=== PATIENT | male | born 1995 | race Caucasian/White ===

== ENCOUNTER 2022-05-07 21:43 | Emergency (ER) | payer OTHER, SELFPAY ==
[2022-05-07 21:43] VITALS: BP 133/79; PULSE 91; RESP 16; TEMP 36.6; O2SAT 99; BMI 19.5
--- NOTE | 2022-05-07 21:50 | RAD_ITS ---
STUDY: X-RAY - RIGHT HAND REASON FOR EXAM: Male, 27 years old. INJURY TECHNIQUE: 3 view(s) of the hand. COMPARISON: None. FINDINGS: Normal radiocarpal articulation. Normal distal radioulnar joint. Normal visualized carpal bones. Normal carpal articulations Normal carpometacarpal articulation of the thumb. Normal second through fifth carpometacarpal joints. There is an acute, mildly comminuted nondisplaced fracture involving the distal shaft of the fifth metacarpal, with mild palmar angulation of the distal metacarpal fracture fragment. No extension of the fracture line into the fifth metacarpal head or distal articulating surface is identified. Normal metacarpophalangeal joint of the thumb. Normal interphalangeal joint of the thumb. Normal proximal and distal phalanges of the thumb. Normal metacarpophalangeal joints of the second through fifth fingers. Normal proximal and distal interphalangeal joints of the second through fifth fingers. Normal phalanges of the second through fifth fingers. Mild soft tissue swelling surrounds the fifth metacarpal fracture. RAD/Hand Min 3 Views IMPRESSION: Acute boxer''s fracture of the distal right fifth metacarpal. Electronically Signed: Connor Santamaria MD at 22:16 EDT ,
--- NOTE | 2022-05-07 22:33 | EX.ED.UPPERE ---
HPI History of Present Illness Chief Complaint: Upper Extremity Injury Informant: patient Narrative Narrative: Patient had a mechanical slip and fall earlier today. He fell on his right hand and someone on the side or back. He has pain near the proximal aspect of the right small finger. He is right-hand dominant. He denies any other injury. He thought it was dislocated so he tried to straighten it. It is better but is still swollen and mildly sore. Rest makes it better and pressing on it makes it worse. Past medical history includes recurrent pancreatitis that has developed into diabetes., Mild high blood pressure No known allergies PFSH PFSH Home Medications hydrocodone-acetaminophen 5-325mg 5mg-325mg 1 tab PO Q6H PRN pain 3 days #10 tabs 05/07/22 [Rx Last Taken Unknown] Allergy/AdvReac Type Severity Reaction Status Date / Time No Known Allergies Allergy Verified 05/07/22 21:45 ROS ROS ED Eyes Eyes: Denies blurry vision or change in vision Cardiovascular Cardiovascular: Denies chest pain Gastrointestinal Gastrointestinal: Denies abdominal pain Musculoskeletal Musculoskeletal: Reports other Details: Right hand pain. See history of present illness. ; Denies back pain or neck pain Integumentary Denies Abrasions or rash Neurologic Neurologic: Denies paresthesias or weakness EXAM Physical Exam Const Vital Signs: 05/07/22 21:43 Temperature 98 F Temperature Source Temporal Pulse Rate 91 Respiratory Rate 16 Blood Pressure 133/79 H Blood Pressure Mean 97 Pulse Ox 99 Oxygen Delivery Method Room Air Positive well nourished and well developed General Appearance ED: well developed and NAD HEENT normocephalic and atraumatic Resp normal respiratory effort Extremity Extremity Narrative: There is obvious swelling to the dorsum of the right hand overlying the fifth metacarpal. I do not see angular or rotational deformity on exam. His range of motion is slightly limited mostly to due to discomfort. Capillary refill is intact. There is no break in the skin abrasion laceration etc. Neuro Neuro Narrative: No change in sensation. Range of motion is slightly limited due to discomfort. Sensorium / Orientation: alert and oriented to person Motor Exam: strength 5/5 throughout Skin Lesions: no lesions Rashes: no rashes Trauma: no lacerations or abrasions MDM MDM MDM Narrative Medical decision making narrative: Three-view x-ray of his right hand looked at by me and read by radiology. This shows 1/5 metacarpal fracture. There is mild angulation. Plan will be to splint and have follow-up in orthopedics. I explained that this fracture is proximal enough that occasionally they would do surgery on these but they oftentimes heal without. Procedure: Ulnar gutter splint placement I discussed plan and options with patient. We did place a 3 inch fiberglass ulnar gutter splint involving forearm hand and proximal aspect of fourth and fifth/ring and small finger. This was Frankie wrapped. He tolerated this well. He is rechecked afterwards and has good capillary refill. It has hardened completely and he does not feel as though it is too tight. Radiography Diagnostic Testing: Clinical Impression(s) from Imaging Studies Hand X-Ray 05/07/22 21:50 IMPRESSION: Acute boxer''s fracture of the distal right fifth metacarpal. Electronically Signed: Connor Santamaria MD at 22:16 EDT , Procedures Upper Extremity Splints Upper Extremity Splint: Orthoglass and Ulnar gutter Splint Fabrication: Fabricated Location: Right (See MDM) Discharge Plan Triage Chief Complaint: Upper Extremity Injury ED Provider: Terence Cortés Dx/Rx/DC Orders Clinical Impression: Closed fracture of fifth metacarpal bone of right hand Instructions: ED Boxer Fracture Prescriptions: New hydrocodone-acetaminophen 5-325 mg tablet 1 tab PO Q6H PRN (Reason: pain) 3 Days Qty: 10 0RF Primary Care Provider: NOT,DEFINED Referrals: Josesito Chaudhary DO [STAFF PHYSICIAN] - 3-5 Days NOT,DEFINED [Primary Care Provider] - Disposition Disposition: Home, Self Care
== END 2022-05-07 22:52 | disposition home or self-care (01) ==
LOC: ED 22:46
PROVIDERS: Emergency Provider Emergency Medicine; Visit Provider Emergency Medicine
DX: S62.356A Nondisplaced fracture of shaft of fifth metacarpal bone, right hand, initial encounter for closed fracture (principal); W01.0XXA Fall on same level from slipping, tripping and stumbling without subsequent striking against object, initial encounter
CPT/HCPCS: 29125; 73130; 99282

== ENCOUNTER 2025-10-11 19:06 | Emergency (ER) | payer OTHER, SELFPAY ==
[2025-10-11 19:07] VITALS: BP 118/61; PULSE 55; RESP 16; TEMP 36.4; O2SAT 100; BMI 21.6
--- NOTE | 2025-10-11 19:24 | EDS_ITS ---
HPI History of Present Illness Chief Complaint: Laceration Narrative Narrative: Patient is a 30-year-old male presenting to the emergency department for a forearm laceration. Patient states that he was working in the garage and his utility knife slipped causing him to cut his left wrist. He denies any other injuries. He is unsure when his last tetanus vaccine was. [facility] Medical History Type 3c diabetes mellitus Home Medications Medication Instructions Recorded Last Taken Type glucagon 1 mg solution for 1 mg IM UD PRN hypoglycemia 10/11/25 Unknown History injection (Glucagon Emergency Kit) insulin aspart (niacinamide) 0 - 90 unit subcut DAILY 10/11/25 10/11/25 History (U-100) 100 unit/mL subcutaneous solution (Fiasp U-100 Insulin) [id number] 2 cap PO BID 10/11/25 History (pork)36,000-114,000-180k unit capsule,del rel (Creon) [id number] 3 cap PO TIDCM 10/11/2509/17 History (pork)36,000-114,000-180k unit capsule,del rel (Creon) tirzepatide 2.5 mg/0.5 mL 2.5 mg subcut QWEEK 10/11/25 10/06/25 History subcutaneous pen injector (Mounjaro) Allergy/AdvReac Type Severity Reaction Status Date / Time No Known Allergies Allergy Verified 10/11/25 19:09 Surgical History History of partial gastrectomy Hx of splenectomy History of pancreatectomy Hx of cholecystectomy Social History Smoking Status: Former smoker ROS ROS ED ROS Narrative See HPI EXAM Physical Exam Narrative Exam Narrative: Vital signs: Reviewed General: Alert and oriented x 3. No acute distress HEENT: Head is normocephalic and atraumatic, sinuses nontender, pupils equal round and reactive. Nares are patent. Oropharynx and throat exams normal. Neck: Supple without lymphadenopathy nontender Cardiovascular: Regular rate and rhythm, no murmurs. No rubs or gallops. Normal S1 and S2 Respiratory: Clear to auscultation bilaterally. No wheezes, rales, rhonchi Abdominal: Soft and nontender. Normal bowel sounds. No guarding or rebound. Nonsurgical abdomen Extremities: Left radial pulse intact. Sensation and motor intact in the radial, median and ulnar distributions. There is a 3 cm linear laceration vertically to the distal ulnar volar portion of the forearm. This involves subcutaneous tissue. No involvement of deeper structures including tendons. There is active oozing from the wound. No pulsatile bleeding. No visible foreign body on wound exploration. The rest of the physical exam is unremarkable Const Vital Signs: 10/11/25 19:07 10/11/25 20:48 Temperature 97.6 F L 98 F Temperature Source Oral Pulse Rate 55 L 60 Respiratory Rate 16 16 Blood Pressure 118/61 120/71 Blood Pressure Mean 80 87 Pulse Ox 100 100 Oxygen Delivery Method Room Air MDM MDM MDM Narrative Medical decision making narrative: Patient is a 30-year-old male presenting to the emergency department for a wrist laceration. Patient was seen and examined. Vitals are stable. Patient resting bed comfortably no acute distress. Tetanus vaccine was updated. Wound was copiously irrigated by myself. Patient states that he accidentally cut his wrist with a utility knife, do not think he needs an x-ray to evaluate for any foreign body given the injury type. 2% lidocaine with epi was used for anesthetic. After anesthetic, wound was again explored with no foreign body seen. It is fairly superficial with no deep tendon involvement. Hemostasis was achieved after the lidocaine with epi was injected into the wound. 3 4.0 Ethilon simple interrupted sutures were placed without difficulty. Patient tolerated well. Dressing was applied by nursing staff. Patient was given wound care instructions including keeping wound clean and dry and watching for signs of infection which include erythema, purulent drainage, warmth or swelling. Was instructed to have the sutures removed in 7 to 10 days. All questions answered. Patient discharged from the Emergency Department. I do not feel that the patient's evaluation reveals any acute reason for admission at this time. I instructed them to either follow-up with their primary care physician or promptly return to the Emergency Department for reevaluation should symptoms worsen or new symptoms develop. I explained what symptoms would indicate the need to return to the emergency department. Shared decision making was used. The patient voiced understanding of the treatment plan and is agreeable with it. Clinical impression Forearm laceration History & Record Review Discussion w/independent historian: Patient and Family Discharge Plan Triage Chief Complaint: Laceration ED Provider: Adrianna Coffman Dx/Rx/DC Orders Clinical Impression: Forearm laceration Instructions: ED Laceration Extremity Prescriptions: No Action Glucagon Emergency Kit (human) 1 mg recon soln 1 mg IM UD PRN (Reason: hypoglycemia) Fiasp U-100 Insulin 100 unit/mL solution 0 - 90 unit subcut DAILY Patient Comments: VIA INSULIN PUMP Mounjaro 2.5 mg/0.5 mL pen injector 2.5 mg subcut QWEEK Patient Comments: FRIDAYS Creon 36,000-114,000- 180,000 unit capsule,delayed release(DR/EC) 3 cap PO TIDCM Patient Comments: 3 CAPS TIC CM AND 2 CAPS BID WITH SNACKS Creon 36,000-114,000- 180,000 unit capsule,delayed release(DR/EC) 2 cap PO BID Rx Instructions: 3 CAPS TIC CM AND 2 CAPS BID WITH SNACKS Primary Care Provider: Care Physician,No Primary Referrals: Agustina Major MD [Med Staff - Cert Pharmacy Tech, Internal Medicine] - As soon as possible NOT,DEFINED [Non-Staff, None] Activity Restrictions/Additional Instructions: Please watch the cut for signs of infection which include redness, drainage or warmth. You need to have sutures removed in 7 to 10 days. Keep the wound as clean and dry as you can. Your evaluation in the Emergency Department did not reveal any acute reason for admission. However, I want to emphasize that you may be early in the course of a disease process or illness even if it is not present. For this reason you should follow-up within 24 hours for reevaluation with either your primary care physician or if necessary back here in the Emergency Department. You should return to the Emergency Department immediately if your symptoms worsen or new symptoms develop. Print Language: Kiswahili Disposition Disposition: Home, Self Care Discharge Date/Time: 10/11/25 20:55
[2025-10-11] MEDS: Lidocaine 2% /Epi 1:100 (20ml) 20 ML VIAL 10 ML INFILT (19:30)
--- OUTSIDE RECORDS SUMMARY | 2025-10-11 19:50 | XMS RPT_ITS | CCD ---
Author Organization [facility] Care Team Providers Care Parking Manager Name Role Phone Unavailable Primary Care Provider SANTOS Carrillo Referring Unavailable SANTOS JONES Referring Unavailable ELIAS ELLISON Referring Unavailable Unavailable Primary Care Provider UnavailSANTOS Landeros Referring Unavailable PROVIDER, UNKNOWN Referring Unavailable PROVIDER, UNKNOWN Referring Unavailable PROVIDER, UNKNOWN Referring Unavailable PROVIDER, UNKNOWN Referring Unavailable ELIAS ELLISON Referring Unavailable SONDRA MEDRANO Attending Unavailable SANTOS JONES Attending Unavailable ELIAS ELLISON Attending Unavailable SANTOS JONES Attending Unavailable SANTOS JONES Attending Unavailable SONDRA MEDRANO Attending Unavailable SONDRA MEDRANO Referring Unavailable SONDRA MEDRANO Referring Unavailable SANTOS JONES Attending Unavailable Medications Current Medications Medication Drug Class(es) Dates Sig (Normalized) Sig (Original) amylase 144529 unt / lipase 30177 unt / protease [id number] unt delayed release oral capsule (20 sources) Start: 10-15-2021 End: 12-13-2024 ayhmhu-txfrgvhe-pzod ase (CREON) 36,000-114,000- 180,000 unit delayed release capsule Take 3 capsules by mouth three times a day with meals. 2 with snacks (total 10/day) 300 capsule 11 12/13/2024 Active Comment on above: Take 3 capsules by m outh three times daily with meals. 2 with snacks (total 10/day) ascorbic acid 500 mg oral tablet (20 sources) Vitamin C take 500 mg by mouth once daily ascorbic acid (VITAMIN C ORAL) Take 500 mg by mouth once daily. Active Comment on above: Take 500 mg by mouth once daily. Blood-Glucose Meter (ONETOUCH ULTRA2 METER) (4 sources) Start: 05-18-2025 Blood-Glucose Meter (ONETOUCH ULTRA2 METER) Indications: Type 1 diabetes mellitus with hyperglycemia (HCC) Use to check sugars 3 times daily 1 each 05/18/2025 Active Blood-Glucose Sensor (DEXCOM G7 SENSOR) carmle (20 sources) Start: 01-20-2025 Blood-Glucose Sensor (DEXCOM G7 SENSOR) carmel Indications: Poorly controlled type 1 diabetes mellitus with complication (HCC) , Insulin pump status Use 1 sensor every 10 days 9 Each 1 01/20/2025 Active Start: 10-26-2024 End: 01-19-2025 Blood-Glucose Sensor (DEXCOM G7 SENSOR) carmel Indications: Poorly controlled type 1 diabetes mellitus with complication (HCC) , Insulin pump status Use 1 sensor every 10 days 9 Each 1 10/26/2024 01/19/2025 Discontinued Start: 10-26-2024 Blood-Glucose Sensor (DEXCOM G7 SENSOR) carmel Indications: Poorly controlled type 1 diabetes mellitus with complication (HCC) , Insulin pump status Use 1 sensor every 10 days 9 Each 10/26/2024 Active enteric contrast (will be provided with radiology test) (2 sources) Start: 12-13-2024 End: 12-14-2024 enteric contrast (will be provided with radiology test) For CT CHESTABD/PEL W IVCON Routine order Administer, As Directed One Time Only, via Oral, Rectal, both Oral and Rectal, Enteric Tube, Stoma or Indwelling Catheter, Enteric Contrast as designated per enteric contrast guidelines 1 Each 12/13/2024 12/14/2024 Active glucagon (rdna) 1 mg injection (20 sources) Antihypoglycemic Agent Start: 10-27-2023 End: 05-16-2025 glucagon (GLUCAGON EMERGENCY KIT, HUMAN,) 1 mg injection Indications: Type 1 diabetes mellitus with hyperglycemia (HCC) Inject (1)one mg for insulin shock. 2 each 05/16/2025 Active Comment on above: Inject (1)one mg for insulin shock. insulin aspart, human 100 unt/ml injectable solution (20 sources) Insulin Analog Start: 04-04-2024 End: 07-13-2025 insulin aspart U-100 (NOVOLOG U-100 INSULIN ASPART) 100 unit/mL Indications: Type 1 diabetes mellitus with hyperglycemia (HCC) INJECT 100 UNITS DAILY VIA INSULIN PUMP. 40 mL 07/13/2025 Active Start: 02-01-2024 End: 04-01-2024 insulin aspart U-100 (NOVOLO G U-100 INSULIN ASPART) 100 unit/mL Indications: Type 1 diabetes mellitus with hyperglycemia (HCC) TOTAL DAILY DOSE OF 100 UNITS VIA INSULIN PUMP EVERY DAY 40 mL 0 02/01/2024 04/01/2024 Discontinued Start: 12-01-2023 End: 01-29-2024 insulin aspart U-100 (NOVOLO G U-100 INSULIN ASPART) 100 unit/mL Indications: Type 1 diabetes mellitus with hyperglycemia (HCC) TOTAL DAILY DOSE OF 100 UNITS VIA INSULIN PUMP EVERY DAY 40 mL 0 12/01/2023 01/29/2024 Discontinued Start: 10-07-2023 insulin aspart U-100 (NOVOLOG U-100 INSULIN ASPART) 100 unit/mL Indications: Type 1 diabetes mellitus with hyperglycemia (HCC) TOTAL DAILY DOSE OF 100 UNITS VIA INSULIN PUMP EVERY DAY 40 mL 0 10/07/2023 Active Start: 05-12-2023 End: 08-05-2023 insulin aspart U-100 (NOVOLO G U-100 INSULIN ASPART) 100 unit/mL Indications: Type 1 diabetes mellitus with hyperglycemia (HCC) TOTAL DAILY DOSE OF 100 UNITS VIA INSULIN PUMP EVERY DAY 40 mL 0 08/05/2023 Active Start: 04-17-2023 End: 05-12-2023 insulin aspart U-100 (NOVOLO G FLEXPEN U-100 INSULIN) 100 unit/mL (3 mL) Indications: Type 1 diabetes mellitus with hyperglycemia (HCC) Inject subcutaneously. TDD - 100 units. 30 mL 1 05/12/2023 05/12/2023 Discontinued Start: 12-07-2020 End: 01-27-2025 insulin aspart, niacinamide, (FIASP FLEXTOUCH U-100 INSULIN) 100 unit/mL (3 mL) pen Indications: Post-pancreatectomy diabetes (HCC) , Type 1 diabetes mellitus with hyperglycemia (HCC) Take 2-14 units before lunch and dinner 5 Pen 2 12/07/2020 01/27/2025 Discontinued Comment on above: Take 2-14 units befo re lunch and dinner Inject subcutaneousl y. TDD - 100 units. Total daily dose 100 units in the insulin pump TOTAL DAILY DOSE OF 100 UNITS VIA INSULIN PUMP EVERY DAY insulin pump subcutaneous cartridge (OMNIPOD 5 G6-G7 PODS, GEN 5,) crtg (5 sources) Start: 05-16-2025 insulin pump subcutaneous cartridge (OMNIPOD 5 G6-G7 PODS, GEN 5,) crtg Indications: Poorly controlled type 1 diabetes mellitus with complication (HCC) , Insulin pump status Use 1 every 3 days 30 each 1 05/16/2025 Active iv contrast (will be provided with radiology test) (3 sources) Start: 01-10-2025 End: 01-11-2025 iv contrast (will be provided with radiology test) CT PANCREAS W Inject, intravenously, once for 1 dose.No IV access, insert saline lock prior to the beginning of sedation, infusion, injection of imaging exam. Discontinue saline lock post exam. If Pt. has a central line or IVAD, may access for administration according to line specific nursing protocol. Once exam is complete flush line and de-access according to line specific nursing protocol in the CT contrast administration guidelines link. 1 Each 01/10/2025 01/11/2025 Active Start: 12-13-2024 End: 12-14-2024 iv contrast (will be provide d with radiology test) CT Chest ABD/PEL-Inject, intravenously, once for 1 dose.No IV access, insert saline lock prior to the beginning of sedation, infusion, injection of imaging exam. Discontinue saline lock post exam. If Pt. has a central line or IVAD, may access for administration according to line specific nursing protocol. Once exam is complete flush line and de-access according to line specific nursing protocol in the CT contrast administration guidelines link. 1 Each 12/13/2024 12/14/2024 Active Multivitamin capsule (20 sources) take 1 capsule by mo uth once daily Multivitamin capsule Take 1 capsule by mouth once daily. Active take 1 capsule by mouth once donny ly Multivitamin capsule Take 1 capsule by mouth once daily. 0 Active Comment on above: Take 1 capsule by mo uth once daily. Completed/Discontinued Medications Medication Drug Class(es) Dates Sig (Normalized) Sig (Original) Blood-Glucose Sensor (DEXCOM G6 SENSOR) carmel (20 sources) Start: 07-25-2024 End: 10-26-2024 Blood-Glucose Sensor (DEXCOM G6 SENSOR) carmel Indications: Type 1 diabetes mellitus with hyperglycemia (HCC) Apply new sensor every ten (10) days to abdomen. 9 Each 3 07/25/2024 10/26/2024 Discontinued Start: 07-25-2024 Blood-Glucose Sensor (DEXCOM G6 SENSOR) carmel Indications: Type 1 diabetes mellitus with hyperglycemia (HCC) Apply new sensor every ten (10) days to abdomen. 9 Each 3 07/25/2024 Active Start: 10-07-2023 End: 07-24-2024 Blood-Glucose Sensor (DEXCOM G6 SENSOR) carmel Indications: Type 1 diabetes mellitus with hyperglycemia (HCC) Apply new sensor every ten (10) days to abdomen. 9 Each 3 10/07/2023 07/24/2024 Discontinued Start: 10-07-2023 Blood-Glucose Sensor (DEXCOM G6 SENSOR) carmel Indications: Type 1 diabetes mellitus with hyperglycemia (HCC) Apply new sensor every ten (10) days to abdomen. 9 Each 3 10/07/2023 Active Start: 05-12-2023 Blood-Glucose Sensor (DEXCOM G6 SENSOR) carmel Indications: Type 1 diabetes mellitus with hyperglycemia (HCC) Apply new sensor every ten (10) days to abdomen. 9 Each 3 05/12/2023 Active Start: 03-23-2023 End: 05-12-2023 Blood-Glucose Sensor (DEXCOM G6 SENSOR) carmel Indications: Type 1 diabetes mellitus with hyperglycemia (HCC) Apply new sensor every ten (10) days to abdomen. 9 Each 3 03/23/2023 05/12/2023 Discontinued Start: 03-23-2023 Blood-Glucose Sensor (DEXCOM G6 SENSOR) carmel Indications: Type 1 diabetes mellitus with hyperglycemia (HCC) Apply new sensor every ten (10) days to abdomen. 9 Each 3 03/23/2023 Active Start: 01-15-2023 End: 03-23-2023 Blood-Glucose Sensor (DEXCOM G6 SENSOR) carmel Indications: Type 1 diabetes mellitus with hyperglycemia (HCC) Apply new sensor every ten (10) days to abdomen. 9 Each 3 01/15/2023 03/23/2023 Discontinued Start: 01-15-2023 Blood-Glucose Sensor (DEXCOM G6 SENSOR) carmel Indications: Type 1 diabetes mellitus with hyperglycemia (HCC) Apply new sensor every ten (10) days to abdomen. 9 Each 3 01/15/2023 Active Comment on above: Apply new sensor christine ry ten (10) days to abdomen. Blood-Glucose Transmitter (DEXCOM G6 TRANSMITTER) carmel (20 sources) Start: 07-25-2024 End: 10-26-2024 Blood-Glucose Transmitter (DEXCOM G6 TRANSMITTER) carmel Indications: Type 1 diabetes mellitus with hyperglycemia (HCC) Apply new transmitter every 90 days. Clean transmitter with an alcohol swab with each sensor change. 1 Each 3 07/25/2024 10/26/2024 Discontinued Start: 07-25-2024 Blood-Glucose Transmitter (DEXCOM G6 TRANSMITTER) carmel Indications: Type 1 diabetes mellitus with hyperglycemia (HCC) Apply new transmitter every 90 days. Clean transmitter with an alcohol swab with each sensor change. 1 Each 3 07/25/2024 Active Start: 10-07-2023 End: 07-24-2024 Blood-Glucose Transmitter (D EXCOM G6 TRANSMITTER) carmel Indications: Type 1 diabetes mellitus with hyperglycemia (HCC) Apply new transmitter every 90 days. Clean transmitter with an alcohol swab with each sensor change. 1 Each 3 10/07/2023 07/24/2024 Discontinued Start: 10-07-2023 Blood-Glucose Transmitter (DEXCOM G6 TRANSMITTER) carmel Indications: Type 1 diabetes mellitus with hyperglycemia (HCC) Apply new transmitter every 90 days. Clean transmitter with an alcohol swab with each sensor change. 1 Each 3 10/07/2023 Active Start: 05-12-2023 Blood-Glucose Transmitter (DEXCOM G6 TRANSMITTER) carmel Indications: Type 1 diabetes mellitus with hyperglycemia (HCC) Apply new transmitter every 90 days. Clean transmitter with an alcohol swab with each sensor change. 1 Each 3 05/12/2023 Active Start: 04-20-2023 End: 05-12-2023 Blood-Glucose Transmitter (D EXCOM G6 TRANSMITTER) carmel Indications: Type 1 diabetes mellitus with hyperglycemia (HCC) Apply new transmitter every 90 days. Clean transmitter with an alcohol swab with each sensor change. 1 Each 3 04/20/2023 05/12/2023 Discontinued Start: 04-20-2023 Blood-Glucose Transmitter (DEXCOM G6 TRANSMITTER) carmel Indications: Type 1 diabetes mellitus with hyperglycemia (HCC) Apply new transmitter every 90 days. Clean transmitter with an alcohol swab with each sensor change. 1 Each 3 04/20/2023 Active Start: 01-15-2023 End: 04-20-2023 Blood-Glucose Transmitter (D EXCOM G6 TRANSMITTER) carmel Indications: Type 1 diabetes mellitus with hyperglycemia (HCC) Apply new transmitter every 90 days. Clean transmitter with an alcohol swab with each sensor change. 1 Each 3 01/15/2023 04/20/2023 Discontinued Start: 01-15-2023 Blood-Glucose Transmitter (DEXCOM G6 TRANSMITTER) carmel Indications: Type 1 diabetes mellitus with hyperglycemia (HCC) Apply new transmitter every 90 days. Clean transmitter with an alcohol swab with each sensor change. 1 Each 3 01/15/2023 Active Comment on above: Apply new transmitte r every 90 days. Clean transmitter with an alcohol swab with each sensor change. flash glucose sensor (FREESTYLE LAURA 14 DAY SENSOR) kit (20 sources) Start: 03-04-2022 End: 10-26-2024 flash glucose sensor (FREESTYLE LAURA 14 DAY SENSOR) kit Indications: Type 1 diabetes mellitus with hyperglycemia (HCC) For use with reader, 4xdaily 2 Kit 03/04/2022 10/26/2024 Discontinued Start: 03-04-2022 flash glucose sensor (FREESTYLE LAURA 14 DAY SENSOR) kit Indications: Type 1 diabetes mellitus with hyperglycemia (HCC) For use with reader, 4xdaily 2 Kit 03/04/2022 Active Start: 01-20-2022 flash glucose sensor (FREESTYLE LAURA 14 DAY SENSOR) kit Indications: Post-pancreatectomy diabetes (HCC) For use with reader, 4xdaily 4 Kit 01/20/2022 Active Comment on above: For use with reader, 4xdaily 3 ml insulin glargine 100 unt/ml pen injector (20 sources) Insulin Analog Start: 08-05-2022 insulin glargine (LANTUS SOLOSTAR, BASAGLAR KWIKPEN) 100 unit/mL (3 mL) Indications: Post-pancreatectomy diabetes (HCC) , Type 1 diabetes mellitus with hyperglycemia (HCC) 18 units in evening, max daily dose 25 units 5 Each 08/05/2022 Active Start: 06-17-2021 End: 02-10-2025 insulin glargine (LANTUS SUPRIYA OSTAR, BASAGLAR KWIKPEN) 100 unit/mL (3 mL) Indications: Post-pancreatectomy diabetes (HCC) , Type 1 diabetes mellitus with hyperglycemia (HCC) 18 units in evening, max daily dose 25 units 5 Each 08/05/2022 02/10/2025 Discontinued Comment on above: 18 units in evening, max daily dose 25 units 3 ml insulin lispro 100 unt/ml pen injector (4 sources) Insulin Analog Start: 03-04-2022 insulin lispro (HUMALOG KWIKPEN) 100 unit/mL Indications: Type 1 diabetes mellitus with hyperglycemia (HCC) inject 5-30 units with meals up to 100 units a day 10 Pen 5 03/04/2022 Active Start: 07-25-2021 insulin lispro (HUMALOG KWIKPEN) 100 unit/mL inject 5-30 units with meals up to 100 units a day 20 Pen 3 07/25/2021 Active Comment on above: inject 5-30 units wi th meals up to 100 units a day insulin lispro (HUMALOG KWIKPEN) 100 unit/mL (6 sources) Start: 03-04-2022 insulin lispro (HUMALOG KWIKPEN) 100 unit/mL Indications: Type 1 diabetes mellitus with hyperglycemia (HCC) inject 5-30 units with meals up to 100 units a day 10 Pen 5 03/04/2022 Active Comment on above: inject 5-30 units wi th meals up to 100 units a day insulin pump cart,auto,BT,G6/7 (OMNIPOD 5 G6-G7 PODS, GEN 5,) crtg (16 sources) Start: 01-20-2025 End: 05-16-2025 insulin pump cart,auto,BT,G6/7 (OMNIPOD 5 G6-G7 PODS, GEN 5,) crtg Indications: Poorly controlled type 1 diabetes mellitus with complication (HCC) , Insulin pump status Use 1 every 3 days 30 Each 1 01/20/2025 05/16/2025 Discontinued Start: 01-20-2025 insulin pump c art,auto,BT,G6/7 (OMNIPOD 5 G6-G7 PODS, GEN 5,) crtg Indications: Poorly controlled type 1 diabetes mellitus with complication (HCC) , Insulin pump status Use 1 every 3 days 30 Each 1 01/20/2025 Active Start: 10-26-2024 End: 01-19-2025 insulin pump cart,auto,BT,G6 /7 (OMNIPOD 5 G6-G7 PODS, GEN 5,) crtg Indications: Poorly controlled type 1 diabetes mellitus with complication (HCC) , Insulin pump status Use 1 every 3 days 30 Each 1 10/26/2024 01/19/2025 Discontinued Start: 10-26-2024 insulin pump c art,auto,BT,G6/7 (OMNIPOD 5 G6-G7 PODS, GEN 5,) crtg Indications: Poorly controlled type 1 diabetes mellitus with complication (HCC) , Insulin pump status Use 1 every 3 days 30 Each 1 10/26/2024 Active OMNIPOD 5 G6 INTRO KIT, GEN 5, crtg (20 sources) Start: 07-25-2024 End: 10-26-2024 OMNIPOD 5 G6 INTRO KIT, GEN 5, crtg Indications: Type 1 diabetes mellitus with hyperglycemia (HCC) Inject 1 Each subcutaneously as directed. 1 Each 07/25/2024 10/26/2024 Discontinued Start: 07-25-2024 OMNIPOD 5 G6 I NTRO KIT, GEN 5, crtg Indications: Type 1 diabetes mellitus with hyperglycemia (HCC) Inject 1 Each subcutaneously as directed. 1 Each 07/25/2024 Active Start: 05-12-2023 End: 07-24-2024 OMNIPOD 5 G6 INTRO KIT, GEN 5, crtg Indications: Type 1 diabetes mellitus with hyperglycemia (HCC) Inject 1 Each subcutaneously as directed. 1 Each 05/12/2023 07/24/2024 Discontinued Start: 05-12-2023 OMNIPOD 5 G6 I NTRO KIT, GEN 5, crtg Indications: Type 1 diabetes mellitus with hyperglycemia (HCC) Inject 1 Each subcutaneously as directed. 1 Each 0 05/12/2023 Active Start: 01-15-2023 End: 05-12-2023 OMNIPOD 5 G6 INTRO KIT, GEN 5, crtg Indications: Type 1 diabetes mellitus with hyperglycemia (HCC) Inject 1 Each subcutaneously as directed. 1 Each 0 01/15/2023 05/12/2023 Discontinued Start: 01-15-2023 OMNIPOD 5 G6 I NTRO KIT, GEN 5, crtg Indications: Type 1 diabetes mellitus with hyperglycemia (HCC) Inject 1 Each subcutaneously as directed. 1 Each 0 01/15/2023 Active Comment on above: Inject 1 Each subcut aneously as directed. OMNIPOD 5 G6 PODS, GEN 5, crtg (20 sources) Start: 07-25-2024 End: 10-26-2024 OMNIPOD 5 G6 PODS, GEN 5, crtg Indications: Type 1 diabetes mellitus with hyperglycemia (HCC) USE 1 POD EVERY 72 HOURS 30 Each 07/25/2024 10/26/2024 Discontinued Start: 07-25-2024 OMNIPOD 5 G6 P ODS, GEN 5, crtg Indications: Type 1 diabetes mellitus with hyperglycemia (HCC) USE 1 POD EVERY 72 HOURS 30 Each 07/25/2024 Active Start: 01-29-2024 End: 07-25-2024 OMNIPOD 5 G6 PODS, GEN 5, cr tg Indications: Type 1 diabetes mellitus with hyperglycemia (HCC) USE ONE POD EVERY 72 HOURS. 30 Each 1 01/29/2024 07/25/2024 Discontinued Start: 01-29-2024 OMNIPOD 5 G6 P ODS, GEN 5, crtg Indications: Type 1 diabetes mellitus with hyperglycemia (HCC) USE ONE POD EVERY 72 HOURS. 30 Each 1 01/29/2024 Active Start: 12-29-2023 OMNIPOD 5 G6 P ODS, GEN 5, crtg Indications: Type 1 diabetes mellitus with hyperglycemia (HCC) USE ONE POD EVERY 72 HOURS. 10 Each 0 12/29/2023 Active Start: 12-01-2023 End: 12-29-2023 OMNIPOD 5 G6 PODS, GEN 5, cr tg Indications: Type 1 diabetes mellitus with hyperglycemia (HCC) USE ONE POD EVERY 72 HOURS. 10 Each 0 12/01/2023 12/29/2023 Discontinued Start: 10-13-2023 OMNIPOD 5 G6 P ODS, GEN 5, crtg Indications: Type 1 diabetes mellitus with hyperglycemia (HCC) USE 1 POD EVERY 72 HOURS 10 Each 0 10/13/2023 Active Start: 10-07-2023 End: 10-26-2024 OMNIPOD 5 G6 PODS, GEN 5, cr tg Indications: Type 1 diabetes mellitus with hyperglycemia (HCC) Inject 1 Each subcutaneously every 72 hours. (use one pod every 72 hours) 10 Each 10/07/2023 10/26/2024 Discontinued Start: 10-07-2023 OMNIPOD 5 G6 P ODS, GEN 5, crtg Indications: Type 1 diabetes mellitus with hyperglycemia (HCC) Inject 1 Each subcutaneously every 72 hours. (use one pod every 72 hours) 10 Each 10/07/2023 Active Start: 10-07-2023 OMNIPOD 5 G6 P ODS, GEN 5, crtg Indications: Type 1 diabetes mellitus with hyperglycemia (HCC) Inject 1 Each subcutaneously every 72 hours. (use one pod every 72 hours) 10 Each 0 10/07/2023 Active Start: 08-07-2023 OMNIPOD 5 G6 P ODS, GEN 5, crtg Indications: Type 1 diabetes mellitus with hyperglycemia (HCC) USE 1 POD EVERY 72 HOURS 10 Each 0 08/07/2023 Active Start: 05-12-2023 End: 10-26-2024 OMNIPOD 5 G6 PODS, GEN 5, cr tg Indications: Type 1 diabetes mellitus with hyperglycemia (HCC) Inject 1 Each subcutaneously every 72 hours. (use one pod every 72 hours) 6 Each 1 05/12/2023 10/26/2024 Discontinued Start: 05-12-2023 End: 08-07-2023 OMNIPOD 5 G6 PODS, GEN 5, cr tg Indications: Type 1 diabetes mellitus with hyperglycemia (HCC) USE 1 POD EVERY 72 HOURS 5 Each 5 05/12/2023 08/07/2023 Discontinued Start: 05-12-2023 OMNIPOD 5 G6 P ODS, GEN 5, crtg Indications: Type 1 diabetes mellitus with hyperglycemia (HCC) USE 1 POD EVERY 72 HOURS 5 Each 5 05/12/2023 Active Start: 05-12-2023 OMNIPOD 5 G6 P ODS, GEN 5, crtg Indications: Type 1 diabetes mellitus with hyperglycemia (HCC) Inject 1 Each subcutaneously every 72 hours. (use one pod every 72 hours) 6 Each 1 05/12/2023 Active Start: 04-20-2023 End: 05-12-2023 OMNIPOD 5 G6 PODS, GEN 5, cr tg Indications: Type 1 diabetes mellitus with hyperglycemia (HCC) USE 1 POD EVERY 72 HOURS 5 Each 0 04/20/2023 05/12/2023 Discontinued Start: 04-20-2023 End: 05-12-2023 OMNIPOD 5 G6 PODS, GEN 5, cr tg Indications: Type 1 diabetes mellitus with hyperglycemia (HCC) Inject 1 Each subcutaneously every 72 hours. (use one pod every 72 hours) 6 Each 1 04/20/2023 05/12/2023 Discontinued Start: 04-20-2023 OMNIPOD 5 G6 P ODS, GEN 5, crtg Indications: Type 1 diabetes mellitus with hyperglycemia (HCC) Inject 1 Each subcutaneously every 72 hours. (use one pod every 72 hours) 6 Each 1 04/20/2023 Active Start: 04-20-2023 OMNIPOD 5 G6 P ODS, GEN 5, crtg Indications: Type 1 diabetes mellitus with hyperglycemia (HCC) USE 1 POD EVERY 72 HOURS 5 Each 0 04/20/2023 Active Start: 03-23-2023 End: 04-20-2023 OMNIPOD 5 G6 PODS, GEN 5, cr tg Indications: Type 1 diabetes mellitus with hyperglycemia (HCC) Inject 1 Each subcutaneously every 72 hours. (use one pod every 72 hours) 6 Each 1 03/23/2023 04/20/2023 Discontinued Start: 03-23-2023 OMNIPOD 5 G6 P ODS, GEN 5, crtg Indications: Type 1 diabetes mellitus with hyperglycemia (HCC) Inject 1 Each subcutaneously every 72 hours. (use one pod every 72 hours) 6 Each 1 03/23/2023 Active Start: 01-15-2023 End: 03-23-2023 OMNIPOD 5 G6 PODS, GEN 5, cr tg Indications: Type 1 diabetes mellitus with hyperglycemia (HCC) Inject 1 Each subcutaneously every 72 hours. (use one pod every 72 hours) 6 Each 1 01/15/2023 03/23/2023 Discontinued Start: 01-15-2023 OMNIPOD 5 G6 P ODS, GEN 5, crtg Indications: Type 1 diabetes mellitus with hyperglycemia (HCC) Inject 1 Each subcutaneously every 72 hours. (use one pod every 72 hours) 6 Each 1 01/15/2023 Active Comment on above: Inject 1 Each subcut aneously every 72 hours. (use one pod every 72 hours) USE 1 POD EVERY 72 H OURS USE ONE POD EVERY 72 HOURS. 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] Onset: 9 09-13-2019 Chronic Diabetes mellitus with complications (20 sources) Hyperglycemia due to type 1 diabetes mellitus; Translations: [Type 1 diabetes mellitus with hyperglycemia] Onset: Chronic Diabetes mellitus without complication (20 sources) Patient encounter status; Translations: [Type 2 diabetes mellitus without complications] Onset: 9 Resolved: 9 10-27-2023 Chronic Diabetes mellitus without complication (9 sources) Insulin pump present; Translations: [Presence of insulin pump (external) (internal)] Onset: 5 10-27-2023 Episodic Nutritional deficiencies (20 sources) Deficiency of macronutrients; Translations: [Unspecified severe protein-calorie malnutrition] Onset: 9 09-20-2019 Chronic Other bone disease and musculoskeletal deformities (1 source) Disorder of bone; Translations: [Other specified disorders of bone density and structure, unspecified site] 10-12-2023 Episodic Other connective tissue disease (1 source) Decrease in height; Translations: [Loss of height] 10-12-2023 Episodic Other lower respiratory disease (20 sources) Multiple nodules of lung; Translations: [Other nonspecific abnormal finding of lung field] Onset: 9 Resolved: 9 09-13-2019 Episodic Other lower respiratory disease (1 source) Other nonspecific abnormal finding of lung field; Translations: [Lung nodules] Onset: 5 Episodic Other upper respiratory infections (1 source) Sore throat symptom; Translations: [Acute pharyngitis, unspecified] Episodic Pancreatic disorders (not diabetes) (20 sources) Chronic pancreatitis; Translations: [Other chronic pancreatitis] Onset: 9 09-18-2019 Chronic Phlebitis; thrombophlebitis and thromboembolism (4 sources) Portal vein thrombosis; Translations: [Portal vein thrombosis] Onset: 5 01-10-2025 Episodic Past or Other Problems Problem Classification Problem Date Documented Da te Episodic/Chronic Abdominal pain (20 sources) Left upper quadrant pain; Translations: [Left upper quadrant pain] Onset: 11-20-2018 Resolved: 04-12-2019 09-13-2019 Episodic Complications of surgical procedures or medical care (5 sources) Complication of procedure; Translations: [Complication of surgical and medical care, unspecified, initial encounter] Onset: 12-13-2024 12-13-2024 Episodic Diseases of white blood cells (20 sources) Leukocytosis; Translations: [Elevated white blood cell count, unspecified] Onset: 09-13-2019 Resolved: 09-13-2019 09-13-2019 Chronic Influenza (20 sources) Influenza due to Influenza A virus; Translations: [Influenza due to other identified influenza virus with other respiratory manifestations] Onset: 11-17-2017 Resolved: 09-13-2019 09-13-2019 Episodic Intestinal obstruction without hernia (20 sources) Obstruction of small intestine co-occurrent and due to peritoneal adhesions; Translations: [Intestinal adhesions [bands], unspecified as to partial versus complete obstruction] Onset: 07-19-2019 Resolved: 09-13-2019 09-13-2019 Episodic Other bone disease and musculoskeletal deformities (1 source) Other specified disorders of bone density and structure, unspecified site; Translations: [Bone loss] Onset: 12-01-2023 Episodic Other disorders of stomach and duodenum (20 sources) Pyloric obstruction; Translations: [Adult hypertrophic pyloric stenosis] Onset: 09-17-2019 09-17-2019 Episodic Other gastrointestinal disorders (20 sources) Intra-abdominal collection; Translations: [Other ascites] Onset: 09-14-2019 09-14-2019 Episodic Other liver diseases (20 sources) Elevated liver enzymes level; Translations: [Abnormal levels of other serum enzymes] Onset: 09-13-2019 09-13-2019 Episodic Other screening for suspected conditions (not mental disorders or infectious disease) (7 sources) Patient encounter status; Translations: [Encounter for screening for osteoporosis] Onset: 12-01-2023 10-12-2023 Episodic Pancreatic disorders (not diabetes) (20 sources) Acute on chronic pancreatitis; Translations: [Acute pancreatitis without necrosis or infection, unspecified] Onset: 11-17-2017 Resolved: 04-12-2019 04-12-2019 Episodic Residual codes; unclassified (20 sources) Delirium; Translations: [Disorientation, unspecified] Onset: 03-22-2019 Resolved: 09-13-2019 09-13-2019 Episodic Results Test Name Value Interpretation Reference Range Facility [facility] 07-21-2025 CNOV Office Visit (PULMWS ) -------- VILMA RANKIN ([id number]) 1995 M Date Time Provider Department 07/21/25 2:45 PM SONDRA MEDRANO During your visit today, we recorded the following information about you: Pulse Blood pressure Weight Height 71/minute 145/81 76.3 kg 1.803 m Sondra Medrano MD 07/21/2025 3:11 PM Signed . [facility] [place] Note Patient name: Vilma Rankin PCP: No primary care provider on file. Referring physician: Elias Nichole MD CC: lung nodules HPI: Vilma Rankin 30 year old male never smoker with chronic pancreatitis s/p pancreatectomy, splenectomy and auto islet cell transplant 2019, type 1 diabetes, osteoporosis, CFTR/CSSR mutation and pulmonary nodules. Has history of nodules dating back to 2018, majority were present at that time. Recent abdominal CT noted nodules which prompted full chest CT showed more nodules compared to 2018 (although this was a CTA) and increased interfissural nodularity. Repeated CT which he presents today to review. Stable nodules, no new nodules, right intrapulmonary lymph nodes have almost disappeared. No respiratory symptoms. Imaging / Diagnostic Studies: DATE OF EXAM: Jun 19 2025 3:04PM [facility] 0541 - CT CHEST WO IVCON / [facility] 0541 - CT CHEST IVCON / Comparison: 01/05/2025 RESULT: Limitations: None. Lines, tubes, and devices: None. Lung parenchyma and airways: Again seen are multiple pulmonary nodules, many of which are stable. For example, there is a stable, approximately 7 mm subpleural nodule within the posterior segment of the right upper lobe (series 5, image #73). Other pulmonary nodules have improved in size in the interval. For example, a nodular densities seen adjacent to the fissures have improved in size. For example, a nodular density seen adjacent to the right major fissure currently measures approximately 5 mm in short axis dimension, previously 7 mm (series 5, image #117). No new pulmonary nodule is identified on today's examination. There is no pneumothorax or endobronchial lesion. Pleural space: There is no pleural effusion. Lower neck, lymph nodes, and mediastinum: Prominent soft tissue density in the anterior mediastinum likely relates to residual or reactive thymic tissue. There are no pathologically enlarged axillary lymph nodes. Prominent, less than 1 cm mediastinal and bilateral hilar lymph nodes are likely reactive. Heart, pericardium, and thoracic vessels: The heart is normal in size. No significant pericardial effusion. Bones and soft tissues: There is no destructive bone lesion. Upper abdomen: Contents are seen within the distended stomach. Stable postoperative changes. Moderate to large stool burden. Again seen is pneumobilia. IMPRESSION: Multiple pulmonary nodules, the majority of which are stable. The nodules adjacent to the fissures are improved in size in the interval. No new pulmonary nodule is identified. Prominent, less than 1 cm mediastinal and bilateral hilar lymph nodes, likely reactive. Chest CT 2018: PAST MEDICAL HISTORY Diagnosis Date Delirium 03/22/2019 Diabetes mellitus type 1, controlled, without complications (HCC) 06/29/2019 Influenza A 11/17/2017 Insulin dependent diabetes mellitus Lung nodules 09/13/2019 Malnutrition of moderate degree (HCC) 11/22/2018 Pancreatitis (HCC) 2017 (Nov) Small bowel obstruction due to adhesions (HCC) 07/19/2019 ALLERGIES No Known Allergies insulin aspart U-100 (NOVOLOG U-100 INSULIN ASPART) 100 unit/mL INJECT 100 UNITS DAILY VIA INSULIN PUMP. Lancets (60mo ULTRASOFT LANCETS) Use to check sugars 3 times daily blood sugar diagnostic (Glide HealthUCH ULTRA TEST) test strip Use to check sugars 3 times daily Blood-Glucose Meter (60mo ULTRA2 METER) Use to check sugars 3 times daily glucagon (GLUCAGON EMERGENCY KIT, HUMAN,) 1 mg injection Inject (1)one mg for insulin shock. insulin pump subcutaneous cartridge (OMNIPOD 5 G6-G7 PODS, GEN 5,) crtg Use 1 every 3 days Lancing Device with Lancets (ACCU-CHEK FASTCLIX LANCING DEV) Use to check sugars 4 times daily Blood-Glucose Sensor (DEXCOM G7 SENSOR) carmel Use 1 sensor every 10 days fxjuog-rnyoobud-aqscvnv (CREON) 36,000-114,000- 180,000 unit delayed release capsule Take 3 capsules by mouth three times a day with meals. 2 with snacks (total 10/day) Multivitamin capsule Take 1 capsule by mouth once daily. ascorbic acid (VITAMIN C ORAL) Take 500 mg by mouth once daily. SOCIAL HISTORY[1] FAMILY HISTORY Problem Relation Age of Onset Cancer Mother breast cancer other (Other) Other Maunt x2- breast cancer PAST SURGICAL HISTORY Procedure Laterality Date ESOPHAGOGASTRODUODENOSCO PY TRANSORAL DIAGNOSTIC 04/26/2020 EGD ISLET CELL TRANSPLANT LAPARCOPIC LYSIS OF ADHESIONS For small bowel obstruction OTHER (more content not included)... Normal [facility] CT CHEST WO IVCONon 06-19-[address] CHEST WO IVCON * * *Final Report* * * DATE OF EXAM: Jun 19 2025 3:04PM [facility] 0541 - CT CHEST WO IVCON / PROCEDURE REASON: Lung nodules * * * * Physician Interpretation * * * * EXAMINATION: CHEST CT WITHOUT CONTRAST CLINICAL HISTORY: Lung nodules Technique: Spiral CT acquisition of the chest from the thoracic inlet to the upper abdomen without contrast. MQ: CTCWO_6 CT Radiation dose: Integrated Dose-length product (DLP) for this visit = 204 mGy*cm CT Dose Reduction Employed: Automated exposure control(AEC) and iterative recon Comparison: 01/05/2025 RESULT: Limitations: None. Lines, tubes, and devices: None. Lung parenchyma and airways: Again seen are multiple pulmonary nodules, many of which are stable. For example, there is a stable, approximately 7 mm subpleural nodule within the posterior segment of the right upper lobe (series 5, image #73). Other pulmonary nodules have improved in size in the interval. For example, a nodular densities seen adjacent to the fissures have improved in size. For example, a nodular density seen adjacent to the right major fissure currently measures approximately 5 mm in short axis dimension, previously 7 mm (series 5, image #117). No new pulmonary nodule is identified on today's examination. There is no pneumothorax or endobronchial lesion. Pleural space: There is no pleural effusion. Lower neck, lymph nodes, and mediastinum: Prominent soft tissue density in the anterior mediastinum likely relates to residual or reactive thymic tissue. There are no pathologically enlarged axillary lymph nodes. Prominent, less than 1 cm mediastinal and bilateral hilar lymph nodes are likely reactive. Heart, pericardium, and thoracic vessels: The heart is normal in size. No significant pericardial effusion. Bones and soft tissues: There is no destructive bone lesion. Upper abdomen: Contents are seen within the distended stomach. Stable postoperative changes. Moderate to large stool burden. Again seen is pneumobilia. IMPRESSION: Multiple pulmonary nodules, the majority of which are stable. The nodules adjacent to the fissures are improved in size in the interval. No new pulmonary nodule is identified. Prominent, less than 1 cm mediastinal and bilateral hilar lymph nodes, likely reactive. Bottle Assembler: JO Transcribe Date/Time: Jun 19 2025 3:57P Dictated by : SANTHOSH FERNANDEZ MD This examination was interpreted and the report reviewed and electronically signed by: SANTHOSH FERNANDEZ MD on Jun 19 2025 4:04PM EST [id number] Normal [facility] CT Chest WO contraston 06-19 IMPRESSION: Multiple pulmonary nodules, the majority of which are stable. The nodules adjacent to the fissures are improved in size in the interval. No new pulmonary nodule is identified. Prominent, less than 1 cm mediastinal and bilateral hilar lymph nodes, likely reactive. Bottle Assembler: PSCDavid Transcribe Date/Time: Jun 19 2025 3:57P Dictated by : SANTHOSH FERNANDEZ MD This examination was interpreted and the report reviewed and electronically signed by: SANTHOSH FERNANDEZ MD on Jun 19 2025 4:04PM EST DIVISION OF RADIOLOGY * * *Final Report* * * DATE OF EXAM: Jun 19 2025 3:04PM [facility] 0541 - CT CHEST WO IVCON / PROCEDURE REASON: Lung nodules * * * * Physician Interpretation * * * * EXAMINATION: CHEST CT WITHOUT CONTRAST CLINICAL HISTORY: Lung nodules Technique: Spiral CT acquisition of the chest from the thoracic inlet to the upper abdomen without contrast. MQ: CTCWO_6 CT Radiation dose: Integrated Dose-length product (DLP) for this visit = 204 mGy*cm CT Dose Reduction Employed: Automated exposure control(AEC) and iterative recon Comparison: 01/05/2025 RESULT: Limitations: None. Lines, tubes, and devices: None. Lung parenchyma and airways: Again seen are multiple pulmonary nodules, many of which are stable. For example, there is a stable, approximately 7 mm subpleural nodule within the posterior segment of the right upper lobe (series 5, image #73). Other pulmonary nodules have improved in size in the interval. For example, a nodular densities seen adjacent to the fissures have improved in size. For example, a nodular density seen adjacent to the right major fissure currently measures approximately 5 mm in short axis dimension, previously 7 mm (series 5, image #117). No new pulmonary nodule is identified on today's examination. There is no pneumothorax or endobronchial lesion. Pleural space: There is no pleural effusion. Lower neck, lymph nodes, and mediastinum: Prominent soft tissue density in the anterior mediastinum likely relates to residual or reactive thymic tissue. There are no pathologically enlarged axillary lymph nodes. Prominent, less than 1 cm mediastinal and bilateral hilar lymph nodes are likely reactive. Heart, pericardium, and thoracic vessels: The heart is normal in size. No significant pericardial effusion. Bones and soft tissues: There is no destructive bone lesion. Upper abdomen: Contents are seen within the distended stomach. Stable postoperative changes. Moderate to large stool burden. Again seen is pneumobilia. DIVISION OF RADIOLOGY Provider, [facility] - 06/19/2025 * * *Final Report* * * DATE OF EXAM: Jun 19 2025 3:04PM [facility] 0541 - CT CHEST WO IVCON / PROCEDURE REASON: Lung nodules * * * * Physician Interpretation * * * * EXAMINATION: CHEST CT WITHOUT CONTRAST CLINICAL HISTORY: Lung nodules Technique: Spiral CT acquisition of the chest from the thoracic inlet to the upper abdomen without contrast. MQ: CTCWO_6 CT Radiation dose: Integrated Dose-length product (DLP) for this visit = 204 mGy*cm CT Dose Reduction Employed: Automated exposure control(AEC) and iterative recon Comparison: 01/05/2025 RESULT: Limitations: None. Lines, tubes, and devices: None. Lung parenchyma and airways: Again seen are multiple pulmonary nodules, many of which are stable. For example, there is a stable, approximately 7 mm subpleural nodule within the posterior segment of the right upper lobe (series 5, image #73). Other pulmonary nodules have improved in size in the interval. For example, a nodular densities seen adjacent to the fissures have improved in size. For example, a nodular density seen adjacent to the right major fissure currently measures approximately 5 mm in short axis dimension, previously 7 mm (series 5, image #117). No new pulmonary nodule is identified on today's examination. There is no pneumothorax or endobronchial lesion. Pleural space: There is no pleural effusion. Lower neck, lymph nodes, and mediastinum: Prominent soft tissue density in the anterior mediastinum likely relates to residual or reactive thymic tissue. There are no pathologically enlarged axillary lymph nodes. Prominent, less than 1 cm mediastinal and bilateral hilar lymph nodes are likely reactive. Heart, pericardium, and thoracic vessels: The heart is normal in size. No significant pericardial effusion. Bones and soft tissues: There is no destructive bone lesion. Upper abdomen: Contents are seen within the distended stomach. Stable postoperative changes. Moderate to large stool burden. Again seen is pneumobilia. IMPRESSION IMPRESSION: Multiple pulmonary nodules, the majority of which are stable. The nodules adjacent to the fissures are improved in size in the interval. No new pulmonary nodule is identified. Prominent, less than 1 cm mediastinal and bilateral hilar lymph nodes, likely reactive. Bottle Assembler: PSCB Transcribe Date/Time: Jun 19 2025 3:57P Dictated by : SANTHOSH FERNANDEZ MD This examination was interpreted and the report reviewed and electronically signed by: SANTHOSH FERNANDEZ MD on Jun 19 2025 4:04PM EST [facility] Radiology Study observation (narrative) [facility] CT Chest WO contrastOrdered By: Ccf Provider on 06-19-2025 [facility] CNPNon 05-18-2025 CNPN Telephone (ENDOMN) -------- VILMA RANKIN ([id number]) 1995 M Date Time Provider Department 05/18/25 SANTOS JONES During your visit today, we recorded the following information about you: Esperanza Kaufman 05/18/2025 3:42 PM Signed May 18, 2025 3:39 PM Last encounter Visit on 05/09/2025 (with Santos Jones) Amadeo Scott called regarding Accu-chek Graciela plus and the accu-check fast clix that was sent over May 16. His insurance no longer covers that. He can receive Freestyle or One Touch under his insurance per the pharmacy. He will need the strips/ meter and Lancets. Amadeo Scott listed. 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[employer] Endo Main F-20 Allergies As of Date: 05/18/2025 (No Known Allergies) Date Reviewed: 05/09/2025 Reviewed by: Fara Prado MA - Fully Assessed Reason for Visit: Patient Update [1234] Primary Visit Diagnosis:Type 1 diabetes mellitus with hyperglycemia (HCC) [E10.65] Order(s):Lancets (ONETOUCH ULTRASOFT LANCETS)Use to check sugars 3 times dailyDisp: 300 eachRfl: 1 blood sugar diagnostic (ONETOUCH ULTRA TEST) test stripUse to check sugars 3 times dailyDisp: 300 eachRfl: 1 Blood-Glucose Meter (ONETOUCH ULTRA2 METER)Use to check sugars 3 times dailyDisp: 1 eachRfl: 0 Prescriptions as of 05/22/2025 - Lancets (ONETOUCH ULTRASOFT LANCETS) Use to check sugars 3 times daily - blood sugar diagnostic (ONETOUCH ULTRA TEST) test strip Use to check sugars 3 times daily - Blood-Glucose Meter (ONETOUCH ULTRA2 METER) Use to check sugars 3 times daily - glucagon (GLUCAGON EMERGENCY KIT, HUMAN,) 1 mg injection Inject (1)one mg for insulin shock. - insulin pump subcutaneous cartridge (OMNIPOD 5 G6-G7 PODS, GEN 5,) crtg Use 1 every 3 days - insulin aspart U-100 (NOVOLOG U-100 INSULIN ASPART) 100 unit/mL INJECT 100 UNITS DAILY VIA INSULIN PUMP. - Lancing Device with Lancets (ACCU-CHEK FASTCLIX LANCING DEV) Use to check sugars 4 times daily - Blood-Glucose Sensor (DEXCOM G7 SENSOR) carmel Use 1 sensor every 10 days - wixxxo-fjbuikcc-ysuayso (CREON) 36,000-114,000- 180,000 unit delayed release capsule Take 3 capsules by mouth three times a day with meals. 2 with snacks (total 10/day) - Multivitamin capsule Take 1 capsule by mouth once daily. - ascorbic acid (VITAMIN C ORAL) Take 500 mg by mouth once daily. 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, E89.*04/12/2019 Diabetes mellitus type 1, controlled, without c*06/29/2019 09/13/2019 Small bowel obstruction due to adhesions (HCC) *07/19/2019 09/13/2019 Left upper quadrant pain [R10.12] 09/13/2019 Insulin dependent diabetes mellitus (HCC) [IMO0*09/13/2019 09/13/2019 Leukocytosis [D72.829] 09/13/2019 09/13/2019 Elevated liver enzymes [R74.8] 09/13/2019 Lung nodules [R91.8] 09/13/2019 09/13/2019 Abdominal fluid collection [R18.8] 09/14/2019 Gastric outlet obstruction [K31.1] 09/17/2019 Prescriptions ordered this encounter Disp Refills Start End LANCETS 300 * 1 05/18/2025 Sig: Use to check sugars 3 times daily BLOOD SUGAR DIAGNOSTIC STRIPS 300 * 1 05/18/2025 Sig: Use to check sugars 3 times daily BLOOD-GLUCOSE METER 1 ea* 0 05/18/2025 Sig: Use to check sugars 3 times daily Medications Discontinued During This Encounter Prescriptions - lancets (ONE TOUCH DELICA) 33 gauge (Discontinued) Use 3 a day - blood sugar diagnostic (ACCU-CHEK GRACIELA PLUS TEST STRP) test strip (Discontinued) Use to check sugars 4 times daily Encounter Status:Closed by ESPERANZA KAUFMAN on 05/22/25 [facility] CNOVon 05-09-2025 CNOV Office Visit (ENDCMN ) -------- VILMA RANKIN ([id number]) 1995 M Date Time Provider Department 05/09/25 1:40 PM [facility] your visit today, we recorded the following information about you: Pulse Blood pressure Weight 53/minute 118/66 76.5 kg Fara Prado MA 05/09/2025 1:30 PM Signed Thank you for choosing the [facility] Department of Endocrinology, Diabetes and Metabolism. Did you know that you need to call 48 hours in advance of your scheduled visit, if you are unable to make your appointment? The Endocrinology and Metabolism [place] thanks you for your commitment, because patients not showing to their appointment results in a lost opportunity for patients to receive [facility] health care at the [facility]. To Cancel an appointment, please choose one of the following: - Call the Appointment Call Center at [phone] - From [employer], Go to Appointments - Cancel Appts If cancelling, consider your need to reschedule to prevent further delays in your care. To Schedule an appointment, please choose one of the following: - Call the Appointment Call Center at [phone] - From [employer], Go to Appointments - Request an Appt Santos Jones MD 05/09/2025 2:38 PM Signed [facility] Follow-up visit Vilma Rankin is here for follow-up regarding type 1 diabetes: HISTORY OF PRESENT ILLNESS: Vilma Rankin is a 30 year old male with PMH of pancreatitis, poorly controlled T3cD s/p TPAIT 03/2019 who presents today for follow up of type 1 diabetes. 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 Eyes: Negative for visual disturbance. Respiratory: Negative for difficulty breathing. Cardiovascular: Negative for chest pain and leg swelling. Gastrointestinal: Negative for nausea, vomiting, abdominal pain, diarrhea and constipation. Musculoskeletal: Positive for myalgias. Neurological: Negative for dizziness, headaches and numbness. Answers submitted by the patient for this visit: Core Review of Systems (Submitted on 05/03/2025) Fever : No Nasal Congestion: No Hearing Loss: No A cough: No Irregular heartbeat: No Black tarry stools: No Difficulty Urinating?: No Awaken at Night More Than Once to Urinate?: No Joint pain or stiffness: No Leg or Foot Discomfort at Night?: No A rash: No Memory Loss: No Seizures: No PAST HISTORY: PAST MEDICAL HISTORY Diagnosis Date Delirium 03/22/2019 Diabetes mellitus type 1, controlled, without complications (HCC) 06/29/2019 Influenza A 11/17/2017 Insulin dependent diabetes mellitus Lung nodules 09/13/2019 Malnutrition of moderate degree (HCC) 11/22/2018 Pancreatitis 2017 (Ben) Small bowel obstruction due to adhesions ([facility]) 07/19/2019 PAST SURGICAL HISTORY Procedure Laterality Date ESOPHAGOGASTRODUODENOSCO PY TRANSORAL DIAGNOSTIC 04/26/2020 EGD ISLET CELL TRANSPLANT LAPARCOPIC LYSIS OF ADHESIONS For small bowel obstruction 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 SPLENECTOMY TOTAL SEPARATE PROCEDURE Splenectomy Current Outpatient Medications Medication Sig Dispense Refill insulin aspart U-100 (NOVOLOG U-100 INSULIN ASPART) 100 unit/mL INJECT 100 UNITS DAILY VIA INSULIN PUMP. 40 mL 0 Blood-Glucose Sensor (DEXCOM G7 SENSOR) carmel Use 1 sensor every 10 days 9 Each 1 insulin pump cart,auto,BT,G6/7 (OMNIPOD 5 G6-G7 PODS, GEN 5,) crtg Use 1 every 3 days 30 Each 1 okxhxy-hyvnoxdj-glzmxuz (CREON) 36,000-114,000- 180,000 unit delayed release capsule Take 3 capsules by mouth three times a day with meals. 2 with snacks (total 10/day) 300 capsule 11 glucagon (GLUCAGON EMERGENCY KIT, HUMAN,) 1 mg injection Inject (1)one mg for insulin shock. 2 Each 1 Multivitamin capsule Take 1 capsule by mouth once daily. ascorbic acid (VITAMIN C ORAL) Take 500 mg by mouth once daily. blood sugar diagnostic (ONETOUCH VERIO) test strip Before meals and at bedtime 150 Strip 2 lancets (ONE TOUCH DELICA) 33 gauge misc 1 application before meals and at bedtime. 150 Each 2 No current facility-administered medications for this visit. ALLERGIES No Known Allergies FAMILY HISTORY Problem Relation Age of O (more content not included)... Normal [facility] GLOOKO ON DEMANDon Ordered by an unspecified provider. [facility] HEMOGLOBIN A1C (POC)on 05-09 HbA1c (Bld) [Mass fraction] 7.8 % Abnormal 4.3 - 5.6 % [facility] Comment on above: Location:[facility], [address] [place] [address], [facility] Point of care (POC) Hemoglobin A1c (HGBA1C) testing is intended to assess glucose control and provide a management tool for patients known to have diabetes and their healthcare providers. Target HGBA1C levels may depend on specific clinical circumstances. POC HGBA1C is not intended for use as a diagnostic or screening test; laboratory-based testing should be used for diagnostic purposes. The following information is supplemental and may not be applicable to specific diabetes management situations: The POC device intake rn provides a normal range of 4.2% to 6.5% for the HGBA1C POC test. However, the [place] Diabetes Association guidelines indicate that patients with HGBA1C in the range of 5.7% to 6.4% are at increased risk for development of diabetes and that intervention by lifestyle modification may be beneficial. A HGBA1C level greater than or equal to 6.5% is considered diagnostic of diabetes, pending confirmatory testing. Use of HGBA1C testing to evaluate glucose control may not be appropriate for patients with hemoglobin variants or other conditions (e.g. anemia) that alter red blood cell lifespan. Interpretation and review of laboratory results Abnormal [facility] CT PANCREAS W IVCONon 2024 CT PANCREAS W IVCON * * *Final Report* * * DATE OF EXAM: Mar 13 2025 4:53PM [facility] [place] PAN[place]AS W IVCON / PROCEDURE REASON: L79-Ndbers vein thrombosis * * * * Physician Interpretation * * * * EXAMINATION: CT PANCREAS WITH IV CONTRAST CLINICAL HISTORY: Follow portal vein thrombus TECHNIQUE: CT of the abdomen was performed using standard technique, scanning from just above the dome of the diaphragm to the iliac crest. Imaging was performed during arterial and portal venous phases per CT pancreas protocol. MQ: CTAbdW_4 Contrast: IV: 100 ml of Omnipaque 350 : ml of CT Radiation dose: Integrated Dose-length product (DLP) for this visit = 328 mGy*cm. CT Dose Reduction Employed: Automated exposure control(AEC) and iterative recon COMPARISON: CT abdomen and pelvis 01/05/2025 RESULT: Liver: No mass. Biliary: No bile duct dilation. Gallbladder is absent. Spleen: Absent Pancreas: Postoperative changes from pancreatectomy with islet cell transplant Adrenals:No mass. Kidneys: The kidneys enhance symmetrically. No hydronephrosis. GI tract: No dilation or wall thickening. Lymph nodes: No abdominal lymphadenopathy. Mesentery/Peritoneum: No ascites or mass. Retroperitoneum: No mass. Vasculature: - Abdominal aorta: No aneurysm. - Celiac and SMA: Patent without stenosis. - Portal venous system (SMV, splenic vein, portal vein and branches): Patent. - Hepatic veins: Patent. Bones/Soft Tissues: No significant finding. Lower thorax: No pleural effusion or consolidation Localizer images: No additional findings. 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 Author Type: Registered Nurse Type: Nursing Progress Note Filed: 03/13/2025 16:42 Note Text: Radiology Service Progress Note DATE OF SERVICE: March 13, 2025 TIME: 4:42 PM PATIENT WEIGHT: 159LBS PATIENT IDENTITY VERIFICATION COMPLETED USING TWO (2) STANDARD IDENTIFIERS: Name and Date of confirmed by patient verbally and Name and Date of confirmed by identification band. FALL SCREENING: Has the patient had 2 falls in the last year or 1 fall with injury or currently using an Ambulatory Assistive Device (Walker, Cane, Wheelchair, Crutches, etc.)? No PATIENT GENDER DATA: ALLERGIES: Reviewed and unchanged CONTRAST ALLERGY: No EXAM: CT -CONTRAST INDUCED NEPHROPATHY RISK FACTORS: Not applicable CREATININE: Creatinine Date Value Ref Range Status 01/26/2025 0.88 0.73 - 1.22 mg/dL Final 12/29/2024 0.79 0.73 - 1.22 mg/dL Final 06/06/2024 0.78 0.73 - 1.22 mg/dL Final Estimated Glomerular Filtration Rate Date Value Ref Range Status 01/26/2025 118 >=60 mL/min/1.73m? Final Comment: Estimated Glomerular Filtration Rate (eGFR) is calculated using the 2020 CKD-EPI creatinine equation. This equation utilizes serum creatinine, sex, and age as parameters. The creatinine assay has traceable calibration to isotope dilution-mass spectrometry. Refer to KDIGO guidelines for clinical interpretation. In patients with unstable renal function, e.g. those with acute kidney injury, the eGFR may not accurately reflect actual GFR. eGFR- Date Value Ref Range Status 12/09/2021 >60 Final P.O.C.T. RESULTS: N/A March 13, 2025 TREATMENT: N/A IV SITE: Ambulatory: A peripheral IV was started in the Right with a Angio cath: 20 gauge. IV SITE APPEARANCE: Clean,Dry and Intact SIGNATURE: Ragini Heredia RN PATIENT NAME: Vilma Rankin DATE: March 13, 2025 TIME: 4:42 PM [facility] 02-10-2025 [facility] Office Visit (PULMWS ) -------- RANKIN,VILMA ([id number]) 1995 M Date Time Provider Department 02/10/25 3:15 PM SONDRA MEDRANO PULToriWS During your visit today, we recorded the following information about you: Pulse Respiration Blood pressure Weight 70/minute 16/minute 116/68 75.3 kg Sondra Medrano MD 02/10/2025 4:48 PM Signed . Respiratory [place] Note Patient name: Vilma Rankin PCP: No primary care provider on file. Referring Physician: Dionisio Griffin MD Consultation requested by Dr. Griffin for an opinion regarding Lung nodules. My final recommendations will be communicated back to the requesting physician by way of shared Medical record or letter to requesting physician via US mail. 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 Patient has no respiratory symptoms, specifically, cough, shortness of breath, wheezing. He does have some intermittent right lower sharp chest pain that is pleuritic in nature which he attributes to previous surgeries. Reviewing EMR, patient had pulmonary nodules noted on a CTA of the chest in 2018. CT of the abdomen and pelvis showed incidental note of pulmonary nodules in lower lung cuts. Full chest CT shows persistent pulmonary nodules but more numerous with increased intrafissural nodularity and slight left hilar lymphadenopathy. Patient denies eye pain, joint pain or skin rashes. DATA: Labs: Renal function and calcium level normal Imaging / Diagnostic Studies: DATE OF EXAM: Jan 05 2025 4:18PM [facility] [place] [facility] [place] CT CHEST W IVCON / EXAMINATION: CHEST CT WITH CONTRAST CLINICAL HISTORY: Chest pain. Comparison: CT chest PE on 11/17/2017 RESULT: Limitations: None. Lines, tubes, and devices: None. Lung parenchyma and airways: The central airways are patent. There are numerous solid nodules throughout both lungs. For example, there are nodules in the right lung measuring up to 1.1 cm, series 303 images 64, 70, 83, 108, 126, 131, 145, 151, 165, 172, 176, 178 and 188. There are nodules in the left lung measuring up to 7 mm, series 303 images 56, 111, 120, 139, 159, 173, 195, 199 and 208. Many of these nodules show interval increase in size. A few new nodules also noted. For example, a dominant nodule in the right lower lobe now measures 6.6 mm, series 303 image 149, previously 4.7 mm. No mass lesion identified. Similar biapical scarring and subpleural opacities are demonstrated, likely post inflammatory. Pleural space: No pleural effusions or pneumothorax. Lower neck, lymph nodes, and mediastinum: Stable thyroid gland. No supraclavicular or axillary lymphadenopathy. Mild bilateral hilar and mediastinal lymphadenopathy is visualized, not previously appreciated. Heart, pericardium, and thoracic vessels: The thoracic aorta and main pulmonary artery are normal in caliber. The cardiac chambers are normal in size. No coronary artery atherosclerotic calcifications are noted, although the study is not optimized for coronary assessment. No pericardial effusion or thickening. Bones and soft tissues: No destructive bone lesion. Chest wall soft tissue is unremarkable. Upper abdomen: Patient is status post pancreatectomy. Localizer images: No additional findings. IMPRESSION: Numerous bilateral lung nodules including enlarged nodules and new nodules. Interval new mild hilar and mediastinal lymphadenopathy. Clinical correlation is suggested. Numerous subpleural nodules also present CTA chest 11/2017: I personally reviewed the images as well as with the patient which does show increased number and size of pulmonary nodules compared to 2018 PAST MEDICAL HISTORY Diagnosis Date Delirium 03/22/2019 Diabetes mellitus type 1, controlled, without complications (HCC) 06/29/2019 Influenza A 11/17/2017 Insulin dependent diabetes mellitus Lung nodules 09/13/2019 Malnutrition of moderate degree (HCC) 11/22/2018 Pancreatitis 2018 (Ben) Small bowel obstruction due to adhesions (HCC) 07/19/2019 ALLERGIES No Known Allergies Blood-Glucose Sensor (DEXCOM G7 SENSOR) carmel Use 1 sensor every 10 days insulin pump cart,auto,BT,G6/7 (OMNIPOD 5 G6-G7 PODS, GEN 5,) crtg Use 1 every 3 days insulin aspart U-100 (NOVOLOG U-100 INSULIN ASPART) 100 unit/mL INJECT 100 UNITS DAILY VIA INSULIN PUMP. kdfics-idpsuuwk-cdsoqoe (CREON) 36,000-114,000- 180,000 unit delayed release capsule Take 3 capsules by mouth three times a day with meals. 2 with snacks (total 10/day) glucagon (GLUCAGON EMERGENCY KIT, HUMAN,) 1 mg injection Inject (1)one mg for insulin shock. Multivitamin capsule Ta (more content not included)... Normal [facility] ALBUMIN/CREATININE RATIO, UR INEon 01-26-2025 Albumin DL <= 20 mg/L (U) [Mass/Vol] mg/dL Normal [facility] Comment on above: Order Comment: Speci men Type: URINE SPECIMEN Ordering Facility: [facility] Address: [address] [place] [address] Performed By: #### U ACR #### [facility] CLIA [id number] [address] [place] [address] [place] Albumin/Creatinine (U) [Mass ratio] <6 Normal <30 [facility] Comment on above: Order Comment: Speci men Type: URINE SPECIMEN Ordering Facility: [facility] Address: [address] [place] [address] Result Comment: Adul t Male and Female Nephrotic Criteria: <30 mg/g is considered normal to mildly increased 30-300 mg/g is considered moderately increased >300 mg/g is considered severely increased KDIGO. (2013). KDIGO 2012 Clinical Practice Guideline for the Evaluation and Management of Chronic Kidney Disease. Official Journal of the International Society of Nephrology, 3(1), 1-150. Performed By: #### U ACR #### [facility] CLIA [id number] [address] [place] [place] [address] [place] Creatinine (U) [Mass/Vol] 185.8 mg/dL Normal 20.0-300.0 [facility] Comment on above: Order Comment: Speci men Type: URINE SPECIMEN Ordering Facility: [facility] Address: [address] [place] [address] Performed By: #### U ACR #### [facility] CLIA [id number] [address] [place] [address] [place] Comprehensive metabolic 2000 panelon 01-26-2025 Albumin [Mass/Vol] 4.7 g/dL Normal 3.9-4.9 [facility] Comment on above: Order Comment: Speci men Type: BLOOD SPECIMEN Ordering Facility: [facility] Address: [address] [place] [address] Performed By: #### 2 4331-1, 3016-3, 57646-6 #### [facility] CLIA [id number] [address] [place] [address] [place] ALP [Catalytic activity/Vol] 60 U/L Normal 38-113 [facility] Comment on above: Order Comment: Speci men Type: BLOOD SPECIMEN Ordering Facility: [facility] Address: [address] [place] [address] Performed By: #### 2 4331-1, 3015-3, #### [facility] CLIA [id number] [address] [place] [address] [place] ALT [Catalytic activity/Vol] 18 U/L Normal 10-54 [facility] Comment on above: Order Comment: Speci men Type: BLOOD SPECIMEN Ordering Facility: [facility] Address: [address] [place] [address] Performed By: #### 2 4331-1, 3015-3, #### [facility] CLIA [id number] [address] [place] [address] [place] Anion gap [Moles/Vol] 15 mmol/L Normal 8-15 [facility] Comment on above: Order Comment: Speci men Type: BLOOD SPECIMEN Ordering Facility: [facility] Address: [address] [place] [address] Performed By: #### 2 4331-1, 3, #### [facility] CLIA [id number] [address] [place] [address] [place] AST [Catalytic activity/Vol] 28 U/L Normal 14-40 [facility] Comment on above: Order Comment: Speci men Type: BLOOD SPECIMEN Ordering Facility: [facility] Address: [address] [place] [address] Performed By: #### 2 4331-1, 3015-3, 19628-9 #### [facility] CLIA [id number] [address] [place] [address] [place] Bilirubin [Mass/Vol] 0.8 mg/dL Normal 0.2-1.3 [facility] Comment on above: Order Comment: Speci men Type: BLOOD SPECIMEN Ordering Facility: [facility] Address: [address] [place], [place] [id number] Performed By: #### 2 4331-1, 6-3, 97860-4 #### [facility] CLIA [id number] [address] [place] [address] [place] Calcium [Mass/Vol] 9.6 mg/dL Normal 8.5-10.2 [facility] Comment on above: Order Comment: Speci men Type: BLOOD SPECIMEN Ordering Facility: [facility] Address: [address] [place] [address] Performed By: #### 2 4331-1, 3015-3, #### [facility] CLIA [id number] [address] [place] [address] [place] Chloride [Moles/Vol] 99 mmol/L Normal 98-107 [facility] Comment on above: Order Comment: Speci men Type: BLOOD SPECIMEN Ordering Facility: [facility] Address: [address] [place] [address] Performed By: #### 2 4331-1, 3015-3, #### [facility] CLIA [id number] [address] [place] [address] [place] CO2 [Moles/Vol] 25 mmol/L Normal 22-30 [facility] Comment on above: Order Comment: Speci men Type: BLOOD SPECIMEN Ordering Facility: [facility] Address: [address] [place] [address] Performed By: #### 2 4331-1, 3, #### [facility] CLIA [id number] [address] [place] [address] [place] Creatinine [Mass/Vol] 0.88 mg/dL Normal 0.73-1.22 [facility] Comment on above: Order Comment: Speci men Type: BLOOD SPECIMEN Ordering Facility: [facility] Address: [address] [place] [address] Performed By: #### 2 4331-1, 6-3, 90386-4 #### [facility] CLIA [id number] [address] [place] [address] [place] Creatinine and Glomerular filtration rate.predicted panel (S/P/Bld) 118 mL/min/1.73m??? Normal >=60 [facility] Comment on above: Order Comment: Ehsan serrano Type: BLOOD SPECIMEN Ordering Facility: [facility] Address: [address] [place], [place] [id number] Result Comment: Mohini mated Glomerular Filtration Rate (eGFR) is calculated using the 2020 CKD-EPI creatinine equation. This equation utilizes serum creatinine, sex, and age as parameters. The creatinine assay has traceable calibration to isotope dilution-mass spectrometry. Refer to KDIGO guidelines for clinical interpretation. In patients with unstable renal function, e.g. those with acute kidney injury, the eGFR may not accurately reflect actual GFR. Performed By: #### 2 4331-1, 3016-3, 42299-8 #### [facility] CLIA [id number] [address] [place] [address] [place] Glucose [Mass/Vol] 132 mg/dL High 74-99 [facility] Comment on above: Order Comment: Ehsan serrano Type: BLOOD SPECIMEN Ordering Facility: [facility] Address: [address] [place] [address] Result Comment: The [place] Diabetes Association (ADA) provides guidance for cutoff values for fasting glucose and random glucose. The ADA defines fasting as no caloric intake for at least 8 hours. Fasting plasma glucose results between 100 to 125 mg/dL indicate increased risk for diabetes (prediabetes). Fasting plasma glucose results greater than or equal to 126 mg/dL meet the criteria for diagnosis of diabetes. In the absence of unequivocal hyperglycemia, results should be confirmed by repeat testing. In a patient with classic symptoms of hyperglycemia or hyperglycemic crisis, random plasma glucose results greater than or equal to 200 mg/dL meet the criteria for diagnosis of diabetes. Reference: Standards of Medical Care in Diabetes 2016, [place] Diabetes Association. Diabetes Care. 2016.39(Suppl 1). Performed By: #### 2 4331-1, 3016-3, 69946-6 #### [facility] CLIA [id number] [address] [place] [address] [place] Potassium [Moles/Vol] 4.1 mmol/L Normal 3.7-5.1 [facility] Comment on above: Order Comment: Speci men Type: BLOOD SPECIMEN Ordering Facility: [facility] Address: [address] [place], [place] [address] Performed By: #### 2 4331-1, 3015-3, #### [facility] CLIA [id number] [address] [place] [address] [place] Protein [Mass/Vol] 8.1 g/dL High 6.3-8.0 [facility] Comment on above: Order Comment: Speci men Type: BLOOD SPECIMEN Ordering Facility: [facility] Address: [address] [place], [place] [address] Performed By: #### 2 4331-1, 3015-3, #### [facility] CLIA [id number] [address] [place] [address] [place] Sodium [Moles/Vol] 139 mmol/L Normal 136-144 [facility] Comment on above: Order Comment: Speci men Type: BLOOD SPECIMEN Ordering Facility: [facility] Address: [address] [place] [address] Performed By: #### 2 4331-1, 3, #### [facility] CLIA [id number] [address] [place] [address] [place] Urea nitrogen [Mass/Vol] 21 mg/dL Normal 9-24 [facility] Comment on above: Order Comment: Speci men Type: BLOOD SPECIMEN Ordering Facility: [facility] Address: [address] [place], [place] [address] Performed By: #### 2 4331-1, 3, #### [facility] CLIA [id number] [address] [place] [address] [place] HbA1c (Bld)on 01-26-2025 Average glucose Estimated from glycated hemoglobin (Bld) [Mass/Vol] 171 mg/dL Normal [facility] Comment on above: Order Comment: Speci men Type: BLOOD SPECIMEN Ordering Facility: [facility] Address: [address] [place] [address] Result Comment: eAG: (Estimated average glucose) is a calculated value from HgbA1c and is claim representative of the average blood glucose level in the last 2-3 month period. Performed By: #### 5 5454-3 #### [facility] CLIA [id number] [address] [place] [address] [place] HbA1c (Bld) [Mass fraction] 7.6 % High 4.3-5.6 [facility] Comment on above: Order Comment: Speci men Type: BLOOD SPECIMEN Ordering Facility: [facility] Address: [address] [place] [address] Result Comment: [place] Diabetes Association guidelines indicate that patients with HgbA1c in the range 5.7-6.4% are at increased risk for development of diabetes, and intervention by lifestyle modification may be beneficial. HgbA1c greater or equal to 6.5% is considered diagnostic of diabetes. Performed By: #### 5 5454-3 #### [facility] CLIA [id number] [address] [place] [address] [place] Lipid 1996 panelon 5 Cholesterol [Mass/Vol] 115 mg/dL Normal <200 [facility] Comment on above: Order Comment: Ehsan serrano Type: BLOOD SPECIMEN Ordering Facility: [facility] Address: [address] [place] [address] Result Comment: <200 mg/dL, Desirable 200-239 mg/dL, Borderline high >239 mg/dL, High Performed By: #### 2 4331-1, 3016-3, 76421-1 #### [facility] CLIA [id number] [address] [address] [place] Cholesterol in HDL [Mass/Vol] 46 mg/dL Normal >39 [facility] Comment on above: Order Comment: Ehsan men Type: BLOOD SPECIMEN Ordering Facility: [facility] Address: [address] [place] [address] Result Comment: 40-5 9 mg/dL, Acceptable >59 mg/dL, High: Negative risk factor for coronary heart disease <40 mg/dL, Low: Positive risk factor for coronary heart disease Performed By: #### 2 4331-1, 6-3, 06072-4 #### [facility] CLIA [id number] [address] [place] [address] [facility] Cholesterol in LDL [Mass/Vol] 59 mg/dL Normal <100 [facility] Comment on above: Order Comment: Ehsan serrano Type: BLOOD SPECIMEN Ordering Facility: [facility] Address: [address] [place] [address] Result Comment: <100 mg/dL, Optimal 100-129 mg/dL, Near optimal/above optimal 130-159 mg/dL, Borderline high 160-189 mg/dL, High >189 mg/dL, Very high Secondary prevention optimal LDL Cholesterol levels are recommended to be < 70 mg/dL Performed By: #### 2 4331-1, 6-3, 02280-2 #### [facility] CLIA [id number] [address] [place] [address] [facility] Cholesterol in LDL/Cholesterol in HDL [Mass ratio] 1.28 {ratio} Normal <2.54 [facility] Comment on above: Order Comment: Ehsan serrano Type: BLOOD SPECIMEN Ordering Facility: [facility] Address: [address] [place] [address] Result Comment: Refe rence: 1. National Cholesterol Education Program ATP III Guideline At-A-Glance Quick Desk Reference: National Heart, Lung, and Blood [place]. National Institutes of Health. 2001: NIH Publication No. 01-3305. 2. An International Atherosclerosis Society position paper: global recommendations for the management of dyslipidemia: executive summary, Atherosclerosis. 2014: 232(2):410-413. Performed By: #### 2 4331-1, 6-3, 67977-7 #### [facility] CLIA [id number] [address] [place] [address] [facility] Cholesterol in VLDL [Mass/Vol] 10 mg/dL Normal <30 [facility] Comment on above: Order Comment: Ehsan serrano Type: BLOOD SPECIMEN Ordering Facility: [facility] Address: [address] [place] [address] Performed By: #### 2 4331-1, 3015-3, #### [facility] CLIA [id number] [address] [place] [address] [place] Cholesterol non HDL [Mass/Vol] 69 mg/dL Normal <130 [facility] Comment on above: Order Comment: Speci men Type: BLOOD SPECIMEN Ordering Facility: [facility] Address: [address] [place] [id number] Result Comment: <130 mg/dL, Optimal 130-159 mg/dL, Near optimal/above optimal 160-189 mg/dL, Borderline high 190-219 mg/dL, High >219 mg/dL, Very high Secondary prevention optimal non HDL Cholesterol levels are recommended to be <100 mg/dL Performed By: #### 2 4331-1, 3015-3, #### [facility] CLIA [id number] [address] [place] [address] [place] Cholesterol.total/Ch olesterol in HDL [Mass ratio] 2.50 {ratio} Normal <5.10 [facility] Comment on above: Order Comment: Speci men Type: BLOOD SPECIMEN Ordering Facility: [facility] Address: [address] [place] [address] Performed By: #### 2 4331-1, 3, #### [facility] CLIA [id number] [address] [place] [address] [place] FASTING TIME 19 hrs Normal [facility] Comment on above: Order Comment: Speci men Type: BLOOD SPECIMEN Ordering Facility: [facility] Address: [address] [place] [address] Performed By: #### 2 4331-1, 3, #### [facility] CLIA [id number] [address] [place] [address] [place] Triglyceride [Mass/Vol] 48 mg/dL Normal <150 [facility] Comment on above: Order Comment: Speci men Type: BLOOD SPECIMEN Ordering Facility: [facility] Address: [address] [facility] [place] [address] Result Comment: <150 mg/dL, Normal 150-199 mg/dL, Borderline high 200-499 mg/dL, High >499 mg/dL, Very high Performed By: #### 2 4331-1, 6-3, #### [facility] CLIA [id number] [address] [place] [address] [facility] TSH SerPl-aCncon 01-26-2025 TSH Qn 1.920 m[IU]/L Normal 0.270-4.200 [facility] mason Comment on above: Order Comment: Speci men Type: BLOOD SPECIMEN Ordering Facility: [facility] Address: [facility] [address] Performed By: #### 2 4331-1, 3015-3, #### [facility] CLIA [id number] ABD/PEL W IVCONon 025 CT ABD/PEL W IVCON * * *Final Report* * * DATE OF EXAM: Jan 05 2025 4:18PM [facility] [place] [facility] [place]BD/PEL W IVCON / PROCEDURE REASON: multiple diagnoses * * * * Physician Interpretation * * * * EXAMINATION: CT ABDOMEN AND PELVIS WITH IV CONTRAST HISTORY: Clinical information: Adverse effect of treatment, initial encounter Screening for nephropathy History of total pancreatectomy in 2019. Having new onset of right lower anterior chest pain which is pleuritic. Rule out disease of lung or pleura. HIstory of TP/AIT with new pressure like pain in RUQ. Rule out hepatic or biliar y pathology. TECHNIQUE: CT of the abdomen and pelvis was performed using standard technique, scanning from just above the dome of the diaphragm to the symphysis pubis. MQ: CTAP_3 Contrast: IV: 100 ml of Omnipaque 350 Oral: 450 ml of Omni 240 10-25ml diluted with water CT Radiation dose: Integrated Dose-length product (DLP) for this visit = 409 mGy*cm. CT Dose Reduction Employed: Automated exposure control(AEC) and iterative recon COMPARISON: 09/17/2019 CT abdomen and pelvis. RESULT: Liver: No mass. Biliary: No bile duct dilation. Spleen: Absent Pancreas: Pancreas is apparently been removed. Tissue resembling normal body and tail of pancreas is seen and was not present previously and may be islet cell tissue that was surgically implanted Adrenals: No mass. Kidneys: Unremarkable GI tract: No dilation or wall thickening. Lymph nodes: No abdominal or pelvic lymphadenopathy. Mesentery/Peritoneum: No ascites or mass. Retroperitoneum: No mass. Vasculature: Tiny amount of thrombus in the main portal vein is suspected, 306:34 and 606:36 Pelvis: No mass, ascites or fluid collection. Bones/Soft Tissues: Intact Lower thorax: Clear Localizer images: Nonspecific IMPRESSION: A small amount of suspected thrombus in the main portal vein is uncertain significance. Bottle Assembler: JO Transcribe Date/Time: Jan 10 2025 12:13P Dictated by : LAURA LAZO MD This examination was interpreted and the report reviewed and electronically signed by: LAURA LAZO MD on Jan 10 2025 12:23PM EST [id number] [facility] CT CHEST W IVCONon 5 CT CHEST W IVCON * * *Final Report* * * DATE OF EXAM: Jan 05 2025 4:18PM [facility] [place] CT CHEST W IVCON / PROCEDURE REASON: T88.9XXA-Adverse effect of treatment, initial encounter * * * * Physician Interpretation * * * * EXAMINATION: CHEST CT WITH CONTRAST CLINICAL HISTORY: Chest pain. Technique: Spiral CT acquisition of the chest from the thoracic inlet to the upper abdomen following IV contrast. MQ: CTCW_6 Contrast: 100 mL Omnipaque [address] Radiation dose: Integrated Dose-length product (DLP) for this visit = 409 mGy*cm CT Dose Reduction Employed: Automated exposure control(AEC) and iterative recon Comparison: CT chest PE on 11/17/2017 RESULT: Limitations: None. Lines, tubes, and devices: None. Lung parenchyma and airways: The central airways are patent. There are numerous solid nodules throughout both lungs. For example, there are nodules in the right lung measuring up to 1.1 cm, series 303 images 64, 70, 83, 108, 126, 131, 145, 151, 165, 172, 176, 178 and 188. There are nodules in the left lung measuring up to 7 mm, series 303 images 56, 111, 120, 139, 159, 173, 195, 199 and 208. Many of these nodules show interval increase in size. A few new nodules also noted. For example, a dominant nodule in the right lower lobe now measures 6.6 mm, series 303 image 149, previously 4.7 mm. No mass lesion identified. Similar biapical scarring and subpleural opacities are demonstrated, likely post inflammatory. Pleural space: No pleural effusions or pneumothorax. Lower neck, lymph nodes, and mediastinum: Stable thyroid gland. No supraclavicular or axillary lymphadenopathy. Mild bilateral hilar and mediastinal lymphadenopathy is visualized, not previously appreciated. Heart, pericardium, and thoracic vessels: The thoracic aorta and main pulmonary artery are normal in caliber. The cardiac chambers are normal in size. No coronary artery atherosclerotic calcifications are noted, although the study is not optimized for coronary assessment. No pericardial effusion or thickening. Bones and soft tissues: No destructive bone lesion. Chest wall soft tissue is unremarkable. Upper abdomen: Patient is status post pancreatectomy. Localizer images: No additional findings. IMPRESSION: Numerous bilateral lung nodules including enlarged nodules and new nodules. Interval new mild hilar and mediastinal lymphadenopathy. Clinical correlation is suggested. Bottle Assembler: JO Transcribe Date/Time: Jan 10 2025 8:14A Dictated by : ARTIS MANZANARES MD This examination was interpreted and the report reviewed and electronically signed by: ARTIS MANZANARES MD on Jan 10 2025 1:09PM EST [id number] [facility] NURSING PROGon 01-05-2025 NURSING PROG HNO ID: [id number] Author: MAYURI RIVERA RN Service: Radiology Author Type: Registered Nurse Type: Nursing Progress Note Filed: 01/05/2025 16:11 Note Text: Radiology Service Progress Note DATE OF SERVICE: January 05, 2025 TIME: 4:11 PM PATIENT WEIGHT: 174 LBS PATIENT IDENTITY VERIFICATION COMPLETED USING TWO (2) STANDARD IDENTIFIERS: Name and Date of confirmed by patient verbally. FALL SCREENING: Has the patient had 2 falls in the last year or 1 fall with injury or currently using an Ambulatory Assistive Device (Walker, Cane, Wheelchair, Crutches, etc.)? No PATIENT GENDER DATA: Assigned male at ALLERGIES: Reviewed and unchanged CONTRAST ALLERGY: No EXAM: CT -CONTRAST INDUCED NEPHROPATHY RISK FACTORS: Not applicable CREATININE: Creatinine Date Value Ref Range Status 12/29/2024 0.79 0.73 - 1.22 mg/dL Final 06/06/2024 0.78 0.73 - 1.22 mg/dL Final 12/01/2023 0.84 0.73 - 1.22 mg/dL Final Estimated Glomerular Filtration Rate Date Value Ref Range Status 12/29/2024 122 >=60 mL/min/1.73m? Final Comment: Estimated Glomerular Filtration Rate (eGFR) is calculated using the 2020 CKD-EPI creatinine equation. This equation utilizes serum creatinine, sex, and age as parameters. The creatinine assay has traceable calibration to isotope dilution-mass spectrometry. Refer to KDIGO guidelines for clinical interpretation. In patients with unstable renal function, e.g. those with acute kidney injury, the eGFR may not accurately reflect actual GFR. eGFR- Date Value Ref Range Status 12/09/2021 >60 Final P.O.C.T. RESULTS: POC done: Yes, See Lab Tab January 05, 2025 TREATMENT: N/A IV SITE: Ambulatory: A peripheral IV was started in the Left antecubital site with a Angio cath: 22 gauge. IV SITE APPEARANCE: Clean,Dry and Intact SIGNATURE: Mayuri Rivera RN PATIENT NAME: Vilma Rankin DATE: January 05, 2025 TIME: 4:11 PM Normal [facility] CREATININE BLDon 12-29-2024 Creatinine [Mass/Vol] 0.79 mg/dL Normal 0.73-1.22 [facility] Comment on above: Order Comment: Ehsan serrano Type: BLOOD SPECIMEN Ordering Facility: [facility] Address: [address] [place] [address] Performed By: #### C RET1 #### [facility] CLIA [id number] [address] [place] [address] [place] [facility] Creatinine and Glomerular filtration rate.predicted panel (S/P/Bld) 122 mL/min/1.73m??? Normal >=60 [facility] Comment on above: Order Comment: Ehsan serrano Type: BLOOD SPECIMEN Ordering Facility: [facility] Address: [address] [place] [address] Result Comment: Mohini mated Glomerular Filtration Rate (eGFR) is calculated using the 2020 CKD-EPI creatinine equation. This equation utilizes serum creatinine, sex, and age as parameters. The creatinine assay has traceable calibration to isotope dilution-mass spectrometry. Refer to KDIGO guidelines for clinical interpretation. In patients with unstable renal function, e.g. those with acute kidney injury, the eGFR may not accurately reflect actual GFR. Performed By: #### C RET1 #### [facility] CLIA [id number] [address] [place] [address] [place] ALBUMIN/CREATININE RATIO, UR INEon 06-06-2024 Albumin Unsp time DL <= 20 mg/L (U) [Mass/Time] <12.0 Normal [facility] Comment on above: Order Comment: Ehsan serrano Type: BLOOD SPECIMEN Ordering Facility: [facility] Address: [address] [place] [address] Performed By: #### L IPNF, 70422-9 #### [facility] CLIA [id number] [address] [place] [address] [place] Albumin/Creatinine (U) [Mass ratio] <6 Normal <30 [facility] Comment on above: Order Comment: Ehsan serrano Type: BLOOD SPECIMEN Ordering Facility: [facility] Address: [address] [place] [address] Result Comment: Adul t Male and Female Nephrotic Criteria: <30 mg/g is considered normal to mildly increased 30-300 mg/g is considered moderately increased >300 mg/g is considered severely increased KDIGO. (2013). KDIGO 2012 Clinical Practice Guideline for the Evaluation and Management of Chronic Kidney Disease. Official Journal of the International Society of Nephrology, 3(1), 1-150. Performed By: #### L IPNF, 18232-0 #### [facility] CLIA [id number] [address] [place] [address] [place] Creatinine (U) [Mass/Vol] 196.2 mg/dL Normal 46.8-314.5 [facility] Comment on above: Order Comment: Ehsan serrano Type: BLOOD SPECIMEN Ordering Facility: [facility] Address: [address] [place] [address] Performed By: #### L IPNF, 17435-9 #### [facility] CLIA [id number] [address] [place] [address] [facility] Comprehensive metabolic 2000 panelon 06-06-2024 Albumin [Mass/Vol] 4.5 g/dL Normal 3.9-4.9 [facility] Comment on above: Order Comment: Speci men Type: BLOOD SPECIMEN Ordering Facility: [facility] Address: [address] [place] [address] Performed By: #### 2 4323-8, 87065-6 #### [facility] CLIA [id number] [address] [place] [address] [place] ALP [Catalytic activity/Vol] 64 U/L Normal 38-113 [facility] Comment on above: Order Comment: Speci men Type: BLOOD SPECIMEN Ordering Facility: [facility] Address: [address] [place] [address] Performed By: #### 2 4323-8, 17090-8 #### [facility] CLIA [id number] [address] [place] [address] [place] ALT With P-5'-P [Catalytic activity/Vol] 27 U/L Normal 10-54 [facility] Comment on above: Order Comment: Speci men Type: BLOOD SPECIMEN Ordering Facility: [facility] Address: [address] [place] [address] Performed By: #### 2 4323-8, 42684-6 #### [facility] CLIA [id number] [address] [place] [address] [place] Anion gap [Moles/Vol] 9 mmol/L Normal 8-15 [facility] Comment on above: Order Comment: Speci men Type: BLOOD SPECIMEN Ordering Facility: [facility] Address: [address] [place] [address] Performed By: #### 2 4323-8, 26004-4 #### [facility] CLIA [id number] [address] [place] [address] [place] AST With P-5'-P [Catalytic activity/Vol] 23 U/L Normal 14-40 [facility] Comment on above: Order Comment: Speci men Type: BLOOD SPECIMEN Ordering Facility: [facility] Address: [facility] [place] [address] Performed By: #### 2 4323-8, 28072-2 #### [facility] CLIA [id number] [address] [place] [address] [place] Bilirubin [Mass/Vol] 0.7 mg/dL Normal 0.2-1.3 [facility] Comment on above: Order Comment: Speci men Type: BLOOD SPECIMEN Ordering Facility: [facility] Address: [address] [place], [place] [address] Performed By: #### 2 4323-8, 64460-6 #### [facility] CLIA [id number] [address] [place] [address] [place] Calcium [Mass/Vol] 9.5 mg/dL Normal 8.5-10.2 [facility] Comment on above: Order Comment: Speci men Type: BLOOD SPECIMEN Ordering Facility: [facility] Address: [address] [place] [address] Performed By: #### 2 4323-8, 69450-9 #### [facility] CLIA [id number] [address] [place] [address] [place] Chloride [Moles/Vol] 104 mmol/L Normal 98-107 [facility] Comment on above: Order Comment: Speci men Type: BLOOD SPECIMEN Ordering Facility: [facility] Address: [address] [place] [address] Performed By: #### 2 4323-8, 09863-6 #### [facility] CLIA [id number] [address] [place] [address] [place] CO2 [Moles/Vol] 27 mmol/L Normal 22-30 [facility] Comment on above: Order Comment: Speci men Type: BLOOD SPECIMEN Ordering Facility: [facility] Address: [address] [place] [address] Performed By: #### 2 4323-8, 30524-6 #### [facility] CLIA [id number] [address] [place] [address] [place] Creatinine [Mass/Vol] 0.78 mg/dL Normal 0.73-1.22 [facility] Comment on above: Order Comment: Ehsan serrano Type: BLOOD SPECIMEN Ordering Facility: [facility] Address: [address] [place] [address] Performed By: #### 2 4323-8, 19223-5 #### [facility] CLIA [id number] [address] [place] [address] [facility] Creatinine and Glomerular filtration rate.predicted panel (S/P/Bld) 122 mL/min/1.73m??? Normal >=60 [facility] Comment on above: Order Comment: Ehsan serrano Type: BLOOD SPECIMEN Ordering Facility: [facility] Address: [address] [place] [address] Result Comment: Mohini mated Glomerular Filtration Rate (eGFR) is calculated using the 2020 CKD-EPI creatinine equation. This equation utilizes serum creatinine, sex, and age as parameters. The creatinine assay has traceable calibration to isotope dilution-mass spectrometry. Refer to KDIGO guidelines for clinical interpretation. In patients with unstable renal function, e.g. those with acute kidney injury, the eGFR may not accurately reflect actual GFR. Performed By: #### 2 4323-8, 22038-1 #### [facility] CLIA [id number] [address] [place] [address] [place] Glucose [Mass/Vol] 151 mg/dL High 74-99 [facility] Comment on above: Order Comment: Ehsan serrano Type: BLOOD SPECIMEN Ordering Facility: [facility] Address: [address] [place] [address] Result Comment: The [place] Diabetes Association (ADA) provides guidance for cutoff values for fasting glucose and random glucose. The ADA defines fasting as no caloric intake for at least 8 hours. Fasting plasma glucose results between 100 to 125 mg/dL indicate increased risk for diabetes (prediabetes). Fasting plasma glucose results greater than or equal to 126 mg/dL meet the criteria for diagnosis of diabetes. In the absence of unequivocal hyperglycemia, results should be confirmed by repeat testing. In a patient with classic symptoms of hyperglycemia or hyperglycemic crisis, random plasma glucose results greater than or equal to 200 mg/dL meet the criteria for diagnosis of diabetes. Reference: Standards of Medical Care in Diabetes 2016, [place] Diabetes Association. Diabetes Care. 2016.39(Suppl 1). Performed By: #### 2 4323-8, 67813-7 #### [facility] CLIA [id number] [address] [place] [address] [place] Potassium [Moles/Vol] 4.7 mmol/L Normal 3.7-5.1 [facility] Comment on above: Order Comment: Ehsan serrano Type: BLOOD SPECIMEN Ordering Facility: [facility] Address: [address] [place] [address] Performed By: #### 2 4323-8, 07524-6 #### [facility] CLIA [id number] [address] [place] [address] [place] Protein [Mass/Vol] 7.5 g/dL Normal 6.3-8.0 [facility] Comment on above: Order Comment: Ehsan serrano Type: BLOOD SPECIMEN Ordering Facility: [facility] Address: [address] [place] [address] Performed By: #### 2 4323-8, 33040-6 #### [facility] CLIA [id number] [address] [place] [address] [place] Sodium [Moles/Vol] 140 mmol/L Normal 136-144 [facility] Comment on above: Order Comment: Maricarmeni zach Type: BLOOD SPECIMEN Ordering Facility: [facility] Address: [address] [place] [address] Performed By: #### 2 4323-8, 70190-1 #### [facility] CLIA [id number] [address] [place] [address] [place] Urea nitrogen [Mass/Vol] 16 mg/dL Normal 9-24 [facility] Comment on above: Order Comment: Maricarmeni men Type: BLOOD SPECIMEN Ordering Facility: [facility] Address: [address] [place] [address] Performed By: #### 2 4323-8, 63351-1 #### [facility] CLIA [id number] [address] [place] [address] [place] HbA1c (Bld)on 06-06-2024 Average glucose Estimated from glycated hemoglobin (Bld) [Mass/Vol] 163 mg/dL Normal [facility] Comment on above: Order Comment: Ehsan serrano Type: BLOOD SPECIMEN Ordering Facility: [facility] Address: [address] [place] [address] Result Comment: eAG: (Estimated average glucose) is a calculated value from HgbA1c and is claim representative of the average blood glucose level in the last 2-3 month period. Performed By: #### 5 5454-3 #### [facility] CLIA [id number] [address] [place] [address] [place] HbA1c (Bld) [Mass fraction] 7.3 % High 4.3-5.6 [facility] Comment on above: Order Comment: Ehsan serrano Type: BLOOD SPECIMEN Ordering Facility: [facility] Address: [address] [place] [address] Result Comment: Amer [place] Diabetes Association guidelines indicate that patients with HgbA1c in the range 5.7-6.4% are at increased risk for development of diabetes, and intervention by lifestyle modification may be beneficial. HgbA1c greater or equal to 6.5% is considered diagnostic of diabetes. Performed By: #### 5 5454-3 #### [facility] CLIA [id number] [address] [place] [address] [place] Lipid 1996 panelon 4 Cholesterol [Mass/Vol] 95 mg/dL Normal <200 [facility] Comment on above: Order Comment: Ehsan serrano Type: BLOOD SPECIMEN Ordering Facility: [facility] Address: [address] [place] [address] Result Comment: <200 mg/dL, Desirable 200-239 mg/dL, Borderline high >239 mg/dL, High Performed By: #### 2 4323-8, 46456-3 #### [facility] CLIA [id number] [address] [place] [address] [facility] Cholesterol in HDL [Mass/Vol] 50 mg/dL Normal >39 [facility] Comment on above: Order Comment: Ehsan zach Type: BLOOD SPECIMEN Ordering Facility: [facility] Address: [address] [place] [address] Result Comment: 40-5 9 mg/dL, Acceptable >59 mg/dL, High: Negative risk factor for coronary heart disease <40 mg/dL, Low: Positive risk factor for coronary heart disease Performed By: #### 2 4323-8, 90396-0 #### [facility] CLIA [id number] [address] Cholesterol in LDL [Mass/Vol] 38 mg/dL Normal <100 [facility] Comment on above: Order Comment: Ehsan [facility] Type: BLOOD SPECIMEN Ordering Facility: [facility] Address: [address] [place] [address] Result Comment: <100 mg/dL, Optimal 100-129 mg/dL, Near optimal/above optimal 130-159 mg/dL, Borderline high 160-189 mg/dL, High >189 mg/dL, Very high Secondary prevention optimal LDL Cholesterol levels are recommended to be < 70 mg/dL Performed By: #### 2 4323-8, 94875-5 #### [facility] CLIA [id number] [address] [place], [place] [address] [facility] Cholesterol in LDL/Cholesterol in HDL [Mass ratio] 0.76 {ratio} Normal <2.54 [facility] Comment on above: Order Comment: [facility] Type: BLOOD SPECIMEN Ordering Facility: [facility] Address: [address] [place] [address] Result Comment: Refe rence: 1. National Cholesterol Education Program ATP III Guideline At-A-Glance Quick Desk Reference: National Heart, Lung, and Blood [place]. National Institutes of Health. 2001: NIH Publication No. 01-3305. 2. An International Atherosclerosis Society position paper: global recommendations for the management of dyslipidemia: executive summary, Atherosclerosis. 2014: 232(2):410-413. Performed By: #### 2 4323-8, 78746-7 #### [facility] CLIA [id number] [address] [place] [address] [place] Cholesterol in VLDL [Mass/Vol] 7 mg/dL Normal <30 [facility] Comment on above: Order Comment: Speci men Type: BLOOD SPECIMEN Ordering Facility: [facility] Address: [address] [place] [address] Performed By: #### 2 4323-8, 34033-7 #### [facility] CLIA [id number] [address] [place] [address] [facility] Cholesterol non HDL [Mass/Vol] 45 mg/dL Normal <130 [facility] Comment on above: Order Comment: Speci men Type: BLOOD SPECIMEN Ordering Facility: [facility] Address: [address] [place] [address] Result Comment: <130 mg/dL, Optimal 130-159 mg/dL, Near optimal/above optimal 160-189 mg/dL, Borderline high 190-219 mg/dL, High >219 mg/dL, Very high Secondary prevention optimal non HDL Cholesterol levels are recommended to be <100 mg/dL Performed By: #### 2 4323-8, 58899-6 #### [facility] CLIA [id number] [address] [place] [address] [facility] Cholesterol.total/Ch olesterol in HDL [Mass ratio] 1.90 {ratio} Normal <5.10 [facility] Comment on above: Order Comment: Speci men Type: BLOOD SPECIMEN Ordering Facility: [facility] Address: [address] [place] [address] Performed By: #### 2 4323-8, 68210-4 #### [facility] CLIA [id number] [address] [place] [address] [facility] FASTING TIME 12 hrs Normal [facility] Comment on above: Order Comment: Speci men Type: BLOOD SPECIMEN Ordering Facility: [facility] Address: [address] [place], [place] [address] Performed By: #### 2 4323-8, 27150-8 #### [facility] CLIA [id number] [address] [place] [address] [place] Triglyceride [Mass/Vol] 35 mg/dL Normal <150 [facility] Comment on above: Order Comment: Speci men Type: BLOOD SPECIMEN Ordering Facility: [facility] Address: [address] [place] [address] Result Comment: <150 mg/dL, Normal 150-199 mg/dL, Borderline high 200-499 mg/dL, High >499 mg/dL, Very high Performed By: #### 2 4323-8, 96252-4 #### [facility] CLIA [id number] [address] [place] [address] [place] HEMOGLOBIN A1C (POC)on 03-15 HbA1c (Bld) [Mass fraction] 7.3 % Abnormal 4.3 - 5.6 % [facility] Comment on above: Location:Nia mckeon, [address] [place] [address], [facility] Point of care (POC) Hemoglobin A1c (HGBA1C) testing is intended to assess glucose control and provide a management tool for patients known to have diabetes and their healthcare providers. Target HGBA1C levels may depend on specific clinical circumstances. POC HGBA1C is not intended for use as a diagnostic or screening test; laboratory-based testing should be used for diagnostic purposes. The following information is supplemental and may not be applicable to specific diabetes management situations: The POC device intake rn provides a normal range of 4.2% to 6.5% for the HGBA1C POC test. However, the [place] Diabetes Association guidelines indicate that patients with HGBA1C in the range of 5.7% to 6.4% are at increased risk for development of diabetes and that intervention by lifestyle modification may be beneficial. A HGBA1C level greater than or equal to 6.5% is considered diagnostic of diabetes, pending confirmatory testing. Use of HGBA1C testing to evaluate glucose control may not be appropriate for patients with hemoglobin variants or other conditions (e.g. anemia) that alter red blood cell lifespan. Interpretation and review of laboratory results Abnormal [facility] ALBUMIN/CREAT RATIO RND URon 12-01-2023 Albumin Unsp time DL <= 20 mg/L (U) [Mass/Time] <12.0 Normal [facility] Comment on above: Order Comment: Speci men Type: URINE SPECIMEN Ordering Facility: [facility] Address: [address] [place] [address] Performed By: #### U ACR #### [facility] CLIA [id number] [address] STATES OF [facility] Albumin/Creatinine (U) [Mass ratio] <20 Normal <30 [facility] Comment on above: Order Comment: Speci men Type: URINE SPECIMEN Ordering Facility: [facility] Address: [address] [place] [address] Result Comment: Adul t Male and Female Nephrotic Criteria: <30 mg/g is considered normal to mildly increased 30-300 mg/g is considered moderately increased >300 mg/g is considered severely increased KDIGO. (2013). KDIGO 2012 Clinical Practice Guideline for the Evaluation and Management of Chronic Kidney Disease. Official Journal of the International Society of Nephrology, 3(1), 1-150. Performed By: #### U ACR #### [facility] CLIA [id number] [address] [place] Creatinine (U) [Mass/Vol] 60.0 mg/dL Normal 46.8-314.5 [facility] Comment on above: Order Comment: Speci men Type: URINE SPECIMEN Ordering Facility: [facility] Address: [address] [place] [address] Performed By: #### U ACR #### [facility] CLIA [id number] 1 [place] [address] [place] Collagen crosslinked C-telop eptide [Mass/Vol]on 12-01-2023 C TELOPEPTIDE, BETA CROSS LINKED 480 pg/mL Normal 225-936 [facility] Comment on above: Order Comment: Speci men Type: BLOOD SPECIMEN Ordering Facility: [facility] Address: [address] [place] [address] Performed By: #### 4 1171-0 #### [facility] CLIA [id number] [address] [facility] [facility] [id number] [id number] [place] Comprehensive metabolic 2000 panelon 12-01-2023 Albumin [Mass/Vol] 4.6 g/dL Normal 3.9-4.9 [facility] Comment on above: Order Comment: Speci men Type: BLOOD SPECIMEN Ordering Facility: [facility] Address: [address] [place] [address] Performed By: #### L IPNF, 87173-5 #### [facility] CLIA [id number] [address] [place] [address] [place] ALP [Catalytic activity/Vol] 70 U/L Normal 38-113 [facility] Comment on above: Order Comment: Speci men Type: BLOOD SPECIMEN Ordering Facility: [facility] Address: [address] [place] [address] Performed By: #### L IPNF, 71075-0 #### [facility] CLIA [id number] [address] [place] [address] [place] ALT With P-5'-P [Catalytic activity/Vol] 24 U/L Normal 10-54 [facility] Comment on above: Order Comment: Speci men Type: BLOOD SPECIMEN Ordering Facility: [facility] Address: [address] [place] [address] Performed By: #### L IPNF, 25444-3 #### [facility] CLIA [id number] [address] [place] [address] [place] Anion gap [Moles/Vol] 10 mmol/L Normal 9-18 [facility] Comment on above: Order Comment: Speci men Type: BLOOD SPECIMEN Ordering Facility: [facility] Address: [address] [place] [address] Performed By: #### L IPNF, 55004-6 #### [facility] CLIA [id number] [address] [place] [address] [place] AST With P-5'-P [Catalytic activity/Vol] 25 U/L Normal 14-40 [facility] Comment on above: Order Comment: Speci men Type: BLOOD SPECIMEN Ordering Facility: [facility] Address: [address] [place] [address] Performed By: #### L IPNF, #### [facility] CLIA [id number] [address] [place] [address] [place] Bilirubin [Mass/Vol] 0.6 mg/dL Normal 0.2-1.3 [facility] Comment on above: Order Comment: Speci men Type: BLOOD SPECIMEN Ordering Facility: [facility] Address: [address] [place] [address] Performed By: #### L IPNF, #### [facility] CLIA [id number] [address] [place] [address] [place] Calcium [Mass/Vol] 9.4 mg/dL Normal 8.5-10.2 [facility] Comment on above: Order Comment: Speci men Type: BLOOD SPECIMEN Ordering Facility: [facility] Address: [address] [place] [address] Performed By: #### L IPNF, #### [facility] CLIA [id number] [address] [place] [address] [place] Chloride [Moles/Vol] 99 mmol/L Normal 97-105 [facility] Comment on above: Order Comment: Speci men Type: BLOOD SPECIMEN Ordering Facility: [facility] Address: [address] [place] [address] Performed By: #### L IPNF, #### [facility] CLIA [id number] [address] [place] [address] [place] CO2 [Moles/Vol] 28 mmol/L Normal 22-30 [facility] Comment on above: Order Comment: Speci men Type: BLOOD SPECIMEN Ordering Facility: [facility] Address: [address] [place] [address] Performed By: #### L IPNF, #### [facility] CLIA [id number] [address] [place] [address] [place] Creatinine [Mass/Vol] 0.84 mg/dL Normal 0.73-1.22 [facility] Comment on above: Order Comment: Ehsan serrano Type: BLOOD SPECIMEN Ordering Facility: [facility] Address: [address] [place] [address] Performed By: #### L IPNF, 25712-9 #### [facility] CLIA [id number] [address] [place], [place] [id number] [facility] Creatinine and Glomerular filtration rate.predicted panel (S/P/Bld) 120 mL/min/1.73m??? Normal >=60 [facility] Comment on above: Order Comment: Ehsan serrano Type: BLOOD SPECIMEN Ordering Facility: [facility] Address: [address] [place] [address] Result Comment: Mohini mated Glomerular Filtration Rate (eGFR) is calculated using the 2020 CKD-EPI creatinine equation. This equation utilizes serum creatinine, sex, and age as parameters. The creatinine assay has traceable calibration to isotope dilution-mass spectrometry. Refer to KDIGO guidelines for clinical interpretation. In patients with unstable renal function, e.g. those with acute kidney injury, the eGFR may not accurately reflect actual GFR. Performed By: #### L IP, 31701-9 #### [facility] CLIA [id number] [address] [place] [address] [place] Glucose [Mass/Vol] 234 mg/dL High 74-99 [facility] Comment on above: Order Comment: Ehsan serrano Type: BLOOD SPECIMEN Ordering Facility: [facility] Address: [address] [place] [address] Result Comment: The [place] Diabetes Association (ADA) provides guidance for cutoff values for fasting glucose and random glucose. The ADA defines fasting as no caloric intake for at least 8 hours. Fasting plasma glucose results between 100 to 125 mg/dL indicate increased risk for diabetes (prediabetes). Fasting plasma glucose results greater than or equal to 126 mg/dL meet the criteria for diagnosis of diabetes. In the absence of unequivocal hyperglycemia, results should be confirmed by repeat testing. In a patient with classic symptoms of hyperglycemia or hyperglycemic crisis, random plasma glucose results greater than or equal to 200 mg/dL meet the criteria for diagnosis of diabetes. Reference: Standards of Medical Care in Diabetes 2016, [place] Diabetes Association. Diabetes Care. 2016.39(Suppl 1). Performed By: #### L IPNF, 37976-7 #### [facility] CLIA [id number] [address] [place] [address] [place] Potassium [Moles/Vol] 3.9 mmol/L Normal 3.7-5.1 [facility] Comment on above: Order Comment: Speci men Type: BLOOD SPECIMEN Ordering Facility: [facility] Address: [address] [place] [address] Performed By: #### L IPNF, 44924-2 #### [facility] CLIA [id number] [address] [place] [address] [place] Protein [Mass/Vol] 7.5 g/dL Normal 6.3-8.0 [facility] Comment on above: Order Comment: Speci men Type: BLOOD SPECIMEN Ordering Facility: [facility] Address: [address] [place] [address] Performed By: #### L IPNF, 58902-5 #### [facility] CLIA [id number] [address] [place] [address] [place] Sodium [Moles/Vol] 137 mmol/L Normal 136-144 [facility] Comment on above: Order Comment: Speci men Type: BLOOD SPECIMEN Ordering Facility: [facility] Address: [address] [place] [address] Performed By: #### L IPNF, 54784-9 #### [facility] CLIA [id number] [address] [place] [address] [place] Urea nitrogen [Mass/Vol] 11 mg/dL Normal 9-24 [facility] Comment on above: Order Comment: Speci men Type: BLOOD SPECIMEN Ordering Facility: [facility] Address: [address] [place] [address] Performed By: #### L IPNF, 81092-9 #### [facility] CLIA [id number] [address] [place] [address] [place] LIPID PANEL, NONFASTINGon Cholesterol [Mass/Vol] 101 mg/dL Normal <200 [facility] Comment on above: Order Comment: Ehsan serrano Type: BLOOD SPECIMEN Ordering Facility: [facility] Address: [address] [place] [address] Result Comment: <200 mg/dL, Desirable 200-239 mg/dL, Borderline high >239 mg/dL, High Performed By: #### L IPNF, 24883-6 #### [facility] CLIA [id number] [address] [place] [address] [facility] HDL CHOLESTEROL, NF 56 mg/dL Normal >39 [facility] Comment on above: Order Comment: Ehsan serrano Type: BLOOD SPECIMEN Ordering Facility: [facility] Address: [address] [place] [address] Result Comment: 40-5 9 mg/dL, Acceptable >59 mg/dL, High: Negative risk factor for coronary heart disease <40 mg/dL, Low: Positive risk factor for coronary heart disease Performed By: #### L IPNF, 52304-1 #### [facility] CLIA [id number] [address] LDL CHOLESTEROL, NF 32 mg/dL Normal <100 [facility] Comment on above: Order Comment: Ehsan serrano Type: BLOOD SPECIMEN Ordering Facility: [facility] Address: [address] [place] [address] Result Comment: <100 mg/dL, Optimal 100-129 mg/dL, Near optimal/above optimal 130-159 mg/dL, Borderline high 160-189 mg/dL, High >189 mg/dL, Very high Secondary prevention optimal LDL Cholesterol levels are recommended to be < 70 mg/dL Performed By: #### L IPNF, 29121-1 #### [facility] CLIA [id number] [address] [place] [address] [facility] LDL/HDL RATIO, NF 0.57 mg/dL Normal <2.54 [facility] Comment on above: Order Comment: Ehsan zach Type: BLOOD SPECIMEN Ordering Facility: [facility] Address: [address] [place] [address] Result Comment: Daphney strong: 1. National Cholesterol Education Program ATP III Guideline At-A-Glance Quick Desk Reference: National Heart, Lung, and Blood [place]. National Institutes of Health. 2001: NIH Publication No. 01-3305. 2. An International Atherosclerosis Society position paper: global recommendations for the management of dyslipidemia: executive summary, Atherosclerosis. 2014: 232(2):410-413. Performed By: #### L IPNF, 20695-3 #### [facility] CLIA [id number] [address] [place], [place] [id number] [place] [address] NON HDL CHOL, NF 45 mg/dL Normal <130 [facility] Comment on above: Order Comment: Ehsan serrano Type: BLOOD SPECIMEN Ordering Facility: [facility] Address: [address] [place] [address] Result Comment: <130 mg/dL, Optimal 130-159 mg/dL, Near optimal/above optimal 160-189 mg/dL, Borderline high 190-219 mg/dL, High >219 mg/dL, Very high Secondary prevention optimal non HDL Cholesterol levels are recommended to be <100 mg/dL Performed By: #### L IPNF, 86369-2 #### [facility] CLIA [id number] [address] [place] [address] T CHOL/HDL RATIO NF 1.80 mg/dL Normal <5.10 [facility] Comment on above: Order Comment: Ehsan serrano Type: BLOOD SPECIMEN Ordering Facility: [facility] Address: [address] [place] [address] Performed By: #### L IPNF, 24251-8 #### [facility] CLIA [id number] [address] TRIGLYCERIDES, NF 63 mg/dL Normal <150 [facility] Comment on above: Order Comment: Ehsan serrano Type: BLOOD SPECIMEN Ordering Facility: [facility] Address: [address] [place] [address] Result Comment: <150 mg/dL, Normal 150-199 mg/dL, Borderline high 200-499 mg/dL, High >499 mg/dL, Very high Performed By: #### L IPNF, 10598-2 #### [facility] CLIA [id number] [address] [place] [address] [place] VLDL CHOLESTEROL, NF 13 mg/dL Normal <30 [facility] Comment on above: Order Comment: [facility] Type: BLOOD SPECIMEN Ordering Facility: [facility] Address: [address] [place] [address] Performed By: #### L IPNF, 95724-8 #### [facility] CLIA [id number] [address] [place] [address] [facility] HEMOGLOBIN A1C (POC)on 10-27 HbA1c (Bld) [Mass fraction] 6.8 % Abnormal 4.2 - 5.6 % [facility] 25(OH)D3 SerPl-mCncon 2022 25-hydroxyvitamin D3 [Mass/Vol] 37.3 ng/mL Normal >=30.0 [facility] Comment on above: Order Comment: [facility] Type: BLOOD SPECIMEN Ordering Facility: [facility] Address: [address] [place] [address] Result Comment: Clas sification of 25 [place] Vitamin D status: Deficiency: <= 20.0 ng/ml. Insufficiency: 21.0-29.0 ng/ml. Sufficiency: >= 30.0 ng/ml. Performed By: #### 1 989-3 #### [facility] CLIA [id number] [address] [place] A-Tocopherol Vit E SerPl-mCn con 07-22-2023 Alpha tocopherol [Mass/Vol] 4.9 mg/L Low 6.0-23.0 [facility] Comment on above: Order Comment: [facility] Type: BLOOD SPECIMEN Ordering Facility: [facility] Address: [address] [place] [address] Performed By: #### 2 923-1, 1823-4 #### [facility] CLIA [id number] [address] [facility] [id number] [address] [place] Alpha tocopherol [Mass/Vol]o n 07-22-2023 Beta+gamma tocopherol [Mass/Vol] 0.6 mg/L Normal 0.3-3.2 [facility] Comment on above: Order Comment: Speci men Type: BLOOD SPECIMEN Ordering Facility: [facility] Address: [place] [address] Result Comment: This test was developed and its performance characteristics determined by [facility] Pathology and Laboratory Medicine [place] ([facility]). It has not been cleared or approved by the FDA. [facility] is regulated under CLIA as qualified to perform high-complexity testing. This test is used for clinical purposes. It should not be regarded as investigational or for research. Performed By: #### 2 923-1, 182- #### [facility] CLIA [id number] [address] [place] [address] [place] Vit A SerPl-mCncon 3 Retinol [Mass/Vol] 0.32 mg/L Normal 0.30-1.20 [facility] Comment on above: Order Comment: Speci men Type: BLOOD SPECIMEN Ordering Facility: [facility] Address: [address] [place] [address] Result Comment: This test was developed and its performance characteristics determined by [facility] Pathology and Laboratory Medicine [place] ([facility]). It has not been cleared or approved by the FDA. [facility] is regulated under CLIA as qualified to perform high-complexity testing. This test is used for clinical purposes. It should not be regarded as investigational or for research. Performed By: #### 2 923-1, 1823- #### [facility] CLIA [id number] [address] [place] [address] [place] STREP A MOLECULAR (POC)on Procedural Control Valid [facility] Strep A (POCT) Negative Negative [facility] Emergency Department Summary on 05-08-2022 Emergency Department Summary [facility] Medical Records Department [address] [place] [address] Emergency Department Summary 05/07/22 MR#: [id number] Acct: [id number] Name: VILMA RANKIN Rep #: [id number] : 1995 27 From: Terence Cortés MD PCP: NOT,DEFINED Status:PRE ER Location: ED HPI History of Present Illness Chief Complaint: Upper Extremity Injury Informant: patient Narrative Narrative: Patient had a mechanical slip and fall earlier today. He fell on his right hand and someone on the side or back. He has pain near the proximal aspect of the right small finger. He is right-hand dominant. He denies any other injury. He thought it was dislocated so he tried to straighten it. It is better but is still swollen and mildly sore. Rest makes it better and pressing on it makes it worse. 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 See history of present illness. ; Denies back pain or neck pain Integumentary Denies Abrasions or rash Neurologic Neurologic: Denies paresthesias or weakness EXAM Physical Exam Const Vital Signs: 05/07/22 21:43 Temperature 98 F Temperature Source Temporal Pulse Rate 91 Respiratory Rate 16 Blood Pressure 133/79 H Blood Pressure Mean 97 Pulse Ox 99 Oxygen Delivery Method Room Air Positive well nourished and well developed General Appearance ED: well developed and NAD HEENT normocephalic and atraumatic Resp normal respiratory effort Extremity Extremity Narrative: There is obvious swelling to the dorsum of the right hand overlying the fifth metacarpal. I do not see angular or rotational deformity on exam. His range of motion is slightly limited mostly to due to discomfort. Capillary refill is intact. There is no break in the skin abrasion laceration etc. Neuro Neuro Narrative: No change in sensation. Range of motion is slightly limited due to discomfort. Sensorium / Orientation: alert and oriented to person Motor Exam: strength 5/5 throughout Skin Lesions: no lesions Rashes: no rashes Trauma: no lacerations or abrasions [facility] Narrative Medical decision making narrative: Three-view x-ray of his right hand looked at by me and read by radiology. This shows 1/5 metacarpal fracture. There is mild angulation. Plan will be to splint and have follow-up in orthopedics. I explained that this fracture is proximal enough that occasionally they would do surgery on these but they oftentimes heal without. Procedure: Ulnar gutter splint placement I discussed plan and options with patient. We did place a 3 inch fiberglass ulnar gutter splint involving forearm hand and proximal aspect of fourth and fifth/ring and small finger. This was Cherelle wrapped. He tolerated this well. He is rechecked afterwards and has good capillary refill. It has hardened completely and he does not feel as though it is too tight. Radiography Diagnostic Testing: Clinical Impression(s) from Imaging Studies Hand X-Ray 05/07/22 21:50 IMPRESSION: Acute boxer''s fracture of the distal right fifth metacarpal. Electronically Signed: Connor Santamaria MD at 22:16 EDT , Procedures Upper Extremity Splints Upper Extremity Splint: Orthoglass and Ulnar gutter Splint Fabrication: Fabricated Location: Right (See [facility]) Discharge Plan Triage Chief Complaint: Upper Extremity Injury ED Provider: Terence Cortés Dx/Rx/DC Orders Clinical Impression: Closed fracture of fifth metacarpal bone of right hand Instructions: ED Boxer Fracture Prescriptions: New hydrocodone-acetaminophe n 5-325 mg tablet 1 tab PO Q6H PRN (Reason: pain) 3 Days Qty: 10 0RF Primary Care Provider: NOT,DEFINED Referrals: Josesito Chaudhary DO [STAFF PHYSICIAN] - 3-5 Days NOT,DEFINED [Primary Care Provider] - Disposition Disposition: Home, Self Care What to do if you have Problems For any increased pain, shortness of breath, bleeding, nausea or vomiting, chest pain, or any unexpected problems, contact your Primary Care Provider. Call [facility] ([phone]) or report to the closest Emergency Room. (more content not included)... Normal [facility] Hand Min 3 Viewson 2 Hand Min 3 Views [facility] Imaging Services [address] [place] [address] Hand Min 3 Views MR#: [id number] Acct: [id number] Name: VILMA RANKIN Rep #: [id number] : 1995 M 27 From: Connor matthew MD PCP: NOT,DEFINED Status: PRE ER Study: Hand Min 3 Views Date of Exam: 05/07/22 Exam# [id number] Ordering Dr: Provider,Ed P. STUDY: X-RAY - RIGHT HAND REASON FOR EXAM: Male, 27 years old. INJURY TECHNIQUE: 3 view(s) of the hand. COMPARISON: None. FINDINGS: Normal radiocarpal articulation. Normal distal radioulnar joint. Normal visualized carpal bones. Normal carpal articulations Normal carpometacarpal articulation of the thumb. Normal second through fifth carpometacarpal joints. There is an acute, mildly comminuted nondisplaced fracture involving the distal shaft of the fifth metacarpal, with mild palmar angulation of the distal metacarpal fracture fragment. No extension of the fracture line into the fifth metacarpal head or distal articulating surface is identified. Normal metacarpophalangeal joint of the thumb. Normal interphalangeal joint of the thumb. Normal proximal and distal phalanges of the thumb. Normal metacarpophalangeal joints of the second through fifth fingers. Normal proximal and distal interphalangeal joints of the second through fifth fingers. Normal phalanges of the second through fifth fingers. Mild soft tissue swelling surrounds the fifth metacarpal fracture. RAD/Hand Min 3 Views IMPRESSION: Acute boxer''s fracture of the distal right fifth metacarpal. Electronically Signed: Connor Santamaria MD at 22:16 EDT , CC: DEFINED NOT; ED PHYSICIAN PROVIDER Bottle Assembler: Signed Normal [facility] Vital Signs Date Time Vital Sign Value Performing Clinician Matthew ross 07-21-2025 14:47-0400 Body height 180.3 cm Sondra Medrano MD Work Phone: [facility] 07-21-2025 14:47-0400 Body mass index (BMI) [Ratio] 23.46 kg/m2 Sondra Medrano MD Work Phone: [facility] 07-21-2025 14:47-0400 Body weight 76.3 kg Sondra Medrano MD Work Phone: [facility] 07-21-2025 14:47-0400 Diastolic blood pressure 81 mm[Hg] Sondra Medrano MD Work Phone: [facility] 07-21-2025 14:47-0400 Heart rate 71 /min Sondra Medrano MD Work Phone: [facility] 07-21-2025 14:47-0400 SaO2% (BldA) [Mass fraction] 99 % Sondra Medrano MD Work Phone: [facility] 07-21-2025 14:47-0400 Systolic blood pressure 145 mm[Hg] Sondra Medrano MD Work Phone: [facility] 05-09-2025 13:35-0400 Body mass index (BMI) [Ratio] 24.91 kg/m2 Santos Jones MD Work Phone: [facility] 05-09-2025 13:35-0400 Body weight 76.5 kg Santos Jones MD Work Phone: [facility] 05-09-2025 13:35-0400 Diastolic blood pressure 66 mm[Hg] Santos Jones MD Work Phone: [facility] 05-09-2025 13:35-0400 Heart rate 53 /min Santos Jones MD Work Phone: [facility] 05-09-2025 13:35-0400 Systolic blood pressure 118 mm[Hg] Santos Jones MD Work Phone: [facility] 02-10-2025 15:12-0400 Body mass index (BMI) [Ratio] 24.51 kg/m2 Sondra Medrano MD Work Phone: [facility] 02-10-2025 15:12-0400 Body weight 75.3 kg Sondra Medrano MD Work Phone: [facility] 02-10-2025 15:12-0400 Diastolic blood pressure 68 mm[Hg] Sondra Medrano MD Work Phone: [facility] 02-10-2025 15:12-0400 Heart rate 70 /min Sondra Medrano MD Work Phone: [facility] 02-10-2025 15:12-0400 Respiratory rate 16 /min Sondra Medrano MD Work Phone: [facility] 02-10-2025 15:12-0400 SaO2% (BldA) [Mass fraction] 98 % Sondra Medrano MD Work Phone: [facility] 02-10-2025 15:12-0400 Systolic blood pressure 116 mm[Hg] Sondra Medrano MD Work Phone: [facility] 12-13-2024 15:46-0500 Body height 175.3 cm Elias Ellison MD Work Phone: [facility] 12-13-2024 15:46-0500 Body mass index (BMI) [Ratio] 25.7 kg/m2 Elias Ellison MD Work Phone: [facility] 12-13-2024 15:46-0500 Body weight 78.93 kg Elias Ellison MD Work Phone: [facility] 12-13-2024 15:46-0500 Diastolic blood pressure 64 mm[Hg] Elias Ellison MD Work Phone: [facility] 12-13-2024 15:46-0500 Heart rate 70 /min Elias Ellison MD Work Phone: [facility] 12-13-2024 15:46-0500 SaO2% (BldA) [Mass fraction] 97 % Elias Ellison MD Work Phone: [facility] 12-13-2024 15:46-0500 Systolic blood pressure 126 mm[Hg] Elias Ellison MD Work Phone: [facility] 03-15-2024 10:17-0400 Body mass index (BMI) [Ratio] 23.77 kg/m2 Santos Jones MD Work Phone: [facility] 03-15-2024 10:17-0400 Body weight 73 kg Santos Jones MD Work Phone: [facility] 03-15-2024 10:17-0400 Diastolic blood pressure 79 mm[Hg] Santos Jones MD Work Phone: [facility] 03-15-2024 10:17-0400 Heart rate 70 /min Santos Jones MD Work Phone: [facility] 03-15-2024 10:17-0400 Systolic blood pressure 135 mm[Hg] Santos Jones MD Work Phone: [facility] 10-27-2023 11:18-0500 Body weight 72.26 kg Santos Jones MD Work Phone: [facility] 10-27-2023 11:18-0500 Diastolic blood pressure 65 mm[Hg] Santos Jones MD Work Phone: [facility] 10-27-2023 11:18-0500 Heart rate 86 /min Santos Jones MD Work Phone: [facility] 10-27-2023 11:18-0500 Systolic blood pressure 127 mm[Hg] Santos Jones MD Work Phone: [facility] 11-10-2022 11:31-0500 Body temperature 97.9 [degF] Shane Bedoya MD Work Phone: [facility] 11-10-2022 11:31-0500 Body weight 65.68 kg Shane Bedoya MD Work Phone: [facility] 11-10-2022 11:31-0500 Diastolic blood pressure 78 mm[Hg] Shane Bedoya MD Work Phone: [facility] 11-10-2022 11:31-0500 Heart rate 75 /min Shane Bedoya MD Work Phone: [facility] 11-10-2022 11:31-0500 Respiratory rate 21 /min Shane Bedoya MD Work Phone: [facility] 11-10-2022 11:31-0500 SaO2% (BldA) [Mass fraction] 99 % Shane Bedoya MD Work Phone: [facility] 11-10-2022 11:31-0500 Systolic blood pressure 126 mm[Hg] Shane Bedoya MD Work Phone: [facility] Encounters Encounter Date Encounter Type Care Provider Facility Start: 08-04-2025 End: 08-04-2025 ambulatory SANTOS JONES Facility:[facility] Start: 07-21-2025 End: 07-21-2025 Patient encounter procedure Sondra Medrano MD Work Phone: Pulmonary Medicine Comment on above: Lung nodules (Primar y Dx) Start: 07-21-2025 End: 07-21-2025 [facility] SONDRA MEDRANO Facility:[facility] Start: 07-13-2025 End: 07-13-2025 Refill Santos Jones MD Work Phone: Endocrinology Comment on above: Refill Request Start: 06-19-2025 ambulatory SONDRA MEDRANO Facility:[facility] Start: 06-19-2025 End: 06-19-2025 Subsequent hospital visit by physician [facility] (I-Stat) Work Phone: Cat Scan Comment on above: Lung nodules [R91.8] Start: 05-18-2025 End: 05-22-2025 Telephone encounter Santos Jones MD Work Phone: Endocrinology Comment on above: Patient Update Start: 05-16-2025 End: 05-16-2025 Refill Santos Jones MD Work Phone: Endocrinology Comment on above: Refill Request Start: 05-09-2025 End: 05-09-2025 Patient encounter procedure Santos Jones MD Work Phone: Endocrinology Comment on above: Poorly controlled ty pe 1 diabetes mellitus with complication (HCC) (Primary Dx); Type 1 diabetes mellitus without complication (HCC); Insulin pump status Start: 05-09-2025 End: 05-09-2025 ambulatory SANTOS JONES Facility:[facility] Start: 03-17-2025 End: 03-17-2025 Refill Santos Jones MD Work Phone: Endocrinology Comment on above: Refill Request Start: 03-13-2025 ambulatory UNKNOWN PROVIDER Facili ty:[facility] Start: 03-13-2025 End: 03-13-2025 Subsequent hospital visit by physician [facility] Radiology Comment on above: Portal vein thrombos is [I81] Start: 02-10-2025 End: 02-10-2025 ambulatory ELIAS ELLISON Facility:[facility] Start: 02-10-2025 End: 02-10-2025 Patient encounter procedure Sondra Medrano MD Work Phone: Pulmonary Medicine Comment on above: Lung nodules (Primar y Dx) Start: 01-27-2025 End: 03-29-2025 Follow-up encounter Santos Jones MD Work Phone: Endocrinology Start: 01-27-2025 End: 01-27-2025 ambulatory Santos Jones MD Work Phone: Endocrinology Comment on above: Poorly controlled ty pe 1 diabetes mellitus with complication (HCC) (Primary Dx); Insulin pump status Start: 01-27-2025 End: 01-27-2025 Telemedicine consultation with patient Santos Jones MD Work Phone: Endocrinology Start: 01-26-2025 End: 01-26-2025 ambulatory SANTOS JONES Facility:[facility] Start: 01-19-2025 End: 01-20-2025 Refill Santos Jones MD Work Phone: Endocrinology Comment on above: Refill Request Start: 01-10-2025 End: 01-10-2025 Telephone encounter Elias Ellison MD Work Phone: Gastroenterology Start: 01-05-2025 ambulatory UNKNOWN PROVIDER Facili ty:[facility] Start: 01-05-2025 End: 01-05-2025 Subsequent hospital visit by physician [facility] Radiology Comment on above: Adverse effect of tr eatment, initial encounter [T88.9XXA] Start: 12-29-2024 End: 12-29-2024 ambulatory UNKNOWN PROVIDER Facility:[facility] Start: 12-13-2024 End: 12-13-2024 Patient encounter procedure Elias Ellison MD Work Phone: Gastroenterology Comment on above: Adverse effect of tr eatment, initial encounter (Primary Dx); Screening for nephropathy Start: 12-13-2024 End: 12-13-2024 ambulatory ELIAS ELLISON Facility:[facility] Start: 10-27-2024 End: 10-27-2024 Refill Santos Jones MD Work Phone: Endocrinology Comment on above: Refill Request Start: 10-26-2024 End: 10-26-2024 ambulatory Santos Jones MD Work Phone: Endocrinology Comment on above: Poorly controlled ty pe 1 diabetes mellitus with complication (HCC) (Primary Dx); Insulin pump status Start: 10-26-2024 End: 10-26-2024 Telemedicine consultation with patient Santos Jones MD Work Phone: Endocrinology Start: 08-02-2024 End: 08-02-2024 ambulatory Santos Jones MD Work Phone: Endocrinology Comment on above: Poorly controlled ty pe 1 diabetes mellitus with complication (HCC) (Primary Dx); Insulin pump status Start: 08-02-2024 End: 08-02-2024 Telemedicine consultation with patient Santos Jones MD Work Phone: Endocrinology Start: 08-01-2024 End: 08-10-2024 Telephone encounter Santos Jones MD Work Phone: [facility] [place] Comment on above: Insurance Authorizat ion (Appeal leter OMNIPOD 5 G6 PODS, GEN 5, crtg) Medication Preauthor ization (Novolog denied) Medication Preauthor ization (Dexcom G6 sensor approved) Letter (OMNIPOD 5 G6 PODS, GEN 5, crtg [ANTHEM]) Start: 07-29-2024 End: 07-29-2024 Telephone encounter Santos Jones MD Work Phone: [facility] [place] Comment on above: Medication Preauthor ization (Omnipod 5 G6 Pods Gen 5) Medication Preauthor ization (insulin aspart U-100 (NOVOLOG U-100 INSULIN ASPART) 100 unit/mL) Start: 07-24-2024 End: 07-25-2024 Refill Santos Jones MD Work Phone: Endocrinology Comment on above: Refill Request Start: 07-24-2024 End: 07-25-2024 Refill Santos Jones MD Work Phone: Endocrinology Comment on above: Refill Request Start: 06-14-2024 Refill Santos Jones MD Work Phone: Endocrinology Comment on above: Refill Request Start: 06-06-2024 End: 06-06-2024 ambulatory SANTOS JONES Facility:[facility] Start: 05-03-2024 Refill Santos Jones MD Work Phone: Endocrinology Comment on above: Refill Request Start: 04-01-2024 Refill Santos Jones MD Work Phone: Endocrinology Comment on above: Refill Request Start: 03-15-2024 End: 03-15-2024 Patient encounter procedure Santos Jones MD Work Phone: Endocrinology Comment on above: Poorly controlled ty pe 1 diabetes mellitus with complication (HCC) (Primary Dx); Type 1 diabetes mellitus without complication (HCC); Insulin pump status Start: 01-29-2024 Refill Santos Jones MD Work Phone: Endocrinology Comment on above: Refill Request Start: 12-28-2023 Refill Santos Jones MD Work Phone: Endocrinology Comment on above: Refill Request Start: 12-01-2023 End: 12-01-2023 ambulatory SANTOS JONES Facility:[facility] Start: 10-27-2023 ambulatory Santos Jones MD Work Phone: Endocrinology Comment on above: Connect to [place] Start: 10-27-2023 E-mail encounter fro m caregiver Santos Jones MD Work Phone: [facility] Start: 10-27-2023 End: 10-27-2023 Patient encounter procedure Santos Jones MD Work Phone: Endocrinology Comment on above: Type 1 diabetes lucia itus with hyperglycemia (HCC) (Primary Dx); Post-pancreatectomy diabetes (HCC) ; Insulin pump status [Z96.41]; Encounter for diabetic foot exam (HCC) [E11.9] Start: 10-12-2023 Telephone encounter Nivia sanchez PA-C Work Phone: [facility] Start: 08-07-2023 Refill Santos Jones MD Work Phone: Endocrinology Comment on above: Refill Request Start: 08-05-2023 Refill Santos Jones MD Work Phone: Endocrinology Comment on above: Refill Request Start: 07-22-2023 End: 07-22-2023 ambulatory ELIAS ELLISON Facility:[facility] Start: 07-14-2023 End: 07-14-2023 ambulatory Elias Ellison MD Work Phone: Gastroenterology Comment on above: Pancreatic steatorrh ea (Primary Dx) Start: 07-14-2023 End: 07-14-2023 Telemedicine consultation with patient Elias Ellison MD Work Phone: [facility] Start: 06-03-2023 Refill Santos Jones MD Work Phone: Endocrinology Comment on above: Refill Request Start: 05-12-2023 Telephone encounter Santos Jones MD Work Phone: Endocrinology Comment on above: Patient Question Medication Problem Start: 05-09-2023 Refill Santos Jones MD Work Phone: Endocrinology Comment on above: Refill Request Start: 04-20-2023 Refill Santos Jones MD Work Phone: Endocrinology Comment on above: Refill Request Start: 04-20-2023 Refill Santos Jones MD Work Phone: Endocrinology Comment on above: Refill Request Start: 03-23-2023 Refill Santos Jones MD Work Phone: Endocrinology Comment on above: Refill Request Start: 02-25-2023 End: 02-25-2023 Nursing evaluation of patient and report Derrick Melissa RN Work Phone: Endocrinology Comment on above: Post-pancreatectomy diabetes (HCC) (Primary Dx) Start: 02-11-2023 Telephone encounter Santos Jones MD Work Phone: Endocrinology Comment on above: Forms (ASPN) Start: 01-15-2023 Telephone encounter Santos Jones MD Work Phone: Endocrinology Comment on above: Insurance Authorizat ion (Dexcom G6 Sensor and Transmitter) Start: 01-14-2023 End: 01-14-2023 ambulatory Santos Jones MD Work Phone: Endocrinology Comment on above: Poorly controlled ty pe 1 diabetes mellitus with complication (HCC) (Primary Dx) Start: 01-14-2023 End: 01-14-2023 Telemedicine consultation with patient Santos Jones MD Work Phone: [facility] Start: 12-29-2022 Telephone encounter Santos Jones MD Work Phone: Endocrinology Comment on above: Prescription Request Start: 11-10-2022 End: 11-10-2022 Patient encounter procedure Shane Bedoya MD [facility] Phone[facility] Comment on above: Sore throat (Primary Dx) Start: 10-21-2022 Refill Elias palafox MD Work Phone: Gastroenterology Comment on above: Refill Request Start: 08-04-2022 Refill Santos Joens MD Work Phone: Endocrinology Comment on above: Refill Request Start: 02-18-2022 Refill Elias palafox MD Work Phone: Gastroenterology Comment on above: Refill Request Procedures Date Procedure Procedure Detail Performing Clinician Start: 06-19-2025 Ct thorax w/o contra st material Sondra Medrano MD Work Phone: Start: 05-09-2025 Hemoglobin A1c/Hemoglobin.total in Blood Santos Jones MD Work Phone: Start: 05-09-2025 [facility] Start: 03-15-2024 Hemoglobin A1c/Hemoglobin.total in Blood Santos Jones MD Work Phone: Start: 10-27-2023 Hemoglobin A1c/Hemoglobin.total in Blood Santos Jones MD Work Phone: Start: 11-10-2022 STREP A MOLECULAR (POC) Brie Mercedes APRN.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 CH[employer]STITCH Work Phone: Start: 01-07-2022 Adult depression screening assessment Elias Ellison MD Work Phone: Plan of Treatment Date Care Activity Detail Author Start: 2043 SHINGRIX VACCINE (1 of 2) SHINGRIX VACCINE (1 of 2) [facility] Start: 02-04-2028 Urine microalbumin profile [facility] Start: 01-26-2026 Hepatitis B screening Urine Albumin:Creatinine Ratio [facility] Start: 01-26-2026 Hepatitis B surface antibody level LDL Cholesterol [facility] Start: 11-08-2025 Hemoglobin A1c measurement HbA1C [facility] Start: 08-04-2025 End: 08-04-2025 ambulatory 08/04/2025 3:00 PM EDT [facility] Endocrinology [address] [place] [address] Santos Jones MD [address] [place] [address] Return in about 3 months (around 08/09/2025), or split new slot, can be converted into virtual, thanks! add on afternoon OK as well. Endocrinology Comment on above: Return in about 3 months (around 08/09/20 25), or split new slot, can be converted into virtual, thanks! add on afternoon OK as well. Start: 07-29-2025 Hemoglobin A1c measurement HbA1C [facility] Start: 07-21-2025 End: 07-21-2025 Patient encounter procedure 07/21/2025 2:45 PM EDT Office Visit Pulmonary Medicine [address] [place] [id number] Sondra Medrano MD [address] [place] [id number] Lung nodules [R91.8] Pulmonary Medicine Comment on above: Lung nodules [R91.8] Start: 07-17-2025 Influenza vaccination [facility] Start: 06-19-2025 End: 06-19-2025 Patient encounter procedure 06/19/2025 3:40 PM EDT Appointment Cat Scan [address] [place], [place] [id number] Lung nodules [R91.8] Cat Scan Comment on above: Lung nodules [R91.8] Start: 06-19-2025 End: 03-12-2026 CT Chest WO contrast CT CHEST WO IVCON Radiology Routine Lung nodules Expected: 06/19/2025, Expires: 03/12/2026 [facility] Comment on above: Expected: 06/19/2025, Expires: Start: 06-06-2025 Hepatitis B screening Urine Albumin:Creatinine Ratio [facility] Start: 06-06-2025 Hepatitis B surface antibody level LDL Cholesterol [facility] Start: 05-09-2025 End: 05-09-2025 Patient encounter procedure Endocrinology Comment on above: May 09 140 on cancer template in F20 in person, PER DR. JONES May 09 [address] Jones Start: 03-13-2025 End: 03-13-2025 Patient encounter procedure 03/13/2025 4:30 PM EDT Appointment Radiology [address] [place] [address] CT PANCREAS W Elias Xiong MD in [facility] A30 Radiology Comment on above: CT PANCREAS W Elias Xiong MD in [facility] A30 Start: 03-11-2025 End: 02-09-2026 CT Pancreas W contrast IV CT PANCREAS W IVCON Radiology Routine Portal vein thrombosis Expected: 03/11/2025, Expires: 02/09/2026 [facility] Work Phone: Comment on above: Expected: 03/11/2025, Expires: Start: 02-10-2025 End: 02-10-2025 Patient encounter procedure 02/10/2025 3:15 PM EDT Office Visit Pulmonary Medicine [address] [place], [place] [id number] Sondra Medrano MD [address] [place], [place] [id number] Lung nodules [R91.8] Pulmonary Medicine Comment on above: Lung nodules [R91.8] Start: 02-10-2025 End: 05-12-2025 Angiotensin converting enzyme [Enzymatic activity/volume] in Serum or Plasma CHERELLE/ANGIOTENSIN BLD Lab Routine Lung nodules Expected: 02/10/2025, Expires: 05/12/2025 [facility] Comment on above: Expected: 02/10/2025, Expires: Start: 02-10-2025 End: 05-12-2025 INTERLEUKIN 2 RECEPTOR, SOLUBLE, SERUM INTERLEUKIN 2 RECEPTOR, SOLUBLE, SERUM Lab Routine Expected: 02/10/2025, Expires: 05/12/2025 [facility] Work Phone: Comment on above: Expected: 02/10/2025, Expires: Start: 01-27-2025 End: 01-27-2025 Follow-up encounter Endocrinology Comment on above: follow up per robert Start: 01-24-2025 End: 04-25-2025 Comprehensive metabolic 2000 panel - Serum or Plasma COMPREHENSIVE METABOLIC PANEL Lab Routine Poorly controlled type 1 diabetes mellitus with complication (HCC) Expected: 01/24/2025, Expires: 04/25/2025 [facility] Comment on above: Expected: 01/24/2025, Expires: Start: 01-24-2025 End: 04-25-2025 Hemoglobin A1c in Blood HEMOGLOBIN A1C Lab Routine Poorly controlled type 1 diabetes mellitus with complication (HCC) Expected: 01/24/2025, Expires: 04/25/2025 [facility] Work Phone: Comment on above: Expected: 01/24/2025, Expires: Start: 01-24-2025 End: 04-25-2025 Lipid 1996 panel - Serum or Plasma LIPID PANEL BASIC Lab Routine Poorly controlled type 1 diabetes mellitus with complication (HCC) Expected: 01/24/2025, Expires: 04/25/2025 [facility] Comment on above: Expected: 01/24/2025, Expires: Start: 01-24-2025 End: 04-25-2025 Microalbumin/Creatini ne [Mass Ratio] in Urine ALBUMIN/CREATININE RATIO, URINE Lab Routine Poorly controlled type 1 diabetes mellitus with complication (HCC) Expected: 01/24/2025, Expires: 04/25/2025 [facility] Comment on above: Expected: 01/24/2025, Expires: Start: 01-24-2025 End: 04-25-2025 Thyrotropin [Units/volume] in Serum or Plasma THYROID STIMULATING HORMONE Lab Routine Poorly controlled type 1 diabetes mellitus with complication (HCC) Expected: 01/24/2025, Expires: 04/25/2025 [facility] Comment on above: Expected: 01/24/2025, Expires: Start: 01-05-2025 End: 01-05-2025 Patient encounter procedure Radiology Comment on above: Adverse effect of treatment, initial enc kassie [T88.9XXA] Start: 12-13-2024 End: 12-13-2024 Patient encounter procedure 12/13/2024 4:00 PM EST Office Visit Gastroenterology [address] [id number] Elias Ellison MD [address] [place], [place] [id number] Yearly follow/Continued Creon prescription Gastroenterology Comment on above: Yearly follow/Continued Creon prescripti on Start: 12-13-2024 End: 03-14-2025 CREATININE BLD CREATININE BLD Lab Routine Adverse effect of treatment, initial encounter Screening for nephropathy Expected: 12/13/2024, Expires: 03/14/2025 [facility] Comment on above: Expected: 12/13/2024, Expires: Start: 12-07-2024 Hemoglobin A1c measurement HbA1C [facility] Start: 12-01-2024 Hepatitis B screening Urine Albumin:Creatinine Ratio [facility] Start: 12-01-2024 Hepatitis B surface antibody level LDL Cholesterol [facility] Start: 10-27-2024 Diabetic foot examination Diabetic Foot Exam [facility] Start: 10-26-2024 End: 10-26-2024 ambulatory 10/26/2024 9:00 AM EST [facility] Endocrinology [address] [place] [address] Santos Jones MD [address] [place] [address] Oct 26 9 AM virtual - Thanks! Brie-per KJulio C Endocrinology Comment on above: Oct 26 9 AM virtual - Thanks! Brie-nawaf TIAN Start: 09-14-2024 Hemoglobin A1c measurement HbA1C [facility] Start: 08-02-2024 End: 08-02-2024 Follow-up encounter 08/02/2024 9:00 AM EDT [facility] Endocrinology [address] [place] [address] Santos Jones MD [address] [place] [address] 4 month follow up-ok to switch to virtual and split spot per Robert Endocrinology Comment on above: 4 month follow up-ok to switch to virtua l and split spot per Robert Start: 07-17-2024 Covid-19 Vaccine ( season) Covid-19 Vaccine () [facility] Start: 07-17-2024 Covid-19 Vaccine ( season) Covid-19 Vaccine () [facility] Start: 07-17-2024 Influenza vaccination [facility] Start: 06-14-2024 End: 09-13-2024 Comprehensive metabolic 2000 panel - Serum or Plasma COMPREHENSIVE METABOLIC PANEL Lab Routine Poorly controlled type 1 diabetes mellitus with complication (HCC) Expected: 06/14/2024, Expires: 09/13/2024 [facility] Comment on above: Expected: 06/14/2024, Expires: Start: 06-14-2024 End: 09-13-2024 Hemoglobin A1c in Blood HEMOGLOBIN A1C Lab Routine Poorly controlled type 1 diabetes mellitus with complication (HCC) Expected: 06/14/2024, Expires: 09/13/2024 [facility] Work Phone: Comment on above: Expected: 06/14/2024, Expires: Start: 06-14-2024 End: 09-13-2024 Lipid 1996 panel - Serum or Plasma LIPID PANEL BASIC Lab Routine Poorly controlled type 1 diabetes mellitus with complication (HCC) Expected: 06/14/2024, Expires: 09/13/2024 [facility] [facility] Comment on above: Expected: 06/14/2024, Expires: Start: 06-14-2024 End: 09-13-2024 Microalbumin/Creatini ne [Mass Ratio] in Urine ALBUMIN/CREATININE RATIO, URINE Lab Routine Poorly controlled type 1 diabetes mellitus with complication (HCC) Expected: 06/14/2024, Expires: 09/13/2024 [facility] Comment on above: Expected: 06/14/2024, Expires: Start: 04-27-2024 Hemoglobin A1c measurement HbA1C [facility] Start: 11-16-2023 Behavioral Health Screening Behavioral Health Screening [facility] Start: 11-16-2023 Depression Assessment Depression Assessment [facility] Start: 10-27-2023 End: 01-26-2024 ALBUMIN/CREAT RATIO RND UR ALBUMIN/CREAT RATIO RND UR Lab Routine Type 1 diabetes mellitus with hyperglycemia (HCC) Expected: 10/27/2023, Expires: 01/26/2024 [facility] Work Phone: Comment on above: Expected: 10/27/2023, Expires: Start: 10-27-2023 End: 01-26-2024 Comprehensive metabolic 2000 panel - Serum or Plasma COMP METABOLIC PANEL Lab Routine Type 1 diabetes mellitus with hyperglycemia (HCC) Expected: 10/27/2023, Expires: 01/26/2024 [facility] Work Phone: Comment on above: Expected: 10/27/2023, Expires: 4 Start: 10-27-2023 End: 01-26-2024 LIPID PANEL, NONFASTING LIPID PANEL, NONFASTING Lab Routine Type 1 diabetes mellitus with hyperglycemia (HCC) Expected: 10/27/2023, Expires: 01/26/2024 [facility] Work Phone: Comment on above: Expected: 10/27/2023, Expires: Start: 07-17-2023 Covid-19 Vaccine () Covid-19 Vaccine () [facility] Start: 07-17-2023 Influenza vaccination [facility] Start: 07-14-2023 End: 09-13-2023 25-hydroxyvitamin D3 [Mass/volume] in Serum or Plasma VITAMIN D 25 HYDROXY Lab Routine Pancreatic steatorrhea Expected: 07/14/2023, Expires: 09/13/2023 [facility] Work Phone: Comment on above: Expected: 07/14/2023, Expires: 3 Start: 07-14-2023 End: 09-13-2023 Alpha tocopherol [Mass/volume] in Serum or Plasma VITAMIN E/TOCOPHEROL Lab Routine Pancreatic steatorrhea Expected: 07/14/2023, Expires: 09/13/2023 [facility] Work Phone: Comment on above: Expected: 07/14/2023, Expires: 3 Start: 07-14-2023 End: 09-13-2023 Retinol [Mass/volume] in Serum or Plasma VITAMIN A/RETINOL Lab Routine Pancreatic steatorrhea Expected: 07/14/2023, Expires: 09/13/2023 [facility] Work Phone: Comment on above: Expected: 07/14/2023, Expires: 3 Start: 01-21-2023 Glaucoma screening Dilated Retinal Exam [facility] Start: 01-21-2023 Hepatitis C antibody, confirmatory test DILATED RETINAL EXAM [facility] Start: 01-07-2023 Adult depression screening assessment DEPRESSION SCREENING [facility] Start: 11-16-2022 DEPRESSION ASSESSMENT DEPRESSION ASSESSMENT [facility] Start: 07-17-2022 Influenza vaccination [facility] Start: 11-16-2021 DEPRESSION ASSESSMENT DEPRESSION ASSESSMENT [facility] Start: 06-06-2021 Hemoglobin A1c/Hemoglobin.total in Blood HBA1C [facility] Start: 03-13-2021 Hepatitis B screening URINE ALBUMIN:CREATININE RATIO [facility] Start: 03-13-2021 Hepatitis B surface antibody level LDL CHOLESTEROL [facility] Start: 2020 HPV Vaccine (1 - 3-dose SCDM series) HPV Vaccine (1 - 3-dose SCDM series) [facility] Start: 02-26-2020 PNEUMOCOCCAL (2 - PPSV23 if available, else PCV20) PNEUMOCOCCAL (2 - PPSV23 if available, else PCV20) [facility] Start: 02-26-2020 PNEUMOCOCCAL (2 - PPSV23 or PCV20) PNEUMOCOCCAL (2 - PPSV23 or PCV20) [facility] Start: 04-22-2019 MENINGOCOCCAL CONJUGATE (2 - Risk 2-dose series) MENINGOCOCCAL CONJUGATE (2 - Risk 2-dose series) [facility] Start: 04-22-2019 Meningococcal Conjugate Vaccine (2 - Risk 2-dose series) Meningococcal Conjugate Vaccine (2 - Risk 2-dose series) [facility] Start: 04-22-2019 PNEUMOCOCCAL (2 - PPSV23 if available, else PCV20) PNEUMOCOCCAL (2 - PPSV23 if available, else PCV20) [facility] Start: 04-22-2019 PNEUMOCOCCAL (2 - PPSV23 or PCV20) PNEUMOCOCCAL (2 - PPSV23 or PCV20) [facility] Start: 04-22-2019 Pneumococcal vaccination [facility] Start: 03-25-2019 Meningococcal B Vaccine (2 of 4 - Increased Risk Bexsero 3-dose series) Meningococcal B Vaccine (2 of 4 - Increased Risk Bexsero 3-dose series) [facility] Start: 03-25-2019 Meningococcal B Vaccine (2 of 5 - Increased Risk Bexsero 3-dose series) Meningococcal B Vaccine (2 of 5 - Increased Risk Bexsero 3-dose series) [facility] Start: 03-25-2019 Meningococcal B Vaccine: Consider Based On Risk (2 of 4 - Increased Risk Bexsero 2-dose series) Meningococcal B Vaccine: Consider Based On Risk (2 of 4 - Increased Risk Bexsero 2-dose series) [facility] Start: 03-25-2019 MENINGOCOCCAL B: Consider based on risk (2 of 4 - Increased Risk Bexsero 2-dose series) MENINGOCOCCAL B: Consider based on risk (2 of 4 - Increased Risk Bexsero 2-dose series) [facility] Start: 2012 SHINGRIX VACCINE (1 of 2) SHINGRIX VACCINE (1 of 2) [facility] Start: 2011 ANNUAL PCP TEAM CHRONIC DISEASE VISIT ANNUAL PCP TEAM CHRONIC DISEASE VISIT [facility] Start: 2011 Anxiety Screening Anxiety Screening [facility] Start: 2011 Depression Screening Depression Screening [facility] Start: 2009 ONE PNEUMOVAX PRIOR TO AGE 65 ONE PNEUMOVAX PRIOR TO AGE 63 [facility] Start: 2003 3 comp foot exam completed DIABETIC FOOT EXAM [facility] Start: 2003 Hepatitis C antibody, confirmatory test DILATED RETINAL EXAM [facility] Start: 1998 COVID-19 VACCINE (1) COVID-19 VACCINE (1) [facility] Start: 1993 COVID-19 VACCINE (#1) COVID-19 VACCINE (#1) [facility] End: 01-12-2026 CT Abdomen and Pelvis W contrast IV CT ABD/PEL W IVCON Radiology Routine Adverse effect of treatment, initial encounter Screening for nephropathy 1 Occurrences starting 12/13/2024 until 01/12/2026 [facility] Work Phone: Comment on above: 1 Occurrences starting 12/13/2024 until 01/12/2026 CT Abdomen and Pelvi s W contrast IV CT ABD/PEL W IVCON Radiology Routine Adverse effect of treatment, initial encounter Screening for nephropathy 01/05/2025 4:18 PM EST [facility] Work Phone: End: 01-12-2026 CT Chest W contrast IV CT CHEST W IVCON Radiology Routine Adverse effect of treatment, initial encounter 1 Occurrences starting 12/13/2024 until 01/12/2026 [facility] Comment on above: 1 Occurrences starting 12/13/2024 until 01/12/2026 CT Chest W contrast IV CT CHEST W IVCON Radiology Routine Adverse effect of treatment, initial encounter 01/05/2025 4:18 PM EST [facility] CT Pancreas W contrast IV CT PANCREAS W IVCON Radiology Routine Portal vein thrombosis 03/13/2025 4:53 PM EDT [facility] Work Phone: End: 11-10-2024 DXA-AXIAL SKELETON DXA-AXIAL SKELETON Radiology Routine Osteoporosis screening Post-pancreatectomy diabetes (HCC) Severe protein-calorie malnutrition (HCC) Bone loss Height loss 1 Occurrences starting 10/12/2023 until 11/10/2024 [facility] Work Phone: Comment on above: 1 Occurrences starting 10/12/2023 until 11/10/2024 [facility] Immunizations Immunization Date Immunization Notes Care Provider Fa cili 02-25-2019 haemophilus influenz ae type b vaccine, PRP-T conjugate Elias Ellison MD Work Phone: [facility] 02-25-2019 meningococcal B vacc ine, recombinant, OMV, adjuvanted Elias Ellison MD Work Phone: [facility] 02-25-2019 meningococcal oligosaccharide (groups A, C, Y and W-135) diphtheria toxoid conjugate vaccine (MCV4O) Elias Ellison MD Work Phone: [facility] 02-25-2019 pneumococcal conjuga te vaccine, 13 valent Elias Ellison MD Work Phone: [facility] 09-26-2018 Influenza, injectabl e, Madin [place] Canine Kidney, preservative free, quadrivalent Elias Ellison MD Work Phone: [facility] 09-26-2018 influenza virus vacc ine, unspecified formulation Santos Jones MD Work Phone: [facility] 02-03-2018 tetanus toxoid, redu sloane diphtheria toxoid, and acellular pertussis vaccine, adsorbed Elias Ellison MD Work Phone: [facility] 11-20-2017 influenza, injectabl e, quadrivalent, preservative free Elias Ellison MD Work Phone: [facility] 06-09-2006 tetanus toxoid, redu sloane diphtheria toxoid, and acellular pertussis vaccine, adsorbed Elias Ellison MD Work Phone: [facility] 07-09-2005 measles, mumps and r ubella virus vaccine Elias Ellison MD Work Phone: [facility] 03-21-1998 diphtheria, tetanus toxoids and acellular pertussis vaccine, unspecified formulation Elias Ellison MD Work Phone: [facility] 03-21-1998 trivalent poliovirus vaccine, live, oral Elias Ellison MD Work Phone: [facility] 10-15-1994 diphtheria, tetanus toxoids and acellular pertussis vaccine, unspecified formulation Elias Ellison MD Work Phone: [facility] 10-15-1994 trivalent poliovirus vaccine, live, oral Elias Ellison MD Work Phone: [facility] 08-20-1994 haemophilus influenz ae type b vaccine, conjugate unspecified formulation Elias Ellison MD Work Phone: [facility] 08-20-1994 measles, mumps and r ubella virus vaccine Elias Ellison MD Work Phone: [facility] 04-16-1994 hepatitis B vaccine, pediatric or pediatric/adolescent dosage Elias Ellison MD Work Phone: [facility] 1993 diphtheria, tetanus toxoids and pertussis vaccine Elias Ellison MD Work Phone: [facility] 1993 haemophilus influenz ae type b vaccine, conjugate unspecified formulation Elias Ellison MD Work Phone: [facility] 1993 diphtheria, tetanus toxoids and pertussis vaccine Elias Ellison MD Work Phone: [facility] 1993 haemophilus influenz ae type b vaccine, conjugate unspecified formulation Elias Ellison MD Work Phone: [facility] 1993 trivalent poliovirus vaccine, live, oral Elias Ellison MD Work Phone: [facility] 1993 hepatitis B vaccine, pediatric or pediatric/adolescent dosage Elias Ellison MD Work Phone: [facility] 1993 diphtheria, tetanus toxoids and pertussis vaccine Elias Ellison MD Work Phone: [facility] 1993 haemophilus influenz ae type b vaccine, conjugate unspecified formulation Elias Ellison MD Work Phone: [facility] 1993 trivalent poliovirus vaccine, live, oral Elias Ellison MD Work Phone: [facility] 1993 hepatitis B vaccine, pediatric or pediatric/adolescent dosage Elias Ellison MD Work Phone: [facility] Payers Date Payer Category Payer Private Health Insurance [employer] PPO [id number] 2020-Present [phone] [address] [place] [address] PPO [id number] 2020 Private Health Insurance [id number] 2020 Private Health Insurance [id number] 2020 Unknown [id number] 2017 Government (not [facility] or Medicaid) [facility] [id number] 2017 Unknown [facility] [id number] 2017-Present [phone] [place] [address] [id number] Social History Date Type Detail Facility Start: 06-22-2020 End: 11-10-2022 Tobacco smoking status NHIS Never smoked tobacco [facility] Start: 06-22-2020 End: 11-10-2022 Tobacco use and exposure Former smokeless tobacco user [facility] End: 11-16-2013 History of tobacco use Chews Tobacco [facility] Start: 12-09-2021 End: 07-21-2025 Alcohol intake Ex-drinker (finding) [facility] Start: 11-17-2017 History SDOH Alcohol Comment social [facility] Start: 1993 Sex Assigned At Not on file [facility] Start: 11-10-2022 End: 10-27-2023 History of Social function [facility] Start: 11-10-2022 End: 10-27-2023 Tobacco use panel [facility] Start: 04-08-2013 Adult Depression Scr eening Assessment 2 [facility] Medical Equipment Procedure Code Equipment Code Equipment Original Text Equipment Identifier Dates Islet Cell Txpln t Fr Pancreas - [id number] Start: 03-21-2019 [id number], [id number], [id number], [id number], [id number], [id number], [id number], [id number], [id number] Start: 03-28-2019 End: 05-18-2025 Comment on above: Before meals and at bedtime 1 application before meals and at bedtime. use 4 times daily [employer] and at bedtime Functional Status Date Assessment Result Facility 09-25-2019 Are you deaf, or do you have serious difficulty hearing No 09/25/2019 1:54 PM Devika Leos RN No [facility] Work Phone: 09-25-2019 Are you blind, or do you have serious difficulty seeing, even when wearing glasses No 09/25/2019 1:54 PM Devika Leos, TOBIN No [facility] 09-25-2019 Do you have serious difficulty walking or climbing stairs No 09/25/2019 1:54 PM Devika Leos RN No [facility] 09-25-2019 Do you have difficul ty dressing or bathing No 09/25/2019 1:54 PM Devika Leos RN No [facility] 09-25-2019 Because of a physica l, mental, or emotional condition, do you have difficulty doing errands alone such as visiting a physician's office or shopping No 09/25/2019 1:54 PM Devika Leos RN No [facility] Mental Status Date Assessment Result Facility 09-25-2019 Because of a physica l, mental, or emotional condition, do you have serious difficulty concentrating, remembering, or making decisions No 09/25/2019 1:54 PM Devika Leos RN No [facility] Clinical Notes 09-13-2019 to 08-04-2025 Sondra Medrano MD - 07/21/2025 2:45 PM EDTTelephone Encounter - Colleen Griffith MA - 07/13/2025 9:50 AM EDTTelephone Encounter - Colleen Griffith MA - 07/13/2025 9:50 AM EDT Note Date & Type Note Facility 08-04-2025 Note HNO ID: [id number] Author: SANTOS JONES MD Service: ? Author Type: Physician Type: Progress Notes Filed: 08/04/2025 17:50 Note Text: [facility] Follow-up visit Vilma Rankin is here for follow-up regarding type 1 diabetes: Virtual visit I have communicated my name and active licensure. The patient's identity and physical location were verified at the time of this visit. Either the patient or their legal claim representative has been informed of the risks and benefits of -- and alternatives to -- treatment through a remote evaluation and consents to proceed with the evaluation remotely. HISTORY OF PRESENT ILLNESS: Vilma Rankin is a 30 year old male with PMH of pancreatitis, poorly controlled T3cD s/p TPAIT 03/2019 who presents today for follow up of type 1 diabetes. 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 Eyes: Negative for visual disturbance. Respiratory: Negative for difficulty breathing. Cardiovascular: Negative for chest pain and leg swelling. Gastrointestinal: Negative for nausea, vomiting, abdominal pain, diarrhea and constipation. Musculoskeletal: Positive for myalgias. Neurological: Negative for dizziness, headaches and numbness. Compared with May 09, 2025 and updated as appropriate Fever : No Nasal Congestion: No Hearing Loss: No A cough: No Irregular heartbeat: No Black tarry stools: No Difficulty Urinating?: No Awaken at Night More Than Once to Urinate?: No Joint pain or stiffness: No Leg or Foot Discomfort at Night?: No A rash: No Memory Loss: No Seizures: No PAST HISTORY: PAST MEDICAL HISTORY Diagnosis Date Delirium 03/22/2019 Diabetes mellitus type 1, controlled, without complications ([facility]) 06/29/2019 Influenza A 11/17/2017 Insulin dependent diabetes mellitus Lung nodules 09/13/2019 Malnutrition of moderate degree ([facility]) 11/22/2018 Pancreatitis ([facility]) 2017 (Nov) Small bowel obstruction due to adhesions ([facility]) 07/19/2019 PAST SURGICAL HISTORY Procedure Laterality Date ESOPHAGOGASTRODUODENOSCOPY TRANSORAL DIAGNOSTIC 04/26/2020 EGD ISLET CELL TRANSPLANT LAPARCOPIC LYSIS OF ADHESIONS For small bowel obstruction 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 SPLENECTOMY TOTAL SEPARATE PROCEDURE Splenectomy Current Outpatient Medications Medication Sig Dispense Refill insulin aspart U-100 (NOVOLOG U-100 INSULIN ASPART) 100 unit/mL INJECT 100 UNITS DAILY VIA INSULIN PUMP. 40 mL 0 Lancets (Glide HealthUCH ULTRASOFT LANCETS) Use to check sugars 3 times daily 300 each 1 blood sugar diagnostic (TabtorTOUCH ULTRA TEST) test strip Use to check sugars 3 times daily 300 each 1 Blood-Glucose Meter (Glide HealthUCH ULTRA2 METER) Use to check sugars 3 times daily 1 each 0 glucagon (GLUCAGON EMERGENCY KIT, HUMAN,) 1 mg injection Inject (1)one mg for insulin shock. 2 each 1 insulin pump subcutaneous cartridge (OMNIPOD 5 G6-G7 PODS, GEN 5,) crtg Use 1 every 3 days 30 each 1 Lancing Device with Lancets (ACCU-CHEK FASTCLIX LANCING DEV) Use to check sugars 4 times daily 400 each 1 Blood-Glucose Sensor (DEXCOM G7 SENSOR) carmel Use 1 sensor every 10 days 9 Each 1 ncuzny-mzrqdhic-gwfmnvn (CREON) 36,000-114,000- 180,000 unit delayed release capsule Take 3 capsules by mouth three times a day with meals. 2 with snacks (total 10/day) 300 capsule 11 Multivitamin capsule Take 1 capsule by mouth once daily. ascorbic acid (VITAMIN C ORAL) Take 500 mg by mouth once daily. No current facility-administered medications for this visit. ALLERGIES No Known Allergies FAMILY HISTORY Problem Relation Age of Onset Cancer Mother breast cancer other (Other) Other Maunt x2- breast cancer Social History Tobacco Use Smoking status: Never Smokeless tobacco: Former Types: Chew Quit date: 2013 Vaping Use Vaping status: Never Used Substance Use Topics Alcohol use: Not Currently Comment: social Drug use: No PHYSICAL EXAM: There were no vitals taken for this visit. Compared with May 09, 2025 and updated as appropriate Gen: well appearing, NAD Head: atraumatic normocephalic Eyes: EOMI no sceral icterus Neck: no goiter, supple Pulm: resp effort is appropriate Ext: no swelling cyanosis Neuro: hearing and speech normal Skin: no ac (more content not included)... [facility] 07-21-2025 History of Presen t illness Narrative Images from the original note were not included. . [facility] [place] Note Patient name: Vilma Rankin PCP: No primary care provider on file. Referring physician: Elias Nichole MD CC: lung nodules HPI: Vilma Rankin 30 year old male never smoker with chronic pancreatitis s/p pancreatectomy, splenectomy and auto islet cell transplant 2019, type 1 diabetes, osteoporosis, CFTR/CSSR mutation and pulmonary nodules. Has history of nodules dating back to 2018, majority were present at that time. Recent abdominal CT noted nodules which prompted full chest CT showed more nodules compared to 2018 (although this was a CTA) and increased interfissural nodularity. Repeated CT which he presents today to review. Stable nodules, no new nodules, right intrapulmonary lymph nodes have almost disappeared. No respiratory symptoms. Imaging / Diagnostic Studies: DATE OF EXAM: Jun 19 2025 3:04PM [facility] 0541 - CT CHEST WO IVCON / [facility] 0541 - CT CHEST WO IVCON / Comparison: 01/05/2025 RESULT: Limitations: None. Lines, tubes, and devices: None. Lung parenchyma and airways: Again seen are multiple pulmonary nodules, many of which are stable. For example, there is a stable, approximately 7 mm subpleural nodule within the posterior segment of the right upper lobe (series 5, image #73). Other pulmonary nodules have improved in size in the interval. For example, a nodular densities seen adjacent to the fissures have improved in size. For example, a nodular density seen adjacent to the right major fissure currently measures approximately 5 mm in short axis dimension, previously 7 mm (series 5, image #117). No new pulmonary nodule is identified on today's examination. There is no pneumothorax or endobronchial lesion. Pleural space: There is no pleural effusion. Lower neck, lymph nodes, and mediastinum: Prominent soft tissue density in the anterior mediastinum likely relates to residual or reactive thymic tissue. There are no pathologically enlarged axillary lymph nodes. Prominent, less than 1 cm mediastinal and bilateral hilar lymph nodes are likely reactive. Heart, pericardium, and thoracic vessels: The heart is normal in size. No significant pericardial effusion. Bones and soft tissues: There is no destructive bone lesion. Upper abdomen: Contents are seen within the distended stomach. Stable postoperative changes. Moderate to large stool burden. Again seen is pneumobilia. IMPRESSION: Multiple pulmonary nodules, the majority of which are stable. The nodules adjacent to the fissures are improved in size in the interval. No new pulmonary nodule is identified. Prominent, less than 1 cm mediastinal and bilateral hilar lymph nodes, likely reactive. Chest CT 2018: PAST MEDICAL HISTORY Diagnosis Date Delirium 03/22/2019 Diabetes mellitus type 1, controlled, without complications (HCC) 06/29/2019 Influenza A 11/17/2017 Insulin dependent diabetes mellitus Lung nodules 09/13/2019 Malnutrition of moderate degree (HCC) 11/22/2018 Pancreatitis (HCC) 2017 (Nov) Small bowel obstruction due to adhesions (HCC) 07/19/2019 ALLERGIES No Known Allergies insulin aspart U-100 (NOVOLOG U-100 INSULIN ASPART) 100 unit/mL INJECT 100 UNITS DAILY VIA INSULIN PUMP. Lancets (TabtorTOUCH ULTRASOFT LANCETS) Use to check sugars 3 times daily blood sugar diagnostic (TabtorTOUCH ULTRA TEST) test strip Use to check sugars 3 times daily Blood-Glucose Meter (TabtorTOUCH ULTRA2 METER) Use to check sugars 3 times daily glucagon (GLUCAGON EMERGENCY KIT, HUMAN,) 1 mg injection Inject (1)one mg for insulin shock. insulin pump subcutaneous cartridge (OMNIPOD 5 G6-G7 PODS, GEN 5,) crtg Use 1 every 3 days Lancing Device with Lancets (ACCU-CHEK FASTCLIX LANCING DEV) Use to check sugars 4 times daily Blood-Glucose Sensor (Massive AnalyticCOM G7 SENSOR) carmel Use 1 sensor every 10 days qzexfl-hfepnxis-qvujfad (CREON) 36,000-114,000- 180,000 unit delayed release capsule Take 3 capsules by mouth three times a day with meals. 2 with snacks (total 10/day) Multivitamin capsule Take 1 capsule by mouth once daily. ascorbic acid (VITAMIN C ORAL) Take 500 mg by mouth once daily. 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 No physical exam performed today Assessment/Plan: Lung nodules -Stable nodules with some dating back to 2018. Likely represents granulomatous disease. No need for further surveillance unless patient develops a new problem or issue -Follow up as needed Sondra Medrano MD [facility] [place] [1] Social History Tobacco Use Smoking status: Never Smokeless tobacco: Former Types: Chew Quit date: 2013 Vaping Use Vaping status: Never Used Substance Use Topics Alcohol use: Not Currently Comment: social Drug use: No documented in this encounter [facility] 07-21-2025 Note HNO ID: [id number] Author: SONDRA MEDRANO MD Service: ? Author Type: Physician Type: Progress Notes Filed: 07/21/2025 15:11 Note Text: . [facility] [place] Note Patient name: Vilma Rankin PCP: No primary care provider on file. Referring physician: Elias Nichole MD CC: lung nodules HPI: Vilma Rankin 30 year old male never smoker with chronic pancreatitis s/p pancreatectomy, splenectomy and auto islet cell transplant 2019, type 1 diabetes, osteoporosis, CFTR/CSSR mutation and pulmonary nodules. Has history of nodules dating back to 2018, majority were present at that time. Recent abdominal CT noted nodules which prompted full chest CT showed more nodules compared to 2018 (although this was a CTA) and increased interfissural nodularity. Repeated CT which he presents today to review. Stable nodules, no new nodules, right intrapulmonary lymph nodes have almost disappeared. No respiratory symptoms. Imaging / Diagnostic Studies: DATE OF EXAM: Jun 19 2025 3:04PM [facility] 0541 - CT CHEST WO IVCON / [facility] 0541 - CT CHEST WO IVCON / Comparison: 01/05/2025 RESULT: Limitations: None. Lines, tubes, and devices: None. Lung parenchyma and airways: Again seen are multiple pulmonary nodules, many of which are stable. For example, there is a stable, approximately 7 mm subpleural nodule within the posterior segment of the right upper lobe (series 5, image #73). Other pulmonary nodules have improved in size in the interval. For example, a nodular densities seen adjacent to the fissures have improved in size. For example, a nodular density seen adjacent to the right major fissure currently measures approximately 5 mm in short axis dimension, previously 7 mm (series 5, image #117). No new pulmonary nodule is identified on today's examination. There is no pneumothorax or endobronchial lesion. Pleural space: There is no pleural effusion. Lower neck, lymph nodes, and mediastinum: Prominent soft tissue density in the anterior mediastinum likely relates to residual or reactive thymic tissue. There are no pathologically enlarged axillary lymph nodes. Prominent, less than 1 cm mediastinal and bilateral hilar lymph nodes are likely reactive. Heart, pericardium, and thoracic vessels: The heart is normal in size. No significant pericardial effusion. Bones and soft tissues: There is no destructive bone lesion. Upper abdomen: Contents are seen within the distended stomach. Stable postoperative changes. Moderate to large stool burden. Again seen is pneumobilia. IMPRESSION: Multiple pulmonary nodules, the majority of which are stable. The nodules adjacent to the fissures are improved in size in the interval. No new pulmonary nodule is identified. Prominent, less than 1 cm mediastinal and bilateral hilar lymph nodes, likely reactive. Chest CT 2018: PAST MEDICAL HISTORY Diagnosis Date Delirium 03/22/2019 Diabetes mellitus type 1, controlled, without complications ([facility]) 06/29/2019 Influenza A 11/17/2017 Insulin dependent diabetes mellitus Lung nodules 09/13/2019 Malnutrition of moderate degree (HCC) 11/22/2018 Pancreatitis ([facility]) 2017 (Nov) Small bowel obstruction due to adhesions ([facility]) 07/19/2019 ALLERGIES No Known Allergies insulin aspart U-100 (NOVOLOG U-100 INSULIN ASPART) 100 unit/mL INJECT 100 UNITS DAILY VIA INSULIN PUMP. Lancets (TabtorTOUCH ULTRASOFT LANCETS) Use to check sugars 3 times daily blood sugar diagnostic (TabtorTOUCH ULTRA TEST) test strip Use to check sugars 3 times daily Blood-Glucose Meter (ONETOUCH ULTRA2 METER) Use to check sugars 3 times daily glucagon (GLUCAGON EMERGENCY KIT, HUMAN,) 1 mg injection Inject (1)one mg for insulin shock. insulin pump subcutaneous cartridge (OMNIPOD 5 G6-G7 PODS, GEN 5,) crtg Use 1 every 3 days Lancing Device with Lancets (ACCU-CHEK FASTCLIX LANCING DEV) Use to check sugars 4 times daily Blood-Glucose Sensor (Battlefy G7 SENSOR) carmel Use 1 sensor every 10 days ivnrvt-zysbyclq-cpnrdxp (CREON) 36,000-114,000- 180,000 unit delayed release capsule Take 3 capsules by mouth three times a day with meals. 2 with snacks (total 10/day) Multivitamin capsule Take 1 capsule by mouth once daily. ascorbic acid (VITAMIN C ORAL) Take 500 mg by mouth once daily. SOCIAL HISTORY[1] FAMILY HISTORY Problem Relation Age of Onset Cancer Mother breast cancer other (Other) Other Maunt x2- breast cancer PAST SURGICAL HISTORY Procedure Laterality Date ESOPHAGOGASTRODUODENOSCOPY TRANSORAL DIAGNOSTIC 04/26/2020 EGD ISLET CELL TRANSPLANT LAPARCOPIC LYSIS OF ADHESIONS For small bowel obstruction 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 SPLENECTOMY TOTAL SEPARATE PROCEDURE Splenectomy PMH, Social history, family history and surgical history reviewed and updated in EMR REVIEW OF SYSTEMS: Theres[employer] (more content not included)... [facility] 07-13-2025 Telephone encounter Note Images from the original note were not included. Most recent Endocrinology visit: Last encounter Visit on 05/09/2025 (with Santos Jones) 10[facility]27/[facility] with SANTOS JONES for Type 1 diabetes mellitus with hyperglycemia (HCC) 03/15/2024 [facility] with SANTOS JONES for Poorly controlled type 1 diabetes mellitus with complication (HCC) 08/02/2024 [facility] with SANTOS JONES for Poorly controlled type 1 diabetes mellitus with complication (HCC) 10/26/2024 in ENDO MA[facility] with SANTOS JONES for Poorly controlled type 1 diabetes mellitus with complication (HCC) 01/27/2025 in ENDO MA[facility] 4 with SANTOS JONES for Poorly controlled type 1 diabetes mellitus with complication (HCC) 05/09/2025 [facility] with SANTOS JONES for Poorly controlled type 1 diabetes mellitus with complication (HCC) Upcoming Endocrinology Appointments - Next 365 Days Visit Type Date Time Department VIDEO SPEC EST 08/04/2025 3:00 PM ENDO MAIN [facility] 4 Requested Prescriptions Pending Prescriptions Disp Refills insulin aspart U-100 (NOVOLOG U-100 INSULIN ASPART) 100 unit/mL 40 mL 0 Sig: INJECT 100 UNITS DAILY VIA INSULIN PUMP. Latest Ref Rng & Units 05/09/2025 01/26/2025 06/06/2024 Hemoglobin A1C Hemoglobin A1C 4.3 - 5.6 % 7.6 7.3 Hemoglobin A1C (POCT) 4.3 - 5.6 % 7.8 Latest Ref Rng & Units 01/26/2025 07/11/2019 03/18/2019 TSH TSH 0.270 - 4.200 mIU/L 1.920 1.950 1.990 Free T3: None on file in the last 12 months Free T4: None on file in the last 12 months Thyroglobulin: None on file in the last 12 months Vitamin D: None on file in the last 12 months Hematocrit: None on file in the last 12 months Latest Ref Rng & Units 01/26/2025 12/29/2024 06/06/2024 Creatinine Creatinine 0.73 - 1.22 mg/dL 0.88 0.79 0.78 Latest Ref Rng & Units 01/26/2025 12/29/2024 06/06/2024 eGFR EGFR >=60 mL/min/1.73m 118 122 122 Latest Ref Rng & Units 01/26/2025 06/06/2024 12/01/2023 Potassium Potassium 3.7 - 5.1 mmol/L 4.1 4.7 3.9 Testosterone: None on file in the last 12 months IGF: None on file in the last 12 months Prolactin: None on file in the last 12 months [facility] 07-13-2025 Miscellaneous Notes Images from the original note were not included. Most recent Endocrinology visit: Last encounter Visit on 05/09/2025 (with Santos Jones) 10/27/2023 [facility] with SANTOS JONES for Type 1 diabetes mellitus with hyperglycemia (HCC) 03/15/2024 in [facility] with SANTOS JONES for Poorly controlled type 1 diabetes mellitus with complication (HCC) 08/02/2024 [facility] with SANTOS JOENS for Poorly controlled type 1 diabetes mellitus with complication (HCC) 10/26/2024 in ENDO MA[facility] with SANTOS JONES for Poorly controlled type 1 diabetes mellitus with complication (HCC) 01/27/2025 in ENDO MA[facility] 4 with SANTOS JONES for Poorly controlled type 1 diabetes mellitus with complication (HCC) 05/09/2025 in [facility] with SANTOS JONES for Poorly controlled type 1 diabetes mellitus with complication (HCC) Upcoming Endocrinology Appointments - Next 365 Days Visit Type Date Time Department VIDEO SPEC EST 08/04/2025 3:00 PM ENDO MAIN [facility] 4 Requested Prescriptions Pending Prescriptions Disp Refills insulin aspart U-100 (NOVOLOG U-100 INSULIN ASPART) 100 unit/mL 40 mL 0 Sig: INJECT 100 UNITS DAILY VIA INSULIN PUMP. Latest Ref Rng & Units 05/09/2025 01/26/2025 06/06/2024 Hemoglobin A1C Hemoglobin A1C 4.3 - 5.6 % 7.6 7.3 Hemoglobin A1C (POCT) 4.3 - 5.6 % 7.8 Latest Ref Rng & Units 01/26/2025 07/11/2019 03/18/2019 TSH TSH 0.270 - 4.200 mIU/L 1.920 1.950 1.990 Free T3: None on file in the last 12 months Free T4: None on file in the last 12 months Thyroglobulin: None on file in the last 12 months Vitamin D: None on file in the last 12 months Hematocrit: None on file in the last 12 months Latest Ref Rng & Units 01/26/2025 12/29/2024 06/06/2024 Creatinine Creatinine 0.73 - 1.22 mg/dL 0.88 0.79 0.78 Latest Ref Rng & Units 01/26/2025 12/29/2024 06/06/2024 eGFR EGFR >=60 mL/min/1.73m 118 122 122 Latest Ref Rng & Units 01/26/2025 06/06/2024 12/01/2023 Potassium Potassium 3.7 - 5.1 mmol/L 4.1 4.7 3.9 Testosterone: None on file in the last 12 months IGF: None on file in the last 12 months Prolactin: None on file in the last 12 months documented in this encounter [facility] 06-19-2025 History of Presen t illness Narrative Radiology Service Progress Note PATIENT NAME: Vilma Rankin DATE OF SERVICE: June 19, 2025 TIME: 3:30 PM PATIENT IDENTITY VERIFICATION COMPLETED USING TWO (2) IDENTIFIERS: Name and Date of confirmed by patient verbally. FALL SCREENING: Has the patient had 2 falls in the last year or 1 fall with injury or currently using an Ambulatory Assistive Device (Walker, Cane, Wheelchair, Crutches, etc.)? No PATIENT GENDER DATA: Assigned male at PATIENT RELEVANT IMPLANT DATA REVIEWED: Yes PATIENT PRESENTS WITH AN IMPLANTABLE OR ATTACHED MARKER SHIPMENTS: No RADIOLOGY DEPARTMENT: CT; Exam(s) Completed: Chest PERIPHERAL IV DATA: Not applicable SIGNED BY: JESSICA Hong) June 19, 2025 3:30 PM documented in this encounter [facility] 06-19-2025 Note HNO ID: [id number] Author: YUDELKA BARROSO RT (R) Service: ? Author Type: Historiographer Type: Progress Notes Filed: 06/19/2025 15:30 Note Text: Radiology Service Progress Note PATIENT NAME: Vilma Rankin DATE OF SERVICE: June 19, 2025 TIME: 3:30 PM PATIENT IDENTITY VERIFICATION COMPLETED USING TWO (2) IDENTIFIERS: Name and Date of confirmed by patient verbally. FALL SCREENING: Has the patient had 2 falls in the last year or 1 fall with injury or currently using an Ambulatory Assistive Device (Walker, Cane, Wheelchair, Crutches, etc.)? No PATIENT GENDER DATA: Assigned male at PATIENT RELEVANT IMPLANT DATA REVIEWED: Yes PATIENT PRESENTS WITH AN IMPLANTABLE OR ATTACHED MARKER SHIPMENTS: No RADIOLOGY DEPARTMENT: CT; Exam(s) Completed: Chest PERIPHERAL IV DATA: Not applicable SIGNED BY: JESSICA Hong) June 19, 2025 3:30 PM [facility] 05-18-2025 Telephone encounter Note May 18, 2025 3:39 PM Last encounter Visit on 05/09/2025 (with Santos Jones) Amadeo Scott called regarding Accu-chek Graciela plus and the accu-check fast clix that was sent over May 16. His insurance no longer covers that. He can receive Freestyle or One Touch under his insurance per the pharmacy. He will need the strips/ meter and Lancets. Amadeo Scott listed. 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[employer] [facility] F-20 [facility] Work Phone: 05-18-2025 Miscellaneous Notes May 18, 2025 3:39 PM Last encounter Visit on 05/09/2025 (with Santos Jones) Amadeo Tayloroster called regarding Accu-chek Graciela plus and the accu-check fast clix that was sent over May 16. His insurance no longer covers that. He can receive Freestyle or One Touch under his insurance per the pharmacy. He will need the strips/ meter and Lancets. Amadeo Scott listed. 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 [facility] F-20 documented in this encounter [facility] 05-16-2025 Telephone encounter Note Images from the original note were not included. Most recent Endocrinology visit: Last encounter Visit on 05/09/2025 (with Santos Jones) 10/27/2023 [facility] with SANTOS JONES for Type 1 diabetes mellitus with hyperglycemia (HCC) 03/15/2024 in [facility] with SANTOS JONES for Poorly controlled type 1 diabetes mellitus with complication (HCC) 08/02/2024 in [facility] with SANTOS JONES for Poorly controlled type 1 diabetes mellitus with complication (HCC) 10/26/2024 in ENDO MA[facility] with SANTOS JONES for Poorly controlled type 1 diabetes mellitus with complication (HCC) 01/27/2025 in ENDO MA[facility] CA 4 with SANTOS JONES for Poorly controlled type 1 diabetes mellitus with complication (HCC) 05/09/2025 in [facility] with SANTOS JONES for Poorly controlled type 1 diabetes mellitus with complication (HCC) Upcoming Endocrinology Appointments - Next 365 Days Visit Type Date Time Department VIDEO SPEC EST 08/04/2025 3:00 PM ENDO MAIN [facility] 4 Requested Prescriptions Pending Prescriptions Disp Refills glucagon (GLUCAGON EMERGENCY KIT, HUMAN,) 1 mg injection 2 each 1 Sig: Inject (1)one mg for insulin shock. insulin pump subcutaneous cartridge (OMNIPOD 5 G6-G7 PODS, GEN 5,) crtg 30 each 1 Sig: Use 1 every 3 days insulin aspart U-100 (NOVOLOG U-100 INSULIN ASPART) 100 unit/mL 40 mL 0 Sig: INJECT 100 UNITS DAILY VIA INSULIN PUMP. Latest Ref Rng & Units 05/09/2025 01/26/2025 06/06/2024 Hemoglobin A1C Hemoglobin A1C 4.3 - 5.6 % 7.6 7.3 Hemoglobin A1C (POCT) 4.3 - 5.6 % 7.8 Latest Ref Rng & Units 01/26/2025 07/11/2019 03/18/2019 TSH TSH 0.270 - 4.200 mIU/L 1.920 1.950 1.990 Free T3: None on file in the last 12 months Free T4: None on file in the last 12 months Thyroglobulin: None on file in the last 12 months Vitamin D: None on file in the last 12 months Hematocrit: None on file in the last 12 months Latest Ref Rng & Units 01/26/2025 12/29/2024 06/06/2024 Creatinine Creatinine 0.73 - 1.22 mg/dL 0.88 0.79 0.78 Latest Ref Rng & Units 01/26/2025 12/29/2024 06/06/2024 eGFR EGFR >=60 mL/min/1.73m 118 122 122 Latest Ref Rng & Units 01/26/2025 06/06/2024 12/01/2023 Potassium Potassium 3.7 - 5.1 mmol/L 4.1 4.7 3.9 Testosterone: None on file in the last 12 months IGF: None on file in the last 12 months Prolactin: None on file in the last 12 months [facility] 05-16-2025 Miscellaneous Notes Images from the original note were not included. Most recent Endocrinology visit: Last encounter Visit on 05/09/2025 (with Santos Jones) 10/27/2023 [facility] with SANTOS JONES for Type 1 diabetes mellitus with hyperglycemia (HCC) 03/15/2024 in [facility] with SANTOS JONES for Poorly controlled type 1 diabetes mellitus with complication (HCC) 08/02/2024 in [facility] with SANTOS JONES for Poorly controlled type 1 diabetes mellitus with complication (HCC) 10/26/2024 in ENDO MAIN with ROBERT SANTOS for Poorly controlled type 1 diabetes mellitus with complication (HCC) 01/27/2025 in ENDO MAIN CA 4 with TRENT JONESEN for Poorly controlled type 1 diabetes mellitus with complication (HCC) 05/09/2025 in [facility] with ASNTOS JONES for Poorly controlled type 1 diabetes mellitus with complication (HCC) Upcoming Endocrinology Appointments - Next 365 Days Visit Type Date Time Department VIDEO SPEC EST 08/04/2025 3:00 PM ENDO MAIN [facility] 4 Requested Prescriptions Pending Prescriptions Disp Refills glucagon (GLUCAGON EMERGENCY KIT, HUMAN,) 1 mg injection 2 each 1 Sig: Inject (1)one mg for insulin shock. insulin pump subcutaneous cartridge (OMNIPOD 5 G6-G7 PODS, GEN 5,) crtg 30 each 1 Sig: Use 1 every 3 days insulin aspart U-100 (NOVOLOG U-100 INSULIN ASPART) 100 unit/mL 40 mL 0 Sig: INJECT 100 UNITS DAILY VIA INSULIN PUMP. Latest Ref Rng & Units 05/09/2025 01/26/2025 06/06/2024 Hemoglobin A1C Hemoglobin A1C 4.3 - 5.6 % 7.6 7.3 Hemoglobin A1C (POCT) 4.3 - 5.6 % 7.8 Latest Ref Rng & Units 01/26/2025 07/11/2019 03/18/2019 TSH TSH 0.270 - 4.200 mIU/L 1.920 1.950 1.990 Free T3: None on file in the last 12 months Free T4: None on file in the last 12 months Thyroglobulin: None on file in the last 12 months Vitamin D: None on file in the last 12 months Hematocrit: None on file in the last 12 months Latest Ref Rng & Units 01/26/2025 12/29/2024 06/06/2024 Creatinine Creatinine 0.73 - 1.22 mg/dL 0.88 0.79 0.78 Latest Ref Rng & Units 01/26/2025 12/29/2024 06/06/2024 eGFR EGFR >=60 mL/min/1.73m 118 122 122 Latest Ref Rng & Units 01/26/2025 06/06/2024 12/01/2023 Potassium Potassium 3.7 - 5.1 mmol/L 4.1 4.7 3.9 Testosterone: None on file in the last 12 months IGF: None on file in the last 12 months Prolactin: None on file in the last 12 months documented in this encounter [facility] 05-09-2025 Note HNO ID: [id number] Author: FREDY ANDINO RN Service: ? Author Type: Registered Nurse Type: Procedures Filed: 05/09/2025 14:38 Note Text: FEV for Afrezza testing performing Best result FEV 154 Fredy Andino RN [facility] 05-09-2025 Procedure note FEV for Afrezza testing performing Best result FEV 154 Fredy Andino RN [facility] 05-09-2025 Procedure note FEV for Afrezza testing performing Best result FEV 154 Fredy Andino RN documented in this encounter [facility] 05-09-2025 Note HNO ID: [id number] Author: SANTOS JONES MD Service: ? 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 Eyes: Negative for visual disturbance. Respiratory: Negative for difficulty breathing. Cardiovascular: Negative for chest pain and leg swelling. Gastrointestinal: Negative for nausea, vomiting, abdominal pain, diarrhea and constipation. Musculoskeletal: Positive for myalgias. Neurological: Negative for dizziness, headaches and numbness. Answers submitted by the patient for this visit: Core Review of Systems (Submitted on 05/03/2025) Fever : No Nasal Congestion: No Hearing Loss: No A cough: No Irregular heartbeat: No Black tarry stools: No Difficulty Urinating?: No Awaken at Night More Than Once to Urinate?: No Joint pain or stiffness: No Leg or Foot Discomfort at Night?: No A rash: No Memory Loss: No Seizures: No PAST HISTORY: PAST MEDICAL HISTORY Diagnosis Date Delirium 03/22/2019 Diabetes mellitus type 1, controlled, without complications ([facility]) 06/29/2019 Influenza A 11/17/2017 Insulin dependent diabetes mellitus Lung nodules 09/13/2019 Malnutrition of moderate degree ([facility]) 11/22/2018 Pancreatitis 2017 (Nov) Small bowel obstruction due to adhesions ([facility]) 07/19/2019 PAST SURGICAL HISTORY Procedure Laterality Date ESOPHAGOGASTRODUODENOSCOPY TRANSORAL DIAGNOSTIC 04/26/2020 EGD ISLET CELL TRANSPLANT LAPARCOPIC LYSIS OF ADHESIONS For small bowel obstruction 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 SPLENECTOMY TOTAL SEPARATE PROCEDURE Splenectomy Current Outpatient Medications Medication Sig Dispense Refill insulin aspart U-100 (NOVOLOG U-100 INSULIN ASPART) 100 unit/mL INJECT 100 UNITS DAILY VIA INSULIN PUMP. 40 mL 0 Blood-Glucose Sensor (DEXCOM G7 SENSOR) carmel Use 1 sensor every 10 days 9 Each 1 insulin pump cart,auto,BT,G6/7 (OMNIPOD 5 G6-G7 PODS, GEN 5,) crtg Use 1 every 3 days 30 Each 1 [id number]-[id number]-xpqrxkb (CREON) 36,000-114,000- 180,000 unit delayed release capsule Take 3 capsules by mouth three times a day with meals. 2 with snacks (total 10/day) 300 capsule 11 glucagon (GLUCAGON EMERGENCY KIT, HUMAN,) 1 mg injection Inject (1)one mg for insulin shock. 2 Each 1 Multivitamin capsule Take 1 capsule by mouth once daily. ascorbic acid (VITAMIN C ORAL) Take 500 mg by mouth once daily. blood sugar diagnostic (ONETOUCH VERIO) test strip Before meals and at bedtime 150 Strip 2 lancets (ONE TOUCH [employer]) 33 gauge misc 1 application before meals and at bedtime. 150 Each 2 No current facility-administered medications for this visit. ALLERGIES No Known Allergies FAMILY HISTORY Problem Relation Age of Onset Cancer Mother breast cancer other (Other) Other Maunt x2- breast cancer Social History Tobacco Use Smoking status: Never Smokeless tobacco: Former Types: Chew Quit date: 2013 Substance Use Topics Alcohol use: Not Currently Comment: social Drug use: No PHYSICAL EXAM: BP 118/66 Pulse (!) 53 Wt 76.5 kg (168 lb 10.4 oz) BMI 24.91 kg/m? Compared with October 26, 2024 and updated as appropriate Gen: well appearing, NAD Head: atraumatic normocephalic Eyes: EOMI no sceral icterus Neck: no goiter, supple Pulm: resp effort is appropriate Ext: no swelling cyanosis Neuro: hearing and speech normal Skin: no acute lesions or rashes noted PREVIOUS LAB RESULTS: Latest Ref Rng 01/26/2025 Protein, Total 6.3 - 8.0 g/dL 8.1 (H) Albumin 3.9 - 4.9 g/dL 4.7 Calcium 8.5 - 10.2 mg/dL 9.6 Bilirubin, Total 0.2 - 1.3 mg/dL 0.8 Alkaline Phosphatase 38 - 113 U/L 60 AST 14 - 40 U/L 28 ALT 10 - 54 U/L 18 Glucose 74 - 99 mg/dL 132 (H) BUN 9 - 24 mg/dL 21 Creatinine 0.73 - 1.22 mg/dL 0.88 Sodium 136 - 144 mmol/L 139 Potassium 3.7 - 5.1 mmol/L 4.1 Chloride 98 - 107 mmol/L 99 CO2 22 - 30 mmol/L 25 Anion Gap 8 - 1 (more content not included)... [facility] 05-09-2025 History of Presen t illness Narrative Images from the original note were not included. [facility] Follow-up visit Vilma Rankin is here for follow-up regarding type 1 diabetes: HISTORY OF PRESENT ILLNESS: Vilma Rankin is a 30 year old male with PMH of pancreatitis, poorly controlled T3cD s/p TPAIT 03/2019 who presents today for follow up of type 1 diabetes. 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 Eyes: Negative for visual disturbance. Respiratory: Negative for difficulty breathing. Cardiovascular: Negative for chest pain and leg swelling. Gastrointestinal: Negative for nausea, vomiting, abdominal pain, diarrhea and constipation. Musculoskeletal: Positive for myalgias. Neurological: Negative for dizziness, headaches and numbness. Answers submitted by the patient for this visit: Core Review of Systems (Submitted on 05/03/2025) Fever : No Nasal Congestion: No Hearing Loss: No A cough: No Irregular heartbeat: No Black tarry stools: No Difficulty Urinating?: No Awaken at Night More Than Once to Urinate?: No Joint pain or stiffness: No Leg or Foot Discomfort at Night?: No A rash: No Memory Loss: No Seizures: No PAST HISTORY: PAST MEDICAL HISTORY Diagnosis Date Delirium 03/22/2019 Diabetes mellitus type 1, controlled, without complications (HCC) 06/29/2019 Influenza A 11/17/2017 Insulin dependent diabetes mellitus Lung nodules 09/13/2019 Malnutrition of moderate degree (HCC) 11/22/2018 Pancreatitis 2017 (Ben) Small bowel obstruction due to adhesions (HCC) 07/19/2019 PAST SURGICAL HISTORY Procedure Laterality Date ESOPHAGOGASTRODUODENOSCOPY TRANSORAL DIAGNOSTIC 04/26/2020 EGD ISLET CELL TRANSPLANT LAPARCOPIC LYSIS OF ADHESIONS For small bowel obstruction 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 SPLENECTOMY TOTAL SEPARATE PROCEDURE Splenectomy Current Outpatient Medications Medication Sig Dispense Refill insulin aspart U-100 (NOVOLOG U-100 INSULIN ASPART) 100 unit/mL INJECT 100 UNITS DAILY VIA INSULIN PUMP. 40 mL 0 Blood-Glucose Sensor (DEXCOM G7 SENSOR) carmel Use 1 sensor every 10 days 9 Each 1 insulin pump cart,auto,BT,G6/7 (OMNIPOD 5 G6-G7 PODS, GEN 5,) crtg Use 1 every 3 days 30 Each 1 vtbsfp-qnxtnymr-kwyhiez (CREON) 36,000-114,000- 180,000 unit delayed release capsule Take 3 capsules by mouth three times a day with meals. 2 with snacks (total 10/day) 300 capsule 11 glucagon (GLUCAGON EMERGENCY KIT, HUMAN,) 1 mg injection Inject (1)one mg for insulin shock. 2 Each 1 Multivitamin capsule Take 1 capsule by mouth once daily. ascorbic acid (VITAMIN C ORAL) Take 500 mg by mouth once daily. blood sugar diagnostic (ONETOUCH VERIO) test strip Before meals and at bedtime 150 Strip 2 lancets (ONE TOUCH [employer]) 33 gauge misc 1 application before meals and at bedtime. 150 Each 2 No current facility-administered medications for this visit. ALLERGIES No Known Allergies FAMILY HISTORY Problem Relation Age of Onset Cancer Mother breast cancer other (Other) Other Maunt x2- breast cancer Social History Tobacco Use Smoking status: Never Smokeless tobacco: Former Types: Chew Quit date: 2013 Substance Use Topics Alcohol use: Not Currently Comment: social Drug use: No PHYSICAL EXAM: BP 118/66 Pulse (!) 53 Wt 76.5 kg (168 lb 10.4 oz) BMI 24.91 kg/m Compared with October 26, 2024 and updated as appropriate Gen: well appearing, NAD Head: atraumatic normocephalic Eyes: EOMI no sceral icterus Neck: no goiter, supple Pulm: resp effort is appropriate Ext: no swelling cyanosis Neuro: hearing and speech normal Skin: no acute lesions or rashes noted PREVIOUS LAB RESULTS: Latest Ref Rng 01/26/2025 Protein, Total 6.3 - 8.0 g/dL 8.1 (H) Albumin 3.9 - 4.9 g/dL 4.7 Calcium 8.5 - 10.2 mg/dL 9.6 Bilirubin, Total 0.2 - 1.3 mg/dL 0.8 Alkaline Phosphatase 38 - 113 U/L 60 AST 14 - 40 U/L 28 ALT 10 - 54 U/L 18 Glucose 74 - 99 mg/dL 132 (H) BUN 9 - 24 mg/dL 21 Creatinine 0.73 - 1.22 mg/dL 0.88 Sodium 136 - 144 mmol/L 139 Potassium 3.7 - 5.1 mmol/L 4.1 Chloride 98 - 107 mmol/L 99 CO2 22 - 30 mmol/L 25 Anion Gap 8 - 15 mmol/L 15 eGFR >=60 mL/min/1.73m 118 Cholesterol, Total <200 mg/dL 115 Triglyceride <150 mg/dL 48 HDL Cholesterol >39 mg/dL 46 Non HDL Cholesterol <130 mg/dL 69 Fasting Time hrs 19 VLDL Cholesterol <30 mg/dL 10 TC:HDL Ratio <5.10 2.50 LDL Cholesterol <100 mg/dL 59 LDL:HDL Ratio <2.54 1.28 Creatinine, Ur Random (UCRR) 20.0 - 300.0 mg/dL 185.8 Albumin, Urine Random mg/L <12.0 Albumin/Creat Ratio <30 mg/g <6 Hemoglobin A1C 4.3 - 5.6 % 7.6 (H) Estimated Average Glucose mg/dL 171 TSH 0.270 - 4.200 mIU/L 1.920 Legend: (H) High IMPRESSION AND RECOMMENDATIONS: Vilma Rankin is a 30 year old male with PMH of pancreatitis, poorly controlled T3cD s/p TPAIT 03/2019 who presents today for follow up of type 1 diabetes. 1. Type 1 diabetes mellitus with hyperglycemia (HCC) - he is using phone as PDM - uses an android - dexcom G7 Carb 10.5 Sensitivity 45 - never tried mounjaro - could consider after fiasp and then afrezza - he needs much better control over post prandial highs - this is still limiting his overall control 3 month Santos Jones MD May 09, 2025 documented in this encounter [facility] 05-09-2025 Instructions Fara Prado MA - 05/09/2025 1:30 PM EDT Thank you for choosing the [facility] Department of Endocrinology, Diabetes and Metabolism. Did you know that you need to call 48 hours in advance of your scheduled visit, if you are unable to make your appointment? The [facility] [place] thanks you for your commitment, because patients not showing to their appointment results in a lost opportunity for patients to receive [facility] health care at the [facility]. To Cancel an appointment, please choose one of the following: - Call the Appointment Call Center at [phone] - From [employer], Go to Appointments - Cancel Appts If cancelling, consider your need to reschedule to prevent further delays in your care. To Schedule an appointment, please choose one of the following: - Call the Appointment Call Center at [phone] - From [employer], Go to Appointments - Request an Appt documented in this encounter [facility] 03-17-2025 Telephone encounter Note Images from the original note were not included. Most recent Endocrinology visit: Last encounter Visit on 01/27/2025 (with Santos Jones) 10/27/2023 [facility] with SANTOS JONES for Type 1 diabetes mellitus with hyperglycemia (HCC) 03/15/2024 in [facility] with SANTOS JONES for Poorly controlled type 1 diabetes mellitus with complication (HCC) 08/02/2024 in [facility] with SANTOS JONES for Poorly controlled type 1 diabetes mellitus with complication (HCC) 10/26/2024 in [facility] with SANTOS JONES for Poorly controlled type 1 diabetes mellitus with complication (HCC) 01/27/2025 in [facility]O MA[facility] CA 4 with SANTOS JONES for Poorly controlled type 1 diabetes mellitus with complication (HCC) Upcoming Endocrinology Appointments - Next 365 Days Visit Type Date Time Department [facility] PATIENT 05/09/2025 1:40 PM [facility] Requested Prescriptions Pending Prescriptions Disp Refills insulin aspart U-100 (NOVOLOG U-100 INSULIN ASPART) 100 unit/mL 40 mL 0 Sig: INJECT 100 UNITS DAILY VIA INSULIN PUMP. Latest Ref Rng & Units 01/26/2025 06/06/2024 03/15/2024 Hemoglobin A1C Hemoglobin A1C 4.3 - 5.6 % 7.6 7.3 Hemoglobin A1C (POCT) 4.3 - 5.6 % 7.3 Latest Ref Rng & Units 01/26/2025 07/11/2019 03/18/2019 TSH TSH 0.270 - 4.200 mIU/L 1.920 1.950 1.990 Free T3: None on file in the last 12 months Free T4: None on file in the last 12 months Thyroglobulin: None on file in the last 12 months Vitamin D: None on file in the last 12 months Hematocrit: None on file in the last 12 months Latest Ref Rng & Units 01/26/2025 12/29/2024 06/06/2024 Creatinine Creatinine 0.73 - 1.22 mg/dL 0.88 0.79 0.78 Latest Ref Rng & Units 01/26/2025 12/29/2024 06/06/2024 eGFR EGFR >=60 mL/min/1.73m 118 122 122 Latest Ref Rng & Units 01/26/2025 06/06/2024 12/01/2023 Potassium Potassium 3.7 - 5.1 mmol/L 4.1 4.7 3.9 Testosterone: None on file in the last 12 months IGF: None on file in the last 12 months Prolactin: None on file in the last 12 months [facility] 03-17-2025 Miscellaneous Notes Images from the original note were not included. Most recent Endocrinology visit: Last encounter Visit on 01/27/2025 (with Santos Jones) 10/27/2023 in [facility] with SANTOS JONES for Type 1 diabetes mellitus with hyperglycemia (HCC) 03/15/2024 in [facility] with SANTOS JONES for Poorly controlled type 1 diabetes mellitus with complication (HCC) 08/02/2024 in [facility] with SANTOS JONES for Poorly controlled type 1 diabetes mellitus with complication (HCC) 10/26/2024 in ENDO MA[facility] with SANTOS JONES for Poorly controlled type 1 diabetes mellitus with complication (HCC) 01/27/2025 in [facility]O MA[facility] CA 4 with JONES, SANTOS for Poorly controlled type 1 diabetes mellitus with complication (HCC) Upcoming Endocrinology Appointments - Next 365 Days Visit Type Date Time Department [facility] PATIENT 05/09/2025 1:40 PM [facility] Requested Prescriptions Pending Prescriptions Disp Refills insulin aspart U-100 (NOVOLOG U-100 INSULIN ASPART) 100 unit/mL 40 mL 0 Sig: INJECT 100 UNITS DAILY VIA INSULIN PUMP. Latest Ref Rng & Units 01/26/2025 06/06/2024 03/15/2024 Hemoglobin A1C Hemoglobin A1C 4.3 - 5.6 % 7.6 7.3 Hemoglobin A1C (POCT) 4.3 - 5.6 % 7.3 Latest Ref Rng & Units 01/26/2025 07/11/2019 03/18/2019 TSH TSH 0.270 - 4.200 mIU/L 1.920 1.950 1.990 Free T3: None on file in the last 12 months Free T4: None on file in the last 12 months Thyroglobulin: None on file in the last 12 months Vitamin D: None on file in the last 12 months Hematocrit: None on file in the last 12 months Latest Ref Rng & Units 01/26/2025 12/29/2024 06/06/2024 Creatinine Creatinine 0.73 - 1.22 mg/dL 0.88 0.79 0.78 Latest Ref Rng & Units 01/26/2025 12/29/2024 06/06/2024 eGFR EGFR >=60 mL/min/1.73m 118 122 122 Latest Ref Rng & Units 01/26/2025 06/06/2024 12/01/2023 Potassium Potassium 3.7 - 5.1 mmol/L 4.1 4.7 3.9 Testosterone: None on file in the last 12 months IGF: None on file in the last 12 months Prolactin: None on file in the last 12 months documented in this encounter [facility] 03-13-2025 Nurse Note Radiology Service Progress Note DATE OF SERVICE: March 13, 2025 TIME: 4:42 PM PATIENT WEIGHT: 159LBS PATIENT IDENTITY VERIFICATION COMPLETED USING TWO (2) STANDARD IDENTIFIERS: Name and Date of confirmed by patient verbally and Name and Date of confirmed by identification band. FALL SCREENING: Has the patient had 2 falls in the last year or 1 fall with injury or currently using an Ambulatory Assistive Device (Walker, Cane, Wheelchair, Crutches, etc.)? No PATIENT GENDER DATA: ALLERGIES: Reviewed and unchanged CONTRAST ALLERGY: No EXAM: CT -CONTRAST INDUCED NEPHROPATHY RISK FACTORS: Not applicable CREATININE: Creatinine Date Value Ref Range Status 01/26/2025 0.88 0.73 - 1.22 mg/dL Final 12/29/2024 0.79 0.73 - 1.22 mg/dL Final 06/06/2024 0.78 0.73 - 1.22 mg/dL Final Estimated Glomerular Filtration Rate Date Value Ref Range Status 01/26/2025 118 >=60 mL/min/1.73m Final Comment: Estimated Glomerular Filtration Rate (eGFR) is calculated using the 2020 CKD-EPI creatinine equation. This equation utilizes serum creatinine, sex, and age as parameters. The creatinine assay has traceable calibration to isotope dilution-mass spectrometry. Refer to KDIGO guidelines for clinical interpretation. In patients with unstable renal function, e.g. those with acute kidney injury, the eGFR may not accurately reflect actual GFR. eGFR- Date Value Ref Range Status 12/09/2021 >60 Final P.O.C.T. RESULTS: N/A March 13, 2025 TREATMENT: N/A IV SITE: Ambulatory: A peripheral IV was started in the Right with a Angio cath: 20 gauge. IV SITE APPEARANCE: Clean,Dry and Intact SIGNATURE: Ragini Heredia RN PATIENT NAME: Vilma Rankin DATE: March 13, 2025 TIME: 4:42 PM [facility] 03-13-2025 Nurse Note Radiology Service Progress Note DATE OF SERVICE: March 13, 2025 TIME: 4:42 PM PATIENT WEIGHT: 159LBS PATIENT IDENTITY VERIFICATION COMPLETED USING TWO (2) STANDARD IDENTIFIERS: Name and Date of confirmed by patient verbally and Name and Date of confirmed by identification band. FALL SCREENING: Has the patient had 2 falls in the last year or 1 fall with injury or currently using an Ambulatory Assistive Device (Walker, Cane, Wheelchair, Crutches, etc.)? No PATIENT GENDER DATA: ALLERGIES: Reviewed and unchanged CONTRAST ALLERGY: No EXAM: CT -CONTRAST INDUCED NEPHROPATHY RISK FACTORS: Not applicable CREATININE: Creatinine Date Value Ref Range Status 01/26/2025 0.88 0.73 - 1.22 mg/dL Final 12/29/2024 0.79 0.73 - 1.22 mg/dL Final 06/06/2024 0.78 0.73 - 1.22 mg/dL Final Estimated Glomerular Filtration Rate Date Value Ref Range Status 01/26/2025 118 >=60 mL/min/1.73m Final Comment: Estimated Glomerular Filtration Rate (eGFR) is calculated using the 2020 CKD-EPI creatinine equation. This equation utilizes serum creatinine, sex, and age as parameters. The creatinine assay has traceable calibration to isotope dilution-mass spectrometry. Refer to KDIGO guidelines for clinical interpretation. In patients with unstable renal function, e.g. those with acute kidney injury, the eGFR may not accurately reflect actual GFR. eGFR- Date Value Ref Range Status 12/09/2021 >60 Final P.O.C.T. RESULTS: N/A March 13, 2025 TREATMENT: N/A IV SITE: Ambulatory: A peripheral IV was started in the Right with a Angio cath: 20 gauge. IV SITE APPEARANCE: Clean,Dry and Intact SIGNATURE: Ragini Heredia RN PATIENT NAME: Vilma Rankin DATE: March 13, 2025 TIME: 4:42 PM documented in this encounter [facility] 02-10-2025 History of Presen t illness Narrative Images from the original note were not included. . [facility] [place] Note Patient name: Vilma Rankin PCP: No primary care provider on file. Referring Physician: Dionisio Griffin MD Consultation requested by Dr. Griffin for an opinion regarding Lung nodules. My final recommendations will be communicated back to the requesting physician by way of shared Medical record or letter to requesting physician via US mail. 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 Patient has no respiratory symptoms, specifically, cough, shortness of breath, wheezing. He does have some intermittent right lower sharp chest pain that is pleuritic in nature which he attributes to previous surgeries. Reviewing EMR, patient had pulmonary nodules noted on a CTA of the chest in 2018. CT of the abdomen and pelvis showed incidental note of pulmonary nodules in lower lung cuts. Full chest CT shows persistent pulmonary nodules but more numerous with increased intrafissural nodularity and slight left hilar lymphadenopathy. Patient denies eye pain, joint pain or skin rashes. DATA: Labs: Renal function and calcium level normal Imaging / Diagnostic Studies: DATE OF EXAM: Jan 05 2025 4:18PM [facility] [facility] [place] IVCON / EXAMINATION: CHEST CT WITH CONTRAST CLINICAL HISTORY: Chest pain. Comparison: CT chest PE on 11/17/2017 RESULT: Limitations: None. Lines, tubes, and devices: None. Lung parenchyma and airways: The central airways are patent. There are numerous solid nodules throughout both lungs. For example, there are nodules in the right lung measuring up to 1.1 cm, series 303 images 64, 70, 83, 108, 126, 131, 145, 151, 165, 172, 176, 178 and 188. There are nodules in the left lung measuring up to 7 mm, series 303 images 56, 111, 120, 139, 159, 173, 195, 199 and 208. Many of these nodules show interval increase in size. A few new nodules also noted. For example, a dominant nodule in the right lower lobe now measures 6.6 mm, series 303 image 149, previously 4.7 mm. No mass lesion identified. Similar biapical scarring and subpleural opacities are demonstrated, likely post inflammatory. Pleural space: No pleural effusions or pneumothorax. Lower neck, lymph nodes, and mediastinum: Stable thyroid gland. No supraclavicular or axillary lymphadenopathy. Mild bilateral hilar and mediastinal lymphadenopathy is visualized, not previously appreciated. Heart, pericardium, and thoracic vessels: The thoracic aorta and main pulmonary artery are normal in caliber. The cardiac chambers are normal in size. No coronary artery atherosclerotic calcifications are noted, although the study is not optimized for coronary assessment. No pericardial effusion or thickening. Bones and soft tissues: No destructive bone lesion. Chest wall soft tissue is unremarkable. Upper abdomen: Patient is status post pancreatectomy. Localizer images: No additional findings. IMPRESSION: Numerous bilateral lung nodules including enlarged nodules and new nodules. Interval new mild hilar and mediastinal lymphadenopathy. Clinical correlation is suggested. Numerous subpleural nodules also present CTA chest 11/2017: I personally reviewed the images as well as with the patient which does show increased number and size of pulmonary nodules compared to 2018 PAST MEDICAL HISTORY Diagnosis Date Delirium 03/22/2019 Diabetes mellitus type 1, controlled, without complications (HCC) 06/29/2019 Influenza A 11/17/2017 Insulin dependent diabetes mellitus Lung nodules 09/13/2019 Malnutrition of moderate degree (HCC) 11/22/2018 Pancreatitis 2017 (Nov) Small bowel obstruction due to adhesions (HCC) 07/19/2019 ALLERGIES No Known Allergies Blood-Glucose Sensor (DEXCOM G7 SENSOR) carmel Use 1 sensor every 10 days insulin pump cart,auto,BT,G6/7 (OMNIPOD 5 G6-G7 PODS, GEN 5,) crtg Use 1 every 3 days insulin aspart U-100 (NOVOLOG U-100 INSULIN ASPART) 100 unit/mL INJECT 100 UNITS DAILY VIA INSULIN PUMP. [id number]-[id number]-[id number] (CREON) 36,000-114,000- 180,000 unit delayed release capsule Take 3 capsules by mouth three times a day with meals. 2 with snacks (total 10/day) glucagon (GLUCAGON EMERGENCY KIT, HUMAN,) 1 mg injection Inject (1)one mg for insulin shock. Multivitamin capsule Take 1 capsule by mouth once daily. ascorbic acid (VITAMIN C ORAL) Take 500 mg by mouth once daily. blood sugar diagnostic (ONETOUCH VERIO) test strip Before meals and at bedtime lancets (ONE TOUCH [employer]) 33 gauge misc 1 application before meals and at bedtime. 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 Pets: Cat FAMILY HISTORY Problem Relation Age of Onset Cancer Mother breast cancer other (Other) Other Maunt x2- breast cancer PAST SURGICAL HISTORY Procedure Laterality Date ESOPHAGOGASTRODUODENOSCOPY TRANSORAL DIAGNOSTIC 04/26/2020 EGD ISLET CELL TRANSPLANT LAPARCOPIC LYSIS OF ADHESIONS For small bowel obstruction 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 SPLENECTOMY TOTAL SEPARATE PROCEDURE Splenectomy PMH, Social history, family history and surgical history reviewed and updated in EMR REVIEW OF SYSTEMS: CONSTITUTIONAL: No fevers, chills, nightsweats, unintended weight loss HEENT: Denies nasal congestion/sinus symptoms, problematic allergy problems. EYES: No visual changes or eye pain CARDIOVASCULAR: No dyspnea, palpitations, orthopnea, edema. PULM: See HPI GI: Right upper quadrant pain : No hematuria MUSC-SKEL: No joint pain, swelling, or erythema. INTEGUMENTARY: No new skin changes PHYSICAL EXAMINATION: BP 116/68 Pulse 70 Resp 16 Wt 166 lb (75.3kg) SpO2 98% General Appearance: Age-appropriate male, NAD. Skin: Skin color, texture, turgor normal, no suspicious rashes or lesions. Head: Normocephalic, no masses, lesions, tenderness or abnormalities. Eyes: Sclera, conjunctiva normal. Oropharynx: No oral lesions. Neck: No adenopathy. Lungs: Not labored, normal to percussion, no wheezes or crackles. Heart: Regular rate and rhythm, no murmurs. Extremities: No edema or clubbing. Assessment/Plan: 1. Lung nodules -Increase number and size of pre-existing pulmonary nodules and clinical history favors granulomatous disease. Histoplasmosis versus sarcoidosis. Leaning more toward histoplasmosis -Repeat CTA chest at 6 months -Discussed alarm symptoms -Fungal serologies would not be helpful at this time. Interleukin-2 soluble receptor, CHERELLE Sondra Medrano MD [facility] [place] documented in this encounter [facility] 02-10-2025 Note HNO ID: [id number] Author: SONDRA MEDRANO MD Service: ? Author Type: Physician Type: Progress Notes Filed: 02/10/2025 16:48 Note Text: . [facility] [place] Note Patient name: Vilma Rankin PCP: No primary care provider on file. Referring Physician: Dionisio Griffin MD Consultation requested by Dr. Griffin for an opinion regarding Lung nodules. My final recommendations will be communicated back to the requesting physician by way of shared Medical record or letter to requesting physician via US mail. 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 Patient has no respiratory symptoms, specifically, cough, shortness of breath, wheezing. He does have some intermittent right lower sharp chest pain that is pleuritic in nature which he attributes to previous surgeries. Reviewing EMR, patient had pulmonary nodules noted on a CTA of the chest in 2018. CT of the abdomen and pelvis showed incidental note of pulmonary nodules in lower lung cuts. Full chest CT shows persistent pulmonary nodules but more numerous with increased intrafissural nodularity and slight left hilar lymphadenopathy. Patient denies eye pain, joint pain or skin rashes. DATA: Labs: Renal function and calcium level normal Imaging / Diagnostic Studies: DATE OF EXAM: Jan 05 2025 4:18PM [facility] [place] [facility] [place] W IVCON / EXAMINATION: CHEST CT WITH CONTRAST CLINICAL HISTORY: Chest pain. Comparison: CT chest PE on 11/17/2017 RESULT: Limitations: None. Lines, tubes, and devices: None. Lung parenchyma and airways: The central airways are patent. There are numerous solid nodules throughout both lungs. For example, there are nodules in the right lung measuring up to 1.1 cm, series 303 images 64, 70, 83, 108, 126, 131, 145, 151, 165, 172, 176, 178 and 188. There are nodules in the left lung measuring up to 7 mm, series 303 images 56, 111, 120, 139, 159, 173, 195, 199 and 208. Many of these nodules show interval increase in size. A few new nodules also noted. For example, a dominant nodule in the right lower lobe now measures 6.6 mm, series 303 image 149, previously 4.7 mm. No mass lesion identified. Similar biapical scarring and subpleural opacities are demonstrated, likely post inflammatory. Pleural space: No pleural effusions or pneumothorax. Lower neck, lymph nodes, and mediastinum: Stable thyroid gland. No supraclavicular or axillary lymphadenopathy. Mild bilateral hilar and mediastinal lymphadenopathy is visualized, not previously appreciated. Heart, pericardium, and thoracic vessels: The thoracic aorta and main pulmonary artery are normal in caliber. The cardiac chambers are normal in size. No coronary artery atherosclerotic calcifications are noted, although the study is not optimized for coronary assessment. No pericardial effusion or thickening. Bones and soft tissues: No destructive bone lesion. Chest wall soft tissue is unremarkable. Upper abdomen: Patient is status post pancreatectomy. Localizer images: No additional findings. IMPRESSION: Numerous bilateral lung nodules including enlarged nodules and new nodules. Interval new mild hilar and mediastinal lymphadenopathy. Clinical correlation is suggested. Numerous subpleural nodules also present CTA chest 11/2017: I personally reviewed the images as well as with the patient which does show increased number and size of pulmonary nodules compared to 2018 PAST MEDICAL HISTORY Diagnosis Date Delirium 03/22/2019 Diabetes mellitus type 1, controlled, without complications (HCC) 06/29/2019 Influenza A 11/17/2017 Insulin dependent diabetes mellitus Lung nodules 09/13/2019 Malnutrition of moderate degree (HCC) 11/22/2018 Pancreatitis 2018 (Nov) Small bowel obstruction due to adhesions (HCC) 07/19/2019 ALLERGIES No Known Allergies Blood-Glucose Sensor (DEXCOM G7 SENSOR) carmel Use 1 sensor every 10 days insulin pump cart,auto,BT,G6/7 (OMNIPOD 5 G6-G7 PODS, GEN 5,) crtg Use 1 every 3 days insulin aspart U-100 (NOVOLOG U-100 INSULIN ASPART) 100 unit/mL INJECT 100 UNITS DAILY VIA INSULIN PUMP. [id number] (CREON) 36,000-114,000- 180,000 unit delayed release capsule Take 3 capsules by mouth three times a day with meals. 2 with snacks (total 10/day) glucagon (GLUCAGON EMERGENCY KIT, HUMAN,) 1 mg injection Inject (1)one mg for insulin shock. Multivitamin capsule Take 1 capsule by mouth once daily. ascorbic acid (VITAMIN C ORAL) Take 500 mg by mouth once daily. blood sugar diagnostic (ONETOUCH VERIO) test strip Before meals and at bedtime lancets (ONE TOUCH DELICA) 33 gauge misc 1 application before meals and at bedtime. Social Hist (more content not included)... [facility] 01-27-2025 Note HNO ID: [id number] Author: SANTOS JONES MD Service: ? Author Type: Physician Type: Progress Notes Filed: 01/27/2025 14:22 Note Text: [facility] Follow-up visit Vilma Rankin is here for follow-up regarding type 1 diabetes: Virtual visit I have communicated my name and active licensure. The patient's identity and physical location were verified at the time of this visit. Either the patient or their legal claim representative has been informed of the risks and benefits of -- and alternatives to -- treatment through a remote evaluation and consents to proceed with the evaluation remotely. HISTORY OF PRESENT ILLNESS: Vilma Rankin is a 29 year old male with PMH of pancreatitis, poorly controlled T3cD s/p TPAIT 03/2019 who presents today for follow up of type 1 diabetes. Diabetes history Past diabetes regimen: Omnipod 5 Dexcom G6 RxPCN - [id number] RxBIN - [id number] RxGroup - [id number] Current diabetes regimen: Omnipod 5 with dexcom G6 CGM review: post prandial spike still present but now bottoming out with carb boluses Complications: Retinopathy: no Nephropathy: no Neuropathy: no PAD: no CAD: no CVD: no Family history of diabetes: No Last Ophthalmology visit: 1 year Last Podiatry visit/foot exam: no Social History Lives on a cat Works very physical - [employer] Review of Systems Constitutional: Negative for fatigue, night sweats and recent unintentional weight change. Eyes: Negative for visual disturbance. Respiratory: Negative for difficulty breathing. Cardiovascular: Negative for chest pain and leg swelling. Gastrointestinal: Negative for nausea, vomiting, abdominal pain, diarrhea and constipation. Musculoskeletal: Positive for myalgias. Neurological: Negative for dizziness, headaches and numbness. Answers submitted by the patient for this visit: Core Review of Systems (Submitted on 08/02/2024) Fever : No Nasal Congestion: No Hearing Loss: No A cough: No Irregular heartbeat: No Black tarry stools: No Difficulty Urinating?: No Awaken at Night More Than Once to Urinate?: No Joint pain or stiffness: No Leg or Foot Discomfort at Night?: No A rash: No Memory Loss: No Seizures: No PAST HISTORY: PAST MEDICAL HISTORY Diagnosis Date Delirium 03/22/2019 Diabetes mellitus type 1, controlled, without complications (HCC) 06/29/2019 Influenza A 11/17/2017 Insulin dependent diabetes mellitus Lung nodules 09/13/2019 Malnutrition of moderate degree (HCC) 11/22/2018 Pancreatitis 2017 (Nov) Small bowel obstruction due to adhesions (HCC) 07/19/2019 PAST SURGICAL HISTORY Procedure Laterality Date ESOPHAGOGASTRODUODENOSCOPY TRANSORAL DIAGNOSTIC 04/26/2020 EGD LAPARCOPIC LYSIS OF ADHESIONS For small bowel obstruction NONE 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 SPLENECTOMY TOTAL SEPARATE PROCEDURE Splenectomy Current Outpatient Medications Medication Sig Dispense Refill Blood-Glucose Sensor (DEXCOM G7 SENSOR) carmel Use 1 sensor every 10 days 9 Each 1 insulin pump cart,auto,BT,G6/7 (OMNIPOD 5 G6-G7 PODS, GEN 5,) crtg Use 1 every 3 days 30 Each 1 insulin aspart U-100 (NOVOLOG U-100 INSULIN ASPART) 100 unit/mL INJECT 100 UNITS DAILY VIA INSULIN PUMP. 40 mL 0 nwhssv-seljlbtt-hfxwqhv (CREON) 36,000-114,000- 180,000 unit delayed release capsule Take 3 capsules by mouth three times a day with meals. 2 with snacks (total 10/day) 300 capsule 11 glucagon (GLUCAGON EMERGENCY KIT, HUMAN,) 1 mg injection Inject (1)one mg for insulin shock. 2 Each 1 insulin glargine (LANTUS SOLOSTAR, BASAGLAR KWIKPEN) 100 unit/mL (3 mL) 18 units in evening, max daily dose 25 units 5 Each 11 insulin aspart, niacinamide, (FIASP FLEXTOUCH U-100 INSULIN) 100 unit/mL (3 mL) pen Take 2-14 units before lunch and dinner 5 Pen 2 UNIFINE PENTIPS PLUS 32 gauge x 5/32" use 4 times daily BEFORE MEALS and at bedtime 100 Each 0 Multivitamin capsule Take 1 capsule by mouth once daily. ascorbic acid (VITAMIN C ORAL) Take 500 mg by mouth once daily. blood sugar diagnostic (ONETOUCH VERIO) test strip Before meals and at bedtime 150 Strip 2 lancets (ONE TOUCH DELVertical Studio, LLC) 33 gauge misc 1 application before meals and at bedtime. 150 Each 2 No current facility-administered medications for this visit. ALLERGIES No Known Allergies FAMILY HISTORY Problem Relation Age of Onset Cancer Mother breast cancer other (Other) Other Maunt x2- breast cancer Social History Tobacco Use Smoking status: Never Smokeless tobacco: Former Types: Chew Quit date: 2013 Substance Use Topics Alcohol use: Not Currently Comment: social Drug use: No PHYSICAL EXAM: There were no vitals taken for this visit. Compared with October 26, 2024 and updated as appropriate Gen: well appearing, NAD Head: atraumatic normocephalic Eyes: EOMI no sceral (more content not included)... [facility] 01-27-2025 History of Presen t illness Narrative Images from the original note were not included. [facility] Follow-up visit Vilma Rankin is here for follow-up regarding type 1 diabetes: Virtual visit I have communicated my name and active licensure. The patient's identity and physical location were verified at the time of this visit. Either the patient or their legal claim representative has been informed of the risks and benefits of -- and alternatives to -- treatment through a remote evaluation and consents to proceed with the evaluation remotely. HISTORY OF PRESENT ILLNESS: Vilma Rankin is a 29 year old male with PMH of pancreatitis, poorly controlled T3cD s/p TPAIT 03/2019 who presents today for follow up of type 1 diabetes. 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 Eyes: Negative for visual disturbance. Respiratory: Negative for difficulty breathing. Cardiovascular: Negative for chest pain and leg swelling. Gastrointestinal: Negative for nausea, vomiting, abdominal pain, diarrhea and constipation. Musculoskeletal: Positive for myalgias. Neurological: Negative for dizziness, headaches and numbness. Answers submitted by the patient for this visit: Core Review of Systems (Submitted on 08/02/2024) Fever : No Nasal Congestion: No Hearing Loss: No A cough: No Irregular heartbeat: No Black tarry stools: No Difficulty Urinating?: No Awaken at Night More Than Once to Urinate?: No Joint pain or stiffness: No Leg or Foot Discomfort at Night?: No A rash: No Memory Loss: No Seizures: No PAST HISTORY: 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 SPLENECTOMY TOTAL SEPARATE PROCEDURE Splenectomy Current Outpatient Medications Medication Sig Dispense Refill Blood-Glucose Sensor (Massive AnalyticCOM G7 SENSOR) carmel Use 1 sensor every 10 days 9 Each 1 insulin pump cart,auto,BT,G6/7 (OMNIPOD 5 G6-G7 PODS, GEN 5,) crtg Use 1 every 3 days 30 Each 1 insulin aspart U-100 (NOVOLOG U-100 INSULIN ASPART) 100 unit/mL INJECT 100 UNITS DAILY VIA INSULIN PUMP. 40 mL 0 ztaxkz-cghwxazo-tknkour (CREON) 36,000-114,000- 180,000 unit delayed release capsule Take 3 capsules by mouth three times a day with meals. 2 with snacks (total 10/day) 300 capsule 11 glucagon (GLUCAGON EMERGENCY KIT, HUMAN,) 1 mg injection Inject (1)one mg for insulin shock. 2 Each 1 insulin glargine (LANTUS SOLOSTAR, BASAGLAR KWIKPEN) 100 unit/mL (3 mL) 18 units in evening, max daily dose 25 units 5 Each 11 insulin aspart, niacinamide, (FIASP FLEXTOUCH U-100 INSULIN) 100 unit/mL (3 mL) pen Take 2-14 units before lunch and dinner 5 Pen 2 UNIFINE PENTIPS PLUS 32 gauge x 5/32" use 4 times daily BEFORE MEALS and at bedtime 100 Each 0 Multivitamin capsule Take 1 capsule by mouth once daily. ascorbic acid (VITAMIN C ORAL) Take 500 mg by mouth once daily. blood sugar diagnostic (ONETOUCH VERIO) test strip Before meals and at bedtime 150 Strip 2 lancets (WhoAPI DELVertical [employer], [employer]) 33 gauge misc 1 application before meals and at bedtime. 150 Each 2 No current facility-administered medications for this visit. ALLERGIES No Known Allergies FAMILY HISTORY Problem Relation Age of Onset Cancer Mother breast cancer other (Other) Other Maunt x2- breast cancer Social History Tobacco Use Smoking status: Never Smokeless tobacco: Former Types: Chew Quit date: 2013 Substance Use Topics Alcohol use: Not Currently Comment: social Drug use: No PHYSICAL EXAM: There were no vitals taken for this visit. Compared with October 26, 2024 and updated as appropriate Gen: well appearing, NAD Head: atraumatic normocephalic Eyes: EOMI no sceral icterus Neck: no goiter, supple Pulm: resp effort is appropriate Ext: no swelling cyanosis Neuro: hearing and speech normal Skin: no acute lesions or rashes noted PREVIOUS LAB RESULTS: Latest Ref Rng 01/26/2025 Protein, Total 6.3 - 8.0 g/dL 8.1 (H) Albumin 3.9 - 4.9 g/dL 4.7 Calcium 8.5 - 10.2 mg/dL 9.6 Bilirubin, Total 0.2 - 1.3 mg/dL 0.8 Alkaline Phosphatase 38 - 113 U/L 60 AST 14 - 40 U/L 28 ALT 10 - 54 U/L 18 Glucose 74 - 99 mg/dL 132 (H) BUN 9 - 24 mg/dL 21 Creatinine 0.73 - 1.22 mg/dL 0.88 Sodium 136 - 144 mmol/L 139 Potassium 3.7 - 5.1 mmol/L 4.1 Chloride 98 - 107 mmol/L 99 CO2 22 - 30 mmol/L 25 Anion Gap 8 - 15 mmol/L 15 eGFR >=60 mL/min/1.73m 118 Cholesterol, Total <200 mg/dL 115 Triglyceride <150 mg/dL 48 HDL Cholesterol >39 mg/dL 46 Non HDL Cholesterol <130 mg/dL 69 Fasting Time hrs 19 VLDL Cholesterol <30 mg/dL 10 TC:HDL Ratio <5.10 2.50 LDL Cholesterol <100 mg/dL 59 LDL:HDL Ratio <2.54 1.28 Creatinine, Ur Random (UCRR) 20.0 - 300.0 mg/dL 185.8 Albumin, Urine Random mg/L <12.0 Albumin/Creat Ratio <30 mg/g <6 Hemoglobin A1C 4.3 - 5.6 % 7.6 (H) Estimated Average Glucose mg/dL 171 TSH 0.270 - 4.200 mIU/L 1.920 Legend: (H) High IMPRESSION AND RECOMMENDATIONS: Vilma Rankin is a 29 year old male with PMH of pancreatitis, poorly controlled T3cD s/p TPAIT 03/2019 who presents today for follow up of type 1 diabetes. 1. Type 1 diabetes mellitus with hyperglycemia (HCC) - he is using phone as PDM - furniture mover over to G7 and G6/G7 pods Carb 11 Sensitivity 49 - prebolus was emphasized - try mounjaro 2.5, discussed side effects and weight loss monitoring - trying fiber beginning of meal did not work as well - did help with overall nutrition of what he was eating 3 month in person Santos Jones MD January 27, 2025 documented in this encounter [facility] 01-20-2025 Telephone encounter Note Images from the original note were not included. Most recent Endocrinology visit: Last encounter Visit on 10/26/2024 (with Santos Jones) 10/27/2023 [facility] with SANTOS JONES for Type 1 diabetes mellitus with hyperglycemia (HCC) 03/15/2024 in [facility] with SANTOS JONES for Poorly controlled type 1 diabetes mellitus with complication (HCC) 08/02/2024 in [facility] with SANTOS JONES for Poorly controlled type 1 diabetes mellitus with complication (HCC) 10/26/2024 in [facility] with SANTOS JONES for Poorly controlled type 1 diabetes mellitus with complication (HCC) Upcoming Endocrinology Appointments - Next 365 Days Visit Type Date Time Department VIDEO SPEC EST 01/27/2025 1:20 PM ENDO MA[facility] 4 Requested Prescriptions Pending Prescriptions Disp Refills Blood-Glucose Sensor (DEXCOM G7 SENSOR) carmel 9 Each 1 Sig: Use 1 sensor every 10 days insulin pump cart,auto,BT,G6/7 (OMNIPOD 5 G6-G7 PODS, GEN 5,) crtg 30 Each 1 Sig: Use 1 every 3 days insulin aspart U-100 (NOVOLOG U-100 INSULIN ASPART) 100 unit/mL 40 mL 0 Sig: INJECT 100 UNITS DAILY VIA INSULIN PUMP. Latest Ref Rng & Units 06/06/2024 03/15/2024 10/27/2023 Hemoglobin A1C Hemoglobin A1C 4.3 - 5.6 % 7.3 Hemoglobin A1C (POCT) 4.3 - 5.6 % 7.3 6.8 TSH: None on file in the last 12 months Free T3: None on file in the last 12 months Free T4: None on file in the last 12 months Thyroglobulin: None on file in the last 12 months Vitamin D: None on file in the last 12 months Hematocrit: None on file in the last 12 months Latest Ref Rng & Units 12/29/2024 06/06/2024 12/01/2023 Creatinine Creatinine 0.73 - 1.22 mg/dL 0.79 0.78 0.84 Latest Ref Rng & Units 12/29/2024 06/06/2024 12/01/2023 eGFR EGFR >=60 mL/min/1.73m 122 122 120 Latest Ref Rng & Units 06/06/2024 12/01/2023 12/09/2021 Potassium Potassium 3.7 - 5.1 mmol/L 4.7 3.9 4.4 Testosterone: None on file in the last 12 months IGF: None on file in the last 12 months Prolactin: None on file in the last 12 months [facility] 01-20-2025 Miscellaneous Notes Images from the original note were not included. Most recent Endocrinology visit: Last encounter Visit on 10/26/2024 (with Santos Jones) 10/27/2023 in [facility] with SANTOS JONES for Type 1 diabetes mellitus with hyperglycemia (HCC) 03/15/2024 in [facility] with SANTOS JONES for Poorly controlled type 1 diabetes mellitus with complication (HCC) 08/02/2024 in [facility] with SANTOS JONES for Poorly controlled type 1 diabetes mellitus with complication (HCC) 10/26/2024 in [facility] with SANTOS JONES for Poorly controlled type 1 diabetes mellitus with complication (HCC) Upcoming Endocrinology Appointments - Next 365 Days Visit Type Date Time Department VIDEO SPEC EST 01/27/2025 1:20 PM ENDO MAIN [facility] 4 Requested Prescriptions Pending Prescriptions Disp Refills Blood-Glucose Sensor (DEXCOM G7 SENSOR) carmel 9 Each 1 Sig: Use 1 sensor every 10 days insulin pump cart,auto,BT,G6/7 (OMNIPOD 5 G6-G7 PODS, GEN 5,) crtg 30 Each 1 Sig: Use 1 every 3 days insulin aspart U-100 (NOVOLOG U-100 INSULIN ASPART) 100 unit/mL 40 mL 0 Sig: INJECT 100 UNITS DAILY VIA INSULIN PUMP. Latest Ref Rng & Units 06/06/2024 03/15/2024 10/27/2023 Hemoglobin A1C Hemoglobin A1C 4.3 - 5.6 % 7.3 Hemoglobin A1C (POCT) 4.3 - 5.6 % 7.3 6.8 TSH: None on file in the last 12 months Free T3: None on file in the last 12 months Free T4: None on file in the last 12 months Thyroglobulin: None on file in the last 12 months Vitamin D: None on file in the last 12 months Hematocrit: None on file in the last 12 months Latest Ref Rng & Units 12/29/2024 06/06/2024 12/01/2023 Creatinine Creatinine 0.73 - 1.22 mg/dL 0.79 0.78 0.84 Latest Ref Rng & Units 12/29/2024 06/06/2024 12/01/2023 eGFR EGFR >=60 mL/min/1.73m 122 122 120 Latest Ref Rng & Units 06/06/2024 12/01/2023 12/09/2021 Potassium Potassium 3.7 - 5.1 mmol/L 4.7 3.9 4.4 Testosterone: None on file in the last 12 months IGF: None on file in the last 12 months Prolactin: None on file in the last 12 months documented in this encounter [facility] 01-10-2025 Telephone encounter Note Discussed results of chest and abdomen CT scan. Suggested a follow up abdominal CT in 2 months for follow up of ? portal thrombus and visit with production aide regarding lung nodules. Schedulers, please call patient to arrange: CT scan in 2 months Pulmonary consultation. Elias Ellison MD [facility] 01-10-2025 Miscellaneous Notes Discussed results of chest and abdomen CT scan. Suggested a follow up abdominal CT in 2 months for follow up of ? portal thrombus and visit with production aide regarding lung nodules. Schedulers, please call patient to arrange: CT scan in 2 months Pulmonary consultation. Elias Ellison MD documented in this encounter [facility] 01-05-2025 History of Presen t illness Narrative Radiology Service Progress Note PATIENT NAME: Vilma Rankin DATE OF SERVICE: January 05, 2025 TIME: 4:18 PM PATIENT IDENTITY VERIFICATION COMPLETED USING TWO (2) IDENTIFIERS: Name and Date of confirmed by patient verbally and Name and Date of confirmed by identification band. FALL SCREENING: Has the patient had 2 falls in the last year or 1 fall with injury or currently using an Ambulatory Assistive Device (Walker, Cane, Wheelchair, Crutches, etc.)? No PATIENT GENDER DATA: Assigned male at PATIENT RELEVANT IMPLANT DATA REVIEWED: Yes PATIENT PRESENTS WITH AN IMPLANTABLE OR ATTACHED MARKER SHIPMENTS: No RADIOLOGY DEPARTMENT: CT; Exam(s) Completed: Chest Abdomen Pelvis PERIPHERAL IV DATA: Not applicable SIGNED BY: RT Michoacano(Kristie) January 05, 2025 4:18 PM documented in this encounter [facility] 01-05-2025 Note HNO ID: [id number] Author: ARIANA MURILLO RT(Kristie) Service: Radiology Author Type: Technologist Type: Progress Notes Filed: 01/05/2025 16:19 Note Text: Radiology Service Progress Note PATIENT NAME: Vilma Rankin DATE OF SERVICE: January 05, 2025 TIME: 4:18 PM PATIENT IDENTITY VERIFICATION COMPLETED USING TWO (2) IDENTIFIERS: Name and Date of confirmed by patient verbally and Name and Date of confirmed by identification band. FALL SCREENING: Has the patient had 2 falls in the last year or 1 fall with injury or currently using an Ambulatory Assistive Device (Walker, Cane, Wheelchair, Crutches, etc.)? No PATIENT GENDER DATA: Assigned male at PATIENT RELEVANT IMPLANT DATA REVIEWED: Yes PATIENT PRESENTS WITH AN IMPLANTABLE OR ATTACHED MARKER SHIPMENTS: No RADIOLOGY DEPARTMENT: CT; Exam(s) Completed: Chest Abdomen Pelvis PERIPHERAL IV DATA: Not applicable SIGNED BY: RT [place](R) January 05, 2025 4:18 PM [facility] 01-05-2025 Nurse Note Radiology Service Progress Note DATE OF SERVICE: January 05, 2025 TIME: 4:11 PM PATIENT WEIGHT: 174 LBS PATIENT IDENTITY VERIFICATION COMPLETED USING TWO (2) STANDARD IDENTIFIERS: Name and Date of confirmed by patient verbally. FALL SCREENING: Has the patient had 2 falls in the last year or 1 fall with injury or currently using an Ambulatory Assistive Device (Walker, Cane, Wheelchair, Crutches, etc.)? No PATIENT GENDER DATA: Assigned male at ALLERGIES: Reviewed and unchanged CONTRAST ALLERGY: No EXAM: CT -CONTRAST INDUCED NEPHROPATHY RISK FACTORS: Not applicable CREATININE: Creatinine Date Value Ref Range Status 12/29/2024 0.79 0.73 - 1.22 mg/dL Final 06/06/2024 0.78 0.73 - 1.22 mg/dL Final 12/01/2023 0.84 0.73 - 1.22 mg/dL Final Estimated Glomerular Filtration Rate Date Value Ref Range Status 12/29/2024 122 >=60 mL/min/1.73m Final Comment: Estimated Glomerular Filtration Rate (eGFR) is calculated using the 2020 CKD-EPI creatinine equation. This equation utilizes serum creatinine, sex, and age as parameters. The creatinine assay has traceable calibration to isotope dilution-mass spectrometry. Refer to KDIGO guidelines for clinical interpretation. In patients with unstable renal function, e.g. those with acute kidney injury, the eGFR may not accurately reflect actual GFR. eGFR- Date Value Ref Range Status 12/09/2021 >60 Final P.O.C.T. RESULTS: POC done: Yes, See Lab Tab January 05, 2025 TREATMENT: N/A IV SITE: Ambulatory: A peripheral IV was started in the Left antecubital site with a Angio cath: 22 gauge. IV SITE APPEARANCE: Clean,Dry and Intact SIGNATURE: Mayuri Rivera RN PATIENT NAME: Vilma Rankin DATE: January 05, 2025 TIME: 4:11 PM [facility] 01-05-2025 Nurse Note Radiology Service Progress Note DATE OF SERVICE: January 05, 2025 TIME: 4:11 PM PATIENT WEIGHT: 174 LBS PATIENT IDENTITY VERIFICATION COMPLETED USING TWO (2) STANDARD IDENTIFIERS: Name and Date of confirmed by patient verbally. FALL SCREENING: Has the patient had 2 falls in the last year or 1 fall with injury or currently using an Ambulatory Assistive Device (Walker, Cane, Wheelchair, Crutches, etc.)? No PATIENT GENDER DATA: Assigned male at ALLERGIES: Reviewed and unchanged CONTRAST ALLERGY: No EXAM: CT -CONTRAST INDUCED NEPHROPATHY RISK FACTORS: Not applicable CREATININE: Creatinine Date Value Ref Range Status 12/29/2024 0.79 0.73 - 1.22 mg/dL Final 06/06/2024 0.78 0.73 - 1.22 mg/dL Final 12/01/2023 0.84 0.73 - 1.22 mg/dL Final Estimated Glomerular Filtration Rate Date Value Ref Range Status 12/29/2024 122 >=60 mL/min/1.73m Final Comment: Estimated Glomerular Filtration Rate (eGFR) is calculated using the 2020 CKD-EPI creatinine equation. This equation utilizes serum creatinine, sex, and age as parameters. The creatinine assay has traceable calibration to isotope dilution-mass spectrometry. Refer to KDIGO guidelines for clinical interpretation. In patients with unstable renal function, e.g. those with acute kidney injury, the eGFR may not accurately reflect actual GFR. eGFR- Date Value Ref Range Status 12/09/2021 >60 Final P.O.C.T. RESULTS: POC done: Yes, See Lab Tab January 05, 2025 TREATMENT: N/A IV SITE: Ambulatory: A peripheral IV was started in the Left antecubital site with a Angio cath: 22 gauge. IV SITE APPEARANCE: Clean,Dry and Intact SIGNATURE: Mayuri Rivera RN PATIENT NAME: Vilma Rankin DATE: January 05, 2025 TIME: 4:11 PM documented in this encounter [facility] 12-13-2024 History of Presen t illness Narrative NAME: Vilma Rankin AGE: [age] year old Last seen: 06/2023 IMPRESSION 28 year old man who has had TP/AIT in 2019. He is doing very well clinical. No abdominal pain. Good glycemic control. Excellent control of EPI symptoms. RECOMMENDATION: 1. Check fat soluble vitamin levels (they were low in 2020, but EPI symptoms at that time were not optimally controlled) 2. Consider DEKAs based on results. 3. Creon refill provided. 4. Follow up in 1 year or as needed. HISTORY Started having some mild pain in the right anterior lower rib region. The pain is mostly constant, since September. Exacerbated with deep breaths and working out. Intensity ranges 1-3. Just deals with the pain--doesn't take analgesics. Blood sugar control is doing well. He is on the "omni pod" insulin pump (talks to sensor). Bowel movements are normal. Occasional oil if he misjudges Creon. Weight stable and energy level is good. Regular exercise. Starting a new job tomorrow. PERTINENT PRIOR DIAGNOSTIC TESTING Latest Reference Range & Units Most Recent Vitamin A 0.30 - 1.20 mg/L 0.32 07/22/23 15:18 Vitamin D 25 Hydroxy >=30.0 ng/mL 37.3 07/22/23 15:18 Vitamin E-alpha 6.0 - 23.0 mg/L 4.9 (L) 07/22/23 15:18 Vitamin E-gamma 0.3 - 3.2 mg/L 0.6 07/22/23 15:18 Vitamin K 0.22 - 4.88 nmol/L 0.64 09/20/19 16:11 (L): Data is abnormally low MEDICATIONS Current Outpatient Medications Medication Sig insulin aspart U-100 (NOVOLOG U-100 INSULIN ASPART) 100 unit/mL INJECT 100 UNITS DAILY VIA INSULIN PUMP. Blood-Glucose Sensor (Massive AnalyticCOM G7 SENSOR) carmel Use 1 sensor every 10 days insulin pump cart,auto,BT,G6/7 (OMNIPOD 5 G6-G7 PODS, GEN 5,) crtg Use 1 every 3 days glucagon (GLUCAGON EMERGENCY KIT, HUMAN,) 1 mg injection Inject (1)one mg for insulin shock. lxkqid-tcvuznwx-ldinefg (CREON) 36,000-114,000- 180,000 unit delayed release capsule Take 3 capsules by mouth three times daily with meals. 2 with snacks (total 10/day) Multivitamin capsule Take 1 capsule by mouth once daily. ascorbic acid (VITAMIN C ORAL) Take 500 mg by mouth once daily. blood sugar diagnostic (ONETOUCH VERIO) test strip Before meals and at bedtime lancets (ONE TOUCH DELVertical Studio, LLC) 33 gauge misc 1 application before meals and at bedtime. insulin glargine (LANTUS SOLOSTAR, BASAGLAR KWIKPEN) 100 unit/mL (3 mL) 18 units in evening, max daily dose 25 units insulin aspart, niacinamide, (FIASP FLEXTOUCH U-100 INSULIN) 100 unit/mL (3 mL) pen Take 2-14 units before lunch and dinner UNIFINE PENTIPS PLUS 32 gauge x 5/32" use 4 times daily BEFORE MEALS and at bedtime No current facility-administered medications for this visit. ALLERGIES ALLERGIES No Known Allergies PAST MEDICAL HISTORY PAST MEDICAL HISTORY Diagnosis Date Delirium 03/22/2019 Diabetes mellitus type 1, controlled, without complications ([facility]) 06/29/2019 Influenza A 11/17/2017 Insulin dependent diabetes mellitus Lung nodules 09/13/2019 Malnutrition of moderate degree ([facility]) 11/22/2018 Pancreatitis 2017 (Nov) Small bowel obstruction due to adhesions ([facility]) 07/19/2019 PAST SURGICAL HISTORY PAST SURGICAL HISTORY Procedure Laterality Date ESOPHAGOGASTRODUODENOSCOPY TRANSORAL DIAGNOSTIC 04/26/2020 EGD LAPARCOPIC LYSIS OF ADHESIONS For small bowel obstruction NONE 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 SPLENECTOMY TOTAL SEPARATE PROCEDURE Splenectomy GASTROINTESTINAL REVIEW OF SYSTEMS Difficulty swallowing / foods sticking in throat: No Heartburn: No Chest Pain: No Filling up quickly at meals: No Loss of appetite: No Nausea: No Vomiting: No Abdominal pain: Yes Bloody or black, bowel movements: No Constipation: No Diarrhea: No Vomiting blood: No Recent change in weight: No Answers submitted by the patient for this visit: Review of Systems Gastroenterology (Submitted on 12/12/2024) Fever: No Chills: No Night Sweats: No Unitentional Weight Change: No A Cough: No Difficulty Breathing: No Chest Pain: No Belly pain: No A feeling of fullness or have belly pain after eating: No Food getting stuck in your throat or chest after eating: No Nausea - that is, a feeling like you could vomit: No Regurgitation - that is, food or liquid coming back up into your throat or mouth without vomiting, or feel burning behind your breast bone: No Loss of appetite: No To throw up or vomit: No Blood in your stools: No Black tarry stools: No Loose or watery stools: No The feeling like you need to empty your bowels right away - that is, feel as if you would have an accident: No Bowel incontinence - that is, have an accident because you cannot make it to the bathroom in time: No Problems with straining while having bowel movements , hard or lumpy stools, or feel unfinished (that you have not passed all your stool): No Pain in rectum or anus during bowel movements: No Problems with jaundice - that is, yellow discoloration of your skin or eyes, now or in the past: No Problems with having to flush the toilet more than two times due to oily stool, or see stool floating with oil: No PHYSICAL EXAMINATION BP 126/64 Pulse 70 Ht 175.3 cm (5' 9") Wt 78.9 kg (174 lb) SpO2 97% BMI 25.70 kg/m General appearance: cooperative, in no acute distress Eyes: conjunctivae/corneas clear Oropharynx: Lips, tongue and oral mucosa normal Lungs: Lungs clear to auscultation. No wheezing or ronchi. Heart: S1, S2 Normal Abdomen: Abdomen soft, tender under right lower rib cage anteriorally, Bowel sounds normal, No masses, No organomegaly, and no tenderness on palpation or percussion. Extremities: Extremities normal. No deformities, edema, or skin discoloration Lymph:No abnormal adenopathy Assessment IMPRESSION 29 year old man s/p TPAIT in 2019, doing very well. No signs of EPI on current Creon dose. Diabetes under excellent control. Creon refilled today. He has a new lower right chest pain which is pleuritic in nature. Will obtain a chest/abdomen CT to look for structural cause of this pain. If negative, could consider Tylenol or even a pain management referral for a lidocaine injection or TAP block. I spent a total of 30 minutes on the date of the service which included preparing to see the patient, qbkg-vg-gimo patient care, completing clinical documentation, obtaining and/or reviewing separately obtained history, performing a medically appropriate examination, counseling and educating the patient/family/caregiver, and ordering medications, tests, or procedures. Elias Ellison MD documented in this encounter [facility] 12-13-2024 Note HNO ID: [id number] Author: ELIAS ELLISON MD Service: ? Author Type: Physician Type: Progress Notes Filed: 12/13/2024 16:14 Note Text: NAME: Vilma Rankin AGE: [age] year old Last seen: 06/2023 IMPRESSION 28 year old man who has had TP/AIT in 2019. He is doing very well clinical. No abdominal pain. Good glycemic control. Excellent control of EPI symptoms. RECOMMENDATION: 1. Check fat soluble vitamin levels (they were low in 2020, but EPI symptoms at that time were not optimally controlled) 2. Consider DEKAs based on results. 3. Creon refill provided. 4. Follow up in 1 year or as needed. HISTORY Started having some mild pain in the right anterior lower rib region. The pain is mostly constant, since September. Exacerbated with deep breaths and working out. Intensity ranges 1-3. Just deals with the pain--doesn't take analgesics. Blood sugar control is doing well. He is on the "omni pod" insulin pump (talks to sensor). Bowel movements are normal. Occasional oil if he misjudges Creon. Weight stable and energy level is good. Regular exercise. Starting a new job tomorrow. PERTINENT PRIOR DIAGNOSTIC TESTING Latest Reference Range AND Units Most Recent Vitamin A 0.30 - 1.20 mg/L 0.32 07/22/23 15:18 Vitamin D 25 Hydroxy >=30.0 ng/mL 37.3 07/22/23 15:18 Vitamin E-alpha 6.0 - 23.0 mg/L 4.9 (L) 07/22/23 15:18 Vitamin E-gamma 0.3 - 3.2 mg/L 0.6 07/22/23 15:18 Vitamin K 0.22 - 4.88 nmol/L 0.64 11/5/19 16:11 (L): Data is abnormally low MEDICATIONS Current Outpatient Medications Medication Sig insulin aspart U-100 (NOVOLOG U-100 INSULIN ASPART) 100 unit/mL INJECT 100 UNITS DAILY VIA INSULIN PUMP. Blood-Glucose Sensor (DEXCOM G7 SENSOR) carmel Use 1 sensor every 10 days insulin pump cart,auto,BT,G6/7 (OMNIPOD 5 G6-G7 PODS, GEN 5,) crtg Use 1 every 3 days glucagon (GLUCAGON EMERGENCY KIT, HUMAN,) 1 mg injection Inject (1)one mg for insulin shock. yrovjx-qjjradbh-eisdels (CREON) 36,000-114,000- 180,000 unit delayed release capsule Take 3 capsules by mouth three times daily with meals. 2 with snacks (total 10/day) Multivitamin capsule Take 1 capsule by mouth once daily. ascorbic acid (VITAMIN C ORAL) Take 500 mg by mouth once daily. blood sugar diagnostic (ONETOUCH VERIO) test strip Before meals and at bedtime lancets (ONE TOUCH DELICA) 33 gauge misc 1 application before meals and at bedtime. insulin glargine (LANTUS SOLOSTAR, BASAGLAR KWIKPEN) 100 unit/mL (3 mL) 18 units in evening, max daily dose 25 units insulin aspart, niacinamide, (FIASP FLEXTOUCH U-100 INSULIN) 100 unit/mL (3 mL) pen Take 2-14 units before lunch and dinner UNIFINE PENTIPS PLUS 32 gauge x 5/32" use 4 times daily BEFORE MEALS and at bedtime No current facility-administered medications for this visit. ALLERGIES ALLERGIES No Known Allergies PAST MEDICAL HISTORY PAST MEDICAL HISTORY Diagnosis Date Delirium 03/22/2019 Diabetes mellitus type 1, controlled, without complications ([facility]) 06/29/2019 Influenza A 11/17/2017 Insulin dependent diabetes mellitus Lung nodules 09/13/2019 Malnutrition of moderate degree ([facility]) 11/22/2018 Pancreatitis 2017 (Nov) Small bowel obstruction due to adhesions ([facility]) 07/19/2019 PAST SURGICAL HISTORY PAST SURGICAL HISTORY Procedure Laterality Date ESOPHAGOGASTRODUODENOSCOPY TRANSORAL DIAGNOSTIC 04/26/2020 EGD LAPARCOPIC LYSIS OF ADHESIONS For small bowel obstruction NONE 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 SPLENECTOMY TOTAL SEPARATE PROCEDURE Splenectomy GASTROINTESTINAL REVIEW OF SYSTEMS Difficulty swallowing / foods sticking in throat: No Heartburn: No Chest Pain: No Filling up quickly at meals: No Loss of appetite: No Nausea: No Vomiting: No Abdominal pain: Yes Bloody or black, bowel movements: No Constipation: No Diarrhea: No Vomiting blood: No Recent change in weight: No Answers submitted by the patient for this visit: Review of Systems Gastroenterology (Submitted on 12/12/2024) Fever: No Chills: No Night Sweats: No Unitentional Weight Change: No A Cough: No Difficulty Breathing: No Chest Pain: No Belly pain: No A feeling of fullness or have belly pain after eating: No Food getting stuck in your throat or chest after eating: No Nausea - that is, a feeling like you could vomit: No Regurgitation - that is, food or liquid coming back up into your throat or mouth without vomiting, or feel burning behind your breast bone: No Loss of appetite: No To throw up or vomit: No Blood in your stools: No Black tarry stools: No Loose or watery stools: No The feeling like you need to empty your bowels right away - that is, feel as if you would have an accident: No Bowel incontinence - that is, have an accident because you cannot make it to the bathroom in time: No Problems with straining while having bowel movements , hard or lumpy stools, (more content not included)... [facility] 10-27-2024 Telephone encounter Note Images from the original note were not included. Requested Prescriptions Pending Prescriptions Disp Refills insulin aspart U-100 (NOVOLOG U-100 INSULIN ASPART) 100 unit/mL 40 mL 0 Sig: INJECT 100 UNITS DAILY VIA INSULIN PUMP. Most recent Endocrinology visit: Last encounter Visit on 10/26/2024 (with Santos Jones) 01/14/2023 in [facility] with SANTOS JONES for Poorly controlled type 1 diabetes mellitus with complication ([facility]) 10/27/2023 [facility] with SANTOS JONES for Type 1 diabetes mellitus with hyperglycemia ([facility]CC) 03/15/2024 in [facility] with SANTOS JONES for Poorly controlled type 1 diabetes mellitus with complication ([facility]CC) 08/02/2024 in [facility] with SANTOS JONES for Poorly controlled type 1 diabetes mellitus with complication ([facility]CC) 10/26/2024 in [facility] with SANTOS JONES for Poorly controlled type 1 diabetes mellitus with complication (HCC) Upcoming Endocrinology Appointments - Next 365 Days Visit Type Date Time Department VIDEO SPEC EST 01/27/2025 1:20 PM [facility] Latest Ref Rng & Units 06/06/2024 03/15/2024 10/27/2023 Hemoglobin A1C Hemoglobin A1C 4.3 - 5.6 % 7.3 Hemoglobin A1C (POCT) 4.3 - 5.6 % 7.3 6.8 TSH: None on file in the last 12 months Free T3: None on file in the last 12 months Free T4: None on file in the last 12 months Thyroglobulin: None on file in the last 12 months Vitamin D: None on file in the last 12 months Hematocrit: None on file in the last 12 months Latest Ref Rng & Units 06/06/2024 12/01/2023 12/09/2021 Creatinine Creatinine 0.73 - 1.22 mg/dL 0.78 0.84 0.73 Latest Ref Rng & Units 06/06/2024 12/01/2023 12/09/2021 eGFR EGFR >=60 mL/min/1.73m 122 120 EGFR-All Other Races . >60 EGFR- >60 Latest Ref Rng & Units 06/06/2024 12/01/2023 12/09/2021 Potassium Potassium 3.7 - 5.1 mmol/L 4.7 3.9 4.4 Testosterone: None on file in the last 12 months IGF: None on file in the last 12 months Prolactin: None on file in the last 12 months [facility] 10-27-2024 Miscellaneous Notes Images from the original note were not included. Requested Prescriptions Pending Prescriptions Disp Refills insulin aspart U-100 (NOVOLOG U-100 INSULIN ASPART) 100 unit/mL 40 mL 0 Sig: INJECT 100 UNITS DAILY VIA INSULIN PUMP. Most recent Endocrinology visit: Last encounter Visit on 10/26/2024 (with Santos Jones) 01/14/2023 in [facility] with SANTOS JONES for Poorly controlled type 1 diabetes mellitus with complication (HCC) 10/27/2023 in [facility] with SANTOS JONES for Type 1 diabetes mellitus with hyperglycemia (HCC) 03/15/2024 in [facility] with SANTOS JONES for Poorly controlled type 1 diabetes mellitus with complication (HCC) 08/02/2024 in [facility] with SANTOS JONES for Poorly controlled type 1 diabetes mellitus with complication (HCC) 10/26/2024 in [facility] with SANTOS JONES for Poorly controlled type 1 diabetes mellitus with complication (HCC) Upcoming Endocrinology Appointments - Next 365 Days Visit Type Date Time Department VIDEO SPEC EST 01/27/2025 1:20 PM [facility] Latest Ref Rng & Units 06/06/2024 03/15/2024 10/27/2023 Hemoglobin A1C Hemoglobin A1C 4.3 - 5.6 % 7.3 Hemoglobin A1C (POCT) 4.3 - 5.6 % 7.3 6.8 TSH: None on file in the last 12 months Free T3: None on file in the last 12 months Free T4: None on file in the last 12 months Thyroglobulin: None on file in the last 12 months Vitamin D: None on file in the last 12 months Hematocrit: None on file in the last 12 months Latest Ref Rng & Units 06/06/2024 12/01/2023 12/09/2021 Creatinine Creatinine 0.73 - 1.22 mg/dL 0.78 0.84 0.73 Latest Ref Rng & Units 06/06/2024 12/01/2023 12/09/2021 eGFR EGFR >=60 mL/min/1.73m 122 120 EGFR-All Other Races . >60 EGFR- >60 Latest Ref Rng & Units 06/06/2024 12/01/2023 12/09/2021 Potassium Potassium 3.7 - 5.1 mmol/L 4.7 3.9 4.4 Testosterone: None on file in the last 12 months IGF: None on file in the last 12 months Prolactin: None on file in the last 12 months documented in this encounter [facility] 10-26-2024 Note HNO ID: [id number] Author: SANTOS JONES MD Service: ? Author Type: Physician Type: Progress Notes Filed: 10/26/2024 14:05 Note Text: [facility] Follow-up visit Vilma Raknin is here for follow-up regarding type 1 diabetes: Virtual visit I have communicated my name and active licensure. The patient's identity and physical location were verified at the time of this visit. Either the patient or their legal claim representative has been informed of the risks and benefits of -- and alternatives to -- treatment through a remote evaluation and consents to proceed with the evaluation remotely. HISTORY OF PRESENT ILLNESS: Vilma Rankin is a 29 year old male with PMH of pancreatitis, poorly controlled T3cD s/p TPAIT 03/2019 who presents today for follow up of type 1 diabetes. Diabetes history Most recent A1c: 6.8% today Past diabetes regimen: Omnipod 5 Dexcom G6 Current diabetes regimen: Omnipod 5 with dexcom G6 CGM review: post prandial spike are better Complications: Retinopathy: no Nephropathy: no Neuropathy: no PAD: no CAD: no CVD: no Family history of diabetes: No Last Ophthalmology visit: 1 year Last Podiatry visit/foot exam: no Social History Lives on a cat Works very physical - [employer] for [employer], [employer] Review of Systems Constitutional: Negative for fatigue, night sweats and recent unintentional weight change. Eyes: Negative for visual disturbance. Respiratory: Negative for difficulty breathing. Cardiovascular: Negative for chest pain and leg swelling. Gastrointestinal: Negative for nausea, vomiting, abdominal pain, diarrhea and constipation. Musculoskeletal: Positive for myalgias. Neurological: Negative for dizziness, headaches and numbness. Answers submitted by the patient for this visit: Core Review of Systems (Submitted on 08/02/2024) Fever : No Nasal Congestion: No Hearing Loss: No A cough: No Irregular heartbeat: No Black tarry stools: No Difficulty Urinating?: No Awaken at Night More Than Once to Urinate?: No Joint pain or stiffness: No Leg or Foot Discomfort at Night?: No A rash: No Memory Loss: No Seizures: No PAST HISTORY: PAST MEDICAL HISTORY Diagnosis Date Delirium 03/22/2019 Diabetes mellitus type 1, controlled, without complications ([facility]) 06/29/2019 Influenza A 11/17/2017 Insulin dependent diabetes mellitus Lung nodules 09/13/2019 Malnutrition of moderate degree ([facility]CC) 11/22/2018 Pancreatitis 2017 (Nov) Small bowel obstruction due to adhesions ([facility]) 07/19/2019 PAST SURGICAL HISTORY Procedure Laterality Date ESOPHAGOGASTRODUODENOSCOPY TRANSORAL DIAGNOSTIC 04/26/2020 EGD LAPARCOPIC LYSIS OF ADHESIONS For small bowel obstruction NONE 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 1 Each 0 Blood-Glucose Sensor (DEXCOM G6 SENSOR) carmel Apply new sensor every ten (10) days to abdomen. 9 Each 3 Blood-Glucose Transmitter (DEXCOM G6 TRANSMITTER) carmel Apply new transmitter every 90 days. Clean transmitter with an alcohol swab with each sensor change. 1 Each 3 insulin aspart U-100 (NOVOLOG U-100 INSULIN ASPART) 100 unit/mL INJECT 100 UNITS DAILY VIA INSULIN PUMP. 40 mL 0 glucagon (GLUCAGON EMERGENCY KIT, HUMAN,) 1 mg injection Inject (1)one mg for insulin shock. 2 Each 1 OMNIPOD 5 G6 PODS, GEN 5, crtg Inject 1 Each subcutaneously every 72 hours. (use one pod every 72 hours) 10 Each 0 wdkryj-vqzkzidb-kchznlf (CREON) 36,000-114,000- 180,000 unit delayed release capsule Take 3 capsules by mouth three times daily with meals. 2 with snacks (total 10/day) 300 capsule 11 OMNIPOD 5 G6 PODS, GEN 5, crtg Inject 1 Each subcutaneously every 72 hours. (use one pod every 72 hours) 6 Each 1 insulin glargine (LANTUS SOLOSTAR, BASAGLAR KWIKPEN) 100 unit/mL (3 mL) 18 units in evening, max daily dose 25 units 5 Each 11 flash glucose sensor (FREESTYLE LAURA 14 DAY SENSOR) kit For use with reader, 4xdaily 2 Kit 11 insulin aspart, niacinamide, (FIASP FLEXTOUCH U-100 INSULIN) 100 unit/mL (3 mL) pen Take 2-14 units before lunch and dinner 5 Pen 2 UNIFINE PENTIPS PLUS 32 gauge x 5/32" use 4 times daily BEFORE MEALS and at bedtime 100 Each 0 Multivitamin capsule Take 1 capsule by mouth once daily. ascorbic acid (VITAMIN C ORAL) Take 500 mg by mouth once daily. blood sugar diagnostic (ONETOUCH VERIO) test strip Before meals and at bedtime 150 Strip 2 lancets (ONE TOUCH DELICA) 33 gauge misc 1 application before meals and at bedtime. 150 Each 2 No current facility-administered medications for this visit. ALLERGIES No Known Allergies FAMILY HISTORY (more content not included)... [facility] 10-26-2024 History of Presen t illness Narrative Images from the original note were not included. [facility] Follow-up visit Vilma Rankin is here for follow-up regarding type 1 diabetes: Virtual visit I have communicated my name and active licensure. The patient's identity and physical location were verified at the time of this visit. Either the patient or their legal claim representative has been informed of the risks and benefits of -- and alternatives to -- treatment through a remote evaluation and consents to proceed with the evaluation remotely. HISTORY OF PRESENT ILLNESS: Vilma Rankin is a 29 year old male with PMH of pancreatitis, poorly controlled T3cD s/p TPAIT 03/2019 who presents today for follow up of type 1 diabetes. 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 Eyes: Negative for visual disturbance. Respiratory: Negative for difficulty breathing. Cardiovascular: Negative for chest pain and leg swelling. Gastrointestinal: Negative for nausea, vomiting, abdominal pain, diarrhea and constipation. Musculoskeletal: Positive for myalgias. Neurological: Negative for dizziness, headaches and numbness. Answers submitted by the patient for this visit: Core Review of Systems (Submitted on 08/02/2024) Fever : No Nasal Congestion: No Hearing Loss: No A cough: No Irregular heartbeat: No Black tarry stools: No Difficulty Urinating?: No Awaken at Night More Than Once to Urinate?: No Joint pain or stiffness: No Leg or Foot Discomfort at Night?: No A rash: No Memory Loss: No Seizures: No PAST HISTORY: PAST MEDICAL HISTORY Diagnosis Date Delirium 03/22/2019 Diabetes mellitus type 1, controlled, without complications ([facility]) 06/29/2019 Influenza A 11/17/2017 Insulin dependent diabetes mellitus Lung nodules 09/13/2019 Malnutrition of moderate degree (HCC) 11/22/2018 Pancreatitis 2017 (Ben) Small bowel obstruction due to adhesions (HCC) 07/19/2019 PAST SURGICAL HISTORY Procedure Laterality Date ESOPHAGOGASTRODUODENOSCOPY TRANSORAL DIAGNOSTIC 04/26/2020 EGD LAPARCOPIC LYSIS OF ADHESIONS For small bowel obstruction NONE 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 1 Each 0 Blood-Glucose Sensor (DEXCOM G6 SENSOR) carmel Apply new sensor every ten (10) days to abdomen. 9 Each 3 Blood-Glucose Transmitter (DEXCOM G6 TRANSMITTER) carmel Apply new transmitter every 90 days. Clean transmitter with an alcohol swab with each sensor change. 1 Each 3 insulin aspart U-100 (NOVOLOG U-100 INSULIN ASPART) 100 unit/mL INJECT 100 UNITS DAILY VIA INSULIN PUMP. 40 mL 0 glucagon (GLUCAGON EMERGENCY KIT, HUMAN,) 1 mg injection Inject (1)one mg for insulin shock. 2 Each 1 OMNIPOD 5 G6 PODS, GEN 5, crtg Inject 1 Each subcutaneously every 72 hours. (use one pod every 72 hours) 10 Each 0 cjeige-xnlrxuul-ueuaoki (CREON) 36,000-114,000- 180,000 unit delayed release capsule Take 3 capsules by mouth three times daily with meals. 2 with snacks (total 10/day) 300 capsule 11 OMNIPOD 5 G6 PODS, GEN 5, crtg Inject 1 Each subcutaneously every 72 hours. (use one pod every 72 hours) 6 Each 1 insulin glargine (LANTUS SOLOSTAR, BASAGLAR KWIKPEN) 100 unit/mL (3 mL) 18 units in evening, max daily dose 25 units 5 Each 11 flash glucose sensor (FREESTYLE LAURA 14 DAY SENSOR) kit For use with reader, 4xdaily 2 Kit 11 insulin aspart, niacinamide, (FIASP FLEXTOUCH U-100 INSULIN) 100 unit/mL (3 mL) pen Take 2-14 units before lunch and dinner 5 Pen 2 UNIFINE PENTIPS PLUS 32 gauge x 5/32" use 4 times daily BEFORE MEALS and at bedtime 100 Each 0 Multivitamin capsule Take 1 capsule by mouth once daily. ascorbic acid (VITAMIN C ORAL) Take 500 mg by mouth once daily. blood sugar diagnostic (ONETOUCH VERIO) test strip Before meals and at bedtime 150 Strip 2 lancets (ONE TOUCH DELVertical [employer], [employer]) 33 gauge misc 1 application before meals and at bedtime. 150 Each 2 No current facility-administered medications for this visit. ALLERGIES No Known Allergies FAMILY HISTORY Problem Relation Age of Onset Cancer Mother breast cancer other (Other) Other Maunt x2- breast cancer Social History Tobacco Use Smoking status: Never Smokeless tobacco: Former Types: Chew Quit date: 2013 Substance Use Topics Alcohol use: Not Currently Comment: social Drug use: No PHYSICAL EXAM: There were no vitals taken for this visit. Compared with Aug 02 2024 and updated as appropriate Gen: well appearing, NAD Head: atraumatic normocephalic Eyes: EOMI no sceral icterus Neck: no goiter, supple Pulm: resp effort is appropriate Ext: no swelling cyanosis Neuro: hearing and speech normal Skin: no acute lesions or rashes noted PREVIOUS LAB RESULTS: Component Latest Ref Rng & Units 03/13/2020 12/09/2021 07/22/2023 10/27/2023 Protein, Total 6.3 - 8.0 g/dL 7.6 Albumin 3.9 - 4.9 g/dL 5.1 (H) Calcium 8.5 - 10.2 mg/dL 10.2 Bilirubin, Total 0.2 - 1.3 mg/dL 0.8 Alkaline Phosphatase 38 - 113 U/L 73 AST 14 - 40 U/L 31 Glucose 74 - 99 mg/dL 125 (H) BUN 9 - 24 mg/dL 12 Creatinine 0.73 - 1.22 mg/dL 0.73 Sodium 136 - 144 mmol/L 140 Potassium 3.7 - 5.1 mmol/L 4.4 Chloride 97 - 105 mmol/L 102 CO2 22 - 30 mmol/L 28 Anion Gap 9 - 18 mmol/L 10 ALT 10 - 54 U/L 31 eGFR- >60 eGFR-All Other Races . >60 Cholesterol, Total <200 mg/dL 111 Triglyceride <150 mg/dL 47 HDL Cholesterol >39 mg/dL 54 LDL Cholesterol <100 mg/dL 48 Non HDL Cholesterol <130 mg/dL 57 Fasting Time hrs 16 VLDL Cholesterol <30 mg/dL 9 TC:HDL Ratio <5.10 2.06 LDL:HDL Ratio <2.54 0.89 Creatinine, Ur Random (UCRR) 20 - 300 mg/dL 103.1 Albumin, Urine Random mg/L <12.0 Albumin/Creat Ratio <30 mg/g Not calculated Vitamin D 25 Hydroxy >=30.0 ng/mL 37.3 Hemoglobin A1C (POCT) 4.2 - 5.6 % 6.8 (A) Latest Ref Rng 06/06/2024 Protein, Total 6.3 - 8.0 g/dL 7.5 Albumin 3.9 - 4.9 g/dL 4.5 Calcium 8.5 - 10.2 mg/dL 9.5 Bilirubin, Total 0.2 - 1.3 mg/dL 0.7 Alkaline Phosphatase 38 - 113 U/L 64 AST 14 - 40 U/L 23 ALT 10 - 54 U/L 27 Glucose 74 - 99 mg/dL 151 (H) BUN 9 - 24 mg/dL 16 Creatinine 0.73 - 1.22 mg/dL 0.78 Sodium 136 - 144 mmol/L 140 Potassium 3.7 - 5.1 mmol/L 4.7 Chloride 98 - 107 mmol/L 104 CO2 22 - 30 mmol/L 27 Anion Gap 8 - 15 mmol/L 9 eGFR >=60 mL/min/1.73m 122 Cholesterol, Total <200 mg/dL 95 Triglyceride <150 mg/dL 35 HDL Cholesterol >39 mg/dL 50 Non HDL Cholesterol <130 mg/dL 45 Fasting Time hrs 12 VLDL Cholesterol <30 mg/dL 7 TC:HDL Ratio <5.10 1.90 LDL Cholesterol <100 mg/dL 38 LDL:HDL Ratio <2.54 0.76 Creatinine, Ur Random (UCRR) 46.8 - 314.5 mg/dL 196.2 Albumin, Urine Random mg/L <12.0 Albumin/Creat Ratio <30 mg/g <6 Hemoglobin A1C 4.3 - 5.6 % 7.3 (H) Estimated Average Glucose mg/dL 163 Legend: (H) High IMPRESSION AND RECOMMENDATIONS: Vilma Rankin is a 29 year old male with PMH of pancreatitis, poorly controlled T3cD s/p TPAIT 03/2019 who presents today for follow up of type 1 diabetes. 1. 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 Author Type: Skin Piler Type: Procedures Filed: 10/26/2024 14:05 Note Text: [facility] 10-26-2024 Procedure note Procedure(s): EXTERNAL LEVEL VIAL MARKER, CGM SYS Images from the original note were not included. [facility] 10-26-2024 Procedure note Procedure(s): EXTERNAL LEVEL VIAL MARKER, CGM SYS Images from the original note were not included. documented in this encounter [facility] 08-02-2024 History of Presen t illness Narrative Images from the original note were not included. [facility] Follow-up visit Vilma Rankin is here for follow-up regarding type 1 diabetes: Virtual visit I have communicated my name and active licensure. The patient's identity and physical location were verified at the time of this visit. Either the patient or their legal claim representative has been informed of the risks and benefits of -- and alternatives to -- treatment through a remote evaluation and consents to proceed with the evaluation remotely. HISTORY OF PRESENT ILLNESS: Vilma Rankin is a 29 year old male with PMH of pancreatitis, poorly controlled T3cD s/p TPAIT 03/2019 who presents today for follow up of type 1 diabetes. 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 Eyes: Negative for visual disturbance. Respiratory: Negative for difficulty breathing. Cardiovascular: Negative for chest pain and leg swelling. Gastrointestinal: Negative for nausea, vomiting, abdominal pain, diarrhea and constipation. Musculoskeletal: Positive for myalgias. Neurological: Negative for dizziness, headaches and numbness. Answers submitted by the patient for this visit: Core Review of Systems (Submitted on 08/02/2024) Fever : No Nasal Congestion: No Hearing Loss: No A cough: No Irregular heartbeat: No Black tarry stools: No Difficulty Urinating?: No Awaken at Night More Than Once to Urinate?: No Joint pain or stiffness: No Leg or Foot Discomfort at Night?: No A rash: No Memory Loss: No Seizures: No PAST HISTORY: PAST MEDICAL HISTORY Diagnosis Date Delirium 03/22/2019 Diabetes mellitus type 1, controlled, without complications (HCC) 06/29/2019 Influenza A 11/17/2017 Insulin dependent diabetes mellitus Lung nodules 09/13/2019 Malnutrition of moderate degree (HCC) 11/22/2018 Pancreatitis 2017 (Nov) Small bowel obstruction due to adhesions ([facility]) 07/19/2019 PAST SURGICAL HISTORY Procedure Laterality Date ESOPHAGOGASTRODUODENOSCOPY TRANSORAL DIAGNOSTIC 04/26/2020 EGD LAPARCOPIC LYSIS OF ADHESIONS For small bowel obstruction NONE 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 1 Each 0 Blood-Glucose Sensor (DEXCOM G6 SENSOR) carmel Apply new sensor every ten (10) days to abdomen. 9 Each 3 Blood-Glucose Transmitter (DEXCOM G6 TRANSMITTER) carmel Apply new transmitter every 90 days. Clean transmitter with an alcohol swab with each sensor change. 1 Each 3 insulin aspart U-100 (NOVOLOG U-100 INSULIN ASPART) 100 unit/mL INJECT 100 UNITS DAILY VIA INSULIN PUMP. 40 mL 0 glucagon (GLUCAGON EMERGENCY KIT, HUMAN,) 1 mg injection Inject (1)one mg for insulin shock. 2 Each 1 OMNIPOD 5 G6 PODS, GEN 5, crtg Inject 1 Each subcutaneously every 72 hours. (use one pod every 72 hours) 10 Each 0 azynaz-vfoklkej-zlsatbf (CREON) 36,000-114,000- 180,000 unit delayed release capsule Take 3 capsules by mouth three times daily with meals. 2 with snacks (total 10/day) 300 capsule 11 OMNIPOD 5 G6 PODS, GEN 5, crtg Inject 1 Each subcutaneously every 72 hours. (use one pod every 72 hours) 6 Each 1 insulin glargine (LANTUS SOLOSTAR, BASAGLAR KWIKPEN) 100 unit/mL (3 mL) 18 units in evening, max daily dose 25 units 5 Each 11 flash glucose sensor (FREESTYLE LAURA 14 DAY SENSOR) kit For use with reader, 4xdaily 2 Kit 11 insulin aspart, niacinamide, (FIASP FLEXTOUCH U-100 INSULIN) 100 unit/mL (3 mL) pen Take 2-14 units before lunch and dinner 5 Pen 2 UNIFINE PENTIPS PLUS 32 gauge x 5/32" use 4 times daily BEFORE MEALS and at bedtime 100 Each 0 Multivitamin capsule Take 1 capsule by mouth once daily. ascorbic acid (VITAMIN C ORAL) Take 500 mg by mouth once daily. blood sugar diagnostic (ONETOUCH VERIO) test strip Before meals and at bedtime 150 Strip 2 lancets (ONE TOUCH DELICA) 33 gauge misc 1 application before meals and at bedtime. 150 Each 2 No current facility-administered medications for this visit. ALLERGIES No Known Allergies FAMILY HISTORY Problem Relation Age of Onset Cancer Mother breast cancer other (Other) Other Maunt x2- breast cancer Social History Tobacco Use Smoking status: Never Smokeless tobacco: Former Types: Chew Quit date: 2013 Substance Use Topics Alcohol use: Not Currently Comment: social Drug use: No PHYSICAL EXAM: There were no vitals taken for this visit. Gen: well appearing, NAD Head: atraumatic normocephalic Eyes: EOMI no sceral icterus Neck: no goiter, supple Pulm: resp effort is appropriate Ext: no swelling cyanosis Neuro: hearing and speech normal Skin: no acute lesions or rashes noted PREVIOUS LAB RESULTS: Component Latest Ref Rng & Units 03/13/2020 12/09/2021 07/22/2023 10/27/2023 Protein, Total 6.3 - 8.0 g/dL 7.6 Albumin 3.9 - 4.9 g/dL 5.1 (H) Calcium 8.5 - 10.2 mg/dL 10.2 Bilirubin, Total 0.2 - 1.3 mg/dL 0.8 Alkaline Phosphatase 38 - 113 U/L 73 AST 14 - 40 U/L 31 Glucose 74 - 99 mg/dL 125 (H) BUN 9 - 24 mg/dL 12 Creatinine 0.73 - 1.22 mg/dL 0.73 Sodium 136 - 144 mmol/L 140 Potassium 3.7 - 5.1 mmol/L 4.4 Chloride 97 - 105 mmol/L 102 CO2 22 - 30 mmol/L 28 Anion Gap 9 - 18 mmol/L 10 ALT 10 - 54 U/L 31 eGFR- >60 eGFR-All Other Races . >60 Cholesterol, Total <200 mg/dL 111 Triglyceride <150 mg/dL 47 HDL Cholesterol >39 mg/dL 54 LDL Cholesterol <100 mg/dL 48 Non HDL Cholesterol <130 mg/dL 57 Fasting Time hrs 16 VLDL Cholesterol <30 mg/dL 9 TC:HDL Ratio <5.10 2.06 LDL:HDL Ratio <2.54 0.89 Creatinine, Ur Random (UCRR) 20 - 300 mg/dL 103.1 Albumin, Urine Random mg/L <12.0 Albumin/Creat Ratio <30 mg/g Not calculated Vitamin D 25 Hydroxy >=30.0 ng/mL 37.3 Hemoglobin A1C (POCT) 4.2 - 5.6 % 6.8 (A) Latest Ref Rng 06/06/2024 Protein, Total 6.3 - 8.0 g/dL 7.5 Albumin 3.9 - 4.9 g/dL 4.5 Calcium 8.5 - 10.2 mg/dL 9.5 Bilirubin, Total 0.2 - 1.3 mg/dL 0.7 Alkaline Phosphatase 38 - 113 U/L 64 AST 14 - 40 U/L 23 ALT 10 - 54 U/L 27 Glucose 74 - 99 mg/dL 151 (H) BUN 9 - 24 mg/dL 16 Creatinine 0.73 - 1.22 mg/dL 0.78 Sodium 136 - 144 mmol/L 140 Potassium 3.7 - 5.1 mmol/L 4.7 Chloride 98 - 107 mmol/L 104 CO2 22 - 30 mmol/L 27 Anion Gap 8 - 15 mmol/L 9 eGFR >=60 mL/min/1.73m 122 Cholesterol, Total <200 mg/dL 95 Triglyceride <150 mg/dL 35 HDL Cholesterol >39 mg/dL 50 Non HDL Cholesterol <130 mg/dL 45 Fasting Time hrs 12 VLDL Cholesterol <30 mg/dL 7 TC:HDL Ratio <5.10 1.90 LDL Cholesterol <100 mg/dL 38 LDL:HDL Ratio <2.54 0.76 Creatinine, Ur Random (UCRR) 46.8 - 314.5 mg/dL 196.2 Albumin, Urine Random mg/L <12.0 Albumin/Creat Ratio <30 mg/g <6 Hemoglobin A1C 4.3 - 5.6 % 7.3 (H) Estimated Average Glucose mg/dL 163 Legend: (H) High IMPRESSION AND RECOMMENDATIONS: Vilma Rankin is a 29 year old male with PMH of pancreatitis, poorly controlled T3cD s/p TPAIT 03/2019 who presents today for follow up of type 1 diabetes. 1. Type 1 diabetes mellitus with hyperglycemia (HCC) - he is using phone as PDM - he is still sometimes not accurate with carbs because he knows he has activity or concerned about not finishing due to stomach bothering him - we discussed moving active insulin time to 2.5 and also turning OFF reverse correction since when he has lows he rebounds into highs - will also turn ON extended bolus so that he feels more comfortable with accurate carb prebolus since he can shut off mid delivery - will likely convert to G7 pods in Oct 2024 visit 3 month FU Santos Jones MD August 02, 2024 documented in this encounter [facility] 08-01-2024 Telephone encounter Note Images from the original note were not included. Dexcom G6 sensor has been approved Notified patient through [email or web address] [facility] 08-01-2024 Miscellaneous Notes Images from the original note were not included. Dexcom G6 sensor has been approved Notified patient through [email or web address] documented in this encounter [facility] 08-01-2024 Telephone encounter Note Images from the original note were not included. Dear Provider, Your patient's medication Novolog was denied. The denial letter is indexed and attached. If you want to appeal the decision. Please submit your request via staff message to the [email or web address] ([id number]). You can find templates listed below to support your appeal in [employer] (Epic drop down, select patient care, select send letter). If it is an urgent request, you can email the [employer] Prior auth Team at . Please make sure the documents below are completed in order to process your request. If the appeal is denied, do you want to schedule a peer to peer Yes/No. We will schedule peer to peer automatically if yes. Thank You, Andrew Prior Auth Appeals Team Andrew PA Appeal letter Andrew NAPIER Letter of Medical Necessity Andrew NAPIER Clindoc April Prior Administrative Accountant III Endocrinology & Metabolism [place] [facility] 08-01-2024 Miscellaneous Notes Images from the original note were not included. Dear Provider, Your patient's medication Novolog was denied. The denial letter is indexed and attached. If you want to appeal the decision. Please submit your request via staff message to the [email or web address] ([id number]). You can find templates listed below to support your appeal in [facility] (Epic drop down, select patient care, select send letter). If it is an urgent request, you can email the [employer] Trevino auth Team at . Please make sure the documents below are completed in order to process your request. If the appeal is denied, do you want to schedule a peer to peer Yes/No. We will schedule peer to peer automatically if yes. Thank You, Andrew Moreland Appeals Team Andrew NAPIER Appeal letter Andrew NAPIER Letter of Medical Necessity Andrew Chen Prior Administrative Accountant III Endocrinology & Metabolism [place] documented in this encounter [facility] 08-01-2024 Telephone encounter Note Images from the original note were not included. August 01, 2024 11:57 AM Appeal letter OMNIPOD 5 G6 PODS, GEN 5, crtg Reference Number [id number] Faxed last office note Faxed to [place] [phone] Pending determination Amanda Prior Administrative Accountant Endocrinology and Metabolism [place] [facility] 08-01-2024 Miscellaneous Notes Images from the original note were not included. August 01, 2024 11:57 AM Appeal letter OMNIPOD 5 G6 PODS, GEN 5, crtg Reference Number [id number] Faxed last office note Faxed to [place] [phone] Pending determination Amanda Prior Administrative Accountant Endocrinology and Metabolism [place] documented in this encounter [facility] 08-01-2024 Telephone encounter Note Received a denial letter from [facility] for prescription: OMNIPOD 5 G6 PODS, GEN 5, crtg DENIAL REASON: Medical necessity. Letter has been indexed into chart for reference and review. ALEXIS SALINAS" Sewing Demonstrator II Endocrinology & Metabolism [place] [facility] X-20 [facility] 08-01-2024 Miscellaneous Notes Received a denial letter from [facility] for prescription: OMNIPOD 5 G6 PODS, GEN 5, crtg DENIAL REASON: Medical necessity. Letter has been indexed into chart for reference and review. ALEXIS SALINAS" Sewing Demonstrator II Endocrinology & Metabolism [place] [facility] X-20 documented in this encounter [facility] 07-29-2024 Telephone encounter Note Initiated PA for insulin aspart U-100 (NOVOLOG U-100 INSULIN ASPART) 100 unit/mL through [employer] via [employer], notes faxed to [phone] Waiting for next steps Questions completed Waiting for determination- Pending [facility] 07-29-2024 Miscellaneous Notes Initiated PA for insulin aspart U-100 (NOVOLOG U-100 INSULIN ASPART) 100 unit/mL through [employer] via [employer], notes faxed to [phone] Waiting for next steps Questions completed Waiting for determination- Pending documented in this encounter [facility] 07-29-2024 Telephone encounter Note Initiated PA for Omnipod 5 G6 Pods Gen 5 through [employer] via [employer] Waiting for next steps Questions completed- yes Waiting for determination -pending [facility] 07-29-2024 Miscellaneous Notes Initiated PA for Omnipod 5 G6 Pods Gen 5 through [employer] via [employer] Waiting for next steps Questions completed- yes Waiting for determination -pending documented in this encounter [facility] 07-25-2024 Telephone encounter Note Requester: Patient Patients last Endocrinology visit occurred 03/15/2024. Follow-up evaluation has been established Upcoming Endocrinology Appointments - Next 365 Days Visit Type Date Time Department VIDEO SPEC EST 08/02/2024 9:00 AM [facility] . Requested Prescriptions Pending Prescriptions Disp Refills OMNIPOD 5 G6 INTRO KIT, GEN 5, crtg 1 Each 0 Sig: Inject 1 Each subcutaneously as directed. Blood-Glucose Sensor (DEXCOM G6 SENSOR) carmel 9 Each 3 Sig: Apply new sensor every ten (10) days to abdomen. Blood-Glucose Transmitter (DEXCOM G6 TRANSMITTER) carmel 1 Each 3 Sig: Apply new transmitter every 90 days. Clean transmitter with an alcohol swab with each sensor change. insulin aspart U-100 (NOVOLOG U-100 INSULIN ASPART) 100 unit/mL 40 mL 0 Sig: INJECT 100 UNITS DAILY VIA INSULIN PUMP. If patient is due for an appointment please route to provider for refill consideration and also to the endo scheduling pool. PSS NOTE: Patient needs scheduled appointment No [facility] 07-25-2024 Miscellaneous Notes Requester: Patient Patients last Endocrinology visit occurred 03/15/2024. Follow-up evaluation has been established Upcoming Endocrinology Appointments - Next 365 Days Visit Type Date Time Department VIDEO SPEC EST 08/02/2024 9:00 AM [facility] . Requested Prescriptions Pending Prescriptions Disp Refills OMNIPOD 5 G6 INTRO KIT, GEN 5, crtg 1 Each 0 Sig: Inject 1 Each subcutaneously as directed. Blood-Glucose Sensor (DEXCOM G6 SENSOR) carmel 9 Each 3 Sig: Apply new sensor every ten (10) days to abdomen. Blood-Glucose Transmitter (DEXCOM G6 TRANSMITTER) carmel 1 Each 3 Sig: Apply new transmitter every 90 days. Clean transmitter with an alcohol swab with each sensor change. insulin aspart U-100 (NOVOLOG U-100 INSULIN ASPART) 100 unit/mL 40 mL 0 Sig: INJECT 100 UNITS DAILY VIA INSULIN PUMP. If patient is due for an appointment please route to provider for refill consideration and also to the endo scheduling pool. PSS NOTE: Patient needs scheduled appointment No documented in this encounter [facility] 07-25-2024 Telephone encounter Note Requester: Pharmacy Patients last Endocrinology visit occurred 03/15/24. Follow-up evaluation has been established Upcoming Endocrinology Appointments - Next 365 Days Visit Type Date Time Department VIDEO SPEC EST 08/02/2024 9:00 AM [facility] . Requested Prescriptions Pending Prescriptions Disp Refills OMNIPOD 5 G6 PODS, GEN 5, crtg [Pharmacy Med Name: OMNIPOD GEN 5 G6 PODS(5PK) MIS] 30 Each 0 Sig: USE 1 POD EVERY 72 HOURS If patient is due for an appointment please route to provider for refill consideration and also to the endo scheduling pool. PSS NOTE: Patient needs scheduled appointment No [facility] 07-25-2024 Miscellaneous Notes Requester: Pharmacy Patients last Endocrinology visit occurred 03/15/24. Follow-up evaluation has been established Upcoming Endocrinology Appointments - Next 365 Days Visit Type Date Time Department VIDEO SPEC EST 08/02/2024 9:00 AM [facility] . Requested Prescriptions Pending Prescriptions Disp Refills OMNIPOD 5 G6 PODS, GEN 5, crtg [Pharmacy Med Name: OMNIPOD GEN 5 G6 PODS(5PK) MIS] 30 Each 0 Sig: USE 1 POD EVERY 72 HOURS If patient is due for an appointment please route to provider for refill consideration and also to the endo scheduling pool. PSS NOTE: Patient needs scheduled appointment No documented in this encounter [facility] 06-15-2024 Telephone encounter Note Requester: Pharmacy Patients last Endocrinology visit occurred 03/15/24. Follow-up evaluation has been established Upcoming Endocrinology Appointments - Next 365 Days Visit Type Date Time Department VIDEO SPEC EST 08/02/2024 9:00 AM [facility] . Requested Prescriptions Pending Prescriptions Disp Refills insulin aspart U-100 (NOVOLOG U-100 INSULIN ASPART) 100 unit/mL 40 mL 0 Sig: INJECT 100 UNITS DAILY VIA INSULIN PUMP. If patient is due for an appointment please route to provider for refill consideration and also to the endo scheduling pool. PSS NOTE: Patient needs scheduled appointment No [facility] 06-15-2024 Miscellaneous Notes Requester: Pharmacy Patients last Endocrinology visit occurred 03/15/24. Follow-up evaluation has been established Upcoming Endocrinology Appointments - Next 365 Days Visit Type Date Time Department VIDEO SPEC EST 08/02/2024 9:00 AM [facility] . Requested Prescriptions Pending Prescriptions Disp Refills insulin aspart U-100 (NOVOLOG U-100 INSULIN ASPART) 100 unit/mL 40 mL 0 Sig: INJECT 100 UNITS DAILY VIA INSULIN PUMP. If patient is due for an appointment please route to provider for refill consideration and also to the endo scheduling pool. PSS NOTE: Patient needs scheduled appointment No documented in this encounter [facility] 05-04-2024 Telephone encounter Note Requester: Pharmacy Patients last Endocrinology visit occurred 03/15/24. Follow-up evaluation has been established Upcoming Endocrinology Appointments - Next 365 Days Visit Type Date Time Department VIDEO SPEC EST 08/02/2024 9:00 AM [facility] . Requested Prescriptions Pending Prescriptions Disp Refills insulin aspart U-100 (NOVOLOG U-100 INSULIN ASPART) 100 unit/mL [Pharmacy Med Name: NovoLOG ReliOn 100 UNIT/ML Subcutaneous Solution] 40 mL 0 Sig: INJECT 100 UNITS DAILY VIA INSULIN PUMP. If patient is due for an appointment please route to provider for refill consideration and also to the endo scheduling pool. PSS NOTE: Patient needs scheduled appointment No [facility] 05-04-2024 Miscellaneous Notes Requester: Pharmacy Patients last Endocrinology visit occurred 03/15/24. Follow-up evaluation has been established Upcoming Endocrinology Appointments - Next 365 Days Visit Type Date Time Department VIDEO SPEC EST 08/02/2024 9:00 AM [facility] . Requested Prescriptions Pending Prescriptions Disp Refills insulin aspart U-100 (NOVOLOG U-100 INSULIN ASPART) 100 unit/mL [Pharmacy Med Name: NovoLOG ReliOn 100 UNIT/ML Subcutaneous Solution] 40 mL 0 Sig: INJECT 100 UNITS DAILY VIA INSULIN PUMP. If patient is due for an appointment please route to provider for refill consideration and also to the endo scheduling pool. PSS NOTE: Patient needs scheduled appointment No documented in this encounter [facility] 04-04-2024 Telephone encounter Note Requester: Pharmacy Patients last Endocrinology visit occurred 03/15/24. Follow-up evaluation has been established Upcoming Endocrinology Appointments - Next 365 Days Visit Type Date Time Department VIDEO SPEC EST 08/02/2024 9:00 AM [facility] . Requested Prescriptions Pending Prescriptions Disp Refills insulin aspart U-100 (NOVOLOG U-100 INSULIN ASPART) 100 unit/mL 40 mL 0 Sig: TOTAL DAILY DOSE OF 100 UNITS VIA INSULIN PUMP EVERY DAY If patient is due for an appointment please route to provider for refill consideration and also to the endo scheduling pool. PSS NOTE: Patient needs scheduled appointment No [facility] 04-04-2024 Miscellaneous Notes Requester: Pharmacy Patients last Endocrinology visit occurred 03/15/24. Follow-up evaluation has been established Upcoming Endocrinology Appointments - Next 365 Days Visit Type Date Time Department VIDEO SPEC EST 08/02/2024 9:00 AM [facility] . Requested Prescriptions Pending Prescriptions Disp Refills insulin aspart U-100 (NOVOLOG U-100 INSULIN ASPART) 100 unit/mL 40 mL 0 Sig: TOTAL DAILY DOSE OF 100 UNITS VIA INSULIN PUMP EVERY DAY If patient is due for an appointment please route to provider for refill consideration and also to the endo scheduling pool. PSS NOTE: Patient needs scheduled appointment No documented in this encounter [facility] 03-15-2024 History of Presen t illness Narrative Images from the original note were not included. [facility] Follow-up visit Vilma Rankin is here for follow-up regarding type 1 diabetes: Last seen 01/14/2023 HISTORY OF PRESENT ILLNESS: Vilma Rankin is a 28 year old male with PMH of pancreatitis, poorly controlled T3cD s/p TPAIT 03/2019 who presents today for follow up of type 1 diabetes. Diabetes history Most recent A1c: 6.8% today Past diabetes regimen: Omnipod 5 Dexcom G6 Current diabetes regimen: Omnipod 5 - did not bring in his monitor Type of CGM: Dexcom G6 CGM dates 10/14-11/07 Time in range: Very high 8% High 11% Target range 74% Low 5% Very low 2% %Time CGM active 86% Average glucose 137 mg/dL GMI n/a From pt's memory: Basal rate: 0.75 units/hr Carb ratio: 1:10 CGM review: he is intermittently having hyperglycemia in the context of subopotimal carb bolusing, with his increased activity he has been concerned about going low and thus intentionally underbolusing which is backfiring especially in the afternoon and evening - when he was kicked out into manual mode he had severe hyperglycemia with the basal rate running Complications: Retinopathy: no Nephropathy: no Neuropathy: no PAD: no CAD: no CVD: no Family history of diabetes: No Last Ophthalmology visit: 1 year Last Podiatry visit/foot exam: no Social History Lives on a cat 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 Eyes: Negative for visual disturbance. Respiratory: Negative for difficulty breathing. Cardiovascular: Negative for chest pain and leg swelling. Gastrointestinal: Negative for nausea, vomiting, abdominal pain, diarrhea and constipation. Musculoskeletal: Positive for myalgias. Neurological: Negative for dizziness, headaches and numbness. Answers submitted by the patient for this visit: Core Review of Systems (Submitted on 03/09/2024) Fever : No Nasal Congestion: No Hearing Loss: No A cough: No Irregular heartbeat: No Black tarry stools: No Difficulty Urinating?: No Awaken at Night More Than Once to Urinate?: No Joint pain or stiffness: No Leg or Foot Discomfort at Night?: No A rash: No Memory Loss: No Seizures: No PAST HISTORY: PAST MEDICAL HISTORY Diagnosis Date Delirium 03/22/2019 Diabetes mellitus type 1, controlled, without complications (HCC) 06/29/2019 Influenza A 11/17/2017 Insulin dependent diabetes mellitus Lung nodules 09/13/2019 Malnutrition of moderate degree (HCC) 11/22/2018 Pancreatitis 2017 (Ben) Small bowel obstruction due to adhesions (HCC) 07/19/2019 PAST SURGICAL HISTORY Procedure Laterality Date ESOPHAGOGASTRODUODENOSCOPY TRANSORAL DIAGNOSTIC 04/26/2020 EGD LAPARCOPIC LYSIS OF ADHESIONS For small bowel obstruction NONE 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 30 Each 1 glucagon (GLUCAGON EMERGENCY KIT, HUMAN,) 1 mg injection Inject (1)one mg for insulin shock. 2 Each 1 Blood-Glucose Sensor (DEXCOM G6 SENSOR) carmel Apply new sensor every ten (10) days to abdomen. 9 Each 3 Blood-Glucose Transmitter (DEXCOM G6 TRANSMITTER) carmel Apply new transmitter every 90 days. Clean transmitter with an alcohol swab with each sensor change. 1 Each 3 OMNIPOD 5 G6 PODS, GEN 5, crtg Inject 1 Each subcutaneously every 72 hours. (use one pod every 72 hours) 10 Each 0 gvqtrj-enrjzxhr-htbzptu (CREON) 36,000-114,000- 180,000 unit delayed release capsule Take 3 capsules by mouth three times daily with meals. 2 with snacks (total 10/day) 300 capsule 11 OMNIPOD 5 G6 PODS, GEN 5, crtg Inject 1 Each subcutaneously every 72 hours. (use one pod every 72 hours) 6 Each 1 OMNIPOD 5 G6 INTRO KIT, GEN 5, crtg Inject 1 Each subcutaneously as directed. 1 Each 0 Multivitamin capsule Take 1 capsule by mouth once daily. ascorbic acid (VITAMIN C ORAL) Take 500 mg by mouth once daily. blood sugar diagnostic (ONETOUCH VERIO) test strip Before meals and at bedtime 150 Strip 2 lancets (ONE TOUCH [employer]) 33 gauge misc 1 application before meals and at bedtime. 150 Each 2 insulin glargine (LANTUS SOLOSTAR, BASAGLAR KWIKPEN) 100 unit/mL (3 mL) 18 units in evening, max daily dose 25 units 5 Each 11 flash glucose sensor (FREESTYLE LAURA 14 DAY SENSOR) kit For use with reader, 4xdaily 2 Kit 11 insulin aspart, niacinamide, (FIASP FLEXTOUCH U-100 INSULIN) 100 unit/mL (3 mL) pen Take 2-14 units before lunch and dinner 5 Pen 2 UNIFINE PENTIPS PLUS 32 gauge x 5/32" use 4 times daily BEFORE MEALS and at bedtime 100 Each 0 No current facility-administered medications for this visit. ALLERGIES No Known Allergies FAMILY HISTORY Problem Relation Age of Onset Cancer Mother breast cancer other (Other) Other Maunt x2- breast cancer Social History Tobacco Use Smoking status: Never Smokeless tobacco: Former Types: Chew Quit date: 2013 Substance Use Topics Alcohol use: Not Currently Comment: social Drug use: No PHYSICAL EXAM: BP 135/79 Pulse 70 Wt 73 kg (160 lb 15 oz) BMI 23.77 kg/m Compared with October 27, 2023 and updated as appropriate General: no acute distress, feeling well Neurologic: alert and oriented to time, space and place Eyes: no exophthalmia, no lig lag, extraocular movements intact. Head and Neck: no lymphadenopathy Thyroid: palpable, no thyromegaly Heart: regular rate and rhythm, no murmurs, rubs or gallops Chest: Clear to auscultation bilaterally. Abdomen: no pain on palpation. Gait: is preserved. Ext: no cyanosis, no clubbing, no edema. Skin: no dermopathy Psychiatry: normal affect \\ PREVIOUS LAB RESULTS: Component Latest Ref Rng & Units 03/13/2020 12/09/2021 07/22/2023 10/27/2023 Protein, Total 6.3 - 8.0 g/dL 7.6 Albumin 3.9 - 4.9 g/dL 5.1 (H) Calcium 8.5 - 10.2 mg/dL 10.2 Bilirubin, Total 0.2 - 1.3 mg/dL 0.8 Alkaline Phosphatase 38 - 113 U/L 73 AST 14 - 40 U/L 31 Glucose 74 - 99 mg/dL 125 (H) BUN 9 - 24 mg/dL 12 Creatinine 0.73 - 1.22 mg/dL 0.73 Sodium 136 - 144 mmol/L 140 Potassium 3.7 - 5.1 mmol/L 4.4 Chloride 97 - 105 mmol/L 102 CO2 22 - 30 mmol/L 28 Anion Gap 9 - 18 mmol/L 10 ALT 10 - 54 U/L 31 eGFR- >60 eGFR-All Other Races . >60 Cholesterol, Total <200 mg/dL 111 Triglyceride <150 mg/dL 47 HDL Cholesterol >39 mg/dL 54 LDL Cholesterol <100 mg/dL 48 Non HDL Cholesterol <130 mg/dL 57 Fasting Time hrs 16 VLDL Cholesterol <30 mg/dL 9 TC:HDL Ratio <5.10 2.06 LDL:HDL Ratio <2.54 0.89 Creatinine, Ur Random (UCRR) 20 - 300 mg/dL 103.1 Albumin, Urine Random mg/L <12.0 Albumin/Creat Ratio <30 mg/g Not calculated Vitamin D 25 Hydroxy >=30.0 ng/mL 37.3 Hemoglobin A1C (POCT) 4.2 - 5.6 % 6.8 (A) IMPRESSION AND RECOMMENDATIONS: Vilma Rankin is a 28 year old male with PMH of pancreatitis, poorly controlled T3cD s/p TPAIT 03/2019 who presents today for follow up of type 1 diabetes. 1. Type 1 diabetes mellitus with hyperglycemia (HCC) - he is using phone as PDM - we discussed more accurate bolusing especially in second half of day with carbs - will try and change the target to 120 or 130 when he is mor active since when he did activity mode he bottomed out a bit too much - otherwise will stay course for now 3 month FU Santos Jones MD March 15, 2024 documented in this encounter [facility] 03-15-2024 Procedure note Procedure(s): EXTERNAL LEVEL VIAL MARKER, CGM SYS Images from the original note were not included. [facility] 03-15-2024 Nurse Note Downloaded and printed data from patient's pump, provided data to clinician. Fara Prado MA [facility] 03-15-2024 Nurse Note Downloaded and printed data from patient's pump, provided data to clinician. Fara Prado MA The IRB approved Information sheet for IRB # [id number] was provided to this patient who is diagnosed with Type 1 Diabetes. Yes Does the patient currently use a CGM? Yes What type of CGM device are they using? OTHER documented in this encounter [facility] 03-15-2024 Procedure note Procedure(s): EXTERNAL LEVEL VIAL MARKER, CGM SYS Images from the original note were not included. documented in this encounter [facility] 03-15-2024 Nurse Note The IRB approved Information sheet for IRB # [id number] was provided to this patient who is diagnosed with Type 1 Diabetes. Yes Does the patient currently use a CGM? Yes What type of CGM device are they using? OTHER [facility] 03-15-2024 Instructions Fara Prado MA - 03/15/2024 10:15 AM EDT Thank you for choosing the [facility] Department of Endocrinology, Diabetes and Metabolism. Did you know that you need to call 48 hours in advance of your scheduled visit, if you are unable to make your appointment? The [facility] [place] thanks you for your commitment, because patients not showing to their appointment results in a lost opportunity for patients to receive world class health care at the [facility]. To Cancel an appointment, please choose one of the following: - Call the Appointment Call Center at [phone] - From [facility], Go to Appointments - Cancel Appts If cancelling, consider your need to reschedule to prevent further delays in your care. To Schedule an appointment, please choose one of the following: - Call the Appointment Call Center at [phone] - From [facility], Go to Appointments - Request an Appt documented in this encounter [facility] 02-01-2024 Miscellaneous Notes Requester: Pharmacy Patients last Endocrinology visit occurred 10/27/23. Follow-up evaluation has been established Upcoming Endocrinology Appointments - Next 365 Days Visit Type Date Time Department [facility] PATIENT 03/15/2024 10:20 AM [facility] . Requested Prescriptions Pending Prescriptions Disp Refills insulin aspart U-100 (NOVOLOG U-100 INSULIN ASPART) 100 unit/mL 40 mL 0 Sig: TOTAL DAILY DOSE OF 100 UNITS VIA INSULIN PUMP EVERY DAY If patient is due for an appointment please route to provider for refill consideration and also to the endo scheduling pool. PSS NOTE: Patient needs scheduled appointment No documented in this encounter [facility] 12-29-2023 Miscellaneous Notes Requester: Pharmacy Patients last Endocrinology visit occurred 10/27/23. Follow-up evaluation has been established Upcoming Endocrinology Appointments - Next 365 Days Visit Type Date Time Department [facility] PATIENT 03/15/2024 10:20 AM [facility] . Requested Prescriptions Pending Prescriptions Disp Refills OMNIPOD 5 G6 PODS, GEN 5, crtg [Pharmacy Med Name: OMNIPOD GEN 5 G6 PODS(5PK) MIS] 10 Each 0 Sig: USE ONE POD EVERY 72 HOURS. If patient is due for an appointment please route to provider for refill consideration and also to the endo scheduling pool. PSS NOTE: Patient needs scheduled appointment No documented in this encounter [facility] 10-27-2023 Nurse Note The IRB approved Information sheet for IRB # [id number] was provided to this patient who is diagnosed with Type 1 Diabetes. Yes Does the patient currently use a CGM? Yes What type of CGM device are they using? DEXCOM documented in this encounter [facility] 10-27-2023 Procedure note Images from the original note were not included. [facility] documented in this encounter [facility] 10-27-2023 History of Presen t illness Narrative Images from the original note were not included. [facility] Follow-up visit Vilma Rankin is here for follow-up regarding type 1 diabetes: Last seen 01/14/2023 HISTORY OF PRESENT ILLNESS: Vilma Rankin is a 28 year old male with PMH of pancreatitis, poorly controlled T3cD s/p TPAIT 03/2019 who presents today for follow up of type 1 diabetes. Diabetes history Most recent A1c: 6.8% today Past diabetes regimen: Omnipod 5 Dexcom G6 Current diabetes regimen: Omnipod 5 - did not bring in his monitor Type of CGM: Dexcom G6 CGM dates 10/14-11/07 Time in range: Very high 8% High 11% Target range 74% Low 5% Very low 2% %Time CGM active 86% Average glucose 137 mg/dL GMI n/a From pt's memory: Basal rate: 0.75 units/hr Carb ratio: 1:10 Blood glucose control: Has had issues with the dexcom - keeps pushing him out of the Hypoglycemia: Does have lows every now and then - better than before - happens on days he does not eat or if he consumes alcohol Complications: Retinopathy: no Nephropathy: no Neuropathy: no PAD: no CAD: no CVD: no Family history of diabetes: No Last Ophthalmology visit: 1 year Last Podiatry visit/foot exam: no Social History Lives on a cat 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 Respiratory: Negative for difficulty breathing. Cardiovascular: Negative for chest pain. Gastrointestinal: Negative for nausea, vomiting, abdominal pain, diarrhea and constipation. Neurological: Negative for dizziness and numbness. 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 9 Each 3 Blood-Glucose Transmitter (DEXCOM G6 TRANSMITTER) carmel Apply new transmitter every 90 days. Clean transmitter with an alcohol swab with each sensor change. 1 Each 3 insulin aspart U-100 (NOVOLOG U-100 INSULIN ASPART) 100 unit/mL TOTAL DAILY DOSE OF 100 UNITS VIA INSULIN PUMP EVERY DAY 40 mL 0 OMNIPOD 5 G6 PODS, GEN 5, crtg Inject 1 Each subcutaneously every 72 hours. (use one pod every 72 hours) 10 Each 0 olpdhz-qopltzea-daduqly (CREON) 36,000-114,000- 180,000 unit delayed release capsule Take 3 capsules by mouth three times daily with meals. 2 with snacks (total 10/day) 300 capsule 11 OMNIPOD 5 G6 PODS, GEN 5, crtg Inject 1 Each subcutaneously every 72 hours. (use one pod every 72 hours) 6 Each 1 OMNIPOD 5 G6 INTRO KIT, GEN 5, crtg Inject 1 Each subcutaneously as directed. 1 Each 0 insulin glargine (LANTUS SOLOSTAR, BASAGLAR KWIKPEN) 100 unit/mL (3 mL) 18 units in evening, max daily dose 25 units 5 Each 11 flash glucose sensor (FREESTYLE LAURA 14 DAY SENSOR) kit For use with reader, 4xdaily 2 Kit 11 insulin aspart, niacinamide, (FIASP FLEXTOUCH U-100 INSULIN) 100 unit/mL (3 mL) pen Take 2-14 units before lunch and dinner 5 Pen 2 UNIFINE PENTIPS PLUS 32 gauge x 5/32" use 4 times daily BEFORE MEALS and at bedtime 100 Each 0 Multivitamin capsule Take 1 capsule by mouth once daily. ascorbic acid (VITAMIN C ORAL) Take 500 mg by mouth once daily. blood sugar diagnostic (ONETOUCH VERIO) test strip Before meals and at bedtime 150 Strip 2 lancets (ONE TOUCH DELICA) 33 gauge misc 1 application before meals and at bedtime. 150 Each 2 No current facility-administered medications for this visit. ALLERGIES No Known Allergies FAMILY HISTORY Problem Relation Age of Onset Cancer Mother breast cancer other (Other) Other Maunt x2- breast cancer Social History Tobacco Use Smoking status: Never Smokeless tobacco: Former Types: Chew Quit date: 2013 Substance Use Topics Alcohol use: Not Currently Comment: social Drug use: No PHYSICAL EXAM: BP 127/65 Pulse 86 Wt 72.3 kg (159 lb 4.8 oz) BMI 23.52 kg/m General: no acute distress, feeling well Neurologic: alert and oriented to time, space and place Eyes: no exophthalmia, no lig lag, extraocular movements intact. Head and Neck: no lymphadenopathy Thyroid: palpable, no thyromegaly Heart: regular rate and rhythm, no murmurs, rubs or gallops Chest: Clear to auscultation bilaterally. Abdomen: no pain on palpation. Gait: is preserved. Ext: no cyanosis, no clubbing, no edema. Skin: no dermopathy Psychiatry: normal affect Feet:Shoes and socks removed, No deformities, ulcers, calluses, normal distal pulses, and sensitive to 10 gm monofilament PREVIOUS LAB RESULTS: Component Latest Ref Rng & Units 03/13/2020 12/09/2021 07/22/2023 10/27/2023 Protein, Total 6.3 - 8.0 g/dL 7.6 Albumin 3.9 - 4.9 g/dL 5.1 (H) Calcium 8.5 - 10.2 mg/dL 10.2 Bilirubin, Total 0.2 - 1.3 mg/dL 0.8 Alkaline Phosphatase 38 - 113 U/L 73 AST 14 - 40 U/L 31 Glucose 74 - 99 mg/dL 125 (H) BUN 9 - 24 mg/dL 12 Creatinine 0.73 - 1.22 mg/dL 0.73 Sodium 136 - 144 mmol/L 140 Potassium 3.7 - 5.1 mmol/L 4.4 Chloride 97 - 105 mmol/L 102 CO2 22 - 30 mmol/L 28 Anion Gap 9 - 18 mmol/L 10 ALT 10 - 54 U/L 31 eGFR- >60 eGFR-All Other Races . >60 Cholesterol, Total <200 mg/dL 111 Triglyceride <150 mg/dL 47 HDL Cholesterol >39 mg/dL 54 LDL Cholesterol <100 mg/dL 48 Non HDL Cholesterol <130 mg/dL 57 Fasting Time hrs 16 VLDL Cholesterol <30 mg/dL 9 TC:HDL Ratio <5.10 2.06 LDL:HDL Ratio <2.54 0.89 Creatinine, Ur Random (UCRR) 20 - 300 mg/dL 103.1 Albumin, Urine Random mg/L <12.0 Albumin/Creat Ratio <30 mg/g Not calculated Vitamin D 25 Hydroxy >=30.0 ng/mL 37.3 Hemoglobin A1C (POCT) 4.2 - 5.6 % 6.8 (A) IMPRESSION AND RECOMMENDATIONS: Vilma Rankin is a 28 year old male with PMH of pancreatitis, poorly controlled T3cD s/p TPAIT 03/2019 who presents today for follow up of type 1 diabetes. 1. Type 1 diabetes mellitus with hyperglycemia (HCC) Post-pancreatectomy diabetes (HCC) Summary of CGM Findings: - Time in range is at target. - Coefficient of variation indicates unstable glycemic variability - Time spent in hypoglycemia is not at target. * Hypoglycemia patterns: Unsure - possibly post-meal - Time spent in hyperglycemia is at target Recommendation: Encounter Diagnosis ICD-10-CM 1. Type 1 diabetes mellitus with hyperglycemia (HCC) E10.65 2. Post-pancreatectomy diabetes (HCC) E89.1 E13.9 Z90.410 - would continue with the omnipod 5 but would like him to connext with us via [facility] - we discussed that his phone can function as a PDM now - we also discussed that the lows that he was having were mostly mild and without sx - will not make any adjustment yet at this time - when the laura 3 and dexcom G7 are compatible will switch him over - he is really having trouble getting the G6 to function for the full 10 days 4 month FU Yaron Jurado MD PGY-5, Endocrinology fellow [facility] TEACHING PHYSICIAN NOTE OF PERSONAL INVOLVEMENT IN CARE I have reviewed the Progress Note obtained and documented by Fellow and I personally participated in the moran components. I have discussed the case and management of the patient's care with them. The following comments revise or confirm relevant moran components of the note. I have reviewed and agree with the documentation as noted above Santos Jones MD October 27, 2023 documented in this encounter [facility] 08-07-2023 Miscellaneous Notes Please advise there is an active prescription on file with 5 remaining refills. Requester: Pharmacy Patients last Endocrinology visit occurred 02/25/23. Follow-up evaluation has been established Upcoming Endocrinology Appointments - Next 365 Days Visit Type Date Time Department [facility] PATIENT 10/27/2023 11:40 AM [facility] . Requested Prescriptions Pending Prescriptions Disp Refills OMNIPOD 5 G6 PODS, GEN 5, crtg [Pharmacy Med Name: OMNIPOD GEN 5 G6 PODS MIS] 10 Each 0 Sig: USE 1 POD EVERY 72 HOURS If patient is due for an appointment please route to provider for refill consideration and also to the endo scheduling pool. PSS NOTE: Patient needs scheduled appointment No documented in this encounter [facility] 08-05-2023 Miscellaneous Notes Requester: Pharmacy Patients last Endocrinology visit occurred 01/14/23. Follow-up evaluation has been established Upcoming Endocrinology Appointments - Next 365 Days Visit Type Date Time Department [facility] PATIENT 10/27/2023 11:40 AM [facility] . Requested Prescriptions Pending Prescriptions Disp Refills insulin aspart U-100 (NOVOLOG U-100 INSULIN ASPART) 100 unit/mL [Pharmacy Med Name: NovoLOG ReliOn 100 UNIT/ML Subcutaneous Solution] 40 mL 0 Sig: TOTAL DAILY DOSE OF 100 UNITS VIA INSULIN PUMP EVERY DAY If patient is due for an appointment please route to provider for refill consideration and also to the endo scheduling pool. PSS NOTE: Patient needs scheduled appointment No documented in this encounter [facility] 07-14-2023 History of Presen t illness Narrative VIRTUAL VISIT FOLLOW UP I have communicated my name and active licensure. The patient's identity and physical location were verified at the time of this visit. Either the patient or their legal claim representative has been informed of the risks and benefits of -- and alternatives to -- treatment through a remote evaluation and consents to proceed with the evaluation remotely. I had a virtual visit with Mr. Rankin today for follow up of pancreatic insufficiency. Last visit 09/2021 IMPRESSION 26 year old man, s/p total pancreatectomy with complete resolution of pancreatic pain. His exocrine insufficiency symptoms are well controlled on current dose of Creon (72-96K/meal; 36-72K/snacks). A refill was provided and [employer] patient assistance form filled out--he will fax it. He is working on diabetes with Dr. Parul Jones and will make a follow up appointment. PLAN Vitamin levels Dexa scan Continue Creon at current dose f/u in 1 year or sooner as needed. UPDATED HISTORY: He now has better insurance so he can afford Creon. Taking 9-10 Creon capsules per day (36K). he is maintaining his weight. He is active. Goes to gym 5-7 nights per week. 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 Bowel movements are formed. Rarely sees oil. Takes multivitamin and vitamin C. Denies night vision problems, bruises, ataxia or balance issues. Diabetes better controlled with insulin pump. Last A1c around 7.3 to his recollection. No major abdominal pain. No constipation. 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 SPLENECTOMY TOTAL SEPARATE PROCEDURE Splenectomy FAMILY HISTORY Problem Relation Age of Onset Cancer Mother breast cancer other (Other) Other Maunt x2- breast cancer Social History Tobacco Use Smoking status: Never Smokeless tobacco: Former Types: Chew Quit date: 2013 Substance Use Topics Alcohol use: Not Currently Comment: social Drug use: No Current Outpatient Medications Medication Sig Dispense Refill insulin aspart U-100 (NOVOLOG U-100 INSULIN ASPART) 100 unit/mL Total daily dose 100 units in the insulin pump 10 mL 3 OMNIPOD 5 G6 PODS, GEN 5, crtg Inject 1 Each subcutaneously every 72 hours. (use one pod every 72 hours) 6 Each 1 Blood-Glucose Sensor (DEXCOM G6 SENSOR) carmel Apply new sensor every ten (10) days to abdomen. 9 Each 3 Blood-Glucose Transmitter (DEXCOM G6 TRANSMITTER) carmel Apply new transmitter every 90 days. Clean transmitter with an alcohol swab with each sensor change. 1 Each 3 OMNIPOD 5 G6 INTRO KIT, GEN 5, crtg Inject 1 Each subcutaneously as directed. 1 Each 0 OMNIPOD 5 G6 PODS, GEN 5, crtg USE 1 POD EVERY 72 HOURS 5 Each 5 dgjswo-eduarxga-algogkv (CREON) 36,000-114,000- 180,000 unit delayed release capsule Take 3 capsules by mouth three times daily with meals. 2 with snacks (total 10/day) 300 capsule 11 insulin glargine (LANTUS SOLOSTAR, BASAGLAR KWIKPEN) 100 unit/mL (3 mL) 18 units in evening, max daily dose 25 units 5 Each 11 flash glucose sensor (FREESTYLE LAURA 14 DAY SENSOR) kit For use with reader, 4xdaily 2 Kit 11 insulin aspart, niacinamide, (FIASP FLEXTOUCH U-100 INSULIN) 100 unit/mL (3 mL) pen Take 2-14 units before lunch and dinner 5 Pen 2 UNIFINE PENTIPS PLUS 32 gauge x 5/32" use 4 times daily BEFORE MEALS and at bedtime 100 Each 0 Multivitamin capsule Take 1 capsule by mouth once daily. ascorbic acid (VITAMIN C ORAL) Take 500 mg by mouth once daily. blood sugar diagnostic (ONETOUCH VERIO) test strip Before meals and at bedtime 150 Strip 2 lancets (ONE TOUCH DELICA) 33 gauge misc 1 application before meals and at bedtime. 150 Each 2 No current facility-administered medications for this visit. ALLERGIES No Known Allergies REVIEW OF SYSTEMS: Answers submitted by the patient for this visit: Review of Systems Gastroenterology (Submitted on 07/13/2023) Fever: No Chills: No Night Sweats: No Unitentional Weight Change: No A Cough: No Difficulty Breathing: No Chest Pain: No Belly pain: No A feeling of fullness or have belly pain after eating: Yes Food getting stuck in your throat or chest after eating: No Nausea - that is, a feeling like you could vomit: No Regurgitation - that is, food or liquid coming back up into your throat or mouth without vomiting, or feel burning behind your breast bone: No Loss of appetite: No To throw up or vomit: No Blood in your stools: No Black tarry stools: No Loose or watery stools: No The feeling like you need to empty your bowels right away - that is, feel as if you would have an accident: No Bowel incontinence - that is, have an accident because you cannot make it to the bathroom in time: No Problems with straining while having bowel movements , hard or lumpy stools, or feel unfinished (that you have not passed all your stool): No Pain in rectum or anus during bowel movements: No Problems with jaundice - that is, yellow discoloration of your skin or eyes, now or in the past: No Problems with having to flush the toilet more than two times due to oily stool, or see stool floating with oil: Yes Latest Reference Range & Units Most Recent Vitamin A 0.30 - 1.20 mg/L 0.20 (L) 10/15/21 14:20 Vitamin D 25 Hydroxy 31.0 - 80.0 ng/mL 27.7 (L) 10/15/21 14:20 Vitamin E-alpha 6.0 - 23.0 mg/L 4.9 (L) 10/15/21 14:20 Vitamin E-gamma 0.3 - 3.2 mg/L 0.7 10/15/21 14:20 Vitamin K 0.22 - 4.88 nmol/L 0.64 09/20/19 16:11 (L): Data is abnormally low PHYSICAL FINDINGS OF NOTE: Patient reported weight 150 lbs General - Normal, healthy, cooperative, in no acute distress Able to interact verbally by video conference Psych - ORIENTATION: normal to time place, person and situation Mood/Affect: AFFECT AND MOOD: Normal Head/Neuro - Normal size and shape Facial appearance normal Pulmonary - respiratory effort normal IMPRESSION 28 year old man who has had TP/AIT in 2019. He is doing very well clinical. No abdominal pain. Good glycemic control. Excellent control of EPI symptoms. RECOMMENDATION: 1. Check fat soluble vitamin levels (they were low in 2020, but EPI symptoms at that time were not optimally controlled) 2. Consider DEKAs based on results. 3. Creon refill provided. 4. Follow up in 1 year or as needed. I spent more than 30 minutes hsov-[id number] with the patient and over half the time was devoted to counseling and/or coordination of care. Elias Ellison MD documented in this encounter [facility] 06-03-2023 Miscellaneous Notes Requester: Patient Patients last Endocrinology visit occurred 01/14/23. Follow-up evaluation has been established Upcoming Endocrinology Appointments - Next 365 Days No appointments to display . Requested Prescriptions Pending Prescriptions Disp Refills insulin aspart U-100 (NOVOLOG U-100 INSULIN ASPART) 100 unit/mL 10 mL 3 Sig: Total daily dose 100 units in the insulin pump If patient is due for an appointment please route to provider for refill consideration and also to the endo scheduling pool. PSS NOTE: Patient needs scheduled appointment Yes Lisa Corey Sewing Demonstrator II [facility] F-20 documented in this encounter [facility] 05-12-2023 Miscellaneous Notes Patient called and said that the omnipod 5 Went to the wrong pharmacy. Th ept would like for the omnipod 5 to go to [facility] in [place]. The pharmacy is in his chart. Please advise Mary Gutierrez Sewing Demonstrator II [facility] [place] F20-X documented in this encounter [facility] 05-12-2023 Miscellaneous Notes Addended by: SANTOS JONES on: 05/12/2023 03:58 PM Modules accepted: Orders Pharmacist just called from pharmacy stating they need more complete instructions on the Novolog prescription. Please advise. Thanks, MANDA Rendon RN [facility] Cate, I spoke with dejah Altamirano; she stated that Dexcom G6 and Novolog have refills but the Omnipod cartridges/pods do not have any refills; therefore a new script is needing to be sent. Pt. Requested 90 day supplies of his meds be sent so he doesn't have to call the office every month for supplies. I have pended the other scripts but I don't know how to make them 90 day supplies. Thanks, MANDA Rendon RN [facility] Spoke with patient and he stated that his pharmacy informed him that he has no more refills on any of his supplies. I will call the pharmacy to verify. Pt called requesting a call back pt sts he put in a request for his Dexcom G 6 Sensor and was told to call the office. Pt can be reached via [facility] or number on file. Lsia Corey Sewing Demonstrator II [facility] F-20 documented in this encounter [facility] 05-12-2023 Miscellaneous Notes All medications renewed 04/20/23 documented in this encounter [facility] 04-20-2023 Miscellaneous Notes Requester: Pharmacy Patients last Endocrinology visit occurred 01/14/23 Follow-up evaluation has been established Upcoming Endocrinology Appointments - Next 365 Days No appointments to display Requested Prescriptions Pending Prescriptions Disp Refills Blood-Glucose Transmitter (DEXCOM G6 TRANSMITTER) carmel 1 Each 3 Sig: Apply new transmitter every 90 days. Clean transmitter with an alcohol swab with each sensor change. OMNIPOD 5 G6 PODS, GEN 5, crtg 6 Each 1 Sig: Inject 1 Each subcutaneously every 72 hours. (use one pod every 72 hours) If patient is due for an appointment please route to provider for refill consideration and also to the endo scheduling pool. PSS NOTE: Patient needs scheduled appointment No documented in this encounter [facility] 04-20-2023 Miscellaneous Notes Requester: Pharmacy Patients last Endocrinology visit occurred 01/14/23 Follow-up evaluation has been established none Upcoming Endocrinology Appointments - Next 365 Days No appointments to display Requested Prescriptions Pending Prescriptions Disp Refills OMNIPOD 5 G6 PODS, GEN 5, crtg [Pharmacy Med Name: OMNIPOD 5 G6 PODS MIS] 5 Each 0 Sig: USE 1 POD EVERY 72 HOURS If patient is due for an appointment please route to provider for refill consideration and also to the endo scheduling pool. PSS NOTE: Patient needs scheduled appointment No documented in this encounter [facility] 03-23-2023 Miscellaneous Notes Requester: Pharmacy Patients last Endocrinology visit occurred 01/14/23. Follow-up evaluation has been established ,none. Requested Prescriptions Pending Prescriptions Disp Refills Blood-Glucose Sensor (DEXCOM G6 SENSOR) carmel 9 Each 3 Sig: Apply new sensor every ten (10) days to abdomen. OMNIPOD 5 G6 PODS, GEN 5, crtg 6 Each 1 Sig: Inject 1 Each subcutaneously every 72 hours. (use one pod every 72 hours) If patient is due for an appointment please route to provider for refill consideration and also to the endo scheduling pool. PSS NOTE: Patient needs scheduled appointment Yes documented in this encounter [facility] 02-25-2023 History of Presen t illness Narrative Type of visit: In person individual Patient started today on Omnipod 5 insulin pump. Type of training:new to pump If upgrade, patient was previously on the following pump:patient is new to pump Pump programming done today by: patient with educator supervision Insulin information: Patient started on Pump, running in Automatic mode, pt did receive Dexcom, but his phone was having issues pairing with transmitter (error code of incorrect pin or connection request) and plans to call Dexcom customer support after he returns home. Last long-acting insulin type, dose, and time: Thursday evening See phone encounter dated 02/18/23 for pump settings approved by provider and programmed into pump today. Pre-pump training and pump safety information: Patient can demonstrate correct use of a carb ratio:Not assessed Patient Verbalizes rules regarding when to change infusion set due to hyperglycemia: Yes Patient verbalizes importance of carrying a pump emergency kit:Yes Patient verbalizes back-up plan for pump failure:Yes Handouts provided: Follow-up plan for glucose management given to patient: Plan to follow up via phone with patient This is a non-billable encounter through [employer] but will be billed to the following pump company: [employer]. This visit note will be communicated to the healthcare provider via access to shared medical record. I spent 90 minutes with this patient today. Derrick Melissa RN documented in this encounter [facility] 02-11-2023 Miscellaneous Notes Summary: Form Rx form received from [employer] for Dexcom and supplies Form submitted to provider for review/signature. Dr. Jones. Faxed to [phone]. Donita Collazo, Sewing Demonstrator II [facility] documented in this encounter [facility] 01-15-2023 Miscellaneous Notes Initiated PA for Dexcom G6 Sensor and Transmitter through [facility] via [employer] Questions completed Waiting for determination documented in this encounter [facility] 01-14-2023 Procedure note Procedure(s): EXTERNAL LEVEL VIAL MARKER, CGM SYS Images from the original note were not included. documented in this encounter [facility] 01-14-2023 History of Presen t illness Narrative Images from the original note were not included. DISTANCE HEALTH VISIT This Team Access Model visit is a virtual encounter. It required patient-provider interaction for the medical decision making as documented below. The patient has consented to this distance health visit and has been identified by name and date. January 14, 2023 Assessment / Plan Type 1 diabetes, poorly controlled,, with significant dorian phenomenon and mild hypoglycemic unawareness, working towards getting insulin pump + sensor. 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 Assessment: 1) Type 1 diabetes 2/2 TPAIT performed 03/2019 currently on MDI. Time in hypoglycemia has improved. Feels well overall, cost of Creon is an issue ($2600 out of pocket cost, after insurance per month). Treatment / Plan: - lantus 14-18 units - humalog 1:20 carb ratio but really eyeballing - we discussed consideration for the omnipod 5 vs tandem instead of eversense - we discussed afrezza and lyumjev (latter had been an insurance cost issue) - he is now on new insurance so this would be better to consider History Problem name: diabetes Quality: pancreoprivic (surgical, 03/21/19), second & third surgery to address scar tissu Severity: Laura download analyzed, can spend most of day below 70 when digging holes Summary of Personal CGM Findings: - huge variability, bolusing after meals due to uncertainty about what he is eating - 1:20 carb ratio give or take (really eyeballing) Duration: 03/21/19 Context: 1) hx pancreatitis, thought to be based on genetic issue 2) 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 In review major issue is the major variability and significant hypoglycemia. We discussed this at length and his time in hypo has improved significantly. ROS Answers submitted by the patient for this visit: Endocrine Review of Systems (Submitted on 01/07/2023) Fatigue: No Night Sweats: No Recent Unintentional Weight Change: No Skin Color Changes: No Post-Nasal Drip: No Thyroid Pain (lower neck): No Trouble Swallowing: No Vision Disturbance: No Chest Pain: No Leg Swelling: No Blood Clots?: No Leg Pain while walking?: No Difficulty Breathing?: No Heartburn: No Nausea: No Vomiting?: No Diarrhea: No Constipation: No Abdominal Pain: No Bone Pain?: No Muscle Aches: No Muscle Weakness: No Joint Pain or Stiffness: No Headaches: No Dizziness: No Numbness?: No Urgency to Urinate?: No Increased Urination?: No Slow or Small Urine Stream?: No Flushing?: No Hot Flashes?: No Increased Thirst: No Change in Body Hair?: No Cold Intolerance: Yes Heat Intolerance?: No PHYSICAL EXAM There were no vitals taken for this visit. General Appearance: Well appearing, alert, in no acute distress, well-hydrated, well nourished. Affect: Pleasant and cooperative Head: atraumatic normocephalic Eyes: EOMI no scleral icterus Neck: no goiter, supple Pulm: resp effort is appropriate Ext: no swelling cyanosis Neuro: hearing and speech normal PAST MED / SURG / FAMILY / SOCIAL HISTORY PAST MEDICAL HISTORY Diagnosis Date Delirium 03/22/2019 Diabetes mellitus type 1, controlled, without complications (HCC) 06/29/2019 Influenza A 11/17/2017 Insulin dependent diabetes mellitus Lung nodules 09/13/2019 Malnutrition of moderate degree (HCC) 11/22/2018 Pancreatitis 2017 (Ben) Small bowel obstruction due to adhesions (HCC) 07/19/2019 PAST SURGICAL HISTORY Procedure Laterality Date ESOPHAGOGASTRODUODENOSCOPY TRANSORAL DIAGNOSTIC 04/26/2020 EGD LAPARCOPIC LYSIS OF ADHESIONS For small bowel obstruction NONE 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 2 with snacks (total 10/day) 300 capsule 11 insulin glargine (LANTUS SOLOSTAR, BASAGLAR KWIKPEN) 100 unit/mL (3 mL) 18 units in evening, max daily dose 25 units 5 Each 11 insulin lispro (HUMALOG KWIKPEN) 100 unit/mL inject 5-30 units with meals up to 100 units a day 10 Pen 5 flash glucose sensor (FREESTYLE LAURA 14 DAY SENSOR) kit For use with reader, 4xdaily 2 Kit 11 insulin aspart, niacinamide, (FIASP FLEXTOUCH U-100 INSULIN) 100 unit/mL (3 mL) pen Take 2-14 units before lunch and dinner 5 Pen 2 UNIFINE PENTIPS PLUS 32 gauge x 5/32" use 4 times daily BEFORE MEALS and at bedtime 100 Each 0 Multivitamin capsule Take 1 capsule by mouth once daily. ascorbic acid (VITAMIN C ORAL) Take 500 mg by mouth once daily. blood sugar diagnostic (ONETOUCH VERIO) test strip Before meals and at bedtime 150 Strip 2 lancets (ONE TOUCH DELICA) 33 gauge misc 1 application before meals and at bedtime. 150 Each 2 No current facility-administered medications for this visit. ALLERGIES No Known Allergies Santos Jones MD January 14, 2023 documented in this encounter [facility] 12-29-2022 Miscellaneous Notes Received request from the pharmacy to process a PA on the Voxel (Internap) Smart Transmitter and Sensor/Licea. Is patient changing to this CGM? If so, are you able to submit a prescription for this. Please advise. documented in this encounter [facility] 11-10-2022 History of Presen t illness Narrative Patient presents with: Sore Throat: X 5 days HPI: Feeling sore throat for 6 days Positive symptoms: worsening sore throat, resolved Nasal Congestion, Body Aches, Malaise, Negative symptoms: Cough, Shortness of breath, Fever, Nausea, Vomiting, Diarrhea, OTC: Lozenges, throat spray, tylenol Initial glucose lows with this illness have improved. PAST MEDICAL HISTORY Diagnosis Date Delirium 03/22/2019 Diabetes mellitus type 1, controlled, without complications ([facility]) 06/29/2019 Influenza A 11/17/2017 Insulin dependent diabetes mellitus Lung nodules 09/13/2019 Malnutrition of moderate degree ([facility]) 11/22/2018 Pancreatitis 2018 (Nov) Small bowel obstruction due to adhesions ([facility]) 07/19/2019 MEDICATIONS: Current Outpatient Medications Medication Sig rgekxs-pucqdmgo-oqtngtr (CREON) 36,000-114,000- 180,000 unit delayed release capsule Take 3 capsules by mouth three times daily with meals. 2 with snacks (total 10/day) insulin glargine (LANTUS SOLOSTAR, BASAGLAR KWIKPEN) 100 unit/mL (3 mL) 18 units in evening, max daily dose 25 units insulin lispro (HUMALOG KWIKPEN) 100 unit/mL inject 5-30 units with meals up to 100 units a day flash glucose sensor (FREESTYLE LAURA 14 DAY SENSOR) kit For use with reader, 4xdaily UNIFINE PENTIPS PLUS 32 gauge x 5/32" use 4 times daily BEFORE MEALS and at bedtime Multivitamin capsule Take 1 capsule by mouth once daily. ascorbic acid (VITAMIN C ORAL) Take 500 mg by mouth once daily. blood sugar diagnostic (ONETOUCH VERIO) test strip Before meals and at bedtime lancets (ONE TOUCH DELICA) 33 gauge misc 1 application before meals and at bedtime. insulin aspart, niacinamide, (FIASP FLEXTOUCH U-100 INSULIN) 100 unit/mL (3 mL) pen Take 2-14 units before lunch and dinner (Patient not taking: Reported on 10/15/2021 ) No current facility-administered medications for this visit. ALLERGIES: ALLERGIES No Known Allergies VITALS: BP 126/78 Pulse 75 Temp 36.6 C (97.9 F) Resp 21 Wt 65.7 kg (144 lb 12.8 oz) SpO2 99% BMI 21.38 kg/m Last 4 Encounter Wt Readings: Date: Wt: 11/10/2022 65.7 kg (144 lb 12.8 oz) 12/09/2021 68.6 kg (151 lb 4.8 oz) 10/15/2021 68.2 kg (150 lb 7.2 oz) 12/07/2020 71.1 kg (156 lb 11.2 oz) PHYSICAL EXAM: GEN: Pleasant, in no acute distress. Lean. HEENT: PERRL, EOMI, conjunctiva clear Sinuses: non-tender frontal sinus, non-tender maxillary sinuses Throat: moist mucous membranes, pharngeal erythema, no exudate Neck: supple, no thyromegaly, anterior lymphadenopathy HEART: regular rate and rhythm, no murmurs LUNGS: clear to auscultation, no wheezes or crackles, no increased WOB ASSESSMENT/PLAN: 1. Sore throat - ICD9: 462, ICD10: J02.9 - STREP A MOLECULAR (POC) - negative - suspect viral, discussed differential includes thrush but no obvious signs on exam. - Discussed supportive care treatment with fluids, rest and analgesia. Has not had a routine medical appointment since November. He is waiting for new insurance to go into effect. I encouraged scheduling follow up for DM and s/p pancreatectomy. Shane Bedoya MD documented in this encounter [facility] 10-21-2022 Miscellaneous Notes David rep called pt needs another prescription sent. Needs to have a wet signature she said. Please review and advise Elvira Chaves Sewing Demonstrator documented in this encounter [facility] 08-05-2022 Miscellaneous Notes Rx e-scripted to preferred pharmacy Requester: Patient Patients last Endocrinology visit occurred 04/10/22. Follow-up evaluation has been established n/a. Requested Prescriptions Pending Prescriptions Disp Refills insulin glargine (LANTUS SOLOSTAR, BASAGLAR KWIKPEN) 100 unit/mL (3 mL) 5 Each 11 Si units in evening, max daily dose 25 units If patient is due for an appointment please route to provider for refill consideration and also to the endo scheduling pool. PSS NOTE: Patient needs scheduled appointment Yes documented in this encounter [facility] 02-19-2022 Miscellaneous Notes I emailed the prescription to you Esperanza. Please fax. 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 Last hemoglobin A1c 06/19/19 was 7.6 PLAN: Resume home dose of lantus as per patient -he takes Lantus 8 units in the morning. Start sliding scale insulin scale -1 As per retanned leather roller's recommendation target blood sugar around 140, can consult endo if needed Leukocytosis 09/13/2019 09/13/2019 Last Assessment & Plan: Assessment: WBC on admission was 15.61. Leukocytosis likely reactive Doubt infectious etiology as patient is hemodynamically stable and has no symptoms suggestive of bacterial infection PLAN: Daily CBC Check CRP, Procal, urinalysis/culture Lung nodules 09/13/2019 09/13/2019 Last Assessment & Plan: Assessment: Incidental finding of lung nodule was noted on CT A/P. Patient denies cigarette smoking But has a history of chewing tobacco in the past PLAN: Outpatient follow-up Small bowel obstruction due to adhesions 019 09/13/2019 Diabetes mellitus type 1, controlled, without co mplications 06/29/2019 09/13/2019 Delirium 03/22/2019 09/13/2019 Idiopathic acute pancreatitis 03/21/2019 Abdominal pain 11/23/2018 04/12/2019 Abdominal pain 11/20/2018 11/20/2018 Influenza A 11/17/2017 09/13/2019 Acute on chronic pancreatitis 11/17/2017 Last Assessment & Plan: Presented to ED with epigastric and LUQ pain with radiation to the back -- tender to palpation in epigastric/LUQ regions, no rebound or guarding, no masses or organomegaly Previous admission in November of 2017 was diagnosed with pancreatitis - no cause or reason for attack was established during this admission -- has had repeated attacks throughout the year but not bad enough to come to ER CT scan showed progressive resolution of the pancreatitis when compared to the previous exam.There is almost complete clearing of the edema adjacent to the tail the pancreas when compared to the previous exam. RUQ U/S in November showed no evidence of gallstones or biliary dilation Denies excessive ETOH. 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 Last hemoglobin A1c 06/19/19 was 7.6 PLAN: Resume home dose of lantus as per patient -he takes Lantus 8 units in the morning. Start sliding scale insulin scale -1 As per retanned leather roller's recommendation target blood sugar around 140, can consult endo if needed Leukocytosis 09/13/2019 09/13/2019 Last Assessment & Plan: Assessment: WBC on admission was 15.61. Leukocytosis likely reactive Doubt infectious etiology as patient is hemodynamically stable and has no symptoms suggestive of bacterial infection PLAN: Daily CBC Check CRP, Procal, urinalysis/culture Lung nodules 09/13/2019 09/13/2019 Last Assessment & Plan: Assessment: Incidental finding of lung nodule was noted on CT A/P. Patient denies cigarette smoking But has a history of chewing tobacco in the past PLAN: Outpatient follow-up Small bowel obstruction due to adhesions 019 09/13/2019 Diabetes mellitus type 1, controlled, without co mplications 06/29/2019 09/13/2019 Delirium 03/22/2019 09/13/2019 Idiopathic acute pancreatitis 03/21/2019 Abdominal pain 11/23/2018 04/12/2019 Abdominal pain 11/20/2018 11/20/2018 Influenza A 11/17/2017 09/13/2019 Acute on chronic pancreatitis 11/17/2017 Last Assessment & Plan: Presented to ED with epigastric and LUQ pain with radiation to the back -- tender to palpation in epigastric/LUQ regions, no rebound or guarding, no masses or organomegaly Previous admission in November of 2017 was diagnosed with pancreatitis - no cause or reason for attack was established during this admission -- has had repeated attacks throughout the year but not bad enough to come to ER CT scan showed progressive resolution of the pancreatitis when compared to the previous exam.There is almost complete clearing of the edema adjacent to the tail the pancreas when compared to the previous exam. RUQ U/S in November showed no evidence of gallstones or biliary dilation Denies excessive ETOH. 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 Last hemoglobin A1c 06/19/19 was 7.6 PLAN: Resume home dose of lantus as per patient -he takes Lantus 8 units in the morning. Start sliding scale insulin scale -1 As per retanned leather roller's recommendation target blood sugar around 140, can consult endo if needed Leukocytosis 09/13/2019 09/13/2019 Last Assessment & Plan: Assessment: WBC on admission was 15.61. Leukocytosis likely reactive Doubt infectious etiology as patient is hemodynamically stable and has no symptoms suggestive of bacterial infection PLAN: Daily CBC Check CRP, Procal, urinalysis/culture Lung nodules 09/13/2019 09/13/2019 Last Assessment & Plan: Assessment: Incidental finding of lung nodule was noted on CT A/P. Patient denies cigarette smoking But has a history of chewing tobacco in the past PLAN: Outpatient follow-up Small bowel obstruction due to adhesions 019 09/13/2019 Diabetes mellitus type 1, controlled, without co mplications 06/29/2019 09/13/2019 Delirium 03/22/2019 09/13/2019 Idiopathic acute pancreatitis 03/21/2019 Abdominal pain 11/23/2018 04/12/2019 Abdominal pain 11/20/2018 11/20/2018 Influenza A 11/17/2017 09/13/2019 Acute on chronic pancreatitis 11/17/2017 Last Assessment & Plan: Presented to ED with epigastric and LUQ pain with radiation to the back -- tender to palpation in epigastric/LUQ regions, no rebound or guarding, no masses or organomegaly Previous admission in November of 2017 was diagnosed with pancreatitis - no cause or reason for attack was established during this admission -- has had repeated attacks throughout the year but not bad enough to come to ER CT scan showed progressive resolution of the pancreatitis when compared to the previous exam.There is almost complete clearing of the edema adjacent to the tail the pancreas when compared to the previous exam. RUQ U/S in November showed no evidence of gallstones or biliary dilation Denies excessive ETOH. 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 Last hemoglobin A1c 06/19/19 was 7.6 PLAN: Resume home dose of lantus as per patient -he takes Lantus 8 units in the morning. Start sliding scale insulin scale -1 As per retanned leather roller's recommendation target blood sugar around 140, can consult endo if needed Leukocytosis 09/13/2019 09/13/2019 Last Assessment & Plan: Assessment: WBC on admission was 15.61. Leukocytosis likely reactive Doubt infectious etiology as patient is hemodynamically stable and has no symptoms suggestive of bacterial infection PLAN: Daily CBC Check CRP, Procal, urinalysis/culture Lung nodules 09/13/2019 09/13/2019 Last Assessment & Plan: Assessment: Incidental finding of lung nodule was noted on CT A/P. Patient denies cigarette smoking But has a history of chewing tobacco in the past PLAN: Outpatient follow-up Small bowel obstruction due to adhesions 019 09/13/2019 Diabetes mellitus type 1, controlled, without co mplications 06/29/2019 09/13/2019 Delirium 03/22/2019 09/13/2019 Idiopathic acute pancreatitis 03/21/2019 Abdominal pain 11/23/2018 04/12/2019 Abdominal pain 11/20/2018 11/20/2018 Influenza A 11/17/2017 09/13/2019 Acute on chronic pancreatitis 11/17/2017 Last Assessment & Plan: Presented to ED with epigastric and LUQ pain with radiation to the back -- tender to palpation in epigastric/LUQ regions, no rebound or guarding, no masses or organomegaly Previous admission in November of 2017 was diagnosed with pancreatitis - no cause or reason for attack was established during this admission -- has had repeated attacks throughout the year but not bad enough to come to ER CT scan showed progressive resolution of the pancreatitis when compared to the previous exam.There is almost complete clearing of the edema adjacent to the tail the pancreas when compared to the previous exam. RUQ U/S in November showed no evidence of gallstones or biliary dilation Denies excessive ETOH. 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 Last hemoglobin A1c 06/19/19 was 7.6 PLAN: Resume home dose of lantus as per patient -he takes Lantus 8 units in the morning. Start sliding scale insulin scale -1 As per retanned leather roller's recommendation target blood sugar around 140, can consult endo if needed Leukocytosis 09/13/2019 09/13/2019 Last Assessment & Plan: Assessment: WBC on admission was 15.61. Leukocytosis likely reactive Doubt infectious etiology as patient is hemodynamically stable and has no symptoms suggestive of bacterial infection PLAN: Daily CBC Check CRP, Procal, urinalysis/culture Lung nodules 09/13/2019 09/13/2019 Last Assessment & Plan: Assessment: Incidental finding of lung nodule was noted on CT A/P. Patient denies cigarette smoking But has a history of chewing tobacco in the past PLAN: Outpatient follow-up Small bowel obstruction due to adhesions 019 09/13/2019 Diabetes mellitus type 1, controlled, without co mplications 06/29/2019 09/13/2019 Delirium 03/22/2019 09/13/2019 Idiopathic acute pancreatitis 03/21/2019 Abdominal pain 11/23/2018 04/12/2019 Abdominal pain 11/20/2018 11/20/2018 Influenza A 11/17/2017 09/13/2019 Acute on chronic pancreatitis 11/17/2017 Last Assessment & Plan: Presented to ED with epigastric and LUQ pain with radiation to the back -- tender to palpation in epigastric/LUQ regions, no rebound or guarding, no masses or organomegaly Previous admission in November of 2017 was diagnosed with pancreatitis - no cause or reason for attack was established during this admission -- has had repeated attacks throughout the year but not bad enough to come to ER CT scan showed progressive resolution of the pancreatitis when compared to the previous exam.There is almost complete clearing of the edema adjacent to the tail the pancreas when compared to the previous exam. RUQ U/S in November showed no evidence of gallstones or biliary dilation Denies excessive ETOH. 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 Last hemoglobin A1c 06/19/19 was 7.6 PLAN: Resume home dose of lantus as per patient -he takes Lantus 8 units in the morning. Start sliding scale insulin scale -1 As per retanned leather roller's recommendation target blood sugar around 140, can consult endo if needed Leukocytosis 09/13/2019 09/13/2019 Last Assessment & Plan: Assessment: WBC on admission was 15.61. Leukocytosis likely reactive Doubt infectious etiology as patient is hemodynamically stable and has no symptoms suggestive of bacterial infection PLAN: Daily CBC Check CRP, Procal, urinalysis/culture Lung nodules 09/13/2019 09/13/2019 Last Assessment & Plan: Assessment: Incidental finding of lung nodule was noted on CT A/P. Patient denies cigarette smoking But has a history of chewing tobacco in the past PLAN: Outpatient follow-up Small bowel obstruction due to adhesions 019 09/13/2019 Diabetes mellitus type 1, controlled, without co mplications 06/29/2019 09/13/2019 Delirium 03/22/2019 09/13/2019 Idiopathic acute pancreatitis 03/21/2019 Abdominal pain 11/23/2018 04/12/2019 Abdominal pain 11/20/2018 11/20/2018 Influenza A 11/17/2017 09/13/2019 Acute on chronic pancreatitis 11/17/2017 Last Assessment & Plan: Presented to ED with epigastric and LUQ pain with radiation to the back -- tender to palpation in epigastric/LUQ regions, no rebound or guarding, no masses or organomegaly Previous admission in November of 2017 was diagnosed with pancreatitis - no cause or reason for attack was established during this admission -- has had repeated attacks throughout the year but not bad enough to come to ER CT scan showed progressive resolution of the pancreatitis when compared to the previous exam.There is almost complete clearing of the edema adjacent to the tail the pancreas when compared to the previous exam. RUQ U/S in November showed no evidence of gallstones or biliary dilation Denies excessive ETOH. 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 Last hemoglobin A1c 8/4/19 was 7.6 PLAN: Resume home dose of lantus as per patient -he takes Lantus 8 units in the morning. Start sliding scale insulin scale -1 As per retanned leather roller's recommendation target blood sugar around 140, can consult endo if needed Leukocytosis 09/13/2019 09/13/2019 Last Assessment & Plan: Assessment: WBC on admission was 15.61. Leukocytosis likely reactive Doubt infectious etiology as patient is hemodynamically stable and has no symptoms suggestive of bacterial infection PLAN: Daily CBC Check CRP, Procal, urinalysis/culture Lung nodules 09/13/2019 09/13/2019 Last Assessment & Plan: Assessment: Incidental finding of lung nodule was noted on CT A/P. Patient denies cigarette smoking But has a history of chewing tobacco in the past PLAN: Outpatient follow-up Small bowel obstruction due to adhesions 019 09/13/2019 Diabetes mellitus type 1, controlled, without co mplications 06/29/2019 09/13/2019 Delirium 03/22/2019 09/13/2019 Idiopathic acute pancreatitis 03/21/2019 Abdominal pain 11/23/2018 04/12/2019 Abdominal pain 11/20/2018 11/20/2018 Influenza A 11/17/2017 09/13/2019 Acute on chronic pancreatitis 11/17/2017 Last Assessment & Plan: Presented to ED with epigastric and LUQ pain with radiation to the back -- tender to palpation in epigastric/LUQ regions, no rebound or guarding, no masses or organomegaly Previous admission in November of 2017 was diagnosed with pancreatitis - no cause or reason for attack was established during this admission -- has had repeated attacks throughout the year but not bad enough to come to ER CT scan showed progressive resolution of the pancreatitis when compared to the previous exam.There is almost complete clearing of the edema adjacent to the tail the pancreas when compared to the previous exam. RUQ U/S in November showed no evidence of gallstones or biliary dilation Denies excessive ETOH. 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 Last hemoglobin A1c 06/19/19 was 7.6 PLAN: Resume home dose of lantus as per patient -he takes Lantus 8 units in the morning. Start sliding scale insulin scale -1 As per retanned leather roller's recommendation target blood sugar around 140, can consult endo if needed Leukocytosis 09/13/2019 09/13/2019 Last Assessment & Plan: Assessment: WBC on admission was 15.61. Leukocytosis likely reactive Doubt infectious etiology as patient is hemodynamically stable and has no symptoms suggestive of bacterial infection PLAN: Daily CBC Check CRP, Procal, urinalysis/culture Lung nodules 09/13/2019 09/13/2019 Last Assessment & Plan: Assessment: Incidental finding of lung nodule was noted on CT A/P. Patient denies cigarette smoking But has a history of chewing tobacco in the past PLAN: Outpatient follow-up Small bowel obstruction due to adhesions 019 09/13/2019 Diabetes mellitus type 1, controlled, without co mplications 06/29/2019 09/13/2019 Delirium 03/22/2019 09/13/2019 Idiopathic acute pancreatitis 03/21/2019 Abdominal pain 11/23/2018 04/12/2019 Abdominal pain 11/20/2018 11/20/2018 Influenza A 11/17/2017 09/13/2019 Acute on chronic pancreatitis 11/17/2017 Last Assessment & Plan: Presented to ED with epigastric and LUQ pain with radiation to the back -- tender to palpation in epigastric/LUQ regions, no rebound or guarding, no masses or organomegaly Previous admission in November of 2017 was diagnosed with pancreatitis - no cause or reason for attack was established during this admission -- has had repeated attacks throughout the year but not bad enough to come to ER CT scan showed progressive resolution of the pancreatitis when compared to the previous exam.There is almost complete clearing of the edema adjacent to the tail the pancreas when compared to the previous exam. RUQ U/S in November showed no evidence of gallstones or biliary dilation Denies excessive ETOH. 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 Last hemoglobin A1c 06/19/19 was 7.6 PLAN: Resume home dose of lantus as per patient -he takes Lantus 8 units in the morning. Start sliding scale insulin scale -1 As per retanned leather roller's recommendation target blood sugar around 140, can consult endo if needed Leukocytosis 09/13/2019 09/13/2019 Last Assessment & Plan: Assessment: WBC on admission was 15.61. Leukocytosis likely reactive Doubt infectious etiology as patient is hemodynamically stable and has no symptoms suggestive of bacterial infection PLAN: Daily CBC Check CRP, Procal, urinalysis/culture Lung nodules 09/13/2019 09/13/2019 Last Assessment & Plan: Assessment: Incidental finding of lung nodule was noted on CT A/P. Patient denies cigarette smoking But has a history of chewing tobacco in the past PLAN: Outpatient follow-up Small bowel obstruction due to adhesions 019 09/13/2019 Diabetes mellitus type 1, controlled, without co mplications 06/29/2019 09/13/2019 Delirium 03/22/2019 09/13/2019 Idiopathic acute pancreatitis 03/21/2019 Abdominal pain 11/23/2018 04/12/2019 Abdominal pain 11/20/2018 11/20/2018 Influenza A 11/17/2017 09/13/2019 Acute on chronic pancreatitis 11/17/2017 Last Assessment & Plan: Presented to ED with epigastric and LUQ pain with radiation to the back -- tender to palpation in epigastric/LUQ regions, no rebound or guarding, no masses or organomegaly Previous admission in November of 2017 was diagnosed with pancreatitis - no cause or reason for attack was established during this admission -- has had repeated attacks throughout the year but not bad enough to come to ER CT scan showed progressive resolution of the pancreatitis when compared to the previous exam.There is almost complete clearing of the edema adjacent to the tail the pancreas when compared to the previous exam. RUQ U/S in November showed no evidence of gallstones or biliary dilation Denies excessive ETOH. 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 Last hemoglobin A1c 06/19/19 was 7.6 PLAN: Resume home dose of lantus as per patient -he takes Lantus 8 units in the morning. Start sliding scale insulin scale -1 As per retanned leather roller's recommendation target blood sugar around 140, can consult endo if needed Leukocytosis 09/13/2019 09/13/2019 Last Assessment & Plan: Assessment: WBC on admission was 15.61. Leukocytosis likely reactive Doubt infectious etiology as patient is hemodynamically stable and has no symptoms suggestive of bacterial infection PLAN: Daily CBC Check CRP, Procal, urinalysis/culture Lung nodules 09/13/2019 09/13/2019 Last Assessment & Plan: Assessment: Incidental finding of lung nodule was noted on CT A/P. Patient denies cigarette smoking But has a history of chewing tobacco in the past PLAN: Outpatient follow-up Small bowel obstruction due to adhesions 019 09/13/2019 Diabetes mellitus type 1, controlled, without co mplications 06/29/2019 09/13/2019 Delirium 03/22/2019 09/13/2019 Idiopathic acute pancreatitis 03/21/2019 Abdominal pain 11/23/2018 04/12/2019 Abdominal pain 11/20/2018 11/20/2018 Influenza A 11/17/2017 09/13/2019 Acute on chronic pancreatitis 11/17/2017 Last Assessment & Plan: Presented to ED with epigastric and LUQ pain with radiation to the back -- tender to palpation in epigastric/LUQ regions, no rebound or guarding, no masses or organomegaly Previous admission in November of 2017 was diagnosed with pancreatitis - no cause or reason for attack was established during this admission -- has had repeated attacks throughout the year but not bad enough to come to ER CT scan showed progressive resolution of the pancreatitis when compared to the previous exam.There is almost complete clearing of the edema adjacent to the tail the pancreas when compared to the previous exam. RUQ U/S in November showed no evidence of gallstones or biliary dilation Denies excessive ETOH. 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 Last hemoglobin A1c 06/19/19 was 7.6 PLAN: Resume home dose of lantus as per patient -he takes Lantus 8 units in the morning. Start sliding scale insulin scale -1 As per retanned leather roller's recommendation target blood sugar around 140, can consult endo if needed Leukocytosis 09/13/2019 09/13/2019 Last Assessment & Plan: Assessment: WBC on admission was 15.61. Leukocytosis likely reactive Doubt infectious etiology as patient is hemodynamically stable and has no symptoms suggestive of bacterial infection PLAN: Daily CBC Check CRP, Procal, urinalysis/culture Lung nodules 09/13/2019 09/13/2019 Last Assessment & Plan: Assessment: Incidental finding of lung nodule was noted on CT A/P. Patient denies cigarette smoking But has a history of chewing tobacco in the past PLAN: Outpatient follow-up Small bowel obstruction due to adhesions 019 09/13/2019 Diabetes mellitus type 1, controlled, without co mplications 06/29/2019 09/13/2019 Delirium 03/22/2019 09/13/2019 Idiopathic acute pancreatitis 03/21/2019 Abdominal pain 11/23/2018 04/12/2019 Abdominal pain 11/20/2018 11/20/2018 Influenza A 11/17/2017 09/13/2019 Acute on chronic pancreatitis 11/17/2017 Last Assessment & Plan: Presented to ED with epigastric and LUQ pain with radiation to the back -- tender to palpation in epigastric/LUQ regions, no rebound or guarding, no masses or organomegaly Previous admission in November of 2017 was diagnosed with pancreatitis - no cause or reason for attack was established during this admission -- has had repeated attacks throughout the year but not bad enough to come to ER CT scan showed progressive resolution of the pancreatitis when compared to the previous exam.There is almost complete clearing of the edema adjacent to the tail the pancreas when compared to the previous exam. RUQ U/S in November showed no evidence of gallstones or biliary dilation Denies excessive ETOH. 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 Last hemoglobin A1c 06/19/19 was 7.6 PLAN: Resume home dose of lantus as per patient -he takes Lantus 8 units in the morning. Start sliding scale insulin scale -1 As per retanned leather roller's recommendation target blood sugar around 140, can consult endo if needed Leukocytosis 09/13/2019 09/13/2019 Last Assessment & Plan: Assessment: WBC on admission was 15.61. Leukocytosis likely reactive Doubt infectious etiology as patient is hemodynamically stable and has no symptoms suggestive of bacterial infection PLAN: Daily CBC Check CRP, Procal, urinalysis/culture Lung nodules 09/13/2019 09/13/2019 Last Assessment & Plan: Assessment: Incidental finding of lung nodule was noted on CT A/P. Patient denies cigarette smoking But has a history of chewing tobacco in the past PLAN: Outpatient follow-up Small bowel obstruction due to adhesions 019 09/13/2019 Diabetes mellitus type 1, controlled, without co mplications 06/29/2019 09/13/2019 Delirium 03/22/2019 09/13/2019 Idiopathic acute pancreatitis 03/21/2019 Abdominal pain 11/23/2018 04/12/2019 Abdominal pain 11/20/2018 11/20/2018 Influenza A 11/17/2017 09/13/2019 Acute on chronic pancreatitis 11/17/2017 Last Assessment & Plan: Presented to ED with epigastric and LUQ pain with radiation to the back -- tender to palpation in epigastric/LUQ regions, no rebound or guarding, no masses or organomegaly Previous admission in November of 2017 was diagnosed with pancreatitis - no cause or reason for attack was established during this admission -- has had repeated attacks throughout the year but not bad enough to come to ER CT scan showed progressive resolution of the pancreatitis when compared to the previous exam.There is almost complete clearing of the edema adjacent to the tail the pancreas when compared to the previous exam. RUQ U/S in November showed no evidence of gallstones or biliary dilation Denies excessive ETOH. 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 Last hemoglobin A1c 06/19/19 was 7.6 PLAN: Resume home dose of lantus as per patient -he takes Lantus 8 units in the morning. Start sliding scale insulin scale -1 As per retanned leather roller's recommendation target blood sugar around 140, can consult endo if needed Leukocytosis 09/13/2019 09/13/2019 Last Assessment & Plan: Assessment: WBC on admission was 15.61. Leukocytosis likely reactive Doubt infectious etiology as patient is hemodynamically stable and has no symptoms suggestive of bacterial infection PLAN: Daily CBC Check CRP, Procal, urinalysis/culture Lung nodules 09/13/2019 09/13/2019 Last Assessment & Plan: Assessment: Incidental finding of lung nodule was noted on CT A/P. Patient denies cigarette smoking But has a history of chewing tobacco in the past PLAN: Outpatient follow-up Small bowel obstruction due to adhesions 019 09/13/2019 Diabetes mellitus type 1, controlled, without co mplications 06/29/2019 09/13/2019 Delirium 03/22/2019 09/13/2019 Idiopathic acute pancreatitis 03/21/2019 Abdominal pain 11/23/2018 04/12/2019 Abdominal pain 11/20/2018 11/20/2018 Influenza A 11/17/2017 09/13/2019 Acute on chronic pancreatitis 11/17/2017 Last Assessment & Plan: Presented to ED with epigastric and LUQ pain with radiation to the back -- tender to palpation in epigastric/LUQ regions, no rebound or guarding, no masses or organomegaly Previous admission in November of 2017 was diagnosed with pancreatitis - no cause or reason for attack was established during this admission -- has had repeated attacks throughout the year but not bad enough to come to ER CT scan showed progressive resolution of the pancreatitis when compared to the previous exam.There is almost complete clearing of the edema adjacent to the tail the pancreas when compared to the previous exam. RUQ U/S in November showed no evidence of gallstones or biliary dilation Denies excessive ETOH. 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 Last hemoglobin A1c 06/19/19 was 7.6 PLAN: Resume home dose of lantus as per patient -he takes Lantus 8 units in the morning. Start sliding scale insulin scale -1 As per retanned leather roller's recommendation target blood sugar around 140, can consult endo if needed Leukocytosis 09/13/2019 09/13/2019 Last Assessment & Plan: Assessment: WBC on admission was 15.61. Leukocytosis likely reactive Doubt infectious etiology as patient is hemodynamically stable and has no symptoms suggestive of bacterial infection PLAN: Daily CBC Check CRP, Procal, urinalysis/culture Lung nodules 09/13/2019 09/13/2019 Last Assessment & Plan: Assessment: Incidental finding of lung nodule was noted on CT A/P. Patient denies cigarette smoking But has a history of chewing tobacco in the past PLAN: Outpatient follow-up Small bowel obstruction due to adhesions 019 09/13/2019 Diabetes mellitus type 1, controlled, without co mplications 06/29/2019 09/13/2019 Delirium 03/22/2019 09/13/2019 Idiopathic acute pancreatitis 03/21/2019 Abdominal pain 11/23/2018 04/12/2019 Abdominal pain 11/20/2018 11/20/2018 Influenza A 11/17/2017 09/13/2019 Acute on chronic pancreatitis 11/17/2017 Last Assessment & Plan: Presented to ED with epigastric and LUQ pain with radiation to the back -- tender to palpation in epigastric/LUQ regions, no rebound or guarding, no masses or organomegaly Previous admission in November of 2017 was diagnosed with pancreatitis - no cause or reason for attack was established during this admission -- has had repeated attacks throughout the year but not bad enough to come to ER CT scan showed progressive resolution of the pancreatitis when compared to the previous exam.There is almost complete clearing of the edema adjacent to the tail the pancreas when compared to the previous exam. RUQ U/S in November showed no evidence of gallstones or biliary dilation Denies excessive ETOH. 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 Last hemoglobin A1c 06/19/19 was 7.6 PLAN: Resume home dose of lantus as per patient -he takes Lantus 8 units in the morning. Start sliding scale insulin scale -1 As per retanned leather roller's recommendation target blood sugar around 140, can consult endo if needed Leukocytosis 09/13/2019 09/13/2019 Last Assessment & Plan: Assessment: WBC on admission was 15.61. Leukocytosis likely reactive Doubt infectious etiology as patient is hemodynamically stable and has no symptoms suggestive of bacterial infection PLAN: Daily CBC Check CRP, Procal, urinalysis/culture Lung nodules 09/13/2019 09/13/2019 Last Assessment & Plan: Assessment: Incidental finding of lung nodule was noted on CT A/P. Patient denies cigarette smoking But has a history of chewing tobacco in the past PLAN: Outpatient follow-up Small bowel obstruction due to adhesions 07/19/2019 09/13/2019 Diabetes mellitus type 1, co ntrolled, without complications 06/29/2019 09/13/2019 Delirium 03/22/2019 09/13/2019 Idiopathic acute pancreatitis 03/21/2019 04/12/2019 Abdominal pain 11/23/2018 04/12/2019 Abdominal pain 11/20/2018 11/20/2018 Influenza A 11/17/2017 09/13/2019 Acute on chronic pancreatitis 11/17/2017 04/12/2019 Last Assessment & Plan: Presented to ED with epigastric and LUQ pain with radiation to the back -- tender to palpation in epigastric/LUQ regions, no rebound or guarding, no masses or organomegaly Previous admission in November of 2017 was diagnosed with pancreatitis - no cause or reason for attack was established during this admission -- has had repeated attacks throughout the year but not bad enough to come to ER CT scan showed progressive resolution of the pancreatitis when compared to the previous exam.There is almost complete clearing of the edema adjacent to the tail the pancreas when compared to the previous exam. RUQ U/S in November showed no evidence of gallstones or biliary dilation Denies excessive ETOH. 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 Last hemoglobin A1c 06/19/19 was 7.6 PLAN: Resume home dose of lantus as per patient -he takes Lantus 8 units in the morning. Start sliding scale insulin scale -1 As per retanned leather roller's recommendation target blood sugar around 140, can consult endo if needed Leukocytosis 09/13/2019 09/13/2019 Last Assessment & Plan: Assessment: WBC on admission was 15.61. Leukocytosis likely reactive Doubt infectious etiology as patient is hemodynamically stable and has no symptoms suggestive of bacterial infection PLAN: Daily CBC Check CRP, Procal, urinalysis/culture Lung nodules 09/13/2019 09/13/2019 Last Assessment & Plan: Assessment: Incidental finding of lung nodule was noted on CT A/P. Patient denies cigarette smoking But has a history of chewing tobacco in the past PLAN: Outpatient follow-up Small bowel obstruction due to adhesions 07/19/2019 09/13/2019 Diabetes mellitus type 1, co ntrolled, without complications 06/29/2019 09/13/2019 Delirium 03/22/2019 09/13/2019 Idiopathic acute pancreatitis 03/21/2019 04/12/2019 Abdominal pain 11/23/2018 04/12/2019 Abdominal pain 11/20/2018 11/20/2018 Influenza A 11/17/2017 09/13/2019 Acute on chronic pancreatitis 11/17/2017 04/12/2019 Last Assessment & Plan: Presented to ED with epigastric and LUQ pain with radiation to the back -- tender to palpation in epigastric/LUQ regions, no rebound or guarding, no masses or organomegaly Previous admission in November of 2017 was diagnosed with pancreatitis - no cause or reason for attack was established during this admission -- has had repeated attacks throughout the year but not bad enough to come to ER CT scan showed progressive resolution of the pancreatitis when compared to the previous exam.There is almost complete clearing of the edema adjacent to the tail the pancreas when compared to the previous exam. RUQ U/S in November showed no evidence of gallstones or biliary dilation Denies excessive ETOH. 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 Last hemoglobin A1c 06/19/19 was 7.6 PLAN: Resume home dose of lantus as per patient -he takes Lantus 8 units in the morning. Start sliding scale insulin scale -1 As per retanned leather roller's recommendation target blood sugar around 140, can consult endo if needed Leukocytosis 09/13/2019 09/13/2019 Last Assessment & Plan: Assessment: WBC on admission was 15.61. Leukocytosis likely reactive Doubt infectious etiology as patient is hemodynamically stable and has no symptoms suggestive of bacterial infection PLAN: Daily CBC Check CRP, Procal, urinalysis/culture Lung nodules 09/13/2019 09/13/2019 Last Assessment & Plan: Assessment: Incidental finding of lung nodule was noted on CT A/P. Patient denies cigarette smoking But has a history of chewing tobacco in the past PLAN: Outpatient follow-up Small bowel obstruction due to adhesions 07/19/2019 09/13/2019 Diabetes mellitus type 1, co ntrolled, without complications 06/29/2019 09/13/2019 Delirium 03/22/2019 09/13/2019 Idiopathic acute pancreatitis 03/21/2019 04/12/2019 Abdominal pain 11/23/2018 04/12/2019 Abdominal pain 11/20/2018 11/20/2018 Influenza A 11/17/2017 09/13/2019 Acute on chronic pancreatitis 11/17/2017 04/12/2019 Last Assessment & Plan: Presented to ED with epigastric and LUQ pain with radiation to the back -- tender to palpation in epigastric/LUQ regions, no rebound or guarding, no masses or organomegaly Previous admission in November of 2017 was diagnosed with pancreatitis - no cause or reason for attack was established during this admission -- has had repeated attacks throughout the year but not bad enough to come to ER CT scan showed progressive resolution of the pancreatitis when compared to the previous exam.There is almost complete clearing of the edema adjacent to the tail the pancreas when compared to the previous exam. RUQ U/S in November showed no evidence of gallstones or biliary dilation Denies excessive ETOH. 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 Last hemoglobin A1c 06/19/19 was 7.6 PLAN: Resume home dose of lantus as per patient -he takes Lantus 8 units in the morning. Start sliding scale insulin scale -1 As per retanned leather roller's recommendation target blood sugar around 140, can consult endo if needed Leukocytosis 09/13/2019 09/13/2019 Last Assessment & Plan: Assessment: WBC on admission was 15.61. Leukocytosis likely reactive Doubt infectious etiology as patient is hemodynamically stable and has no symptoms suggestive of bacterial infection PLAN: Daily CBC Check CRP, Procal, urinalysis/culture Lung nodules 09/13/2019 09/13/2019 Last Assessment & Plan: Assessment: Incidental finding of lung nodule was noted on CT A/P. Patient denies cigarette smoking But has a history of chewing tobacco in the past PLAN: Outpatient follow-up Small bowel obstruction due to adhesions 07/19/2019 09/13/2019 Diabetes mellitus type 1, co ntrolled, without complications 06/29/2019 09/13/2019 Delirium 03/22/2019 09/13/2019 Idiopathic acute pancreatitis 03/21/2019 04/12/2019 Abdominal pain 11/23/2018 04/12/2019 Abdominal pain 11/20/2018 11/20/2018 Influenza A 11/17/2017 09/13/2019 Acute on chronic pancreatitis 11/17/2017 04/12/2019 Last Assessment & Plan: Presented to ED with epigastric and LUQ pain with radiation to the back -- tender to palpation in epigastric/LUQ regions, no rebound or guarding, no masses or organomegaly Previous admission in November of 2017 was diagnosed with pancreatitis - no cause or reason for attack was established during this admission -- has had repeated attacks throughout the year but not bad enough to come to ER CT scan showed progressive resolution of the pancreatitis when compared to the previous exam.There is almost complete clearing of the edema adjacent to the tail the pancreas when compared to the previous exam. RUQ U/S in November showed no evidence of gallstones or biliary dilation Denies excessive ETOH. 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 Last hemoglobin A1c 06/19/19 was 7.6 PLAN: Resume home dose of lantus as per patient -he takes Lantus 8 units in the morning. Start sliding scale insulin scale -1 As per retanned leather roller's recommendation target blood sugar around 140, can consult endo if needed Leukocytosis 09/13/2019 09/13/2019 Last Assessment & Plan: Assessment: WBC on admission was 15.61. Leukocytosis likely reactive Doubt infectious etiology as patient is hemodynamically stable and has no symptoms suggestive of bacterial infection PLAN: Daily CBC Check CRP, Procal, urinalysis/culture Lung nodules 09/13/2019 09/13/2019 Last Assessment & Plan: Assessment: Incidental finding of lung nodule was noted on CT A/P. Patient denies cigarette smoking But has a history of chewing tobacco in the past PLAN: Outpatient follow-up Small bowel obstruction due to adhesions 07/19/2019 09/13/2019 Diabetes mellitus type 1, co ntrolled, without complications 06/29/2019 09/13/2019 Delirium 03/22/2019 09/13/2019 Idiopathic acute pancreatitis 03/21/2019 04/12/2019 Abdominal pain 11/23/2018 04/12/2019 Abdominal pain 11/20/2018 11/20/2018 Influenza A 11/17/2017 09/13/2019 Acute on chronic pancreatitis 11/17/2017 04/12/2019 Last Assessment & Plan: Presented to ED with epigastric and LUQ pain with radiation to the back -- tender to palpation in epigastric/LUQ regions, no rebound or guarding, no masses or organomegaly Previous admission in November of 2017 was diagnosed with pancreatitis - no cause or reason for attack was established during this admission -- has had repeated attacks throughout the year but not bad enough to come to ER CT scan showed progressive resolution of the pancreatitis when compared to the previous exam.There is almost complete clearing of the edema adjacent to the tail the pancreas when compared to the previous exam. RUQ U/S in November showed no evidence of gallstones or biliary dilation Denies excessive ETOH. 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 Last hemoglobin A1c 06/19/19 was 7.6 PLAN: Resume home dose of lantus as per patient -he takes Lantus 8 units in the morning. Start sliding scale insulin scale -1 As per retanned leather roller's recommendation target blood sugar around 140, can consult endo if needed Leukocytosis 09/13/2019 09/13/2019 Last Assessment & Plan: Assessment: WBC on admission was 15.61. Leukocytosis likely reactive Doubt infectious etiology as patient is hemodynamically stable and has no symptoms suggestive of bacterial infection PLAN: Daily CBC Check CRP, Procal, urinalysis/culture Lung nodules 09/13/2019 09/13/2019 Last Assessment & Plan: Assessment: Incidental finding of lung nodule was noted on CT A/P. Patient denies cigarette smoking But has a history of chewing tobacco in the past PLAN: Outpatient follow-up Small bowel obstruction due to adhesions 07/19/2019 09/13/2019 Diabetes mellitus type 1, co ntrolled, without complications 06/29/2019 09/13/2019 Delirium 03/22/2019 09/13/2019 Idiopathic acute pancreatitis 03/21/2019 04/12/2019 Abdominal pain 11/23/2018 04/12/2019 Abdominal pain 11/20/2018 11/20/2018 Influenza A 11/17/2017 09/13/2019 Acute on chronic pancreatitis 11/17/2017 04/12/2019 Last Assessment & Plan: Presented to ED with epigastric and LUQ pain with radiation to the back -- tender to palpation in epigastric/LUQ regions, no rebound or guarding, no masses or organomegaly Previous admission in November of 2017 was diagnosed with pancreatitis - no cause or reason for attack was established during this admission -- has had repeated attacks throughout the year but not bad enough to come to ER CT scan showed progressive resolution of the pancreatitis when compared to the previous exam.There is almost complete clearing of the edema adjacent to the tail the pancreas when compared to the previous exam. RUQ U/S in November showed no evidence of gallstones or biliary dilation Denies excessive ETOH. 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 Last hemoglobin A1c 06/19/19 was 7.6 PLAN: Resume home dose of lantus as per patient -he takes Lantus 8 units in the morning. Start sliding scale insulin scale -1 As per retanned leather roller's recommendation target blood sugar around 140, can consult endo if needed Leukocytosis 09/13/2019 09/13/2019 Last Assessment & Plan: Assessment: WBC on admission was 15.61. Leukocytosis likely reactive Doubt infectious etiology as patient is hemodynamically stable and has no symptoms suggestive of bacterial infection PLAN: Daily CBC Check CRP, Procal, urinalysis/culture Lung nodules 09/13/2019 09/13/2019 Last Assessment & Plan: Assessment: Incidental finding of lung nodule was noted on CT A/P. Patient denies cigarette smoking But has a history of chewing tobacco in the past PLAN: Outpatient follow-up Small bowel obstruction due to adhesions 07/19/2019 09/13/2019 Diabetes mellitus type 1, co ntrolled, without complications 06/29/2019 09/13/2019 Delirium 03/22/2019 09/13/2019 Idiopathic acute pancreatitis 03/21/2019 04/12/2019 Abdominal pain 11/23/2018 04/12/2019 Abdominal pain 11/20/2018 11/20/2018 Influenza A 11/17/2017 09/13/2019 Acute on chronic pancreatitis 11/17/2017 04/12/2019 Last Assessment & Plan: Presented to ED with epigastric and LUQ pain with radiation to the back -- tender to palpation in epigastric/LUQ regions, no rebound or guarding, no masses or organomegaly Previous admission in November of 2017 was diagnosed with pancreatitis - no cause or reason for attack was established during this admission -- has had repeated attacks throughout the year but not bad enough to come to ER CT scan showed progressive resolution of the pancreatitis when compared to the previous exam.There is almost complete clearing of the edema adjacent to the tail the pancreas when compared to the previous exam. RUQ U/S in November showed no evidence of gallstones or biliary dilation Denies excessive ETOH. 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 Last hemoglobin A1c 06/19/19 was 7.6 PLAN: Resume home dose of lantus as per patient -he takes Lantus 8 units in the morning. Start sliding scale insulin scale -1 As per retanned leather roller's recommendation target blood sugar around 140, can consult endo if needed Leukocytosis 09/13/2019 09/13/2019 Last Assessment & Plan: Assessment: WBC on admission was 15.61. Leukocytosis likely reactive Doubt infectious etiology as patient is hemodynamically stable and has no symptoms suggestive of bacterial infection PLAN: Daily CBC Check CRP, Procal, urinalysis/culture Lung nodules 09/13/2019 09/13/2019 Last Assessment & Plan: Assessment: Incidental finding of lung nodule was noted on CT A/P. Patient denies cigarette smoking But has a history of chewing tobacco in the past PLAN: Outpatient follow-up Small bowel obstruction due to adhesions 07/19/2019 09/13/2019 Diabetes mellitus type 1, co ntrolled, without complications 06/29/2019 09/13/2019 Delirium 03/22/2019 09/13/2019 Idiopathic acute pancreatitis 03/21/2019 04/12/2019 Abdominal pain 11/23/2018 04/12/2019 Abdominal pain 11/20/2018 11/20/2018 Influenza A 11/17/2017 09/13/2019 Acute on chronic pancreatitis 11/17/2017 04/12/2019 Last Assessment & Plan: Presented to ED with epigastric and LUQ pain with radiation to the back -- tender to palpation in epigastric/LUQ regions, no rebound or guarding, no masses or organomegaly Previous admission in November of 2017 was diagnosed with pancreatitis - no cause or reason for attack was established during this admission -- has had repeated attacks throughout the year but not bad enough to come to ER CT scan showed progressive resolution of the pancreatitis when compared to the previous exam.There is almost complete clearing of the edema adjacent to the tail the pancreas when compared to the previous exam. RUQ U/S in November showed no evidence of gallstones or biliary dilation Denies excessive ETOH. 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 Last hemoglobin A1c 06/19/19 was 7.6 PLAN: Resume home dose of lantus as per patient -he takes Lantus 8 units in the morning. Start sliding scale insulin scale -1 As per retanned leather roller's recommendation target blood sugar around 140, can consult endo if needed Leukocytosis 09/13/2019 09/13/2019 Last Assessment & Plan: Assessment: WBC on admission was 15.61. Leukocytosis likely reactive Doubt infectious etiology as patient is hemodynamically stable and has no symptoms suggestive of bacterial infection PLAN: Daily CBC Check CRP, Procal, urinalysis/culture Lung nodules 09/13/2019 09/13/2019 Last Assessment & Plan: Assessment: Incidental finding of lung nodule was noted on CT A/P. Patient denies cigarette smoking But has a history of chewing tobacco in the past PLAN: Outpatient follow-up Small bowel obstruction due to adhesions 07/19/2019 09/13/2019 Diabetes mellitus type 1, co ntrolled, without complications 06/29/2019 09/13/2019 Delirium 03/22/2019 09/13/2019 Idiopathic acute pancreatitis 03/21/2019 04/12/2019 Abdominal pain 11/23/2018 04/12/2019 Abdominal pain 11/20/2018 11/20/2018 Influenza A 11/17/2017 09/13/2019 Acute on chronic pancreatitis 11/17/2017 04/12/2019 Last Assessment & Plan: Presented to ED with epigastric and LUQ pain with radiation to the back -- tender to palpation in epigastric/LUQ regions, no rebound or guarding, no masses or organomegaly Previous admission in November of 2017 was diagnosed with pancreatitis - no cause or reason for attack was established during this admission -- has had repeated attacks throughout the year but not bad enough to come to ER CT scan showed progressive resolution of the pancreatitis when compared to the previous exam.There is almost complete clearing of the edema adjacent to the tail the pancreas when compared to the previous exam. RUQ U/S in November showed no evidence of gallstones or biliary dilation Denies excessive ETOH. 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 Type 1 diabetes mellitus with hyperglycemia (HCC) Type I (juvenile type) diabetes mellitus without mention of complication, not stated as uncontrolled [facility] Sore [facility]- Primary Acute ph[facility]itis [facility] Diagnosis Poorly controlled type 1 diabetes mellitus with complication (HCC)- Primary Type I (juvenile type) diabetes mellitus with unspecified complication, not stated as uncontrolled [facility] Diagnosis 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 [facility] Diagnosis Type 1 diabetes mellitus with hyperglycemia (HCC) Type I (juvenile type) diabetes mellitus without mention of complication, not stated as uncontrolled [facility] Diagnosis Type 1 diabetes mellitus with hyperglycemia (HCC) Type I (juvenile type) diabetes mellitus without mention of complication, not stated as uncontrolled [facility] Diagnosis Type 1 diabetes mellitus with hyperglycemia (HCC) Type I (juvenile type) diabetes mellitus without mention of complication, not stated as uncontrolled [facility] Diagnosis Type 1 diabetes mellitus with hyperglycemia (HCC) Type I (juvenile type) diabetes mellitus without mention of complication, not stated as uncontrolled [facility] Diagnosis Type 1 diabetes mellitus with hyperglycemia (HCC) Type I (juvenile type) diabetes mellitus without mention of complication, not stated as uncontrolled [facility] Diagnosis Pancreatic steatorrhea- Primary [facility] Diagnosis Type 1 diabetes mellitus with hyperglycemia (HCC) Type I (juvenile type) diabetes mellitus without mention of complication, not stated as uncontrolled [facility] Diagnosis Osteoporosis screening- Primary Special screening for osteoporosis 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9] [facility] Diagnosis Type 1 diabetes mellitus with hyperglycemia (HCC) Type I (juvenile type) diabetes mellitus without mention of complication, not stated as uncontrolled [facility] Diagnosis Poorly controlled type 1 diabetes mellitus with complication (HCC)- Primary Type I (juvenile type) diabetes mellitus with unspecified complication, not stated as uncontrolled Type 1 diabetes mellitus without complication (HCC) Type I (juvenile type) diabetes mellitus without mention of complication, not stated as uncontrolled Insulin pump status [facility] Diagnosis Type 1 diabetes mellitus with hyperglycemia (HCC) Type I (juvenile type) diabetes mellitus without mention of complication, not stated as uncontrolled [facility] Diagnosis Acute on chronic pancreatitis (HCC)- Primary Malnutrition of moderate degree (HCC) Malnutrition of moderate degree Abdominal pain Abdominal pain, unspecified site Abdominal pain, unspecified abdominal location- Primary Left upper quadrant pain Abdominal pain, left upper quadrant Insulin dependent diabetes mellitus Type II or unspecified type diabetes mellitus without mention of complication, not stated as uncontrolled Leukocytosis Leukocytosis, unspecified Elevated liver enzymes Other nonspecific abnormal serum enzyme levels Lung nodules Other nonspecific abnormal finding of lung field 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 Abdominal fluid collection Other ascites 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) Postoperative pain Other acute postoperative pain Severe protein-calorie malnutrition (HCC) Other severe protein-calorie malnutrition Gastric outlet obstruction Acquired hypertrophic pyloric stenosis Chronic pancreatitis (HCC) Chronic pancreatitis Severe protein-calorie malnutrition (HCC) Other severe protein-calorie malnutrition Type 1 diabetes mellitus with hyperglycemia (HCC) Type I (juvenile type) diabetes mellitus without mention of complication, not stated as uncontrolled [facility] Diagnosis Acute on chronic pancreatitis (HCC)- Primary Malnutrition of moderate degree (HCC) Malnutrition of moderate degree Abdominal pain Abdominal pain, unspecified site Abdominal pain, unspecified abdominal location- Primary Left upper quadrant pain Abdominal pain, left upper quadrant Insulin dependent diabetes mellitus Type II or unspecified type diabetes mellitus without mention of complication, not stated as uncontrolled Leukocytosis Leukocytosis, unspecified Elevated liver enzymes Other nonspecific abnormal serum enzyme levels Lung nodules Other nonspecific abnormal finding of lung field 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 Abdominal fluid collection Other ascites 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) Postoperative pain Other acute postoperative pain Severe protein-calorie malnutrition (HCC) Other severe protein-calorie malnutrition Gastric outlet obstruction Acquired hypertrophic pyloric stenosis Chronic pancreatitis (HCC) Chronic pancreatitis Severe protein-calorie malnutrition (HCC) Other severe protein-calorie malnutrition Type 1 diabetes mellitus with hyperglycemia (HCC) Type I (juvenile type) diabetes mellitus without mention of complication, not stated as uncontrolled [facility] Diagnosis Acute on chronic pancreatitis (HCC)- Primary Malnutrition of moderate degree (HCC) Malnutrition of moderate degree Abdominal pain Abdominal pain, unspecified site Abdominal pain, unspecified abdominal location- Primary Left upper quadrant pain Abdominal pain, left upper quadrant Insulin dependent diabetes mellitus Type II or unspecified type diabetes mellitus without mention of complication, not stated as uncontrolled Leukocytosis Leukocytosis, unspecified Elevated liver enzymes Other nonspecific abnormal serum enzyme levels Lung nodules Other nonspecific abnormal finding of lung field 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 Abdominal fluid collection Other ascites 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) Postoperative pain Other acute postoperative pain Severe protein-calorie malnutrition (HCC) Other severe protein-calorie malnutrition Gastric outlet obstruction Acquired hypertrophic pyloric stenosis Chronic pancreatitis (HCC) Chronic pancreatitis Severe protein-calorie malnutrition (HCC) Other severe protein-calorie malnutrition Poorly controlled type 1 diabetes mellitus with complication (HCC)- Primary Type I (juvenile type) diabetes mellitus with unspecified complication, not stated as uncontrolled Insulin pump status [facility] Acute on chronic pancreatitis (HCC)- Primary Malnutrition of moderate degree (HCC) Malnutrition of moderate degree Abdominal pain Abdominal pain, unspecified site Abdominal pain, unspecified abdominal location- Primary Left upper quadrant pain Abdominal pain, left upper quadrant Insulin dependent diabetes mellitus Type II or unspecified type diabetes mellitus without mention of complication, not stated as uncontrolled Leukocytosis Leukocytosis, unspecified Elevated liver enzymes Other nonspecific abnormal serum enzyme levels Lung nodules Other nonspecific abnormal finding of lung field 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 Abdominal fluid collection Other ascites 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) Postoperative pain Other acute postoperative pain Severe protein-calorie malnutrition (HCC) Other severe protein-calorie malnutrition Gastric outlet obstruction Acquired hypertrophic pyloric stenosis Chronic pancreatitis (HCC) Chronic pancreatitis Severe protein-calorie malnutrition (HCC) Other severe protein-calorie malnutrition Poorly controlled type 1 diabetes mellitus with complication (HCC)- Primary Type I (juvenile type) diabetes mellitus with unspecified complication, not stated as uncontrolled Insulin pump status [facility] Diagnosis Acute on chronic pancreatitis (HCC)- Primary Malnutrition of moderate degree (HCC) Malnutrition of moderate degree Abdominal pain Abdominal pain, unspecified site Abdominal pain, unspecified abdominal location- Primary Left upper quadrant pain Abdominal pain, left upper quadrant Insulin dependent diabetes mellitus Type II or unspecified type diabetes mellitus without mention of complication, not stated as uncontrolled Leukocytosis Leukocytosis, unspecified Elevated liver enzymes Other nonspecific abnormal serum enzyme levels Lung nodules Other nonspecific abnormal finding of lung field 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 Abdominal fluid collection Other ascites 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) Postoperative pain Other acute postoperative pain Severe protein-calorie malnutrition (HCC) Other severe protein-calorie malnutrition Gastric outlet obstruction Acquired hypertrophic pyloric stenosis Chronic pancreatitis (HCC) Chronic pancreatitis Severe protein-calorie malnutrition (HCC) Other severe protein-calorie malnutrition Type 1 diabetes mellitus with hyperglycemia (HCC) Type I (juvenile type) diabetes mellitus without mention of complication, not stated as uncontrolled [facility] Acute on chronic pancreatitis (HCC)- Primary Malnutrition of moderate degree (HCC) Malnutrition of moderate degree Abdominal pain Abdominal pain, unspecified site Abdominal pain, unspecified abdominal location- Primary Left upper quadrant pain Abdominal pain, left upper quadrant Insulin dependent diabetes mellitus Type II or unspecified type diabetes mellitus without mention of complication, not stated as uncontrolled Leukocytosis Leukocytosis, unspecified Elevated liver enzymes Other nonspecific abnormal serum enzyme levels Lung nodules Other nonspecific abnormal finding of lung field 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 Abdominal fluid collection Other ascites 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) Postoperative pain Other acute postoperative pain Severe protein-calorie malnutrition (HCC) Other severe protein-calorie malnutrition Gastric outlet obstruction Acquired hypertrophic pyloric stenosis Chronic pancreatitis (HCC) Chronic pancreatitis Severe protein-calorie malnutrition (HCC) Other severe protein-calorie malnutrition Adverse effect of treatment, initial encounter- Primary Screening for nephropathy documented in this encounter [facility] note* Diagnosis Acute on chronic pancreatitis (HCC)- Primary Malnutrition of moderate degree (HCC) Malnutrition of moderate degree Abdominal pain Abdominal pain, unspecified site Abdominal pain, unspecified abdominal location- Primary Left upper quadrant pain Abdominal pain, left upper quadrant Insulin dependent diabetes mellitus Type II or unspecified type diabetes mellitus without mention of complication, not stated as uncontrolled Leukocytosis Leukocytosis, unspecified Elevated liver enzymes Other nonspecific abnormal serum enzyme levels Lung nodules Other nonspecific abnormal finding of lung field 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 Abdominal fluid collection Other ascites 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) Postoperative pain Other acute postoperative pain Severe protein-calorie malnutrition (HCC) Other severe protein-calorie malnutrition Gastric outlet obstruction Acquired hypertrophic pyloric stenosis Chronic pancreatitis (HCC) Chronic pancreatitis Severe protein-calorie malnutrition (HCC) Other severe protein-calorie malnutrition Adverse effect of treatment, initial encounter Screening for nephropathy documented in this encounter [facility] note* Diagnosis Acute on chronic pancreatitis (HCC)- Primary Malnutrition of moderate degree (HCC) Malnutrition of moderate degree Abdominal pain Abdominal pain, unspecified site Abdominal pain, unspecified abdominal location- Primary Left upper quadrant pain Abdominal pain, left upper quadrant Insulin dependent diabetes mellitus Type II or unspecified type diabetes mellitus without mention of complication, not stated as uncontrolled Leukocytosis Leukocytosis, unspecified Elevated liver enzymes Other nonspecific abnormal serum enzyme levels Lung nodules Other nonspecific abnormal finding of lung field 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 Abdominal fluid collection Other ascites 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) Postoperative pain Other acute postoperative pain Severe protein-calorie malnutrition (HCC) Other severe protein-calorie malnutrition Gastric outlet obstruction Acquired hypertrophic pyloric stenosis Chronic pancreatitis (HCC) Chronic pancreatitis Severe protein-calorie malnutrition (HCC) Other severe protein-calorie malnutrition Lung nodules- Primary Other nonspecific abnormal finding of lung field Portal vein thrombosis [facility] Diagnosis Acute on chronic pancreatitis (HCC)- Primary Malnutrition of moderate degree (HCC) Malnutrition of moderate degree Abdominal pain Abdominal pain, unspecified site Abdominal pain, unspecified abdominal location- Primary Left upper quadrant pain Abdominal pain, left upper quadrant Insulin dependent diabetes mellitus Type II or unspecified type diabetes mellitus without mention of complication, not stated as uncontrolled Leukocytosis Leukocytosis, unspecified Elevated liver enzymes Other nonspecific abnormal serum enzyme levels Lung nodules Other nonspecific abnormal finding of lung field 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 Abdominal fluid collection Other ascites 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) Postoperative pain Other acute postoperative pain Severe protein-calorie malnutrition (HCC) Other severe protein-calorie malnutrition Gastric outlet obstruction Acquired hypertrophic pyloric stenosis Chronic pancreatitis (HCC) Chronic pancreatitis Severe protein-calorie malnutrition (HCC) Other severe protein-calorie malnutrition Poorly controlled type 1 diabetes mellitus with complication (HCC) Type I (juvenile type) diabetes mellitus with unspecified complication, not stated as uncontrolled Insulin pump status Type 1 diabetes mellitus with hyperglycemia (HCC) Type I (juvenile type) diabetes mellitus without mention of complication, not stated as uncontrolled [facility] Diagnosis Acute on chronic pancreatitis (HCC)- Primary Malnutrition of moderate degree (HCC) Malnutrition of moderate degree Abdominal pain Abdominal pain, unspecified site Abdominal pain, unspecified abdominal location- Primary Left upper quadrant pain Abdominal pain, left upper quadrant Insulin dependent diabetes mellitus Type II or unspecified type diabetes mellitus without mention of complication, not stated as uncontrolled Leukocytosis Leukocytosis, unspecified Elevated liver enzymes Other nonspecific abnormal serum enzyme levels Lung nodules Other nonspecific abnormal finding of lung field 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 Abdominal fluid collection Other ascites 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) Postoperative pain Other acute postoperative pain Severe protein-calorie malnutrition (HCC) Other severe protein-calorie malnutrition Gastric outlet obstruction Acquired hypertrophic pyloric stenosis Chronic pancreatitis (HCC) Chronic pancreatitis Severe protein-calorie malnutrition (HCC) Other severe protein-calorie malnutrition Poorly controlled type 1 diabetes mellitus with complication (HCC)- Primary Type I (juvenile type) diabetes mellitus with unspecified complication, not stated as uncontrolled Insulin pump status [facility] Diagnosis Acute on chronic pancreatitis (HCC)- Primary Malnutrition of moderate degree (HCC) Malnutrition of moderate degree Abdominal pain Abdominal pain, unspecified site Abdominal pain, unspecified abdominal location- Primary Left upper quadrant pain Abdominal pain, left upper quadrant Insulin dependent diabetes mellitus Type II or unspecified type diabetes mellitus without mention of complication, not stated as uncontrolled Leukocytosis Leukocytosis, unspecified Elevated liver enzymes Other nonspecific abnormal serum enzyme levels Lung nodules Other nonspecific abnormal finding of lung field 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 Abdominal fluid collection Other ascites 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) Postoperative pain Other acute postoperative pain Severe protein-calorie malnutrition (HCC) Other severe protein-calorie malnutrition Gastric outlet obstruction (HCC) Acquired hypertrophic pyloric stenosis Chronic pancreatitis (HCC) Chronic pancreatitis Severe protein-calorie malnutrition (HCC) Other severe protein-calorie malnutrition Lung nodules- Primary Other nonspecific abnormal finding of lung field [facility] Diagnosis Acute on chronic pancreatitis (HCC)- Primary Malnutrition of moderate degree (HCC) Malnutrition of moderate degree Abdominal pain Abdominal pain, unspecified site Abdominal pain, unspecified abdominal location- Primary Left upper quadrant pain Abdominal pain, left upper quadrant Insulin dependent diabetes mellitus Type II or unspecified type diabetes mellitus without mention of complication, not stated as uncontrolled Leukocytosis Leukocytosis, unspecified Elevated liver enzymes Other nonspecific abnormal serum enzyme levels Lung nodules Other nonspecific abnormal finding of lung field 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 Abdominal fluid collection Other ascites 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) Postoperative pain Other acute postoperative pain Severe protein-calorie malnutrition (HCC) Other severe protein-calorie malnutrition Gastric outlet obstruction (HCC) Acquired hypertrophic pyloric stenosis Chronic pancreatitis (HCC) Chronic pancreatitis Severe protein-calorie malnutrition (HCC) Other severe protein-calorie malnutrition Portal vein thrombosis [facility] Diagnosis Acute on chronic pancreatitis (HCC)- Primary Malnutrition of moderate degree (HCC) Malnutrition of moderate degree Abdominal pain Abdominal pain, unspecified site Abdominal pain, unspecified abdominal location- Primary Left upper quadrant pain Abdominal pain, left upper quadrant Insulin dependent diabetes mellitus Type II or unspecified type diabetes mellitus without mention of complication, not stated as uncontrolled Leukocytosis Leukocytosis, unspecified Elevated liver enzymes Other nonspecific abnormal serum enzyme levels Lung nodules Other nonspecific abnormal finding of lung field 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 Abdominal fluid collection Other ascites 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) Postoperative pain Other acute postoperative pain Severe protein-calorie malnutrition (HCC) Other severe protein-calorie malnutrition Gastric outlet obstruction (HCC) Acquired hypertrophic pyloric stenosis Chronic pancreatitis (HCC) Chronic pancreatitis Severe protein-calorie malnutrition (HCC) Other severe protein-calorie malnutrition Type 1 diabetes mellitus with hyperglycemia (HCC) Type I (juvenile type) diabetes mellitus without mention of complication, not stated as uncontrolled documented in this encounter [facility] note* Diagnosis Acute on chronic pancreatitis (HCC)- Primary Malnutrition of moderate degree (HCC) Malnutrition of moderate degree Abdominal pain Abdominal pain, unspecified site Abdominal pain, unspecified abdominal location- Primary Left upper quadrant pain Abdominal pain, left upper quadrant Insulin dependent diabetes mellitus Type II or unspecified type diabetes mellitus without mention of complication, not stated as uncontrolled Leukocytosis Leukocytosis, unspecified Elevated liver enzymes Other nonspecific abnormal serum enzyme levels Lung nodules Other nonspecific abnormal finding of lung field 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 Abdominal fluid collection Other ascites 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) Postoperative pain Other acute postoperative pain Severe protein-calorie malnutrition (HCC) Other severe protein-calorie malnutrition Gastric outlet obstruction (HCC) Acquired hypertrophic pyloric stenosis Chronic pancreatitis (HCC) Chronic pancreatitis Severe protein-calorie malnutrition (HCC) Other severe protein-calorie malnutrition Poorly controlled type 1 diabetes mellitus with complication (HCC)- Primary Type I (juvenile type) diabetes mellitus with unspecified complication, not stated as uncontrolled Type 1 diabetes mellitus without complication (HCC) Type I (juvenile type) diabetes mellitus without mention of complication, not stated as uncontrolled Insulin pump status documented in this encounter [facility] note* Diagnosis Acute on chronic pancreatitis (HCC)- Primary Malnutrition of moderate degree (HCC) Malnutrition of moderate degree Abdominal pain Abdominal pain, unspecified site Abdominal pain, unspecified abdominal location- Primary Left upper quadrant pain Abdominal pain, left upper quadrant Insulin dependent diabetes mellitus Type II or unspecified type diabetes mellitus without mention of complication, not stated as uncontrolled Leukocytosis Leukocytosis, unspecified Elevated liver enzymes Other nonspecific abnormal serum enzyme levels Lung nodules Other nonspecific abnormal finding of lung field 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 Abdominal fluid collection Other ascites 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) Postoperative pain Other acute postoperative pain Severe protein-calorie malnutrition (HCC) Other severe protein-calorie malnutrition Gastric outlet obstruction (HCC) Acquired hypertrophic pyloric stenosis Chronic pancreatitis (HCC) Chronic pancreatitis Severe protein-calorie malnutrition (HCC) Other severe protein-calorie malnutrition Type 1 diabetes mellitus with hyperglycemia (HCC) Type I (juvenile type) diabetes mellitus without mention of complication, not stated as uncontrolled Poorly controlled type 1 diabetes mellitus with complication (HCC) Type I (juvenile type) diabetes mellitus with unspecified complication, not stated as uncontrolled Insulin pump status documented in this encounter [facility] note* Diagnosis Acute on chronic pancreatitis (HCC)- Primary Malnutrition of moderate degree (HCC) Malnutrition of moderate degree Abdominal pain Abdominal pain, unspecified site Abdominal pain, unspecified abdominal location- Primary Left upper quadrant pain Abdominal pain, left upper quadrant Insulin dependent diabetes mellitus Type II or unspecified type diabetes mellitus without mention of complication, not stated as uncontrolled Leukocytosis Leukocytosis, unspecified Elevated liver enzymes Other nonspecific abnormal serum enzyme levels Lung nodules Other nonspecific abnormal finding of lung field 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 Abdominal fluid collection Other ascites 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) Postoperative pain Other acute postoperative pain Severe protein-calorie malnutrition (HCC) Other severe protein-calorie malnutrition Gastric outlet obstruction (HCC) Acquired hypertrophic pyloric stenosis Chronic pancreatitis (HCC) Chronic pancreatitis Severe protein-calorie malnutrition (HCC) Other severe protein-calorie malnutrition Type 1 diabetes mellitus with hyperglycemia (HCC)- Primary Type I (juvenile type) diabetes mellitus without mention of complication, not stated as uncontrolled documented in this encounter [facility] note* Diagnosis Acute on chronic pancreatitis (HCC)- Primary Malnutrition of moderate degree (HCC) Malnutrition of moderate degree Abdominal pain Abdominal pain, unspecified site Abdominal pain, unspecified abdominal location- Primary Left upper quadrant pain Abdominal pain, left upper quadrant Insulin dependent diabetes mellitus Type II or unspecified type diabetes mellitus without mention of complication, not stated as uncontrolled Leukocytosis Leukocytosis, unspecified Elevated liver enzymes Other nonspecific abnormal serum enzyme levels Lung nodules Other nonspecific abnormal finding of lung field 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 Abdominal fluid collection Other ascites 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) Postoperative pain Other acute postoperative pain Severe protein-calorie malnutrition (HCC) Other severe protein-calorie malnutrition Gastric outlet obstruction (HCC) Acquired hypertrophic pyloric stenosis Chronic pancreatitis (HCC) Chronic pancreatitis Severe protein-calorie malnutrition (HCC) Other severe protein-calorie malnutrition Lung nodules Other nonspecific abnormal finding of lung field documented in this encounter [facility] note* Diagnosis Acute on chronic pancreatitis (HCC)- Primary Malnutrition of moderate degree (HCC) Malnutrition of moderate degree Abdominal pain Abdominal pain, unspecified site Abdominal pain, unspecified abdominal location- Primary Left upper quadrant pain Abdominal pain, left upper quadrant Insulin dependent diabetes mellitus Type II or unspecified type diabetes mellitus without mention of complication, not stated as uncontrolled Leukocytosis Leukocytosis, unspecified Elevated liver enzymes Other nonspecific abnormal serum enzyme levels Lung nodules Other nonspecific abnormal finding of lung field 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 Abdominal fluid collection Other ascites 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) Postoperative pain Other acute postoperative pain Severe protein-calorie malnutrition (HCC) Other severe protein-calorie malnutrition Gastric outlet obstruction (HCC) Acquired hypertrophic pyloric stenosis Chronic pancreatitis (HCC) Chronic pancreatitis Severe protein-calorie malnutrition (HCC) Other severe protein-calorie malnutrition Type 1 diabetes mellitus with hyperglycemia (HCC) Type I (juvenile type) diabetes mellitus without mention of complication, not stated as uncontrolled documented in this encounter [facility] note* Diagnosis Acute on chronic pancreatitis (HCC)- Primary Malnutrition of moderate degree (HCC) Malnutrition of moderate degree Abdominal pain Abdominal pain, unspecified site Abdominal pain, unspecified abdominal location- Primary Left upper quadrant pain Abdominal pain, left upper quadrant Insulin dependent diabetes mellitus Type II or unspecified type diabetes mellitus without mention of complication, not stated as uncontrolled Leukocytosis Leukocytosis, unspecified Elevated liver enzymes Other nonspecific abnormal serum enzyme levels Lung nodules Other nonspecific abnormal finding of lung field 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 Abdominal fluid collection Other ascites 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) Postoperative pain Other acute postoperative pain Severe protein-calorie malnutrition (HCC) Other severe protein-calorie malnutrition Gastric outlet obstruction (HCC) Acquired hypertrophic pyloric stenosis Chronic pancreatitis (HCC) Chronic pancreatitis Severe protein-calorie malnutrition (HCC) Other severe protein-calorie malnutrition Lung nodules- Primary Other nonspecific abnormal finding of lung field documented in this encounter [facility] for visit Narrative* MRI/CT (Routine) - Closed Specialty Diagnoses / Procedures Referred By Contac t Referred To Contact CT IMAGING Diagnoses Adverse effect of treatment, initial encounter Screening for nephropathy Procedures CT ABD/PEL W IVCON CT ABD & PELVIS W/CONTRAST Elias Ellison MD [address] [place] [address] Phone: tel: fax: [facility] [place] [id number] Referral ID Status Reason Start Date Expiration Date V isits Requested Visits Authorized [id number] Closed Auto-Generate d Referral 12/23/2024 06/20/2025 2 2 [facility] for visit Narrative* MRI/CT (Routine) - Closed Specialty Diagnoses / Procedures Referred By Contac t Referred To Contact CT IMAGING Diagnoses Portal vein thrombosis Procedures CT PANCREAS W IVCON CT ABDOMEN W/CONTRAST Elias Ellison MD [address] [place] [address] Phone: tel: fax: [facility] [place] [address] Referral ID Status Reason Start Date Expiration Date V isits Requested Visits Authorized [id number] Closed Auto-Generate d Referral 02/21/2025 08/20/2025 1 1 [facility] Advance Directives No Advanced Directives Records FoundDocuments on File Type Date Recorded Patient 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 Writer Expl anation Advance Directive(s) Advance Directive(s) 09/17/2019 4:43 PM Advance Directive(s) 09/13/2019 12:07 AM Advance Directive(s) 07/11/2019 11:27 AM Advance Directive(s) 02/25/2019 11:12 AM Advance Directive(s) 11/21/2018 12:34 PM Advance Directive(s) 11/14/2018 2:23 AM Advance Directive(s) 11/17/2017 7:05 PM Summary Purpose Family History No Family History Records FoundNo Family History Records FoundNo Family History Records FoundNo Family History Records FoundNo Family History Records Found Reason for Referral Specialty Diagnoses / Procedures Referred By Contac t Referred To Contact Ophthalmology Diagnoses Type 1 diabetes mellitus with hyperglycemia (HCC) Procedures CONSULT TO OPHTHALMOLOGY OFFICE/OUTPATIENT NEW HIGH MDM 60-74 MINUTES Santos Jones MD [address] [place] [address] Referral ID Status Reason Start Date Expiration Date Visits Requested Visits Authorized [id number] Authorized PCP Requested Referral 10/26/2024 1 1 Specialty Diagnoses / Procedures Referred By Contac t Referred To Contact Diagnoses Type 1 diabetes mellitus with hyperglycemia (HCC) Santos Jones MD [address] [place] [id number] Referral ID Status Reason Start Date Expiration Date V isits Requested Visits Authorized [id number] Pending Review 07/25/2024 09/23/2024 1 1 Referral ID Status Reason Start Date Expiration Date V isits Requested Visits Authorized [id number] Pending Review 07/25/2024 09/23/2024 1 1 Referral ID Status Reason Start Date Expiration Date V isits Requested Visits Authorized [id number] Pending Review 07/25/2024 09/23/2024 1 1 Referral ID Status Reason Start Date Expiration Date V isits Requested Visits Authorized [id number] Pending Review 07/25/2024 09/23/2024 1 1 Referral ID Status Reason Start Date Expiration Date V isits Requested Visits Authorized [id number] Pending Review 07/25/2024 09/23/2024 1 1 Specialty Diagnoses / Procedures Referred By Contac t Referred To Contact CT IMAGING Diagnoses Adverse effect of treatment, initial encounter Procedures CT CHEST W IVCON DIAGNOSTIC COMPUTED TOMOGRAPHY THORAX W/CONTRAST Elias Ellison MD [address] [facility] [address] [address] [facility] [place] [address] Referral ID Status Reason Start Date Expiration Date Visits Requested Visits Authorized [id number] Pending Review Auto-Generat ed Referral 12/13/2024 01/12/2026 1 1 Specialty Diagnoses / Procedures Referred By Contac t Referred To Contact CT IMAGING Diagnoses Adverse effect of treatment, initial encounter Screening for nephropathy Procedures CT ABD/PEL W IVCON CT ABD & PELVIS W/CONTRAST Elias Ellison MD [address] [place] [id number] Imaging [id number] Referral ID Status Reason Start Date Expiration Date Visits Requested Visits Authorized [id number] Pending Review Auto-Generat ed Referral 12/13/2024 01/12/2026 1 1 Additional Source Comments Source Comments (unrecognize d section and content) In the event this informatio n is protected by the Federal Confidentiality of Alcohol and Drug Abuse Patient Records regulations: The Federal rules restrict any use of the information to criminally investigate or prosecute any alcohol or drug abuse patient.[facility] event this information is protected by the Federal Confidentiality of Alcohol and Drug Abuse Patient Records regulations: The Federal rules restrict any use of the information to criminally investigate or prosecute any alcohol or drug abuse patient.[facility] the event this information is protected by the Federal Confidentiality of Alcohol and Drug Abuse Patient Records regulations: The Federal rules restrict any use of the information to criminally investigate or prosecute any alcohol or drug abuse patient.[facility] the event this information is protected by the Federal Confidentiality of Alcohol and Drug Abuse Patient Records regulations: The Federal rules restrict any use of the information to criminally investigate or prosecute any alcohol or drug abuse patient.[facility] the event this information is protected by the Federal Confidentiality of Alcohol and Drug Abuse Patient Records regulations: The Federal rules restrict any use of the information to criminally investigate or prosecute any alcohol or drug abuse patient.[facility] the event this information is protected by the Federal Confidentiality of Alcohol and Drug Abuse Patient Records regulations: The Federal rules restrict any use of the information to criminally investigate or prosecute any alcohol or drug abuse patient.[facility] the event this information is protected by the Federal Confidentiality of Alcohol and Drug Abuse Patient Records regulations: The Federal rules restrict any use of the information to criminally investigate or prosecute any alcohol or drug abuse patient.[facility] the event this information is protected by the Federal Confidentiality of Alcohol and Drug Abuse Patient Records regulations: The Federal rules restrict any use of the information to criminally investigate or prosecute any alcohol or drug abuse patient.[facility] the event this information is protected by the Federal Confidentiality of Alcohol and Drug Abuse Patient Records regulations: The Federal rules restrict any use of the information to criminally investigate or prosecute any alcohol or drug abuse patient.[facility] the event this information is protected by the Federal Confidentiality of Alcohol and Drug Abuse Patient Records regulations: The Federal rules restrict any use of the information to criminally investigate or prosecute any alcohol or drug abuse patient.[facility] the event this information is protected by the Federal Confidentiality of Alcohol and Drug Abuse Patient Records regulations: The Federal rules restrict any use of the information to criminally investigate or prosecute any alcohol or drug abuse patient.[facility] the event this information is protected by the Federal Confidentiality of Alcohol and Drug Abuse Patient Records regulations: The Federal rules restrict any use of the information to criminally investigate or prosecute any alcohol or drug abuse patient.[facility] the event this information is protected by the Federal Confidentiality of Alcohol and Drug Abuse Patient Records regulations: The Federal rules restrict any use of the information to criminally investigate or prosecute any alcohol or drug abuse patient.[facility] the event this information is protected by the Federal Confidentiality of Alcohol and Drug Abuse Patient Records regulations: The Federal rules restrict any use of the information to criminally investigate or prosecute any alcohol or drug abuse patient.[facility] the event this information is protected by the Federal Confidentiality of Alcohol and Drug Abuse Patient Records regulations: The Federal rules restrict any use of the information to criminally investigate or prosecute any alcohol or drug abuse patient.[facility] the event this information is protected by the Federal Confidentiality of Alcohol and Drug Abuse Patient Records regulations: The Federal rules restrict any use of the information to criminally investigate or prosecute any alcohol or drug abuse patient.[facility] the event this information is protected by the Federal Confidentiality of Alcohol and Drug Abuse Patient Records regulations: The Federal rules restrict any use of the information to criminally investigate or prosecute any alcohol or drug abuse patient.[facility] the event this information is protected by the Federal Confidentiality of Alcohol and Drug Abuse Patient Records regulations: The Federal rules restrict any use of the information to criminally investigate or prosecute any alcohol or drug abuse patient.[facility] the event this information is protected by the Federal Confidentiality of Alcohol and Drug Abuse Patient Records regulations: The Federal rules restrict any use of the information to criminally investigate or prosecute any alcohol or drug abuse patient.[facility] the event this information is protected by the Federal Confidentiality of Alcohol and Drug Abuse Patient Records regulations: The Federal rules restrict any use of the information to criminally investigate or prosecute any alcohol or drug abuse patient.[facility] the event this information is protected by the Federal Confidentiality of Alcohol and Drug Abuse Patient Records regulations: The Federal rules restrict any use of the information to criminally investigate or prosecute any alcohol or drug abuse patient.[facility] the event this information is protected by the Federal Confidentiality of Alcohol and Drug Abuse Patient Records regulations: The Federal rules restrict any use of the information to criminally investigate or prosecute any alcohol or drug abuse patient.[facility] the event this information is protected by the Federal Confidentiality of Alcohol and Drug Abuse Patient Records regulations: The Federal rules restrict any use of the information to criminally investigate or prosecute any alcohol or drug abuse patient.[facility] the event this information is protected by the Federal Confidentiality of Alcohol and Drug Abuse Patient Records regulations: The Federal rules restrict any use of the information to criminally investigate or prosecute any alcohol or drug abuse patient.[facility] the event this information is protected by the Federal Confidentiality of Alcohol and Drug Abuse Patient Records regulations: The Federal rules restrict any use of the information to criminally investigate or prosecute any alcohol or drug abuse patient.[facility] the event this information is protected by the Federal Confidentiality of Alcohol and Drug Abuse Patient Records regulations: The Federal rules restrict any use of the information to criminally investigate or prosecute any alcohol or drug abuse patient.[facility] the event this information is protected by the Federal Confidentiality of Alcohol and Drug Abuse Patient Records regulations: The Federal rules restrict any use of the information to criminally investigate or prosecute any alcohol or drug abuse patient.[facility]In the event this information is protected by the Federal Confidentiality of Alcohol and Drug Abuse Patient Records regulations: The Federal rules restrict any use of the information to criminally investigate or prosecute any alcohol or drug abuse patient.[facility] HospitalIn the event this information is protected by the Federal Confidentiality of Alcohol and Drug Abuse Patient Records regulations: The Federal rules restrict any use of the information to criminally investigate or prosecute any alcohol or drug abuse patient.[facility]In the event this information is protected by the Federal Confidentiality of Alcohol and Drug Abuse Patient Records regulations: The Federal rules restrict any use of the information to criminally investigate or prosecute any alcohol or drug abuse patient.[facility]In the event this information is protected by the Federal Confidentiality of Alcohol and Drug Abuse Patient Records regulations: The Federal rules restrict any use of the information to criminally investigate or prosecute any alcohol or drug abuse patient.[facility]In the event this information is protected by the Federal Confidentiality of Alcohol and Drug Abuse Patient Records regulations: The Federal rules restrict any use of the information to criminally investigate or prosecute any alcohol or drug abuse patient.[facility] HospitalIn the event this information is protected by the Federal Confidentiality of Alcohol and Drug Abuse Patient Records regulations: The Federal rules restrict any use of the information to criminally investigate or prosecute any alcohol or drug abuse patient.[facility]In the event this information is protected by the Federal Confidentiality of Alcohol and Drug Abuse Patient Records regulations: The Federal rules restrict any use of the information to criminally investigate or prosecute any alcohol or drug abuse patient.[facility] HospitalIn the event this information is protected by the Federal Confidentiality of Alcohol and Drug Abuse Patient Records regulations: The Federal rules restrict any use of the information to criminally investigate or prosecute any alcohol or drug abuse patient.[facility] HospitalIn the event this information is protected by the Federal Confidentiality of Alcohol and Drug Abuse Patient Records regulations: The Federal rules restrict any use of the information to criminally investigate or prosecute any alcohol or drug abuse patient.[facility]In the event this information is protected by the Federal Confidentiality of Alcohol and Drug Abuse Patient Records regulations: The Federal rules restrict any use of the information to criminally investigate or prosecute any alcohol or drug abuse patient.[facility] HospitalIn the event this information is protected by the Federal Confidentiality of Alcohol and Drug Abuse Patient Records regulations: The Federal rules restrict any use of the information to criminally investigate or prosecute any alcohol or drug abuse patient.[facility] HospitalIn the event this information is protected by the Federal Confidentiality of Alcohol and Drug Abuse Patient Records regulations: The Federal rules restrict any use of the information to criminally investigate or prosecute any alcohol or drug abuse patient.[facility] HospitalIn the event this information is protected by the Federal Confidentiality of Alcohol and Drug Abuse Patient Records regulations: The Federal rules restrict any use of the information to criminally investigate or prosecute any alcohol or drug abuse patient.[facility] HospitalIn the event this information is protected by the Federal Confidentiality of Alcohol and Drug Abuse Patient Records regulations: The Federal rules restrict any use of the information to criminally investigate or prosecute any alcohol or drug abuse patient.[facility] HospitalIn the event this information is protected by the Federal Confidentiality of Alcohol and Drug Abuse Patient Records regulations: The Federal rules restrict any use of the information to criminally investigate or prosecute any alcohol or drug abuse patient.[facility] HospitalIn the event this information is protected by the Federal Confidentiality of Alcohol and Drug Abuse Patient Records regulations: The Federal rules restrict any use of the information to criminally investigate or prosecute any alcohol or drug abuse patient.[facility] HospitalIn the event this information is protected by the Federal Confidentiality of Alcohol and Drug Abuse Patient Records regulations: The Federal rules restrict any use of the information to criminally investigate or prosecute any alcohol or drug abuse patient.[facility] HospitalIn the event this information is protected by the Federal Confidentiality of Alcohol and Drug Abuse Patient Records regulations: The Federal rules restrict any use of the information to criminally investigate or prosecute any alcohol or drug abuse patient.[facility] HospitalIn the event this information is protected by the Federal Confidentiality of Alcohol and Drug Abuse Patient Records regulations: The Federal rules restrict any use of the information to criminally investigate or prosecute any alcohol or drug abuse patient.[facility] HospitalIn the event this information is protected by the Federal Confidentiality of Alcohol and Drug Abuse Patient Records regulations: The Federal rules restrict any use of the information to criminally investigate or prosecute any alcohol or drug abuse patient.[facility] HospitalIn the event this information is protected by the Federal Confidentiality of Alcohol and Drug Abuse Patient Records regulations: The Federal rules restrict any use of the information to criminally investigate or prosecute any alcohol or drug abuse patient.[facility] HospitalIn the event this information is protected by the Federal Confidentiality of Alcohol and Drug Abuse Patient Records regulations: The Federal rules restrict any use of the information to criminally investigate or prosecute any alcohol or drug abuse patient.[facility] HospitalIn the event this information is protected by the Federal Confidentiality of Alcohol and Drug Abuse Patient Records regulations: The Federal rules restrict any use of the information to criminally investigate or prosecute any alcohol or drug abuse patient.[facility] HospitalIn the event this information is protected by the Federal Confidentiality of Alcohol and Drug Abuse Patient Records regulations: The Federal rules restrict any use of the information to criminally investigate or prosecute any alcohol or drug abuse patient.[facility] HospitalIn the event this information is protected by the Federal Confidentiality of Alcohol and Drug Abuse Patient Records regulations: The Federal rules restrict any use of the information to criminally investigate or prosecute any alcohol or drug abuse patient.[facility] HospitalIn the event this information is protected by the Federal Confidentiality of Alcohol and Drug Abuse Patient Records regulations: The Federal rules restrict any use of the information to criminally investigate or prosecute any alcohol or drug abuse patient.[facility] HospitalIn the event this information is protected by the Federal Confidentiality of Alcohol and Drug Abuse Patient Records regulations: The Federal rules restrict any use of the information to criminally investigate or prosecute any alcohol or drug abuse patient.[facility] HospitalIn the event this information is protected by the Federal Confidentiality of Alcohol and Drug Abuse Patient Records regulations: The Federal rules restrict any use of the information to criminally investigate or prosecute any alcohol or drug abuse patient.[facility] HospitalIn the event this information is protected by the Federal Confidentiality of Alcohol and Drug Abuse Patient Records regulations: The Federal rules restrict any use of the information to criminally investigate or prosecute any alcohol or drug abuse patient.[facility] HospitalIn the event this information is protected by the Federal Confidentiality of Alcohol and Drug Abuse Patient Records regulations: The Federal rules restrict any use of the information to criminally investigate or prosecute any alcohol or drug abuse patient.[facility] Reason for Visit (unrecogniz ed section and content) Reason Onset Date Comments Refill Request 02/18/2022 Reason Onset Date Comments Refill Request 08/04/2022 Reason Onset Date Comments Refill Request 10/21/2022 Reason Comments Sore Throat X 5 days Reason Comments Prescription Request Reason Comments Insulin Dependent Diabetes Mellitus Reason Comments Insurance Authorization Dexcom G6 Sensor and Transmitter Reason Comments Forms [employer] Reason Onset Date Comments Refill Request 03/23/2023 Reason Onset Date Comments Refill Request 04/20/2023 Reason Comments Refill Request Reason Onset Date Comments Refill Request 05/09/2023 Reason Comments Patient Question Reason Comments Medication Problem Reason Onset Date Comments Refill Request 06/03/2023 Reason Comments Follow Up pancreatic insuffici ency Reason Comments Insulin Dependent Diabetes Mellitus Reason Onset Date Comments Refill Request 01/29/2024 Reason Comments Diabetes Reason Onset Date Comments Refill Request 04/01/2024 Reason Onset Date Comments Refill Request 06/14/2024 Reason Comments Refill Request Reason Onset Date Comments Refill Request 07/24/2024 Reason Comments Medication Preauthorization Omnipod 5 G6 Pods Gen 5 Reason Comments Medication Preauthorization insulin aspa rt U-100 (NOVOLOG U-100 INSULIN ASPART) 100 unit/mL Reason Comments Insurance Authorization Appeal leter OMN IPOD 5 G6 PODS, GEN 5, crtg Reason Comments Medication Preauthorization Novolog fallon ed Reason Comments Medication Preauthorization Dexcom G6 se nsor approved Reason Comments Follow Up Reason Comments Letter OMNIPOD 5 G6 PODS, G EN 5, crtg [ANTHEM] Reason Onset Date Comments Refill Request 10/27/2024 Reason Comments Established Patient Reason Onset Date Comments Refill Request 01/19/2025 Reason Comments New Patient Lung nodules/lymphad enopathy Nodule Reason Onset Date Comments Refill Request 03/17/2025 Reason Onset Date Comments Refill Request 05/16/2025 Reason Comments Patient Update Reason Comments Radiology CT Specialty Diagnoses / Procedures Referred By Contac t Referred To Contact [facility] Diagnoses Lung nodules Procedures CT CHEST WO IVCON DIAGNOSTIC COMPUTED TOMOGRAPHY THORAX W/O Sondra Solares MD [address] [place] [address] Phone: tel: fax: [place] [phone] Referral ID Status Reason Start Date Expiration Date V isits Requested Visits Authorized [id number] Closed Auto-Generate d Referral 06/06/2025 12/02/2025 1 1 Reason Onset Date Comments Refill Request 07/13/2025 Reason Comments Established Patient Nodule (unrecognized sect ion and content) No Status Records FoundNo Status Records FoundNo Status Records FoundNo Status Records FoundNo Status Records Found INFORMATION SOURCE (unrecogn ized section and content) DATE CREATED AUTHOR 05/12/2022 [facility] DATE CREATED AUTHOR AUTHOR'S ORGANIZ ATION 06/08/2024 [facility] DATE CREATED AUTHOR AUTHOR'S ORGANIZ ATION 01/29/2025 [facility] DATE CREATED AUTHOR AUTHOR'S ORGANIZ ATION 03/23/2025 [facility] DATE CREATED AUTHOR AUTHOR'S ORGANIZ ATION 08/06/2025 [facility] FOR RECORDS PERTAINING TO PATIENTS WHO ARE OR HAVE BEEN ENROLLED IN A CHEMICAL DEPENDENCY/SUBSTANCEABUSE PROGRAM, SOME INFORMATION MAY BE OMITTED. This clinical summary was aggregated from multiple sources. Caution should be exercised in using it in the provision of clinical care. This summary normalizes information from multiple sources, and as a consequence, information in this document may materially change the coding, format and clinical context of patient data. In addition, data may be omitted in some cases. CLINICAL DECISIONS SHOULD BE BASED ON THE PRIMARY CLINICAL RECORDS. [facility]. provides no warranty or guarantee of the accuracy or completeness of information in this document.
[2025-10-11 20:48] VITALS: BP 120/71; PULSE 60; RESP 16; TEMP 36.6; O2SAT 100
== END 2025-10-11 20:55 | disposition home or self-care (01) ==
PROVIDERS: Emergency Provider Student in an Organized Health Care Education/Training Program; Visit Provider Student in an Organized Health Care Education/Training Program
DX: S61.512A Laceration without foreign body of left wrist, initial encounter (principal); Z79.4 Long term (current) use of insulin; E11.9 Type 2 diabetes mellitus without complications; Z87.891 Personal history of nicotine dependence; X58.XXXA Exposure to other specified factors, initial encounter; Z23 Encounter for immunization
CPT/HCPCS: 12002; 90471; 90715; 99285